=== PATIENT | female | born 1990 | race Caucasian/White ===

== ENCOUNTER 2025-01-17 14:54 | Inpatient (IN) | payer OTHER, SELFPAY ==
[2025-01-17] VITALS (41 sets, daily range): BP systolic 85–136; BP diastolic 41–84; PULSE 67–91; RESP 12–26; TEMP 36.5–36.8; O2SAT 79–100; BMI 36.4
--- NOTE | ~2025-01-17 | CT_ITS ---
CTA chest PE protocol Ordering provider: Kenneth Gómez MD History: 34 years Female with . Hx DVT, hypoxia 78% . Comparison: None. Technique: CT angiogram chest was performed following timed intravenous injection of contrast. Thin s lice axial images and reformatted coronal images were obtained. Three dimensional reformatted images of the chest were also obtained using a [employer] workstation. . Automated exposure control and iterati ve reconstruction technique were employed. The dose-length product was 405.33 mGy-cm. 100 mL Omnipaqu e 350 was given IV. Findings: PULMONARY ARTERIES: No pulmonary embolus. VISUALIZED THORACIC INLET: Normal. MEDIASTINUM: Aorta/coronary arteries: The thoracic aorta is normal. Heart/other: The heart is not enlarged. Lymph nodes: No mediastinal or hilar adenopathy. LUNGS: Consolidation seen in the lower lobes more on the left side suggestive of pneumonia. No pulmonary nod ules or masses. No effusions. No pneumothorax. VISUALIZED UPPER ABDOMEN: Contracted gallbladder. Otherwise, the visualized upper abdomen is normal. MUSCULOSKELETAL: Soft tissues: The superficial soft tissues are normal. Bones: Normal spine. IMPRESSION: 1. No pulmonary embolism. 2. Bilateral basal pneumonia. Reviewed, dictated and finalized at location A.
--- NOTE | ~2025-01-17 | XR_ITS ---
XR chest 1V portable Ordering provider: Kenneth Gómez MD History: 34 years Female with . hypoxia . Comparison: September 29, 2012 FINDINGS: MEDIASTINUM: The cardiac silhouette is slightly enlarged. Slightly congestive regis. LUNGS: No effusions or pneumothorax. Prominent markings in with interstitial thickening is seen bilat erally which may indicate pneumonitis versus pulmonary edema. OTHER: No free air under the phragm. Degenerative changes of the spine. IMPRESSION: Bilateral interstitial thickening suggestive of pneumonitis versus pulmonary edema. Clinical correlat ion and follow-up advised. Reviewed, dictated and finalized at location A. IMPRESSION: Bilateral interstitial thickening suggestive of pneumonitis versus pulmonary ed lin. Clinical correlation and follow-up advised.
--- NOTE | ~2025-01-17 | XR_ITS ---
XR chest 1V portable 01/22/2025 13:54 Indication: Respiratory failure Procedure: AP portable chest Comparison: Comparison to multiple prior studies sequentially, with oldest reviewed study dated 05/2012. Findings: Bibasilar infiltrates have improved since prior examination. No significant effusion or pne umothorax. No acute osseous abnormality. Impression: 1: Improved bandlike opacities of the lung bases which may represent atelectasis and/or pneumonia. Reviewed, dictated and finalized at location A. Impression: 1: Improved bandlike opacities of the lung bases which may represent atelectasi s and/or pneumonia.
--- NOTE | ~2025-01-17 | XR_ITS ---
Portable chest x-ray Comparison: 01/17/2025 Clinical History: Pneumonia Findings: There is patchy bibasilar airspace disease. No pleural effusions. Cardiomediastinal silho uette is stable. Bones and soft tissues are unremarkable. Impression: Patchy bibasilar airspace disease could reflect atelectasis/edema versus possibly pneumonia. Correlat e clinically. Reviewed, dictated and finalized at location . Impression: Patchy bibasilar airspace disease could reflect atelectasis/edema versus possib ly pneumonia. Correlate clinically.
--- OUTSIDE RECORDS SUMMARY | 2025-01-17 14:56 | XMS_ITS | Referral Summary ---
[facility] Address [address] [place] [address] Care Team Providers Care Dehorner Name Role Phone Mere Marcus MD Unavailable [phone] Moris Gipson DO Primary Care Provider + Encounters Date Type Department Care Team Description 12/30/[address] [facility] Obstetrical Gynecology [address] [place] [address] [address] [place] [address] Harriet Parker CNM 11/05/2024 Telephone [facility] Obstetrical Gynecology [address] [place] [address] [address] [place] [address] Tami Hood CNM from Last 3 Months Allergies No known active allergies Medications escitalopram (LEXAPRO) 20 mg tablet Take 1 tablet (20 mg total) by mouth daily 2 Active buprenorphine-nal oxone (SUBOXONE) 8-2 mg per film 2 Active diazePAM (VALIUM) 5 mg tablet 2 Active docusate sodium (COLACE) 100 mg capsule 2 Active naloxone (NARCAN) 4 mg/actuation spray,non-aerosol CALL 911. SPR CONTENTS OF ONE SPRAYER (0.1ML) INTO ONE NOSTRIL. REPEAT IN 2-3 MIN IF SYMPTOMS OF OPIOID EMERGENCY PERSIST, ALTERNATE NOSTRILS 2 Active QUEtiapine (SEROquel) 100 mg tablet Take 1 tablet (100 mg total) by mouth nightly at bedtime 2 Active albuterol HFA (PROVENTIL HFA,VENTOLIN HFA,PROAIR HFA) 90 mcg/actuation inhaler 4 Active Symbicort 80-4.5 mcg/actuation inhaler 4 Active tiZANidine (ZANAFLEX) 2 mg tablet 4 Active mirtazapine (REMERON) 45 mg tablet 4 Active prazosin (MINIPRESS) 2 mg capsule 4 Active QUEtiapine (SEROquel) 200 mg tablet 4 Active QUEtiapine (SEROquel) 25 mg tablet 4 Active QUEtiapine (SEROquel) 300 mg tablet 4 Active norethindrone (MICRONOR) 0.35 mg tabletIndications : Contraception Take 1 tablet (0.35 mg total) by mouth daily 84 tablet 3 4 06/26/20 25 Active metroNIDAZOLE (FLAGYL) 500 mg tablet Take 1 tablet (500 mg total) by mouth 2 (two) times a day for 7 days 14 tablet 5 01/07/20 25 Active Problems Problem Noted Date Diagnosed Date Benzodiazepine withdrawal with complication 02/20 Seizure 03/04/2022 Illicit drug use 03/04/2022 Transaminitis 03/04/2022 Hepatitis C test positive Immunizations Immunization Administration Dates Next Due HPV9 11/03/2022,06/16/2022 Social History Tobacco Use Types Packs/Day Years Used Date Smoking Tobacco: Every Day Cigarettes Smokeless Tobacco: Never Comments No Sex and Gender Information Value Date Recorded Sex Assigned at Not on file Legal Sex Female 9:13 PM [employer] Gender Identity Female 06/18/2022 11:28 AM CDT Sexual Orientation Straight 06/18/2022 11 :28 AM CDT Last Filed Vital Signs Vital Sign Reading Time Taken Comments Blood Pressure 118/80 11/03/2022 2:45 PM [employer] Pulse 97 03/11/2022 8:20 AM CDT Temperature 36.9 C (98.4 F) 03/11/2022 4:51 AM CDT Respiratory Rate 16 03/11/2022 4:51 AM CDT Oxygen Saturation 95% 03/11/2022 4:51 AM CDT Inhaled Oxygen Concentration - - Weight 89 kg (196 lb 3.2 oz) 02/12/2024 11:47 AM CDT Height 157.5 cm (5' 2 ) 02/12/2024 11:47 AM CDT Body Mass Index 35.89 02/12/2024 11:47 AM CDT Plan of Treatment Not on file Procedures Procedure Name Priority Date/Time Associated Diagnosis Comments HIGH RISK HPV DNA DETECTION WITH GENOTYPING Routine 02/12/2024 1:55 PM CDT Encounter for annual routine gynecological examination Abnormal menstrual periods Screen for STD (sexually transmitted disease) HEPATITIS C RNA, QUANTITATIVE, PCR Routine 03/08/2022 1:08 PM CDT from Last 3 Months or Most Recently Relevant to Health Maintenance Results * High Risk HPV DNA Detection with Genotyping (Molecular component) (02/12/2024 1:55 PM CDT) HPV HR 16 Not Detected Not Detected [facility] Comment:Testing performed by : [facility], [address] [place]., [address] HPV HR 18 Not Detected Not Detected [facility] Comment:Testing performed by : [facility], [address] [place]., [address] HPV HR Non 16/18 Not Detected Not Detected [facility] Comment: Interpretive Data Nucleic acid amplification for detection of high-risk Human Papilloma virus (HPV) is performed by the [employer] Tony 6800 HPV test. This assay specifically detects HPV-16 and HPV-18 genotypes. The following HPV genotypes are detected as high-risk HPV: HPV-31, 33, 35, ,39, 45, 51, 52, 56, 58, 59, 66, and 68. This assay has been approved by the [place] Food and Drug Administration for detection of HPV in cervical specimens collected by a physician using an endocervical brush/spatula or cervical broom and placed in the ThinPrep Pap Test PreservCyt collection containers. The performance characteristics of this test have been verified by the [facility] Molecular Infectious Disease laboratory. Correlate with separately reported cytology results, as applicable. Interpretive data last revised 23 Testing performed by: [facility], [address] [place]., [address] Endocervical 02/12/2024 1:55 PM CDT 02/13/2024 10:27 AM CDT Narrative [facility] - 02/14/2024 2:06 AM CDT Clinical history and diagnosis->06/16/22 wnl hpv-neg Number of vials->1 Testing type->Screening Last menstrual period (date if known)->amenorrhea Tami Hood CNM LAB BODY FLUIDS AND STOOLS ORDERABLES Final Result [facility] [id number] [facility] [place] [address] [facility] * (ABNORMAL) Hepatitis C (HCV) RNA PCR, quantitative (03/08/2022 1:08 PM CDT) [facility] HCV RNA result Detected( A) [facility] Comment: The quantifiable range of this assay is 15 IU/mL to 100,000,000 IU/mL (1.18 log IU/mL to 8.00 log IU/mL). Testing was performed by the TONY 6800 HCV Test ([employer] Testing performed at [facility] Current Interpretive Data was last revised on 2021 Testing performed by: [facility], [address] [place]., [address] HCV RNA IU/mL 113,000 IUnits/mL [facility] Comment:Testing performed by : [facility], [address] [place]., [address] HCV RNA log IU/mL 5.05 log IUnits/mL [facility] Comment:Testing performed by : [facility], [address] [place]., [address] Blood 03/08/2022 1:08 PM CDT 03/08/2022 4:53 PM CDT Kodi Morales MD LAB MICROBIOLOGY - GENERAL ORDERABLES Final Result [facility] [address] [facility] [place] [address] from Last 3 Months or Most Recently Relevant to Health Maintenance Insurance [facility] Advance Directives For more information, please contact: [phone] * Full Code (Latest Code Status on File) Date Activated Date Inactivated Comments 03/04/2022 5:12 PM 03/11/2022 3:10 PM Care Teams Dehorner Relationship Specialty Start Date End Date Moris Gipson DO [address] [place] [id number] PCP - General Family Medicine 02/24/23 Mere Marcus MD [address] [place] [address] Consulting Physician Gastroenterology 03/10/22
--- OUTSIDE RECORDS SUMMARY | 2025-01-17 14:56 | XMS_ITS | Clinical Summary ---
Author Organization [facility] Address [address] [place] [id number] Care Team Providers Care Field Worker Name Role Phone Unavailable Primary Care Provider Unavailabl e Social History Tobacco Use Types Packs/Day Years Used Date Smoking Tobacco: Never Assessed Comments Unknown Sex and Gender Information Value Date Recorded Sex Assigned at Not on file Legal Sex Female 8:04 PM CDT Gender Identity Not on file Sexual Orientation Not on file Plan of Treatment Health Maintenance Due Date Last Done Comments Cervical Cancer Screening Pa p Smear (Age 30 to 64) Every 3 Years 1990 Annual Physical 1993 DTaP, Tdap and Td Vaccines ( 1 - Tdap) 2009 Hepatitis B Vaccines (1 of 3 - 19+ 3-dose series) 2009 Cervical Cancer Screening Pa p with HPV Testing (Age 30 to 64) Every 5 Years 2020 Cervical Cancer Screening with HPV 2020 COVID-19 Vaccine (2023-2 5 season) 2024 Influenza Adult (#1) 2024 Hepatitis C Completed 03/08/2022 HPV Vaccines Aged Out No longer eligi ble based on patient's age to complete this topic Meningococcal B Vaccine Aged Out No l onger eligible based on patient's age to complete this topic Meningococcal Vaccine Aged Out No radha rona eligible based on patient's age to complete this topic Pneumococcal Vaccine: Pediat rics (0 to 5 Years) and At-Risk Patients (6 to 64 Years) Aged Out No longer eligi ble based on patient's age to complete this topic RSV Immunizations Under 20 Months Aged Out No longer eligible based on patient's age to complete this topic
--- OUTSIDE RECORDS SUMMARY | 2025-01-17 14:56 | XMS_ITS ---
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 things, such as reading the newspaper or watching television N ot at all M oving or speaking so slowly that other people could have noticed; or the opposite, being so fidgety or restless that you have been moving around a lot more than usual N ot at all T houghts that you would be better off or of hurting yourself in some way N ot at all T otal Score 7 I nterpretation M ild Depression Intervention D epression Screening Findings P ositive F ollow-Up for Depression N o Referral necessary, patient involved in behavioral health treatment . S creening: Franklin Suicide Severity Rating Scale (LF) D o you want to initiate with S creener form I nterpretation: L ow Risk 6 . Suicide Behavior Question: Have you ever done anything,started to do anything, or prepared to end your life? N o 2 . Suicidal Thoughts: Have you actually had any thoughts of killing yourself? N o 1 . Wish to be : Have you wished you were or wished you could go to sleep and not wake up? N o C SSRS Interpretation and Follow Up Plan: CSSRS Interpretation and Follow Up Plan C SSRS Screen documented using SF Y es R isk Disposition from SF L ow - No Follow Up Plan Required * ROS: P sych ROS: Constitutional A ll systems negative unless indicated otherwise.. P sych D enies AH/VH and delusions, Denies SI/HI. * PSYCH ROS2: mood swings D enies mood lability. I nattention D enies attention deficits. C ompulsive behavior D enies compusive/impulsive behaviors. D epression here and there . M gonzales E ndorses symptoms of tan,Admits irritability. A ppetite a t baseline, no acute changes - gastroparesis, managed by medical provider.?Concentration D enies concentration deficits. S ubstance use D enies - history of illicit substance use, see HPI - has been without illicit substances since approximately .?Panic attacks D enies. A nxiety/Worry E ndorses. I rritability E ndorses. S elf-Harm D enies. S leep S till having intermittent nightmares despite increase in prazosin, although endorses noticeable improvement in nightmares since starting therapy. D epression/Sadness here and there . Shakeel Nair [facility] for details. * Medical History: * Surgical History: r ight elbow-pins placed and removed * Hospitalization/Major Diagno stic Procedure: s eizures 02/2022 * Family History: F ather: , prostate cancer. M other: , healthy. 2 brother(s) - healthy. 2 son(s) , 1 daughter(s) - healthy. . Father-, prostate cancer Mother-Depression, Anxiety Brother-Depression, Anxiety Maternal Aunt-Bipolar Disorder, Anxiety, Depression. * Social History: P rimary Social History: L iving Arrangement L iving Arrangement: I ndependent Living I s this a supportive environment? Y es Alcohol Use A lcohol Use Frequency: N ever Illicit Substance Usage I llicit Substance Usage: Y es has been clean and on suboxone for 117 days reported 06/24/22 S ubstance Used: P rescription Drugs F requency prescription drugs are abused: p atient states her drug of choice was fentanyl and valium.Would take 4-5 caps of fentanyl every couple hours daily. I nterested in quitting: Y es Employment Status E mployment Status: O n Disability T obacco Use: T obacco Control (Standard) T obacco use: C urrent smoker * Medications: T akingAmitiza 24 MCG Capsule 1 capsule with food and water Orally Twice a day Budesonide-Formoterol Fumarate 80-4.5 MCG/ACT Aerosol 2 puffs Inhalation EVERY 12 HOURS Ventolin HFA 108 (90 Base) MCG/ACT Aerosol Solution 2 puffs as needed for shortness of breath Inhalation every 4 hrs Buprenorphine HCl-Naloxone HCl 8-2 MG Film 1 film under the tongue and allow to dissolve Sublingual three times a day Metoclopramide HCl 10 MG Tablet 1 tablet Orally three times a day As needed prior to mealsSenna 8.6 MG Tablet 2 tablets at bedtime as needed Orally Once a day diazePAM 5 MG Tablet 1 tablet as needed Orally three times a day Famotidine 40 MG Tablet 1 tablet Orally twice daily Colace 100 MG Capsule three at bedtime as needed for constipation Orally Once a day Escitalopram Oxalate 20 mg Tablet TAKE 1 TABLET BY MOUTH DAILY , Notes to Pharmacist: Pt would like meds mailed to her please.QUEtiapine Fumarate 300 MG Tablet 1.5 tablet at bedtime Orally Once a day , Notes to Pharmacist: Pt would like meds mailed to her please.Mirtazapine 45 MG Tablet TAKE 1 TABLET BY MOUTH AT BEDTIME , Notes to Pharmacist: Pt would like meds mailed to her please.Prazosin HCl 2 MG Capsule 1 capsule once daily in the morning Orally Prazosin HCl 5 MG Capsule 2 capsule at bedtime Orally Once a day DULoxetine HCl 40 MG Capsule Delayed Release Particles 1 capsule Orally Once a day , Notes to Pharmacist: Patient would like meds mailed to her.QUEtiapine Fumarate ER 50 MG Tablet Extended Release 24 Hour 2 tablets Orally once daily , Notes to Pharmacist: Patient would like meds mailed to her.tiZANidine HCl 2 MG Tablet 1 tablet as needed Orally FOUR times a day Taking Amitiza 24 MCG Capsule 1 capsule with food and water Orally Twice a day Taking Budesonide-Formoterol Fumarate 80-4.5 MCG/ACT Aerosol 2 puffs Inhalation EVERY 12 HOURS Taking Ventolin HFA 108 (90 Base) MCG/ACT Aerosol Solution 2 puffs as needed for shortness of breath Inhalation every 4 hrs Taking Buprenorphine HCl-Naloxone HCl 8-2 MG Film 1 film under the tongue and allow to dissolve Sublingual three times a day Taking Metoclopramide HCl 10 MG Tablet 1 tablet Orally three times a day As needed prior to mealsTaking Senna 8.6 MG Tablet 2 tablets at bedtime as needed Orally Once a day Taking diazePAM 5 MG Tablet 1 tablet as needed Orally three times a day Taking Famotidine 40 MG Tablet 1 tablet Orally twice daily Taking Colace 100 MG Capsule three at bedtime as needed for constipation Orally Once a day Taking Escitalopram Oxalate 20 mg Tablet TAKE 1 TABLET BY MOUTH DAILY , Notes to Pharmacist: Pt would like meds mailed to her please.Taking QUEtiapine Fumarate 300 MG Tablet 1.5 tablet at bedtime Orally Once a day , Notes to Pharmacist: Pt would like meds mailed to her please.Taking Mirtazapine 45 MG Tablet TAKE 1 TABLET BY MOUTH AT BEDTIME , Notes to Pharmacist: Pt would like meds mailed to her please.Taking Prazosin HCl 2 MG Capsule 1 capsule once daily in the morning Orally Taking Prazosin HCl 5 MG Capsule 2 capsule at bedtime Orally Once a day Taking DULoxetine HCl 40 MG Capsule Delayed Release Particles 1 capsule Orally Once a day , Notes to Pharmacist: Patient would like meds mailed to her.Taking QUEtiapine Fumarate ER 50 MG Tablet Extended Release 24 Hour 2 tablets Orally once daily , Notes to Pharmacist: Patient would like meds mailed to her.Taking tiZANidine HCl 2 MG Tablet 1 tablet as needed Orally FOUR times a day Not-TakingOmeprazole 40 MG Capsule Delayed Release 1 capsule 30 minutes before morning meal Orally once daily GoodSense Nicotine 4 MG Gum 1 piece chew for 30 minutes as needed for smoking cessation up to 16 pieces per day Mouth/Throat every hour Movantik 25 mg Tablet TAKE 1 TABLET BY MOUTH EVERY MORNING Bentyl 10 MG/ML Solution 1 mL Intramuscular Four times a day Medication List reviewed and reconciled with the patientNot-Taking Omeprazole 40 MG Capsule Delayed Release 1 capsule 30 minutes before morning meal Orally once daily Not-Taking GoodSense Nicotine 4 MG Gum 1 piece chew for 30 minutes as needed for smoking cessation up to 16 pieces per day Mouth/Throat every hour Not-Taking Movantik 25 mg Tablet TAKE 1 TABLET BY MOUTH EVERY MORNING Not-Taking Bentyl 10 MG/ML Solution 1 mL Intramuscular Four times a day Medication List reviewed and reconciled with the patient Objective: * Vitals: I nitials: CJP, Wt:200, Ht: 63, BMI:35.42, LMP: N/A, Pain scale:6. * Examination: G eneral Examination: GENERAL APPEARANCE: U nable to perform physical examination - patient verbalizes no concerns aside from chronic medical conditions d uring telephone communication. M ental Status Exam: SENSORIUM AND COGNITION A lert, Oriented to Person, Oriented to Place, Oriented to Time, Oriented to Situation. ATTENTION AND CONCENTRATION N o deficits. APPEARANCE U nable to assess due to telephone visit. ATTITUDE AND BEHAVIOR C ooperative. MEMORY G rossly intact. EYE CONTACT U nable to assess due to telephone visit. AFFECT U nable to assess due to telephone visit - inferred to be normal/full to mildly anxious/dysthymic based on conversation. MOOD i nferred to be normal/full to mildly anxious/dysthymic based on conversation. SPEECH QUANTITY A ppropriate. SPEECH QUALITY S pontaneous, Appropriate volume. THOUGHT PROCESS C oherent and goal directed. THOUGHT CONTENT A ppropriate - WNL. LANGUAGE A ppropriate- WNL. MOTOR ACTIVITY U nable to assess due to telephone visit - patient denies. SUICIDAL IDEATION D enies suicidal ideation. HOMICIDAL IDEATION D enies homicidal ideation. HALLUCINATIONS D enies hallucinations. INSIGHT F air. JUDGMENT G ood. Assessment: * Assessment: 1. M ood disorder - F39 (Primary) N otes :r/o bipolar 1, BPD 2 . P TSD (post-traumatic stress disorder) - F43.10 3 . N ightmares - F51.5 4 . O pioid use disorder - F11.99 5 . N icotine dependence, unspecified, uncomplicated - F17.200 6 . N utritional counseling - Z71.3 Plan: * Treatment: 2. P TSD (post-traumatic stress disorder) Increase Prazosin HCl Capsule, 2 MG, 1 capsule in the morning and 1 capsule in the evening/at bedtime WITH prazosin 10mg for TOTAL 12mg at bedtime, Orally, 30 days, 60, Refills 1; I ncrease Prazosin HCl Capsule, 5 MG, 2 capsule at bedtime - take with 2mg capsule for TOTAL 12mg at bedtime, Orally, Once a day, 30 days, 60 Capsule, Refills 1. Notes: See assessment and plan for mood disorder 3. N ightmares Notes: See assessment and plan for mood disorder/PTSD 4. O pioid use disorder Notes: Duration (acute/chronic), stability (controlled/uncontrolled): Previous problem, has been without illicit substances since about - follows up with MAT Current medications/efficacy: Yes Previous medication trials: Suboxone Current/previous therapies: Upcoming counseling with daughter. Also did intake a few weeks ago for therapy - hasn't called to schedule apppointment, planning to call later this week Examination as documented - see pertinent aspects of office visit documentation. Pertinent diagnostics: NOT DISCUSSED DUE TO TIME CONSTRAINTS - WILL DISCUSS AT FUTURE APPOINTMENT Differential diagnoses: RECOMMENDATIONS: Consider/Continue therapy. Continue substance cessation therapy as needed/prescribed by MAT Manage co-morbid conditions. Continue monitoring symptoms - report persistent or worsening/concerning symptoms to the office or go to the ER. For mental health CRISIS, please reach out to [phone] (National Suicide and Crisis Lifeline), 911, go to the emergency department, or contact the [facility] Crisis Unit/Team. Follow up as scheduled or sooner if necessary. Follow up with PCP and/or other specialists as advised. 5. N icotine dependence, unspecified, uncomplicated Notes: Duration (acute/chronic), stability (controlled/uncontrolled): Unknown duration or severity, not discussed today due to time constraints, will discuss at future visit Current medications/efficacy: N/A Previous medication trials: N/A RECOMMENDATIONS: Consider substance cessation therapy as needed - contact office if desiring medication assisted therapy. Manage co-morbid conditions. Continue monitoring symptoms - report persistent or worsening/concerning symptoms to the office or go to the ER. For mental health CRISIS, please reach out to 988 ([place] Suicide and Crisis Lifeline), 911, go to the emergency department, or contact the [facility] Crisis Unit/Team. Follow up as scheduled or sooner if necessary. Follow up with PCP and/or other specialists as advised. NEXT STEP: Consider MAT as needed. * Procedure Codes: 3 008F BODY MASS INDEX [id number] MEDICAL NUTRITION, INDIV, [id number] BEHAV CHNG SMOKING 3-10 MIN * Preventive Medicine: Counseling: C are goal follow-up plan: BMI management provided Y es Above Normal BMI Follow-up L ifestyle education regarding diet S MOKING: Patient counselled on the dangers of tobacco use and urged to quit. . * Follow Up: 4 Weeks OR SOONER IF NECESSARY - TELEPHONE (Reason: 4 week psych follow up/med refill) * * Sign off status: Completed true * Provider: Shakeel Cavanaugh APN Date: 0 01/01/2025 Generated for Elza everett/Martha/Alicia on: 0 01/17/2025 02:56 PM CDT History and Physical Notes * HPI (History of Present Illness) Category Sub-Category Detail Notes Category Not es Depression Screening PHQ-9 Little inte rest or pleasure in doing things: Several days Feeling down, depressed, or hopeless: Se veral days Trouble falling or staying asleep, or sl eeping too much: Not at all Feeling tired or having little energy: M ore than half the days Poor appetite or overeating: More than h detention the days Feeling bad about yourself o r that you are a failure, or have let yourself or your family down: Several days Trouble concentrating on thi ngs, such as reading the newspaper or watching television: Not at all Moving or speaking so slowly that other people could have noticed; or the opposite, being so fidgety or restless that you have been moving around a lot more than usual: Not at all Thoughts that you would be b ayush off or of hurting yourself in some way: Not at all Total Score: 7 Interpretation: Mild Depression Intervention Depression Screening Findings: P ositive Follow-Up for Depression: No Referral necessary, patient involved in behavioral health treatment . GERALDO-7 Screening 1. Feeling nervous, anxious, or on edg e , Several days-1 2. Not being able to stop or control wor rying , Several days-1 3. Worrying too much about different thi ngs , Several days-1 4. Trouble sleeping/relaxing , Not at al l-0 5. Being so restless that it is hard to sit still , Not at all-0 6. Becoming easily annoyed or irritable , Several days-1 7. Feeling afraid, as if something awful might happen , Several days-1 GERALDO-7 Score Total score: 5 : Screening [place] Suicide Sev erity Rating Scale (LF) Do you want to initiate with: Screener form Interpretation:: Low Risk 6. Suicide Behavior Question: Have you ever done anything,started to do anything, or prepared to end your life?: No 2. Suicidal Thoughts: Have you actually had any thoughts of killing yourself?: No 1. Wish to be : Have you wished you were or wished you could go to sleep and not wake up?: No CSSRS Interpretation and Follow Up Plan CSSRS Interpretation and Follow Up Plan CSSRS Screen documented using SF: Yes Risk Disposition from SF: Low - No Follo w Up Plan Required Examination Category Sub-Category Detail Notes Category Not es General Examination GENERAL APPEARANCE: Unable t o perform physical examination - patient verbalizes no concerns aside from chronic medical conditions during telephone communication Mental Status Exam SENSORIUM AND COGNITION Alert, Oriented to Person, Oriented to Place, Oriented to Time, Oriented to Situation ATTENTION AND CONCENTRATION No deficits APPEARANCE Unable to assess due to telephone visit ATTITUDE AND BEHAVIOR Cooperative MEMORY Grossly intact EYE CONTACT Unable to assess due to telephone visit AFFECT Unable to assess due to telephone visit - inferred to be normal/full to mildly anxious/dysthymic based on conversation MOOD inferred to be van l/full to mildly anxious/dysthymic based on conversation SPEECH QUANTITY Appropriate SPEECH QUALITY Spontaneous, Appropr iate volume THOUGHT PROCESS Coherent and goal di rected THOUGHT CONTENT Appropriate - WNL MOTOR ACTIVITY Unable to assess due to telephone visit - patient denies SUICIDAL IDEATION Denies suicidal idea tion HOMICIDAL IDEATION Denies homicidal marlo ation HALLUCINATIONS Denies hallucination s INSIGHT Fair JUDGMENT Good LANGUAGE Appropriate- WNL
--- OUTSIDE RECORDS SUMMARY | 2025-01-17 14:56 | XMS_ITS | Continuity of Care Document ---
Author Organization [facility] Address [address] [place] [address] [place] [address] Phone Care Team Providers Care Pass Worker Name Role Phone Sean Rivera MD Unavailable Unavailable Allergies, Adverse Reactions, Alerts Substance Reaction Status Criticality No Known Allergies Active No Inform ation Medications Medication Instructions Dosage Effective Dates (start - stop) Status Comments trazodone 50 mg tablet take 1 tablet by oral route every bedtime - Active Xanax 2 mg tablet take 1 tablet by oral route every day as needed 2 MG - Active PRN for anxiety, avoid driving or operate machines Neurontin 300 mg capsule take 1 capsule by oral route 3 times every day 300 MG - Active avoid driving or operate machines buspirone 7.5 mg tablet take 1 tablet by oral route 2 times every day 7.5 MG - Active avoid driving or operate machines Celexa 40 mg tablet take 1 tablet by oral route every day 40 MG - Active Procedures Procedure Date PREV VISIT, NEW, AGE 18-39 Advance Directives Directive Yes / No Effective Date File Name No Information Encounters Encounter Description Practice Location Reason(s) For Visit Diagnoses Date Provider Providers Copied on Encounter [facility], [address] [place], [id number], [place] tel:[phone] [facility] No Information Miguel Estrada. [address], [facility] [place], [id number], [place]. tel:[phone] Referring Provider: Sean Rivera, [address] [facility] [address], [place], [place], [id number]. tel:[phone] PREV VISIT, NEW, AGE 18-39 [facility], [address], [place], [place], [id number], tel:[phone] [facility] PHysical (chief complaint) Encntr for general adult medical exam w/o abnormal findings Miguel Estrada. [address], [place], [place], [id number], [place]. tel:[phone] Referring Provider: Sean Rivera, [address], [place], [place], [id number]. tel:[phone] Family History Family Member Type Diagnosis Age At Onset Brother Problem (finding) Depression Father Problem (finding) prostate [place] 55 Mother Problem (finding) Depression Payers Payer name Insurance type Covered alliance party ID Authoriza tion(s) No Information Social History Type Description Quantity Date Captured Comments Alcohol Use Details Unknown Caffeine Use Details Unknown Tobacco Use Status Smoking Status No Information Sex Female Chief Complaint And Reason For Visit No Information Plan Of Treatment Date Type Action Status No Information History Of Present Illness Encounter Date Complaint History Of Prese nt Illness PHysical Pt needs annual physical. Pt states that she has seizure since 5 years ago. Pt states that she has grand mal seizure. Last seizure was 2 years ago. Pt had MRi and brain and EEG in the past which were all negative per patient. Pt is on neurontin, xanax and celexa and buspar and trazodone for chronic anxiety and depression and insomnia and is currently working ok. Pt denies any suicidal or homicidal thought. Pt denies any cyirng spells. Pt states that trazodone sometimes gives her nightmares. Pt is seeing psychiatrist but she no longer wants to continue to see him. Pt states that her psychiatrist does not listen to her concerns and brushs off her issue all the time. Pt told her psychiatrist about trazodone causing nightmares but psychiatrist did not do anything for her. Pt denies any other complaints Instructions Date Instruction Additional Rebecca oakes Quit smoking. Related to Encnt r for general adult medical exam w/o abnormal findings Quit smoking. Related to Encnt r for general adult medical exam w/o abnormal findings Assessments Type Assessment Date No Information
--- OUTSIDE RECORDS SUMMARY | 2025-01-17 14:56 | XMS_ITS ---
Author Organization [facility] Address [address] [place] [address] Care Team Providers Care Script Artist Name Role Phone Cecil Gipson Primary Care Provider Serjio Cavanaugh Unavailable [phone] REASON FOR VISIT refills Medications Medication SIG (Take, Route, Frequency, Duration) Notes Start Date End Date Status diazePAM 5 MG 1 tablet as needed O rally three times a day for 7 days 01/10/2025 Active Social History Sex Assigned At : Social History Observation Description Sex Assigned At Female Encounters Encounter Location Date Provider Diagnosis [address] [address] 01/10/2025 Cecil Gipson Benzodiazepine dependence F13.20 Assessments Encounter Date Diagnosis (ICD Code) Assessment Notes Treatment Notes Treatment Clinical Notes Section Notes 01/10/2025 Benzodiazepine dependence (ICD-10 - F13.20) Plan Of Treatment Medication Medication Name Sig Start Date Stop Date Notes diazePAM 5 MG 1 tablet as needed O rally three times a day for 7 days 01/10/2025 Progress Notes * Annie HERNANDEZOB: 1 (34 yo F)Acc No.[id number]:01/10/2025 Patient: Birgit KERR :1990 A ge:34 Y S ex:Female Address:[address] [place] [address] [address] , [place], [address] * Refills Refill diazePAM Tablet, 5 MG, Orally, 21 Tablet, 1 tablet as needed, three times a day, 7 days, Refills=0 * true * Date: Generated for Elza everett/Martha/Alicia on: 0 01/17/2025 02:56 PM CDT
--- OUTSIDE RECORDS SUMMARY | 2025-01-17 14:56 | XMS_ITS | Clinical Summary ---
Author Organization [facility] Address [address] [place] [address] Care Team Providers Care Paleobotanist Name Role Phone Mere Marcus MD Unavailable [phone] Moris Gipson DO Primary Care Provider + Allergies No known active allergies Medications escitalopram [...] for 7 days 14 tablet 5 01/07/20 Active Problems Problem Noted Date Diagnosed Date Benzodiazepine withdrawal with complication 02/20 Seizure 03/04/2022 Illicit drug use 03/04/2022 Transaminitis 03/04/2022 Hepatitis C test positive Encounters Date Type Department Care Team Description 12/30/2024 Orders Only [facility] Medical [facility] Obstetrical Gynecology [address] [place] [address] [place] [phone] Harriet Parker CNM 11/05/2024 Telephone [facility] Obstetrical Gynecology [address] [place] [address] [place] [phone] Tami Hood CNM from Last 3 Months Immunizations Immunization Administration Dates Next Due HPV9 11/03/2022,06/16/2022 Medical History Medical History Date Comments Illicit drug use IV drug user Family History Medical History Relation Name Comments Breast cancer Neg Hx Social History Tobacco Use Types Packs/Day Years Used Date Smoking Tobacco: Every Day Cigarettes Smokeless Tobacco: Never Comments No Sex and Gender Information Value Date Recorded Sex Assigned at Not on file Legal Sex 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 ) Pulse 97 03/11/2022 8:20 AM CDT Temperature [...] 02/12/2024 11:47 AM CDT Plan of Treatment Health Maintenance Due Date Last Done Comments Depression Screening 1990 DTaP/Tdap/Td Vaccine (6 - Tdap) 2001 04/17/1996, 02/18/1992, 05/15/1991, Additional history exists Varicella Vaccines (1 of 2 - 13+ 2-dose series) 2003 Pneumococcal vaccine <65 (1 of 2 - PCV) 2009 HPV Vaccines (3 - 3-dose SCD M series) 01/26/2023 11/03/2022, 06/16/2022 Influenza Vaccine (#1) 2024 Cervical Cancer Screening 02/11/2025 02/12/2024, Regular Well Visit/Exam 18-64 02/11/2025 02/12/2024, 06/16/2022 Hepatitis B Screening Completed 11/27/2000, 000 Hepatitis C Screening Completed 03/08/2022 , 03/07/2022, 03/04/2022 Procedures Procedure Name Priority Date/Time Associated Diagnosis [...] HPV HR 16 Not Detected Not Detected [facility] Comment:Testing performed by : [facility], [address] [place]., [address] HPV HR 18 Not Detected Not Detected [facility] Comment:Testing performed by : [facility], [address] [place]., [address] HPV HR Non 16/18 Not Detected Not [...] this test have been verified by the [facility] Molecular Infectious Disease laboratory. Correlate with separately reported cytology results, as applicable. Interpretive data last revised 23 Testing performed by: [facility], [address] [place]., [address] Endocervical 02/12/2024 1:55 PM CDT 02/13/2024 10:27 AM CDT Narrative [facility] 02/14/2024 2:06 AM CDT Clinical history and diagnosis->06/16/22 wnl hpv-neg Number of vials->1 Testing type->Screening Last menstrual period (date if known)->amenorrhea Tami Hood CNM LAB BODY FLUIDS AND STOOLS ORDERABLES Final Result [facility] [address] [facility] [place] [address] [facility] * (ABNORMAL) Hepatitis C (HCV) RNA PCR, quantitative (03/08/2022 1:08 PM CDT) [facility] HCV RNA result Detected( A) [facility] Comment: The quantifiable range of this assay is 15 IU/mL to 100,000,000 IU/mL (1.18 log IU/mL to 8.00 log IU/mL). Testing was performed by the [employer]ONY 6800 HCV Test ([employer] Testing performed at [facility] Current Interpretive Data was last revised on 2021 Testing performed by: [facility], [address] [facility], [address] HCV RNA IU/mL 113,000 IUnits/mL [facility] Comment:Testing performed by : [facility], [address] [facility], [address] HCV RNA log IU/mL 5.05 log IUnits/mL [facility] Comment:Testing performed by : [facility], [address] [facility], [address] Blood 03/08/2022 1:08 PM CDT 03/08/2022 4:53 PM CDT Kodi Morales MD LAB MICROBIOLOGY - GENERAL ORDERABLES Final Result [facility] [id number] [facility] Department [place] [address] from Last 3 Months or Most Recently Relevant to Health Maintenance Insurance [facility] Advance Directives For more information, please contact: [phone] * Full Code (Latest Code Status on File) Date Activated Date Inactivated Comments 03/04/2022 5:12 PM 03/11/2022 3:10 PM Care Teams Paleobotanist Relationship Specialty Start Date End Date Moris Gipson DO [address] [facility] [address] [place] [address] PCP - General Family Medicine 02/24/23 Mere Marcus MD [address] [facility] [address] [place] [address] Consulting Physician Gastroenterology 03/10/22
--- OUTSIDE RECORDS SUMMARY | 2025-01-17 14:56 | XMS_ITS | Clinical Summary ---
Author Organization [facility] Address [address] [facility] [address] 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
--- OUTSIDE RECORDS SUMMARY | 2025-01-17 14:56 | XMS_ITS | Encounter Summary ---
Author Organization [facility] Address [address] [place] [address] Care Team Providers Care Desktop Support Consultant Name Role Phone Unavailable Primary Care Provider Roberto Carlos e Encounter Details Date Type Department Care Team (Late st Contact Info) Description 12/08/2008 Outpatient Historical [facility], Authorized P NO ADDRESS ON FILE Joel Morrow MD NO ADDRESS ON FILE Unspecified Asthma, with Exacerbation; Encounter for Long-Term (Current) Use of Other Medications; Encounter for Long-Term (Current) Use of Steroids Social History Tobacco Use Types Packs/Day Years Used Date Smoking Tobacco: Never Assessed Comments Unknown Sex and Gender Information Value Date Recorded Sex Assigned at Not on file 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 Gender Identity Not on file Sexual Orientation Not on file documented as of this encounter Plan of Treatment Not on file documented as of this encounter Procedures Procedure Name Priority Date/Time Associated Diagnosis Comments XR CHEST PA AND LATERAL 2 VW Routine 12/08/2008 10:21 AM AGRICULTURAL CHEMICALS INSPECTOR documented in this encounter Results * XR CHEST PA AND LATERAL (12/08/2008 10:21 AM AGRICULTURAL CHEMICALS INSPECTOR) Anatomical Region Laterality Modality Chest Other 12/08/2008 10:2 1 AM AGRICULTURAL CHEMICALS INSPECTOR Narrative 12/08/2008 10:41 AM AGRICULTURAL CHEMICALS INSPECTOR [facility] [address] [place], [place] [address] Admit Date: 12/08/2008 ELYSIA HERNANDEZ Sex: F Admit Prov: ER, AUTHORIZED P Date: 1990 Primary Care Prov: CMRN: [id number] Room: ER-A SSN: [id number] IMAGING SERVICES Ordering Prov: N/A Accession Number: [id number] Interpretation CHEST PA AND LATERAL, 12/08/2008 Clinical History: Asthma, shortness of breath. The heart, mediastinum and hilar shadows appear normal. Lungs are completely clear and well expanded. Pleural space is clear. Bony structures appear intact. Impression: Normal chest. . Dictated by: BRYON FINE 12/08/2008 10:29 Electronically signed by: BRYON FINE 12/08/2008 10:40 Transcribed: 12/08/2008 10:34 SMM Procedure Note Bryon Fine MD - 12/08/2008 [facility] [address] [place], [place] [address] Admit Date: 12/08/2008 KUN HERNANDEZEMILEE Pappas Sex: F Admit Prov: JENNA JAMES Date: 1990 Primary Care Prov: CMRN: [id number] [facility] [id number] IMAGING SERVICES Ordering Prov: N/A Interpretation CHEST PA AND LATERAL, 12/08/2008 Clinical History: Asthma, shortness of breath. The heart, mediastinum and hilar shadows appear normal. Lungs are completely clear and well expanded. Pleural space is clear. Bonystructures appear intact. Impression: Normal chest. . Dictated by: BRYON FINE 12/08/2008 10:29 Electronically signed by: BRYON FINE 12/08/2008 10:40 Transcribed: 12/08/2008 10:34 SMM Joel Morrow MD DIAGNOSTIC IMAGING OR DERABLES Final Result documented in this encounter Visit Diagnoses Diagnosis Unspecified asthma, with exacerbation Encounter for long-term (current) use of other medications Encounter for long-term (current) use of steroids documented in this encounter
--- OUTSIDE RECORDS SUMMARY | 2025-01-17 14:56 | XMS_ITS ---
Author Organization [facility] Address [address] [place] [address] Care Team Providers Care Straight Truck Driver Name Role Phone Cecil Gipson Primary Care Provider Serjio Cavanaugh Unavailable [phone] Allergies No Known Allergies REASON FOR VISIT f/u Medications Medication SIG (Take, Route, Frequency, Duration) Notes Start Date End Date Status Omeprazole 40 MG 1 capsule 30 minutes before morning meal Orally once daily Not-Taking GoodSense Nicotine 4 MG 1 piece chew for 30 minutes as needed for smoking cessation up to 16 pieces per day Mouth/Throat every hour 10/04/2024 Not-Taking Movantik 25 mg TAKE 1 TABLET BY MOUTH EVERY MORNING for 30 days Not-Taking Bentyl 10 MG/ML 1 mL Intramuscular Four times a day Not-Taking diazePAM 5 MG 1 tablet as needed Orally three times a day for 7 days 01/10/2025 Active Famotidine 40 MG 1 tablet Orally twice daily Active Colace 100 MG three at bedtime as needed for constipation Orally Once a day Active tiZANidine HCl 2 MG 1 tablet as needed Orally FOUR times a day for 30 days Active Metoclopramide HCl 10 MG 1 tablet Orally three times a day for 30 days As needed prior to meals Active Senna 8.6 MG 2 tablets at bedtime as needed Orally Once a day for 30 days 07/04/2024 Active QUEtiapine Fumarate ER 50 MG 2 tablets Orally once daily for 30 days Patient would like meds mailed to her. Active Amitiza 24 MCG 1 capsule with food and water Orally Twice a day Active Budesonide-Formoterol Fumarate 80-4.5 MCG/ACT 2 puffs Inhalation EVERY 12 HOURS Active Ventolin HFA 108 (90 Base) MCG/ACT 2 puffs as needed for shortness of breath Inhalation every 4 hrs 11/30/2023 Active Buprenorphine HCl-Naloxone HCl 8-2 MG 1 film under the tongue and allow to dissolve Sublingual three times a day for 14 days 12/17/2024 Active Mirtazapine 45 MG TAKE 1 TABLET BY MOUTH AT BEDTIME for 30 days Pt would like meds mailed to her please. Active Prazosin HCl 2 MG 1 capsule in the morning and 1 capsule in the evening/at bedtime WITH prazosin 10mg for TOTAL 12mg at bedtime Orally for 30 days Active Prazosin HCl 5 MG 2 capsule at bedtime - take with 2mg capsule for TOTAL 12mg at bedtime Orally Once a day for 30 days Active DULoxetine HCl 60 MG 1 capsule Orally Once a day for 30 days Patient would like meds mailed to her. Active QUEtiapine Fumarate 300 MG 1.5 tablet at bedtime Orally Once a day for 30 days Pt would like meds mailed to her please. Active Escitalopram Oxalate 20 mg TAKE 1 TABLET BY MOUTH DAILY for 30 days Pt would like meds mailed to her please. Active Social History Tobacco Use: Social History Observation Description Date Details (start date - stop date) Current Smoker NA - NA Sex Assigned At : Social History Observation Description Sex Assigned At Female Tobacco Control (Standard) Question Answer Notes Tobacco use: Current smoker Vital Signs Weight 204 lbs 01/17/2025 Height 63 in 01/17/2025 BMI 36.13 kg/m2 01/17/2025 Blood pressure systolic 120 mm Hg 01/18/20 25 Blood pressure diastolic 86 mm Hg 025 Heart Rate 102 /min 01/17/2025 Oximetry 81 % 01/17/2025 Respiratory Rate 16 /min 01/17/2025 Encounters Encounter Location Date Provider Diagnosis [facility] [place] [address] 01/17/2025 Cecil Gipson Acute respiratory failure with hypoxia J96.01 ; Opioid use disorder F11.99 ; Benzodiazepine dependence F13.20 and Asthma J45.909 Assessments Encounter Date Diagnosis (ICD Code) Assessment Notes Treatment Notes Treatment Clinical Notes Section Notes 01/17/2025 Acute respiratory failure with hypoxia (ICD-10 - J96.01) AGREES TO GO TO CENTRAL ED FOR URGENT EVALUATION AND TREATMENT. SHE UNDERSTANDS THAT SHE RISKS SUDDEN SHOULD SHE AGAIN CHOOSE TO [facility] EVALUATION. 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 F/u. * HPI: I nterim History: DID NOT GET EVALUATED AT [facility] SHE PROMISED TWO WEEKS AGO. DID GET HER REFILLS OF SUBOXONE AND VALIUM. FEELS TIRED AND DIZZY. VERNON WITH ADLS. LEGS SWOLLEN AND TIGHT. GAINED 4 POUNDS IN 2 WEEKS. HAS SHARP RIGHT UPPER CHEST PAIN WITH BREATHING. NO FEVER OR CHILLS. STILL SMOKING. DENIED RECREATIONAL DRUG USE. Emergency room visit N o. Was hospitalized N o. D epression Screening: PHQ-9 L ittle interest or pleasure in doing things?Several days F eeling down, depressed, or hopeless S everal days T rouble falling or staying asleep, or sleeping too much M ore than half the days F eeling tired or having little energy [...] N ot at all T otal Score 9 I nterpretation M ild Depression Intervention D epression Screening Findings P ositive F ollow-Up for Depression N o Referral necessary, patient involved in behavioral health treatment . C SSRS Interpretation and Follow Up Plan: CSSRS Interpretation and Follow Up Plan C SSRS Screen documented using SF Y es R isk Disposition from SF L ow - No Follow Up Plan Required F ollow Up Plan N o Follow Up Plan required at this time. T imeframe of Screening T jordana S creening: Friona Suicide Severity Rating Scale (LF) D o you want to initiate with S creener form 1 . Wish to be : Have you wished you were or wished you could go to sleep and not wake up? N o 2 . Suicidal Thoughts: Have you actually had any thoughts of killing yourself? N o 6 . Suicide Behavior Question: Have you ever done anything,started to do anything, or prepared to end your life? N o I nterpretation: L ow Risk * ROS: B asic ROS: Weight gain A dmits. A dmits S hortness of breath.?Admits C hest pain. A dmits F luid Accumulation in the legs. * Medical History: O UD, IBS-Constipation, Diverticulitis. * Surgical History: r ight elbow-pins placed and removed . * Hospitalization/Major Diagno stic Procedure: s [place] 02/2022. * Family History: F ather: , prostate [...] (Standard) T obacco use: C urrent smoker M iscellaneous: M ethod of learning P referred method of learning: R eading,Discussion,Demonstration,Hearing,Other * Medications: T aking Escitalopram Oxalate 20 mg Tablet TAKE 1 TABLET BY MOUTH DAILY , Notes to Pharmacist: Pt would like meds mailed to her please., Taking QUEtiapine Fumarate 300 MG Tablet 1.5 tablet at bedtime Orally Once a day , Notes to Pharmacist: Pt would like meds mailed to her please., Taking Mirtazapine 45 MG Tablet TAKE 1 TABLET BY MOUTH AT BEDTIME , Notes to Pharmacist: Pt would like meds mailed to her please., Taking Prazosin HCl 2 MG Capsule 1 capsule in the morning and 1 capsule in the evening/at bedtime WITH prazosin 10mg for TOTAL 12mg at bedtime Orally , Taking Prazosin HCl 5 MG Capsule 2 capsule at bedtime - take with 2mg capsule for TOTAL 12mg at bedtime Orally Once a day , Taking DULoxetine HCl 60 MG Capsule Delayed Release Particles 1 capsule Orally Once a day , Notes to Pharmacist: Patient would like meds mailed to her., Taking QUEtiapine Fumarate ER 50 MG Tablet Extended Release 24 Hour 2 tablets Orally once daily , Notes to Pharmacist: Patient would like meds mailed to her., Taking Amitiza 24 MCG Capsule 1 capsule with food and water Orally Twice a day , Taking Budesonide-Formoterol Fumarate 80-4.5 MCG/ACT Aerosol 2 puffs Inhalation EVERY 12 HOURS , Taking Ventolin HFA 108 (90 Base) MCG/ACT Aerosol Solution 2 puffs as needed for shortness of breath Inhalation every 4 hrs , Taking Buprenorphine HCl-Naloxone HCl 8-2 MG Film 1 film under the tongue and allow to dissolve Sublingual three times a day , Taking Metoclopramide HCl 10 MG Tablet 1 tablet Orally three times a day As needed prior to meals, Taking Senna 8.6 MG Tablet 2 tablets at bedtime as needed Orally Once a day , Taking Famotidine 40 MG Tablet 1 tablet Orally twice daily , Taking Colace 100 MG Capsule three at bedtime as needed for constipation Orally Once a day , Taking tiZANidine HCl 2 MG Tablet 1 tablet as needed Orally FOUR times a day , Taking diazePAM 5 MG Tablet 1 tablet as needed Orally three times a day , Not-Taking Omeprazole 40 MG Capsule Delayed Release 1 capsule 30 minutes before morning meal Orally once daily , Not-Taking GoodSense Nicotine 4 MG Gum 1 piece chew for 30 minutes as needed for smoking cessation up to 16 pieces per day Mouth/Throat every hour , Not-Taking Movantik 25 mg Tablet TAKE 1 TABLET BY MOUTH EVERY MORNING , Not-Taking Bentyl 10 MG/ML Solution 1 mL Intramuscular Four times a day * Allergies: N .K.D.A. Objective: * Vitals: I nitials: sw, Wt:204, Ht: 63, BMI:36.13, BP:120/86, HR:102, Oxygen sat %:81, RR:16, LMP: n/a, Pain scale:6. * Examination: G eneral Examination: GENERAL APPEARANCE: w ell developed, well nourished, in no acute distress. HEAD: n ormocephalic, atraumatic. EYES: P ERRLA, sclera and conjunctiva clear. EARS External ears intact. NOSE: n clara patent, no lesions, septum intact. ORAL CAVITY: m ucosa moist. THROAT: n o erythema, no exudate, pharynx normal. NECK/THYROID: n o JVD, no goiter. SKIN: w arm and dry, no rashes. HEART: r egular rate and rhythm, no murmurs. LUNGS: r espirations regular and easy, clear to auscultation bilaterally. ABDOMEN: b owel sounds present, soft, nontender, nondistended, no masses palpable, no organomegaly . MUSCULOSKELETAL: n o joint deformity, swelling, redness, or warmth , ELIZABET upper and lower extremities. EXTREMITIES: n o clubbing, cyanosis, or edema. NEUROLOGIC: c ranial nerves 2-12 grossly intact. Assessment: * Assessment: 1. A cute respiratory failure with hypoxia - J96.01 (Primary) 2 . O pioid use disorder - F11.99 3 . B enzodiazepine dependence - F13.20 4 .?Asthma - J45.909 Plan: * Treatment: 2. O pioid use disorder Clinical Notes: [place]UES * Follow Up: 1 Week (Reason: After evaluation and treatment at hospital) * * Electronic signature of Mikaela Gipson , [id number] on 01/17/2025 at 02:56 PM CDT Sign off status: Pending * Provider: Alexis Gipson Date: 0 01/17/2025 Generated for Elza everett/Martha/Alicia on: 0 01/17/2025 02:56 PM CDT History and Physical Notes * HPI (History of Present Illness) Category Sub-Category Detail Notes Category Not es Interim History Was hospitalized No Emergency room visit No Depression Screening PHQ-9 Little inte rest or pleasure in doing things: Several days Feeling down, depressed, or hopeless: Se veral days Trouble falling or staying a sleep, or sleeping too much: More than half the days Feeling tired or having little energy: M ore than half the days Poor appetite or overeating: More than h michi the days Feeling bad about yourself o [...] some way: Not at all Total Score: 9 Interpretation: Mild Depression Intervention Depression Screening Findings: P ositive Follow-Up for Depression: No Referral necessary, patient involved in behavioral health treatment . Screening Friona Suicide Sev erity Rating Scale (LF) Do you want to initiate with: Screener form 1. Wish to be : Have you wished you were or wished you could go to sleep and not wake up?: No 2. Suicidal Thoughts: Have you actually had any thoughts of killing yourself?: No 6. Suicide Behavior Question: Have you ever done anything,started to do anything, or prepared to end your life?: No Interpretation:: Low Risk CSSRS Interpretation and Follow Up Plan CSSRS Interpretation and Follow Up Plan CSSRS Screen documented using SF: Yes Risk Disposition from SF: Low - No Follo w Up Plan Required Follow Up Plan: No Follow Up Plan requir ed at this time. Timeframe of Screening: Today Examination Category Sub-Category Detail Notes Category Not es General Examination GENERAL APPEARANCE: well dev eloped, well nourished, in no acute distress HEAD: normocephalic, atrau matic EYES: PERRLA, sclera and c onjunctiva clear EARS External ears intact NOSE: nares patent, no les ions, septum intact THROAT: no erythema, no exud ate, pharynx normal NECK/THYROID: no JVD, no goiter HEART: regular rate and rhy thm, no murmurs LUNGS: respirations regular and easy, clear to auscultation bilaterally ABDOMEN: bowel sounds present , soft, nontender, nondistended, no masses palpable, no organomegaly NEUROLOGIC: cranial nerves 2-12 grossly intact SKIN: warm and dry, no brandi hes EXTREMITIES: no clubbing, cyanosi s, or edema MUSCULOSKELETAL: no joint deformity, swelling, redness, or warmth , ELIZABET upper and lower extremities ORAL CAVITY: mucosa moist
--- NOTE | 2025-01-17 15:06 | ECG_ITS ---
Test Date: 2025-01-17 15:14:07 Measurements Intervals [place] Rate: 84 P: 46 TX: 169 QRS: 15 QRSD: 81 T: 37 QT: 333 QTc: 396 Interpretive Statements SINUS RHYTHM NORMAL ECG No previous ECG available for comparison Electronically Signed On 01-18-2025 09:53:10 CDT by Raad Casey M.D.
--- OUTSIDE RECORDS SUMMARY | 2025-01-17 15:07 | XMS_ITS | Patient Health Record ---
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 F17.[address] [address] 05/29/2024 Cecil Gipson Opioid use disorder F11.99 ; Nightmares F51.5 ; Benzodiazepine dependence F13.20 and Contact with and (suspected) exposure to other communicable diseases Z20.[address] [address] 06/04/2024 Alysha Martin Opioid use disorder F11.99 ; Obesity (BMI 30-39.9) E66.9 ; Nicotine dependence, unspecified, uncomplicated F17.200 and Nutritional counseling Z71.[address] [address] 06/04/2024 Rubi Michaels [address] [address] 06/13/2024 Cecil Gipson Benzodiazepine dependence F13.20 ; Mood disorder F39 ; PTSD (post-traumatic stress disorder) F43.10 and Nicotine dependence, unspecified, uncomplicated F17.[address] [address] 07/04/2024 Cecil Gipson Opioid use disorder F11.99 ; Constipation K59.00 ; Benzodiazepine dependence F13.20 ; PTSD (post-traumatic stress disorder) F43.10 and Gastroparesis K31.[address] [address] 07/09/2024 Serjio Cavanaugh Mood disorder F39 ; PTSD (post-traumatic stress disorder) F43.10 ; Nightmares F51.5 ; Opioid use disorder F11.99 and Nicotine dependence, unspecified, uncomplicated F17.[address] [address] 08/05/2024 Cecil Gipson Nicotine dependence, unspecified, uncomplicated F17.200 and Opioid use disorder F11.[address] [address] 08/15/2024 Cecil Gipson Gastroparesis K31.84 ; Benzodiazepine dependence F13.20 ; Dysuria-frequency syndrome N34.3 and Nicotine dependence, unspecified, uncomplicated F17.[address] [address] 09/04/2024 Serjio Cavanaugh Mood disorder F39 ; PTSD (post-traumatic stress disorder) F43.10 ; Nightmares F51.5 ; Opioid use disorder F11.99 and Nicotine dependence, unspecified, uncomplicated F17.[address] [address] 09/18/2024 Serjio Cavanaugh Mood disorder F39 ; PTSD (post-traumatic stress disorder) F43.10 ; Nightmares F51.5 ; Opioid use disorder F11.99 and Nicotine dependence, unspecified, uncomplicated F17.[address] [address] 09/23/2024 Cecil Gipson Benzodiazepine dependence F13.20 ; Opioid use disorder F11.99 and Nicotine dependence, unspecified, uncomplicated F17.200 [address] [place] [address] [place] [address] 10/04/2024 Cecil Gipson Opioid use disorder F11.99 ; Gastroparesis K31.84 ; Asthma J45.909 ; Nicotine dependence, unspecified, uncomplicated F17.200 ; Exposure to potential infection Z20.9 ; Benzodiazepine dependence F13.20 ; Fatigue R53.83 ; Metabolic syndrome E88.810 and Constipation K59.00 Formerly [facility], [facility] [address] [place] [address] 10/25/2024 Cecil Gipson Opioid use disorder F11.99 ; Benzodiazepine dependence F13.20 ; Gastroparesis K31.84 and Constipation K59.[address] [address] 11/27/2024 Serjio Cavanaugh Mood disorder F39 ; PTSD (post-traumatic stress disorder) F43.10 ; Nightmares F51.5 ; Opioid use disorder F11.99 ; Nicotine dependence, unspecified, uncomplicated F17.200 and Nutritional counseling Z71.[address] [address] 12/17/2024 Cecil Gipson Asthma exacerbation J45.901 ; Acute respiratory failure with hypoxia J96.01 ; Opioid use disorder F11.99 ; Gastroparesis K31.84 ; Dorsalgia of lumbosacral region M54.50 ; Constipation K59.00 ; Benzodiazepine dependence F13.20 and Nicotine dependence, unspecified, uncomplicated F17.[address] [address] 01/01/2025 Serjio Cavanaugh Mood disorder F39 ; PTSD (post-traumatic stress disorder) F43.10 ; Nightmares F51.5 ; Opioid use disorder F11.99 ; Nicotine dependence, unspecified, uncomplicated F17.200 and Nutritional counseling Z71.[address] [address] 01/22/2024 Cecil Gipson [address] [address] 01/23/2024 Yina Meza [address] [address] 02/02/2024 Cecil Gipson Mood disorder F39 an d Opioid use disorder F11.[address] [address] 02/05/2024 Cecil Gipson [address] [address] 02/13/2024 Cecil Gipson Hepatitis C B19.[address] [place] [address] 02/29/2024 Cecil Gipson [address] [place] [address] 03/14/2024 Cecil Gipson [address] [place] [address] 03/15/2024 Cecil Gipson [facility] [address] [place] [address] 03/27/2024 Cecil Gipson [address] [place] [address] 05/10/2024 Cecil Gipson [address] [place] [address] 05/29/2024 Cecil Gipson [facility] [address] [address] 05/29/2024 Cecil Gipson Nightmares F51.5 and Benzodiazepine dependence F13.[address] [place] [address] 06/05/2024 Cecil Gipson Opioid use disorder F11.99 and Benzodiazepine dependence F13.[address] [place] [address] 07/01/2024 Cecil Gipson Dorsalgia of lumbosacral region M54.50 [facility] [address] [place] [address] 07/25/2024 Jamal Murphy Benzodiazepine dependence F13.20 [facility] [address] [address] 08/02/2024 Rubi Michaels [address] [place] [address] 08/09/2024 Cecil Gipson Abdominal pain R10.[address] [place] [address] 09/06/2024 Cecil Gipson Benzodiazepine dependence F13.[address] [address] 09/20/2024 Cecil Gipson Benzodiazepine dependence F13.[address] [address] 09/23/2024 Cecil Gipson Benzodiazepine dependence F13.20 and Opioid use disorder F11.[address] [address] 09/27/2024 Cecil Gipson [address] [address] 11/18/2024 Serjio Cavanaugh Mood disorder F39 [address] [address] 12/30/2024 Cecil Gipson Dorsalgia of lumbosacral region M54.[address] [address] 01/10/2025 Cecilleno Gipson Benzodiazepine dependence F13.[address] [address] 08/25/2024 Cecil Gipson Dorsalgia of lumbosacral region M54.50 Assessments Encounter Date Diagnosis (ICD Code) Assessment Notes Treatment Notes Treatment Clinical Notes Section Notes 04/15/2024 Opioid use disorder (ICD-10 - F11.99) 08/09/2024 Abdominal pain (ICD-10 - R10.9) 10/04/2024 Opioid use disorder (ICD-10 - F11.99) 01/17/2025 Acute respiratory failure with hypoxia (ICD-10 - J96.01) AGREES TO GO TO [facility] FOR URGENT EVALUATION AND TREATMENT. SHE UNDERSTANDS THAT SHE RISKS SUDDEN SHOULD SHE AGAIN CHOOSE TO [facility] EVALUATION. 01/17/2025 Opioid use disorder (ICD-10 - F11.99) [place]UES 12/17/2024 Acute respiratory failure with hypoxia (ICD-10 - J96.01) PER BIRGIT'S CHOICE, SHE WILL PROCEED TO [facility] SOON SHE LEAVES THE OFFICE. CONTACTED THE ED. SHE WISHES TO KETTLE [facility] ON HER WAY OUT. OXYGEN 2 L APPLIED. 12/17/2024 Asthma exacerbation (ICD-10 - J45.901) 01/01/2025 Mood disorder (ICD-10 - F39) r/o bipolar 1, BPD Duration (acute/chronic), stability (controlled/uncontro lled): Chronic, mildly uncontrolled Current medications/efficacy : Somewhat, room for improvement Previous medication trials: [...] INCREASE duloxetine as prescribed to assist with anxiety/depression/P TSD - educated patient/guardian on adverse effects, risks [...] techniques, such as guided imagery, journaling, aromatherapy, acupuncture/acupress ure, deep breathing, etc. Practice healthy sleep hygiene [...] HEALTH CRISIS, please reach out to 988 ([employer] Suicide and Crisis Lifeline), 911, go to the emergency department, or contact the [facility] Crisis Unit/Team [phone]. Other helpful numbers include: Youth Cares Line [phone], Warm Support Peer Line [phone], and [place] Admission Line [phone] Follow up as scheduled in 4 weeks or sooner if necessary. Follow up with PCP and/or other specialists as advised. NEXT STEP: Consider adjusting quetiapine further. Consider increasing duloxetine. Consider discussing tapering diazepam. Consider increasing mirtazapine to assist with mood/sleep. Consider further adjusting prazosin. Consider other medication adjustments/addition s as needed. 12/30/2024 Dorsalgia of lumbosacral region (ICD-10 - M54.50) 01/10/2025 Benzodiazepine dependence (ICD-10 - F13.20) 10/04/2024 Gastroparesis (ICD-10 - K31.84) 10/25/2024 Opioid use disorder (ICD-10 - F11.99) 11/18/2024 Mood disorder (ICD-10 - F39) 11/27/2024 Mood disorder (ICD-10 - F39) r/o bipolar 1, BPD Duration (acute/chronic), stability (controlled/uncontro lled): Chronic, mildly uncontrolled Current medications/efficacy : Somewhat, room for improvement Previous medication trials: [...] INCREASE duloxetine as prescribed to assist with anxiety/depression/P TSD - educated patient/guardian on adverse effects, risks [...] techniques, such as guided imagery, journaling, aromatherapy, acupuncture/acupress ure, deep breathing, etc. Practice healthy sleep hygiene [...] MENTAL HEALTH CRISIS, please reach out to 138 (National Suicide and Crisis Lifeline), 911, go to the emergency department, or contact the [facility] Crisis Unit/Team [phone]. Other helpful numbers include: Youth Cares Line [phone], [facility] Warm Support Peer Line [phone], and [place] [facility]mission Line [phone] Follow up as scheduled in 4 weeks or sooner if necessary. Follow up with PCP and/or other specialists as advised. NEXT STEP: Consider adjusting quetiapine further. Consider increasing duloxetine pending response/tolerabilit y. Consider discussing tapering diazepam. Consider increasing mirtazapine to assist with mood/sleep. Consider adding morning dose of prazosin as needed to assist with PTSD. Consider other medication adjustments/addition s as needed. 09/04/2024 Mood disorder (ICD-10 - F39) r/o bipolar 1, BPD Duration (acute/chronic), stability (controlled/uncontro lled): Chronic, mildly uncontrolled Current medications/efficacy : Somewhat, room for improvement Previous medication trials: [...] AT FUTURE APPOINTMENT Differential diagnoses: RECOMMENDATIONS: INCREASE quetiapine as discussed (50mg in the AM, 450mg in the PM at bedtime) - educated patient/guardian on adverse effects, risks [...] techniques, such as guided imagery, journaling, aromatherapy, acupuncture/acupress ure, deep breathing, etc. Practice healthy sleep hygiene [...] HEALTH CRISIS, please reach out to 988 ([employer] Suicide and Crisis Lifeline), 911, go to the emergency department, or contact the [facility] Crisis Unit/Team [phone]. Other helpful numbers include: Youth Cares Line [phone], Warm Support Peer Line [phone], and [place] [facility]mission Line [phone] Follow up as scheduled in 2 weeks or sooner if necessary. Follow up with PCP and/or other specialists as advised. NEXT STEP: Consider switching AM dose to ER formulation to assist with daytime mood/anxiety. Consider discussing tapering diazepam. Consider increasing mirtazapine to assist with mood/sleep. Consider adding morning dose of prazosin as needed to assist with PTSD. Consider other medication adjustments/addition s as needed. 09/18/2024 Mood disorder (ICD-10 - F39) r/o bipolar 1, BPD Duration (acute/chronic), stability (controlled/uncontro lled): Chronic, mildly uncontrolled Current medications/efficacy : Somewhat, room for improvement Previous medication trials: [...] DISCUSS AT FUTURE APPOINTMENT Differential diagnoses: RECOMMENDATIONS: CONTINUE quetiapine 450mg IR at bedtime as prescribed - educated patient/guardian on adverse effects, risks and benefits, as well as alternative treatments INCREASE morning quetiapine to 100mg ER once daily (can take in the evening if desired) - educated patient/guardian on adverse effects, risks and benefits, as well as alternative treatments INCREASE prazosin as prescribed to assist with PTSD/nightmares - educated patient/guardian on adverse effects, risks and benefits, as well as alternative treatments START duloxetine as prescribed to assist with anxiety/depression/P TSD - educated patient/guardian on adverse effects, risks [...] techniques, such as guided imagery, journaling, aromatherapy, acupuncture/acupress ure, deep breathing, etc. Practice healthy sleep hygiene [...] to the emergency department, or contact the [facility] Crisis Unit/Team [phone]. Other helpful numbers include: Youth Cares Line [phone], [facility] Warm Support Peer Line [phone], and [place] [facility]mission Line [phone] Follow up as scheduled in 4 weeks or sooner if necessary. Follow up with PCP and/or other specialists as advised. NEXT STEP: Consider adjusting quetiapine further. Consider increasing duloxetine pending response/tolerabilit y. Consider discussing tapering diazepam. Consider increasing mirtazapine to assist with mood/sleep. Consider adding morning dose of prazosin as needed to assist with PTSD. Consider other medication adjustments/addition s as needed. 09/06/2024 Benzodiazepine dependence (ICD-10 - F13.20) 09/20/2024 Benzodiazepine dependence (ICD-10 - F13.20) 09/23/2024 Benzodiazepine dependence (ICD-10 - F13.20) 09/23/2024 Opioid use disorder (ICD-10 - F11.99) 09/23/2024 Benzodiazepine dependence (ICD-10 - F13.20) 07/25/2024 Benzodiazepine dependence (ICD-10 - F13.20) 08/05/2024 Nicotine dependence, unspecified, uncomplicated (ICD-10 - F17.200) 08/15/2024 Gastroparesis (ICD-10 - K31.84) PERSISTENT ABD PAIN, BLOATING, INCONSISTENT BOWEL MOVEMENTS. WANTS TO SEE DR. ORTIZ IN [place]. 08/15/2024 Benzodiazepine dependence (ICD-10 - F13.20) 08/25/2024 Dorsalgia of lumbosacral region (ICD-10 - M54.50) 07/04/2024 Constipation (ICD-10 - K59.00) 07/04/2024 Opioid use disorder (ICD-10 - F11.99) 07/09/2024 Mood disorder (ICD-10 - F39) r/o bipolar 1, BPD Continue/modify medications as prescribed (Dr. Gipson prescribing diazepam) [...] techniques, such as guided imagery, journaling, aromatherapy, acupuncture/acupress ure, deep breathing, etc. Practice healthy sleep hygiene [...] to the emergency department, or contact the [facility] Crisis Unit/Team [phone]. Other helpful numbers include: Youth Cares Line [phone], Warm Support Peer Line [phone], and [place] [facility]mission Line [phone] Follow up as scheduled or sooner if necessary. Follow up with PCP and/or other specialists as advised. 05/29/2024 Nightmares (ICD-10 - F51.5) 05/29/2024 Nightmares (ICD-10 - F51.5) CancelRx Response got Denied on 2024-05-30 10:37:30 for 'Prazosin HCl 5 MG Capsule'Pharmacy Notes: Unable to Cancel Rx. Please contact Pharmacy 05/29/2024 Opioid use disorder (ICD-10 - F11.99) 06/04/2024 Obesity (BMI 30-39.9) (ICD-10 - E66.9) 06/04/2024 Opioid use disorder (ICD-10 - F11.99) 06/05/2024 Opioid use disorder (ICD-10 - F11.99) 06/13/2024 Mood disorder (ICD-10 - F39) 06/13/2024 Benzodiazepine dependence (ICD-10 - F13.20) 07/01/2024 Dorsalgia of lumbosacral region (ICD-10 - M54.50) 04/23/2024 Nicotine dependence, unspecified, uncomplicated (ICD-10 - F17.200) 04/26/2024 Nicotine dependence, unspecified, uncomplicated (ICD-10 - F17.200) 04/26/2024 Dorsalgia of lumbosacral region (ICD-10 - M54.50) OFF WORK 03/03-04/28/2024. RTW 04/29/2024 WITH RESTRICTIONS OUTLINED IN HX. 05/10/2024 Opioid use disorder (ICD-10 - F11.99) 05/21/2024 Benzodiazepine dependence (ICD-10 - F13.20) DISCUSSED AT LENGTH BENZODIAZEPINE TOLERANCE AND TREATMENT OF WITHDRAWAL VS UNDERLYING, BASELINE SYMPTOMS. DISCUSSED THAT CHRONIC BENZO USE CREATES MORE PROBLEMS THAN IT SOLVES. DISCUSSED NEED FOR SLOW BENZO TAPER AT NEXT VISIT IN TWO WEEKS. WILL DECREASE FROM 15 MG DAILY TO 12.5 TOTAL DAILY DOSE OF DIAZEPAM. 05/21/2024 Opioid use disorder (ICD-10 - F11.99) DOING WELL WITH SUBOXONE 02/13/2024 Hepatitis C (ICD-10 - B19.20) 02/22/2024 Opioid use disorder (ICD-10 - F11.99) 03/05/2024 Nicotine dependence, unspecified, uncomplicated (ICD-10 - F17.200) 03/28/2024 Benzodiazepine dependence (ICD-10 - F13.20) 03/28/2024 Opioid use disorder (ICD-10 - F11.99) 04/15/2024 Benzodiazepine dependence (ICD-10 - F13.20) REDUCEE DOSE OF DIAZEPAM BACK TO PREVIOUS 5 MG BID AND CONTINUE BENZO TAPER DISCUSSED AT PRIOR APPT. DISCUSS FURTHER AT IN PERSON VISIT NEXT MONTH. 01/23/2024 Nicotine dependence, unspecified, uncomplicated (ICD-10 - F17.200) 01/26/2024 Opioid use disorder (ICD-10 - F11.99) DUE FOR SUBOXONE REFILL IN ABOUT 10 DAYS. 01/26/2024 Dorsalgia of lumbosacral region (ICD-10 - M54.50) INCREASE TIZINIDINE 02/02/2024 Mood disorder (ICD-10 - F39) 02/02/2024 Opioid use disorder (ICD-10 - F11.99) 01/23/2024 Opioid use disorder (ICD-10 - F11.99) Continue MAT services Attend , encouraged counseling 03/05/2024 Opioid use disorder (ICD-10 - F11.99) 02/22/2024 Dorsalgia of lumbosacral region (ICD-10 - M54.50) 04/23/2024 Opioid use disorder (ICD-10 - F11.99) Continue MAT services Attend NA, encouraged counseling 05/29/2024 Benzodiazepine dependence (ICD-10 - F13.20) 05/21/2024 Abdominal pain (ICD-10 - R10.9) CHELI SIGNED FOR DR. MASON. TO COMPLETE EVAL AND EXTEND DISABILITY THROUGH 08/22/2024. 05/10/2024 Benzodiazepine dependence (ICD-10 - F13.20) 04/15/2024 Constipation due to pain medication (ICD-10 - K59.03) FAILED COLACE, SENNA, DULCOLAX, MIRALAX, LINZESS, MILK OF MAGNESIA. 05/29/2024 Benzodiazepine dependence (ICD-10 - F13.20) BEGIN SLOW BENZO TAPER MONTHLY WITH REFILL 06/04. DECREASE FROM 15 MG PER DAY TO 12.5 MG PER DAY. DISCUSSED WITH BIRGIT AND SHE AGREES TO PROCEED. DISCUSSED THAT SHE MAY NEED TO REMAIN ON A LOW DOSE AT DUE TO SEVERE NIGHT TERRORS. 06/13/2024 PTSD (post-traumatic stress disorder) (ICD-10 - F43.10) 06/05/2024 Benzodiazepine dependence (ICD-10 - F13.20) 06/04/2024 Nicotine dependence, unspecified, uncomplicated (ICD-10 - F17.200) 07/09/2024 PTSD (post-traumatic stress disorder) (ICD-10 - F43.10) See assessment and plan for mood disorder 07/04/2024 Benzodiazepine dependence (ICD-10 - F13.20) 08/15/2024 Dysuria-frequenc y syndrome (ICD-10 - N34.3) 08/05/2024 Opioid use disorder (ICD-10 - F11.99) 09/23/2024 Opioid use disorder (ICD-10 - F11.99) 09/23/2024 Nicotine dependence, unspecified, uncomplicated (ICD-10 - F17.200) 09/18/2024 PTSD (post-traumatic stress disorder) (ICD-10 - F43.10) See assessment and plan for mood disorder 09/04/2024 PTSD (post-traumatic stress disorder) (ICD-10 - F43.10) See assessment and plan for mood disorder 11/27/2024 PTSD (post-traumatic stress disorder) (ICD-10 - F43.10) See assessment and plan for mood disorder 10/25/2024 Benzodiazepine dependence (ICD-10 - F13.20) HAD DETAILED DISCUSSION RE: INAPPROPRIATENESS OF HALF-WAY BENZO USE. BENZO TOLERAANCE. BENZO WITHDRAWAL. NEED FOR TAPER. SHE IS AFRAID OF REDUCTION FROM 15 MG DAILY TO 14 MG DAILY. AGREES TO REMEMBER TO INITAITE COUNSELING AND TO PREPARE HERSELF MENTALLY FOR THAT MINIMAL REDUCTION IN DAILY BENZO DOSE. 10/04/2024 Asthma (ICD-10 - J45.909) 01/01/2025 PTSD (post-traumatic stress disorder) (ICD-10 - F43.10) See assessment and plan for mood disorder 12/17/2024 Opioid use disorder (ICD-10 - F11.99) 01/17/2025 Benzodiazepine dependence (ICD-10 - F13.20) 01/17/2025 Asthma (ICD-10 - J45.909) 12/17/2024 Gastroparesis (ICD-10 - K31.84) 01/01/2025 Nightmares (ICD-10 - F51.5) See assessment and plan for mood disorder/PTSD 10/25/2024 Gastroparesis (ICD-10 - K31.84) CONTINUES TO GAIN WEIGHT DESPITE THIS DIAGNOSIS. 11/27/2024 Nightmares (ICD-10 - F51.5) See assessment and plan for mood disorder/PTSD 09/04/2024 Nightmares (ICD-10 - F51.5) Duration (acute/chronic), stability (controlled/uncontro lled): Chronic, improved with current therapy Current medications/efficacy : Somewhat, room for improvement Previous medication trials: Prazosin Current/previous therapies: Upcoming counseling with daughter. Also did intake a few weeks ago for therapy - hasn't called to schedule apppointment, planning to call later this week Examination as documented - see pertinent aspects of office visit documentation. Pertinent diagnostics: NOT DISCUSSED DUE TO TIME CONSTRAINTS - WILL DISCUSS AT FUTURE APPOINTMENT Differential diagnoses: RECOMMENDATIONS: Continue/modify medications as prescribed - educated patient/guardian on adverse effects, risks [...] techniques, such as guided imagery, journaling, aromatherapy, acupuncture/acupress ure, deep breathing, etc. Practice healthy sleep hygiene - maintain regular routine, no caffeine after 1PM, no exercise 1-2 hours prior to bedtime, keep bedroom dark and cool, no TV or electronics while in bed. Consider melatonin as needed. Consider cognitive behavioral therapy for insomnia (CBT-I). Consider/Continue therapy. Consider/Continue substance cessation therapy as needed - contact office if desiring medication assisted therapy. Manage co-morbid conditions. Continue monitoring symptoms - report persistent or worsening/concerning symptoms to the office or go to the ER. For mental health CRISIS, please reach out to 988 (National Suicide and Crisis Lifeline), 911, go to the emergency department, or contact the [facility] Crisis Unit/Team. Follow up as scheduled in 2 weeks or sooner if necessary. Follow up with PCP and/or other specialists as advised. NEXT STEP: Consider increasing prazosin as needed. Consider increasing mirtazapine and/or quetiapine as needed to assist with mood/PTSD/sleep management. Increase prazosin to 6mg nightly at bedtime as prescribed - educated patient/guardian on adverse effects, risks and benefits, as well as alternative treatments Practice stress reduction techniques, such as guided imagery, journaling, aromatherapy, acupuncture/acupre ssure, deep breathing, etc. Practice healthy sleep hygiene - maintain regular routine, no caffeine after 1PM, no exercise 1-2 hours prior to bedtime, keep bedroom dark and cool, no TV or electronics while in bed. Consider melatonin as needed. Consider cognitive behavioral therapy for insomnia (CBT-I). Consider/Continue therapy. Manage co-morbid conditions as advised. Continue monitoring symptoms - report persistent or worsening/concerni ng symptoms to the office or go to the ER. For MENTAL HEALTH CRISIS, please reach out to [phone] ([employer] Suicide and Crisis Lifeline), 911, go to the emergency department, or contact the [facility] Crisis Unit/Team [phone]. Other helpful numbers include: Youth Cares Line [phone], [facility] Peer Line [phone], and [facility] Admission Line [phone] Follow up as scheduled or sooner if necessary. Follow up with PCP and/or other specialists as advised. 09/18/2024 Nightmares (ICD-10 - F51.5) See assessment and plan for mood disorder/PTSD 10/04/2024 Nicotine dependence, unspecified, uncomplicated (ICD-10 - F17.200) 08/15/2024 Nicotine dependence, unspecified, uncomplicated (ICD-10 - F17.200) 07/09/2024 Nightmares (ICD-10 - F51.5) Increase prazosin to 6mg nightly at bedtime as prescribed - educated patient/guardian on adverse effects, risks and benefits, as well as alternative treatments Practice stress reduction techniques, such as guided imagery, journaling, aromatherapy, acupuncture/acupress ure, deep breathing, etc. Practice healthy sleep hygiene - maintain regular routine, no caffeine after 1PM, no exercise 1-2 hours prior to bedtime, keep bedroom dark and cool, no TV or electronics while in bed. Consider melatonin as needed. Consider cognitive behavioral therapy for insomnia (CBT-I). Consider/Continue therapy. Manage co-morbid conditions as advised. Continue monitoring symptoms - report persistent or worsening/concerning symptoms to the office or go to the ER. For MENTAL HEALTH CRISIS, please reach out to [phone] ([facility] [facility]icide and Crisis Lifeline), 911, go to the emergency department, or contact the [facility] Crisis Unit/Team [phone]. Other helpful numbers include: Youth Cares Line [phone], [facility] Peer Line [phone], and [facility]mission Line [phone] Follow up as scheduled or sooner if necessary. Follow up with PCP and/or other specialists as advised. 05/29/2024 Contact with and (suspected) exposure to other communicable diseases (ICD-10 - Z20.89) 06/04/2024 Nutritional counseling (ICD-10 - Z71.3) 06/13/2024 Nicotine dependence, unspecified, uncomplicated (ICD-10 - F17.200) 07/04/2024 PTSD (post-traumatic stress disorder) (ICD-10 - F43.10) CONTINUE WITH PSYCH AND BH 04/23/2024 Nightmares (ICD-10 - F51.5) Continue Prazosin 4mg at HS Discussed sleep hygiene BP has been stable according to MAT visits 05/21/2024 Cannabis abuse (ICD-10 - F12.10) DISCUSSED POSSIBLE LINK TO N/V, GI ISSUES 05/10/2024 Dorsalgia of lumbosacral region (ICD-10 - M54.50) 02/22/2024 Mood disorder (ICD-10 - F39) 03/05/2024 Dorsalgia of lumbosacral region (ICD-10 - M54.50) 01/23/2024 Nightmares (ICD-10 - F51.5) Continue Prazosin 4mg at HS Discussed sleep hygiene BP has been stable according to MAT visits 01/23/2024 Mood disorder (ICD-10 - F39) r/o bipolar 1, BPD Continue Seroquel 25mg and continue Seroquel 300mg at HS. Encouraged therapy, pt has contact information Labs reordered because pt failed to complete. Reminded pt to complete her bloodwork. Follow up in 1 month or sooner if needed. Diazepam per Dr. Gipson Benzodiazepines are not recommended for long-term use due to potent and dangerous side effects that include increased drowsiness, memory impairment, increased irritability, mood changes, and worsening of PTSD symptoms. Benzodiazepines increase respiratory depression which can aggravate conditions such as sleep apnea and COPD leading to possible . They should also never be combined with alcohol, pain medications (especially opioids), or street drugs because this can lead to overdose and possible . If you are under the influence of benzodiazepines while operating a motor vehicle and are involved in a car accident you can be charged with driving while intoxicated. Benzodiazepine use increases unsteady gait thereby increasing the risk of falls, broken bones, and concussions. Benzodiazepine use is intended for short-term use, up to 3 weeks at most. Long-term use of benzos can lead to dependence, rebound anxiety/agitation, and withdrawal symptoms that include sleep disturbance, irritability, increased tension and anxiety, panic attacks, hand tremor, sweating, difficulty in concentration, dry retching, and nausea, some weight loss, palpitations, headache, muscular pain and stiffness, and a host of perceptual changes. 03/05/2024 Mood disorder (ICD-10 - F39) DUE TO MOTHER'S TERMINAL ILLNESS, PER PT REQUEST, ALLOWED DIAZEPAM 5 MG TID THIS MONTH. DISCUSSED NEED FOR BENZO TAPER TO RESUME AFTER HER MOTHER'S TIMES ON HOSPICE IS DONE. 05/21/2024 Dysuria-frequenc y syndrome (ICD-10 - N34.3) DISCUSSED OAB VS IC VS ANXIETY 04/23/2024 Mood disorder (ICD-10 - F39) r/o bipolar 1, BPD Continue Seroquel 25mg and continue Seroquel 300mg at HS. Encouraged therapy, pt has contact information Labs reordered because pt failed to complete. Reminded pt to complete her bloodwork. Follow up in 1 month or sooner if needed. Diazepam per Dr. Gipson Antipsychotics education - reviewed side effects which may include metabolic syndrome, movement disorders (EPS/extrapyramidal symptoms & TD/Tardive dyskinesia) - potentially permanent movement abnormalities, NMS/neuroleptic malignant syndrome (high fever, very rigid muscles, and rapid heartbeat - potentially fatal), sedation, and cardiac rhythm abnormalities. Benzodiazepines are not recommended for long-term use due to potent and dangerous side effects that include increased drowsiness, memory impairment, increased irritability, mood changes, and worsening of PTSD symptoms. Benzodiazepines increase respiratory depression which can aggravate conditions such as sleep apnea and COPD leading to possible . They should also never be combined with alcohol, pain medications (especially opioids), or street drugs because this can lead to overdose and possible . If you are under the influence of benzodiazepines while operating a motor vehicle and are involved in a car accident you can be charged with driving while intoxicated. Benzodiazepine use increases unsteady gait thereby increasing the risk of falls, broken bones, and concussions. Benzodiazepine use is intended for short-term use, up to 3 weeks at most. Long-term use of benzos can lead to dependence, rebound anxiety/agitation, and withdrawal symptoms that include sleep disturbance, irritability, increased tension and anxiety, panic attacks, hand tremor, sweating, difficulty in concentration, dry retching, and nausea, some weight loss, palpitations, headache, muscular pain and stiffness, and a host of perceptual changes. 07/04/2024 Gastroparesis (ICD-10 - K31.84) 07/09/2024 Opioid use disorder (ICD-10 - F11.99) Continue/modify medications as prescribed - educated patient/guardian on adverse effects, risks [...] techniques, such as guided imagery, journaling, aromatherapy, acupuncture/acupress ure, deep breathing, etc. Practice healthy sleep hygiene - maintain regular routine, no caffeine after 1PM, no exercise 1-2 hours prior to bedtime, keep bedroom dark and cool, no TV or electronics while in bed. Consider melatonin as needed. Consider cognitive behavioral therapy for insomnia (CBT-I). Continue MAT services - follow up with specialty provider as advised Consider/Continue therapy. Manage co-morbid conditions as advised. Continue monitoring symptoms - report persistent or worsening/concerning symptoms to the office or go to the ER. Follow up as scheduled or sooner if necessary. Follow up with PCP and/or other specialists as advised. 09/18/2024 Opioid use disorder (ICD-10 - F11.99) Duration (acute/chronic), stability (controlled/uncontro lled): Previous problem, has been without illicit substances since about - follows up with MAT Current medications/efficacy : Yes Previous medication trials: Suboxone Current/previous therapies: [...] health CRISIS, please reach out to [phone] ([facility] Suicide and Crisis Lifeline), 911, go to the emergency department, or contact the [facility] Crisis Unit/Team. Follow up as scheduled or sooner if necessary. Follow up with PCP and/or other specialists as advised. 09/04/2024 Opioid use disorder (ICD-10 - F11.99) Duration (acute/chronic), stability (controlled/uncontro lled): Previous problem, has been without illicit substances since about (a little over 2.5 years now) - follows up with MAT Current medications/efficacy : Yes Previous medication trials: Suboxone Current/previous therapies: [...] health CRISIS, please reach out to 988 ([facility] [facility]icide and Crisis Lifeline), 911, go to the emergency department, or contact the [facility] Crisis Unit/Team. Follow up as scheduled or sooner if necessary. Follow up with PCP and/or other specialists as advised. Continue/modify medications as prescribed - educated patient/guardian on adverse effects, risks and benefits, as well as alternative treatments Consume well balanced diet, preferably low in saturated fats (solid at room temperature, such as butter, margarine, Crisco, etc) and low in sodium (<2,000mg per day). Consume plenty of fruits/vegetables, healthy grains/whole grains, unsaturated/health y fats (liquid at room temperature, such as [...] techniques, such as guided imagery, journaling, aromatherapy, acupuncture/acupre ssure, deep breathing, etc. Practice healthy sleep hygiene - maintain regular routine, no caffeine after 1PM, no exercise 1-2 hours prior to bedtime, keep bedroom dark and cool, no TV or electronics while in bed. Consider melatonin as needed. Consider cognitive behavioral therapy for insomnia (CBT-I). Continue MAT services - follow up with specialty provider as advised Consider/Continue therapy. Manage co-morbid conditions as advised. Continue monitoring symptoms - report persistent or worsening/concerni ng symptoms to the office or go to the ER. Follow up as scheduled or sooner if necessary. Follow up with PCP and/or other specialists as advised. 10/25/2024 Constipation (ICD-10 - K59.00) 10/04/2024 Exposure to potential infection (ICD-10 - Z20.9) 01/01/2025 Opioid use disorder (ICD-10 - F11.99) Duration (acute/chronic), stability (controlled/uncontro lled): Previous problem, has been without illicit substances since about - follows up with MAT Current medications/efficacy : Yes Previous medication trials: Suboxone Current/previous therapies: [...] to the emergency department, or contact the [facility] Crisis Unit/Team. Follow up as scheduled or sooner if necessary. Follow up with PCP and/or other specialists as advised. 12/17/2024 Dorsalgia of lumbosacral region (ICD-10 - M54.50) 11/27/2024 Opioid use disorder (ICD-10 - F11.99) Duration (acute/chronic), stability (controlled/uncontro lled): Previous problem, has been without illicit substances since about - follows up with MAT Current medications/efficacy : Yes Previous medication trials: Suboxone Current/previous therapies: [...] health CRISIS, please reach out to 988 ([place] Suicide and Crisis Lifeline), 911, go to the emergency department, or contact the [facility] Crisis Unit/Team. Follow up as scheduled or sooner if necessary. Follow up with PCP and/or other specialists as advised. 12/17/2024 Constipation (ICD-10 - K59.00) 01/01/2025 Nicotine dependence, unspecified, uncomplicated (ICD-10 - F17.200) Duration (acute/chronic), stability (controlled/uncontro lled): Unknown duration or severity, not discussed today due to time constraints, will discuss at future visit Current medications/efficacy : N/A Previous medication trials: N/A RECOMMENDATIONS: Consider substance cessation therapy as needed - contact office if desiring medication assisted therapy. Manage co-morbid conditions. Continue monitoring symptoms - report persistent or worsening/concerning symptoms to the office or go to the ER. For mental health CRISIS, please reach out to 988 ([facility] Suicide and Crisis Lifeline), 911, go to the emergency department, or contact the [facility] Crisis Unit/Team. Follow up as scheduled or sooner if necessary. Follow up with PCP and/or other specialists as advised. NEXT STEP: Consider MAT as needed. 10/04/2024 Benzodiazepine dependence (ICD-10 - F13.20) 11/27/2024 Nicotine dependence, unspecified, uncomplicated (ICD-10 - F17.200) Duration (acute/chronic), stability (controlled/uncontro lled): Unknown duration or severity, not discussed today due to time constraints, will discuss at future visit Current medications/efficacy : N/A Previous medication trials: N/A RECOMMENDATIONS: Consider substance cessation therapy as needed - contact office if desiring medication assisted therapy. Manage co-morbid conditions. Continue monitoring symptoms - report persistent or worsening/concerning symptoms to the office or go to the ER. For mental health CRISIS, please reach out to 988 ([facility] Suicide and Crisis Lifeline), 911, go to the emergency department, or contact the [facility] Crisis Unit/Team. Follow up as scheduled or sooner if necessary. Follow up with PCP and/or other specialists as advised. NEXT STEP: Consider MAT as needed. 09/18/2024 Nicotine dependence, unspecified, uncomplicated (ICD-10 - F17.200) Duration (acute/chronic), stability (controlled/uncontro lled): Unknown duration or severity, not discussed today due to time constraints, will discuss at future visit Current medications/efficacy : N/A Previous medication trials: N/A RECOMMENDATIONS: Consider substance cessation therapy as needed - contact office if desiring medication assisted therapy. Manage co-morbid conditions. Continue monitoring symptoms - report persistent or worsening/concerning symptoms to the office or go to the ER. For mental health CRISIS, please reach out to 988 ([place] Suicide and Crisis Lifeline), 911, go to the emergency department, or contact the [facility] Crisis Unit/Team. Follow up as scheduled or sooner if necessary. Follow up with PCP and/or other specialists as advised. NEXT STEP: Consider MAT as needed. 07/09/2024 Nicotine dependence, unspecified, uncomplicated (ICD-10 - F17.200) 09/04/2024 Nicotine dependence, unspecified, uncomplicated (ICD-10 - F17.200) 04/23/2024 Encounter for medication monitoring (ICD-10 - Z51.81) 01/23/2024 Encounter for medication monitoring (ICD-10 - Z51.81) 05/21/2024 Nicotine dependence, unspecified, uncomplicated (ICD-10 - F17.200) 11/27/2024 Nutritional counseling (ICD-10 - Z71.3) 01/01/2025 Nutritional counseling (ICD-10 - Z71.3) 12/17/2024 Benzodiazepine dependence (ICD-10 - F13.20) 12/17/2024 Nicotine dependence, unspecified, uncomplicated (ICD-10 - F17.200) 10/04/2024 Fatigue (ICD-10 - R53.83) 10/04/2024 Metabolic syndrome (ICD-10 - E88.810) 10/04/2024 Constipation (ICD-10 - K59.00) 01/23/2024 Other Patient was edu cated on diagnosis and symptoms. Discussed the treatment plan, patient is agreeable and accepting of treatment plan. Patient denies further questions or concerns currently. Discussed sleep hygiene and caffeine intake. Encouraged to improve diet, get regular exercise, daily relaxation, and work on managing stress levels.Return to clinic 8 weeks.Labs reordered today. Encouraged counseling.Educated patient that if she is or planning to become , she is to let the provider know immediately.The Patient/Guardian is aware of the need to contact the office or return for an earlier appointment if any problems or concerns arise. May also contact the 24-hour crisis hotline ([facility]), refer to the closest emergency room or call 911 if new symptoms arise of existing symptoms worsen; the Patient/Guardian is aware that this would apply to symptoms such as: suicidal ideation, homicidal ideation, high risk behaviors, manic symptoms, psychotic symptoms, physical symptoms, or any other symptoms that may be dangerous to self or others.Greater than 50% of time spent on coordination and counseling where psychopharmacology as well as psychotherapeutic interventions were discussed along with review of treatments in the past.Patient/Zohra n was educated about treatments including benefits and risks, alternatives, potential medication side effects, black box warning, and risks of failure if not treated. The Patient/Guardian asked appropriate questions, appeared to understand the answers, and decided to accept the treatment and continue being followed.Discussed the importance of compliance with medications due to the risk of relapse of symptoms.Discussed the risks of taking psychotropic medication when combined with substance use/abuse and/or drinking alcohol. 04/23/2024 Other Patient was edu cated on diagnosis and symptoms. Discussed the treatment plan, patient is agreeable and accepting of treatment plan. Patient denies further questions or concerns currently. Discussed sleep hygiene and caffeine intake. Encouraged to improve diet, get regular exercise, daily relaxation, and work on managing stress levels.Return to clinic 8 weeks.Reminded pt to complete.Encouraged counseling.The Patient/Guardian is aware of the need to contact the office or return for an earlier appointment if any problems or concerns arise. May also contact the 24-hour crisis hotline ([facility]), refer to the closest emergency room or call 911 if new symptoms arise of existing symptoms worsen; the Patient/Guardian is aware that this would apply to symptoms such as: suicidal ideation, homicidal ideation, high risk behaviors, manic symptoms, psychotic symptoms, physical symptoms, or any other symptoms that may be dangerous to self or others.Greater than 50% of time spent on coordination and counseling where psychopharmacology as well as psychotherapeutic interventions were discussed along with review of treatments in the past.Patient/Zohra n was educated about treatments including benefits and risks, alternatives, potential medication side effects, black box warning, and risks of failure if not treated. The Patient/Guardian asked appropriate questions, appeared to understand the answers, and decided to accept the treatment and continue being followed.Discussed the importance of compliance with medications due to the risk of relapse of symptoms.Discussed the risks of taking psychotropic medication when combined with substance use/abuse and/or drinking alcohol. 06/04/2024 Other Client agrees to take medication as prescribed. Discussed medication side effects, adverse effects, risks, benefits, as well as interactions. Encouraged non-use of opioids and other illicit substances. Has naloxone. Understand that discontinuing buprenorphine increases the risk of overdose upon return to illicit opioid use. Know that that use of alcohol or benzodiazepines with buprenorphine increases the risk of overdose and . Education provided about safe storage of medications. Encourage participation in recovery groups/counseling services. Patient understands that all treating providers/physicians should be informed of buprenorphine use as part of a Medication Assisted Recovery program. Contact office with questions or concerns. 06/04/2024 Other Provided case management services to address social determinants of health needs and reduce barriers to health care services. Plan Of Treatment No Information Insurance Providers Payer Name Payer Address Payer Phone Subscriber Number Group Number Insured Name Patient Relationship to Insured Coverage Start Date Coverage End Date [facility] Claims Department [address] [place] [address] [id number] Birgit Hernandez Self - patient is the insured 2 4 [facility] Claims Department [address] [place] [address] [id number] Birgit Hernandez Self - patient is the insured 4 [facility] Claims Department [address] [place] [address] [id number] Birgit Hernandez Self - patient is the insured 3 4 Medical (General) History Medical History History ICD Code OUD IBS-Constipation Diverticulitis Surgical History Surgery Date(Month/Year) right elbow-pins placed and removed Hospitalization History Reason Date(Month/Year) seizures 02/2022
--- OUTSIDE RECORDS SUMMARY | 2025-01-17 15:07 | XMS_ITS | Continuity of Care Document ---
Author Organization [facility] Address [address] [place] [address] [place] [address] Phone Care Team Providers Care Office Technician Name Role Phone Sean Rivera MD Unavailable Unavailable Allergies, Adverse Reactions, Alerts Substance Reaction Status Criticality No Known Allergies Active No Inform ation Medications Medication Instructions Dosage Effective Dates (start - stop) Status Comments Celexa 40 mg tablet take 1 tablet by oral route every day 40 MG - Active buspirone 7.5 mg tablet take 1 tablet by oral route 2 times every day 7.5 MG - Active avoid driving or operate machines Neurontin 300 mg capsule take 1 capsule by oral route 3 times every day 300 MG - Active avoid driving or operate machines Xanax 2 mg tablet take 1 tablet by oral route every day as needed 2 MG - Active PRN for anxiety, avoid driving or operate machines trazodone 50 mg tablet take 1 tablet by oral route every bedtime - Active Procedures Procedure Date PREV VISIT, NEW, AGE 18-39 Advance Directives Directive Yes / No Effective Date File Name No Information Encounters Encounter Description Practice Location Reason(s) For Visit Diagnoses Date Provider Providers Copied on Encounter [facility], [address] [place], [id number], [place] tel:[phone] [facility] No Information Miguel Estrada. [address], [facility] [place], [id number], [place]. tel:[phone] Referring Provider: Sean Rivera, [address] [facility] [address], [place], [place], [id number]. tel:[phone] PREV VISIT, NEW, AGE 18-39 [facility], [address], [place], [place], [id number], tel:[phone] [facility] PHysical (chief complaint) Encntr for general adult medical exam w/o abnormal findings Miguel Estrada. [address], [place], [place], [id number], [place]. tel:[phone] Referring Provider: Sean Rivera, [address], [place], [place], [id number]. tel:[phone] Family History Family Member Type Diagnosis Age At Onset Brother Problem (finding) Depression Father Problem (finding) prostate [place] 55 Mother Problem (finding) Depression Payers Payer name Insurance type Covered constitution party ID Authoriza tion(s) No Information Social [...]
--- NOTE | 2025-01-17 15:08 | ED_ITS ---
HPI - Recheck/Abnormal Lab/Rx General Chief Complaint: Recheck/Abnormal Lab/Rx Stated Complaint: PE Time Seen by Provider: 01/17/25 14:55 History of Present Illness HPI narrative: 34-year-old female with a past medical history including gastroparesis, opiate abuse on Suboxone therapy, asthma, chronic hep C, IBS. Patient presents today after being referred from Cecil Boucher's office where he noted that patient was hypoxic to 81% on room air. Patient states she has been having low oxygen saturation readings at home for several weeks to months. Was told to the ER by another provider but she was scared so she did not. His a history of DVT in the past, not on any anticoagulation medications. She states that she also has a history of asthma and current smoking use but this does not feel like asthma. She is endorsing some chest discomfort and pleuritic chest pain. No history of pulmonary embolism to her knowledge. No trauma or injury. Denies any chance of . Related Data Home Medications ?Medication ?Instructions ?Recorded ?Confirmed ?Last Taken ?Type albuterol sulfate 90 mcg/actuation 1 puff inhalation Q4H PRN 11/14/24 12/26/24 Unknown History aerosol inhaler (Ventolin HFA) budesonide-formoterol HFA 80 2 puff inhalation Q12H 11/14/24 12/26/24 Unknown History mcg-4.5 mcg/actuation aerosol inhaler buprenorphine 8 mg-naloxone 2 mg 1 tablet sublingual TID 11/14/24 12/26/24 Unknown History sublingual tablet docusate sodium 100 mg capsule 100 mg PO DAILY 11/14/24 12/26/24 Unknown History (Colace) escitalopram oxalate 20 mg tablet 20 mg PO DAILY 11/14/24 12/26/24 Unknown History mirtazapine 45 mg tablet 45 mg PO DAILY 11/14/24 12/26/24 Unknown History prazosin 1 mg capsule 1 mg PO QHS 11/14/24 12/26/24 Unknown History prazosin 5 mg capsule 5 mg PO QHS 11/14/24 12/26/24 Unknown History quetiapine 25 mg tablet 25 mg PO QHS 11/14/24 12/26/24 Unknown History quetiapine 300 mg tablet 300 mg PO QHS 11/14/24 12/26/24 Unknown History tizanidine 2 mg tablet 2 mg PO TID PRN 11/14/24 12/26/24 Unknown History Allergies Allergy/AdvReac Type Severity Reaction Status Date / Time No Known Allergies Allergy Unknown Verified 01/17/25 15:54 Review of Systems 2 Review of Systems: As reviewed above in [facility] Past Medical History Medical History Nicotine dependence Cannabis dependence Depression with anxiety PTSD (post-traumatic stress disorder) Asthma Social History Social History Smoking status: Current every day smoker Exam 2 Narrative: GENERAL: [Well-appearing, well-nourished, and in no acute distress.] HEAD: [Normocephalic, atraumatic.] EYES: [PERRLA and EOMI.] ENT: Nares clear, no rhinorrhea or epistaxis. Mucous membranes moist. NECK: Supple. CHEST: End-expiratory wheezing appreciated in the bases, no prolonged expiratory phase, no tachypnea, no retractions. Hypoxic to 78% on room air HEART: [Regular rate and rhythm]. No murmur heard. [Normal peripheral pulses.] ABDOMEN: [Soft, nondistended], [nontender], [No rigidity or guarding] EXTREMITIES: Normal range of motion. Trace pedal edema bilaterally SKIN: Warm, dry, no rash. NEURO: [No focal deficits]. Alert and oriented [x3.] PSYCH: [Normal mood and affect.] Course Vital Signs Vital signs: Vital Signs Temperature 36.7 C 01/17/25 14:59 Pulse Rate 91 01/17/25 14:59 Respiratory Rate 20 01/17/25 14:59 Blood Pressure 113/77 01/17/25 14:59 Pulse Oximetry 89 L 01/17/25 14:59 Temperature 36.8 C 01/17/25 15:47 Pulse Rate 90 01/17/25 21:01 Respiratory Rate 18 01/17/25 21:01 Blood Pressure 104/72 01/17/25 21:24 Pulse Oximetry 97 01/17/25 21:01 Oxygen Delivery High Flow Therapy with Nasal Cannula 01/17/25 20:15 Oxygen Flow Rate 55 01/17/25 20:15 Fraction of Inspired Oxygen 77 01/17/25 20:15 MDM - Recheck/Abnormal Lab/Rx MDM Narrative Medical decision making narrative: 34-year-old female with history of gastroparesis, hep C, opiate dependence on Suboxone therapy, history of DVT, asthma with current smoking. She presents with hypoxia at 78% on room air. She went to Dr. Boucher's office today for refill of her Suboxone was referred to the emergency department as she was hypoxic and slightly tachycardic. I received report over the phone from Dr. Boucher and we went over the patient's clinical exam and assessment. Given her history of DVT and profound hypoxia concern presently is for pulmonary embolism versus aspiration from her gastroparesis versus pneumonia. Low suspicion asthma exacerbation or COPD but she does have active smoking and some trace wheezes on exam. No history of heart failure but some trace pedal edema is seen. She is hypoxic at 78% on room air requiring supplemental oxygen. She is improved to 91% on 4 L nasal cannula. Cardiac workup was ordered, CT angiography of the chest was ordered. test obtain, chest x-ray, EKG, troponin. BNP ordered. ABG obtained. Patient's ABG shows hypercapnia as well as hypoxia. Seems to be acute on chronic as she does have elevated pCO3 as well. Patient was started on high- flow nasal cannula for additional support and to assist with respirations. Workup shows no leukocytosis or anemia. Normal platelet count. Normal coagulation panel. CMP without any significant surgeons, chronically elevated CO2 likely from retention. Normal renal function, normal hepatic function. Negative lactic acid. Negative troponin negative test. Urinalysis shows dehydration but no signs of infection. CT angio shows no PE but bilateral basal pneumonia. She was started on community coverage including Rocephin and azithromycin. EKG shows sinus rhythm, no signs of heart strain, tachycardia. Patient was re-evaluated, doing well on high-flow nasal cannula and completed her albuterol nebulizer treatments. She received magnesium as well for wheezing. Fluid boluses provided. At this time she will be admitted to the hospital for continued evaluation and treatment. Awaiting discussion with the hospitalist. Repeat VBG obtained shows no significant interval delta. She is still breathing comfortably without any tachypnea, no tachycardia, hypoxia resolved with high-flow. Does not require noninvasive pressure ventilation at this time. Mentating appropriately. Hospitalist has evaluated the patient at bedside and agreeable to admission to the intermediate care unit. Patient has received fluid resuscitation and blood pressures have maintained with a map greater >65 with no significant interval change during her stay here with blood pressure in the 90s to 110 range consistently. Negative lactic acid. Patient is safe and stable for admission to the IMU at this time. Medical Records Attestation: I reviewed the patient's medical records. Lab Data Attestation: I reviewed the patient's lab results. 01/17/25 15:01/17/25 15: Labs: Lab Results 01/17/25 01/17/25 01/17/25 Range/Units 15: 15: 18:29 WBC 7.0 (4.5-10.0) K/mm3 RBC 5.88 H (4.2-5.4) M/mm3 Hgb 14.0 (12.0-15.0) g/dL Hct 47.5 H (37.0-47.0) % MCV 80.8 (80-100) fl MCH 23.8 L (26-34) pg MCHC 29.5 L (32-36) g/dl RDW 15.7 H (11.5-14.5) % Plt Count 313 (150-375) k/mm3 MPV 10.6 H (7.4-10.4) fl Immature Gran % (Auto) 0.3 (0-0.5) % Neut % (Auto) 65.2 (45.5-73.1) % Lymph % (Auto) 25.8 (18.3-44.2) % Price % (Auto) 6.2 (2.6-8.5) % Eos % (Auto) 1.9 (0-4.4) % Baso % (Auto) 0.6 (0.2-1.2) % Lymph # (Auto) 1.79 (0.9-3.2) K/mm3 Price # (Auto) 0.4 (0.1-0.6) K/mm3 Eos # (Auto) 0.1 (0-0.3) K/mm3 Baso # (Auto) 0.0 (0.0-0.1) K/mm3 Abs Immat Gran (auto) 0.02 (0.00-0.031) K/mm3 Absolute Neuts (auto) 4.5 (1.3-6.7) K/mm3 Absolute Nucleated RBC 0.000 (0.0-0.012) K/mm3 Band Neutrophils % Not Reportable Nucleated RBC % 0.0 (0.0-0.2) % Platelet Estimate Adequate (Adequate) Large Platelets Present Giant Platelets Present Hypochromasia 1+ Schistocytes None seen PT 13.9 (11.1-14.7) Seconds INR 1.0 APTT 26.7 (22.3-36.8) Seconds Sodium 141 (137-145) mmol/L Potassium 4.3 (3.4-5.0) mmol/L Chloride 105 (98-107) mmol/L Carbon Dioxide 32 H (22-30) mmol/L Anion Gap 4 (4-12) mmol/L BUN 8 (7-17) mg/dL Creatinine 0.86 (0.7-1.0) mg/dL Estim Creat Clear Calc Not Reportable Estimated GFR > 60 (59 - ) Glucose 71 (65-110) mg/dL Lactic Acid 0.9 (0.7-2.0) mmol/L Calcium 8.7 (8.4-10.2) mg/dL Magnesium 1.8 (1.6-2.3) mg/dL Total Bilirubin 0.3 (0.2-1.3) mg/dL AST 20 (14-36) U/L ALT 17 (6-35) U/L Alkaline Phosphatase 85 (38-126) U/L Troponin I < 0.012 (0.000-0.034) ng/mL NT-Pro-B Natriuret Pep 60 Cancelled (19.9-100) pg/mL Total Protein 7.0 (6.3-8.2) g/dL Albumin 3.7 (3.5-5.1) g/dL Serum HCG, Qual Negative Urine Color Dark yellow (Yellow) Urine Appearance Clear (Clear) Urine pH 6.5 (5.0-9.0) Ur Specific [place] > 1.045 H (1.001-1.035) Urine Protein Trace (Negative) mg/dL Urine Glucose (UA) Negative (Negative) mg/dL Urine Ketones Trace H (Negative) mg/dL Ur Blood (Man) Negative (Negative) Urine Nitrate Negative (Negative) Urine Bilirubin Negative (Negative) Urine Urobilinogen 1.0 (<2.0) mg/dL Leukocyte Esterase Rfl Negative (Negative) SANDER/UL Urine RBC 0-2 (0-2) /hpf Urine WBC 0-5 (0-3) /hpf Ur Squamous Epith Cells Occasional (Few) /hpf Urine Bacteria None seen /hpf Urine Casts 0-2 Influenza A (RT-PCR) (Negative) Influenza B (RT-PCR) (Negative) RSV (RT-PCR) (Negative) SARS-CoV-2 RNA (RT-PCR) (Negative) 01/17/25 Range/Units 20:09 WBC (4.5-10.0) K/mm3 RBC (4.2-5.4) M/mm3 Hgb (12.0-15.0) g/dL Hct (37.0-47.0) % MCV (80-100) fl MCH (26-34) pg MCHC (32-36) g/dl RDW (11.5-14.5) % Plt Count (150-375) k/mm3 MPV (7.4-10.4) fl Immature Gran % (Auto) (0-0.5) % Neut % (Auto) (45.5-73.1) % Lymph % (Auto) (18.3-44.2) % Price % (Auto) (2.6-8.5) % Eos % (Auto) (0-4.4) % Baso % (Auto) (0.2-1.2) % Lymph # (Auto) (0.9-3.2) K/mm3 Price # (Auto) (0.1-0.6) K/mm3 Eos # (Auto) (0-0.3) K/mm3 Baso # (Auto) (0.0-0.1) K/mm3 Abs Immat Gran (auto) (0.00-0.031) K/mm3 Absolute Neuts (auto) (1.3-6.7) K/mm3 Absolute Nucleated RBC (0.0-0.012) K/mm3 Band Neutrophils % Nucleated RBC % (0.0-0.2) % Platelet Estimate (Adequate) Large Platelets Giant Platelets Hypochromasia Schistocytes PT (11.1-14.7) Seconds INR APTT (22.3-36.8) Seconds Sodium (137-145) mmol/L Potassium (3.4-5.0) mmol/L Chloride (98-107) mmol/L Carbon Dioxide (22-30) mmol/L Anion Gap (4-12) mmol/L BUN (7-17) mg/dL Creatinine (0.7-1.0) mg/dL Estim Creat Clear Calc Estimated GFR (59 - ) Glucose (65-110) mg/dL Lactic Acid (0.7-2.0) mmol/L Calcium (8.4-10.2) mg/dL Magnesium (1.6-2.3) mg/dL Total Bilirubin (0.2-1.3) mg/dL AST (14-36) U/L ALT (6-35) U/L Alkaline Phosphatase (38-126) U/L Troponin I (0.000-0.034) ng/mL NT-Pro-B Natriuret Pep (19.9-100) pg/mL Total Protein (6.3-8.2) g/dL Albumin (3.5-5.1) g/dL Serum HCG, Qual Urine Color (Yellow) Urine Appearance (Clear) Urine pH (5.0-9.0) Ur Specific [place] (1.001-1.035) Urine Protein (Negative) mg/dL Urine Glucose (UA) (Negative) mg/dL Urine Ketones (Negative) mg/dL Ur Blood (Man) (Negative) Urine Nitrate (Negative) Urine Bilirubin (Negative) Urine Urobilinogen (<2.0) mg/dL Leukocyte Esterase Rfl (Negative) SANDER/UL Urine RBC (0-2) /hpf Urine WBC (0-3) /hpf Ur Squamous Epith Cells (Few) /hpf Urine Bacteria /hpf Urine Casts Influenza A (RT-PCR) Negative (Negative) Influenza B (RT-PCR) Negative (Negative) RSV (RT-PCR) Negative (Negative) SARS-CoV-2 RNA (RT-PCR) Negative (Negative) ABG Data ABG results: 01/17/25 01/17/25 15:57 20:09 Puncture Site Left radial ABG pH 7.337 L ABG pCO2 62.4 H* ABG pO2 55.2 L ABG PO2/FiO2 Ratio 1.53 ABG HCO3 32.7 H ABG O2 Saturation 86.0 L* ABG O2 Content 16.7 ABG Base Excess 4.8 VBG pH 7.329 VBG pCO2 62.9 H VBG pO2 51.0 H VBG HCO3 32.3 H A-a Gradient 129.1 Oxyhemoglobin 80.7 L* Total Hemoglobin 14.7 O2 Delivery Device Nasal cannula High flow nasal prosper O2 Liters/Min 4.0 55.0 FiO2 36 77 Attestation: I personally reviewed and interpreted this ABG as follows: Interpretation: Acute hypoxic and chronic hypercapnic respiratory failure PH normal, pCO2 62 with elevated bicarb of 32 Imaging Data Attestation: I personally reviewed and interpreted this imaging study as follows: My impression: Impressions Chest X-Ray 01/17/25 17:01 IMPRESSION: Bilateral interstitial thickening suggestive of pneumonitis versus pulmonary edema. Clinical correlation and follow-up advised. Chest CTA 01/17/25 18:59 IMPRESSION: 1. No pulmonary embolism. 2. Bilateral basal pneumonia. Critical Care Time Critical Care Time Critical Care Time: Yes Total Critical Care Time: 90 Discharge Plan Discharge Clinical Impression: Acute respiratory failure with hypoxia and hypercapnia, Gastroparesis, Opioid dependence, in remission, Bilateral pneumonia Patient Disposition: Still a Patient Condition: Stable Patient Language: Brazilian Prescriptions: No Action buprenorphine-naloxone 8-2 mg tablet, sublingual 1 tablet sublingual TID tizanidine 2 mg tablet 2 mg PO TID PRN prazosin 5 mg capsule 5 mg PO QHS docusate sodium [Colace] 100 mg capsule 100 mg PO DAILY albuterol sulfate [Ventolin HFA] 90 mcg/actuation HFA aerosol inhaler 1 puff inhalation Q4H PRN budesonide-formoterol 80-4.5 mcg/actuation HFA aerosol inhaler 2 puff inhalation Q12H quetiapine 25 mg tablet 25 mg PO QHS prazosin 1 mg capsule 1 mg PO QHS mirtazapine 45 mg tablet 45 mg PO DAILY quetiapine 300 mg tablet 300 mg PO QHS escitalopram oxalate 20 mg tablet 20 mg PO DAILY metoclopramide HCl [Reglan] 10 mg tablet 10 mg PO ACHS Qty: 120 3RF famotidine 40 mg tablet 40 mg PO BID Qty: 60 3RF esomeprazole magnesium [Nexium] 40 mg capsule,delayed release(DR/EC) 40 mg PO DAILY Qty: 60 3RF ondansetron 4 mg tablet,disintegrating 4 - 8 mg PO Q8H PRN (Reason: nausea and vomiting) 30 Days Qty: 90 0RF lactulose 10 gram/15 mL solution 20 g PO DAILY Qty: 3785 0RF lubiprostone [Amitiza] 24 mcg capsule 24 mcg PO BID Qty: 60 3RF Follow-up/Referrals: Cecil Gipson MD [Primary Care Provider] - Time of Disposition: 21:49
[2025-01-17 15:42] LABS: Basophils Percent Auto 0.6 % (0.2-1.2); Eosinophils Absolute Auto 0.1 K/mm3 (0-0.3); Eosinophils Percent Auto 1.9 % (0-4.4); Hematocrit 47.5 % (37.0-47.0); Immature Granulocyte Absolute 0.02 K/mm3 (0.00-0.031); Immature Granulocyte Percent A 0.3 % (0-0.5); Lymphocytes Absolute Auto 1.79 K/mm3 (0.9-3.2); Lymphocytes Percent Auto 25.8 % (18.3-44.2); Mean Corpuscular HGB Conc 29.5 g/dl (32-36); Mean Corpuscular Hemoglobin 23.8 pg (26-34); Mean Corpuscular Volume 80.8 fl (80-100); Mean Platelet Volume 10.6 fl (7.4-10.4); Monocytes Absolute Auto 0.4 K/mm3 (0.1-0.6); Monocytes Percent Auto 6.2 % (2.6-8.5); Neutrophils Absolute Auto 4.5 K/mm3 (1.3-6.7); Neutrophils Percent Auto 65.2 % (45.5-73.1); Platelet Count Result 313 k/mm3 (150-375); Red Blood Count 5.88 M/mm3 (4.2-5.4); Red Cell Distribution Width 15.7 % (11.5-14.5)
[2025-01-17 15:51] LABS: Alanine Aminotransferase 17 U/L (6-35); Albumin Level 3.7 g/dL (3.5-5.1); Alkaline Phosphatase 85 U/L (38-126); Anion Gap 4 mmol/L (4-12); Aspartate Amino Transferase 20 U/L (14-36); Bilirubin,Total 0.3 mg/dL (0.2-1.3); Blood Urea Nitrogen 8 mg/dL (7-17); Calcium 8.7 mg/dL (8.4-10.2); Carbon Dioxide 32 mmol/L (22-30); Chloride 105 mmol/L (98-107); Estimated Glomerular Filt Rate > 60; Glucose 71 mg/dL (65-110); Lactic Acid Reflex 0.9 mmol/L (0.7-2.0); Magnesium 1.8 mg/dL (1.6-2.3); Potassium 4.3 mmol/L (3.4-5.0); Sodium 141 mmol/L (137-145)
[2025-01-17] MEDS: IPRATROPIUM 0.5 MG/ALBUTEROL SULFATE 2.5 MG AMPUL.NEB 3 ML INHALATION ×3 (15:58→16:10)
[2025-01-17 15:59] LABS: Platelet Estimate Adequate (Adequate); Prothrombin Time 13.9 Seconds (11.1-14.7)
[2025-01-17 16:00] LABS: Giant Platelets Present; Large Platelets Present; Partial Thromboplastin Time 26.7 Seconds (22.3-36.8)
[2025-01-17 16:01] LABS: Alveolar/Arterial O2 Gradient 129.1 mmHg; Base Excess ABG 4.8 mEq/l (+/-2.0); Fractional Inspired Oxygen 36 %; HCO3 ABG 32.7 mEq/l (22.0-26.0); Oxygen Content ABG 16.7 %vol (16.0-22.0); PO2 ABG 55.2 mmHg (80.0-100.0); PO2 FiO2 Ratio Arterial Blood 1.53 %; Total Hemoglobin 14.7 g/dL (12.0-18.0); pH ABG 7.337 (7.350-7.450)
[2025-01-17 16:02] LABS: PCO2 ABG 62.4 mmHg (35.0-45.0)
[2025-01-17 16:02] LABS: Hypochromasia 1+; NT Pro B Type Natriuretic Pept 60 pg/mL (19.9-100); Schistocytes None Seen; Troponin I < 0.012 ng/mL (0.000-0.034)
[2025-01-17 16:03] LABS: Device NASAL CANNULA; Modified Allen's Test Pass; Oxyhemoglobin 80.7 % THb (90.0-100.0); Site Drawn LEFT RADIAL
--- NOTE | 2025-01-17 16:03 | PCRCNOTE ---
ABG not completed within 30 min window time due to patient being a hard stick. 2 RTs attempted to get ABG. ABG obtained @ 5817.
[2025-01-17 16:04] LABS: SPREG INTERNAL CONTROL Positive; Serum Qual hCG Negative
[2025-01-17] MEDS: MAGNESIUM SULF 2 GM/WATER 50ML 2 GM/50 ML BAG IVPB (16:25)
[2025-01-17] MEDS: ALBUTEROL SULFATE NEB 2.5 MG/3 ML INH 10 MG INHALATION (16:32)
[2025-01-17] MEDS: IPRATROPIUM BR 0.02% INH SOLN 0.5 MG/2.5 ML VIAL 1 MG INHALATION (16:32)
--- NOTE | 2025-01-17 18:03 | PC.NURSE ---
Pt to CT scan via stretcher, on tele monitor, pt on high flow humidified oxygen.
[2025-01-17 19:02] LABS: Add Urine Microscopic? YES; Appearance Urine Clear (Clear); Bacteria Urine None Seen /hpf; Bilirubin Urine Negative (Negative); Blood Urine Negative (Negative); Color Urine Dark Yellow (Yellow); Glucose Urine UA Negative (Negative); Ketones Urine Trace mg/dL (Negative); Leukocyte Esterase Ur Negative LEU/UL (Negative); Nitrate Urine Negative (Negative); Non Pathogenic Casts 0-2; Protein Urine Trace mg/dL (Negative); RBC Urine 0-2 /hpf (0-2); Specific Grav Ur > 1.045 (1.001-1.035); Squamous Epithelial Cell Urine Occasional /hpf (Few); WBC Urine 0-5 /hpf (0-3); pH Urine 6.5 (5.0-9.0)
[2025-01-17] MEDS: LACTATED RINGERS 1,000 ML 999 ML IV CONT ×2 (20:00→22:02)
[2025-01-17] MEDS: AZITHROMYCIN 500 MG/NS 250 ML 500 MG/250 ML BAG 250 MG IVPB (20:01)
[2025-01-17 20:12] LABS: Fractional Inspired Oxygen 77 %; HCO3 VBG 32.3 mEq/l (24.0-30.0); PCO2 VBG 62.9 mmHg (42.0-48.0); pH VBG 7.329 (7.300-7.400)
[2025-01-17 20:15] LABS: Device HIGH FLOW NASAL CANN
[2025-01-17 20:50] LABS: Influenza A QL RT-PCR Negative (Negative); Influenza B QL RT-PCR Negative (Negative); RSV RNA, RT-PCR Negative (Negative); SARS-CoV-2 RNA PCR Negative (Negative)
--- NOTE | 2025-01-17 22:39 | P.HP_ITS ---
H&P: HPI History of Present Illness Date/Time: 01/17/25 21:15 Chief Complaint: Low oxygen saturation Narrative: He 34-year-old female with a past medical history of gastroparesis, obesity pre diabetes asthma, heavy tobacco use, marijuana use and 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 The patient has had low oxygen saturations at home for the last several weeks to last couple of months. Is been associated with dyspnea on exertion. She had been reactive to go to the ER by another provider but she did not because she was scared. So when she followed up with Dr. Boucher as outpatient she was noted to have oxygen saturations of 81% on room air and was directed to come to the ER. She denied having any chest pain or palpitations but has been having some chest tightness. She denies any increased cough or congestion. She does have a history of asthma but reports this does not feel like her asthma exacerbations. She has noticed increased wheezing. Patient was placed on 10 L high-flow oxygen to maintain oxygen saturations of 92% in the ER. There was concern for possible pulmonary embolism the patient underwent CTA which was negative for PE but demonstrated bilateral pneumonia. She denied having any fevers or chills. She was afebrile in the ER. She denies any recent ill contacts. Her viral panel was negative for COVID flu RSV. Her white count was normal. Her ABG demonstrated respiratory acidosis with hypercapnia pCO2 of 62 be pH of 7.33 PO2 of 55. Her VBG several hours later demonstrated improvement in pH and stable pCO2 which was likely a slight improvement in the patient's prior given VBG specimen and relatively stable PO2. She does have chronic nausea and vomiting with recent diagnosis of gastroparesis in the last 6 months. Reason for gastroparesis is on certain. She also has IBS. Her significant other reports that she snores quite loudly and has gasping respirations with sleep. She reports daytime fatigue and persistent sleepiness despite adequate sleep. She reports that the spider increased shortness of breath at home she has only occasionally used her nebulizer treatments. Review of Systems 2 Review of Systems: 12 systems were reviewed with pertinent positives and negatives per HPI. Except as documented in the HPI, all other systems were reviewed and are negative. 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, 2022 Gastroparesis GERD (gastroesophageal reflux disease) History of hepatitis C Nicotine dependence Cannabis dependence Depression with anxiety PTSD (post-traumatic stress disorder) Asthma Surgical History Surgical History (Updated 01/17/25 @ 23:02 by Malena Saini DO) Status post open reduction with internal fixation of fracture Right elbow fracture as a child Family History Family History Father Malignant neoplasm of prostate at age 56 Mother Renal cancer at age 62 Grandparent Renal cancer maternal grandmother Social History Social History (Updated 01/17/25 @ 23:05 by Malena Saini DO) Social History: Patient lives with her significant other of 3. She has 3 children ages 812 and 14. She has smoked 1-2 packs of cigarettes per day since she was 19 years old. She smokes marijuana on a somewhat frequent basis. She has history of IV fentanyl dependence but is been in remission since February 26, 2022. She is currently unemployed but previously worked in the [employer]. Code status: Full code Surrogate decision maker: Valentin (significant other) Smoking packs per day: 1 Smoking cigarettes per day: 20.0 Years smoked: 15 Smoking pack-years: 15.00 Smoking status: Current every day smoker Alcohol intake: never Substance use type: former substance user, marijuana and opiates Other substance usage details: former fentanyl user Last use: 3 years Do You Feel Safe in your Home?: Yes Lack of Transportation: No Lack of Food: Never True Current Housing: I Have Housing Concerned About Future Housing: No Difficulty Paying Gas/Electric Bills: No Difficulty Paying for Meds: No Currently Unemployed: No Education: Decline to Answer Difficulty w/ Childcare or Family Care: No Spiritual care concerns: No Meds Home Medications and Allergies Home Medications ?Medication ?Instructions ?Recorded ?Confirmed ?Type albuterol sulfate 90 mcg/actuation 1 puff inhalation Q4H PRN 11/14/24 01/17/25 History aerosol inhaler (Ventolin HFA) shortness of breath or wheezing budesonide-formoterol HFA 80 2 puff inhalation Q12H 11/14/24 01/17/25 History mcg-4.5 mcg/actuation aerosol inhaler buprenorphine 8 mg-naloxone 2 mg 1 tablet sublingual TID 11/14/24 01/17/25 History sublingual tablet docusate sodium 100 mg capsule 100 mg PO DAILY 11/14/24 01/17/25 History (Colace) escitalopram oxalate 20 mg tablet 20 mg PO DAILY 11/14/24 01/17/25 History metoclopramide HCl 10 mg tablet 10 mg PO ACHS #120 tabs 11/14/24 01/17/25 Rx (Reglan) mirtazapine 45 mg tablet 45 mg PO HS 11/14/24 01/17/25 History prazosin 5 mg capsule 10 mg PO QHS 11/14/24 01/17/25 History quetiapine 300 mg tablet 450 mg PO QHS 11/14/24 01/17/25 History tizanidine 2 mg tablet 2 mg PO QID PRN muscle spasm 11/14/24 01/17/25 History esomeprazole magnesium 40 mg 40 mg PO DAILY #60 caps 12/26/24 01/17/25 Rx capsule,delayed release (Nexium) ondansetron 4 mg disintegrating 4 - 8 mg (1 - 2 x 4 mg) PO Q8H PRN 12/26/24 01/17/25 Rx tablet nausea and vomiting 30 days #90 tabs diazepam 5 mg tablet 5 mg PO Q8H 01/17/25 01/17/25 History duloxetine 60 mg capsule,delayed 60 mg PO DAILY 01/17/25 01/17/25 History release lactulose 10 gram/15 mL oral 20 g PO DAILY PRN constipation 01/17/25 01/17/25 History solution lubiprostone 24 mcg capsule 24 mcg PO Q12H 01/17/25 01/17/25 History (Amitiza) prazosin 2 mg capsule 2 mg PO Q12H 01/17/25 01/17/25 History quetiapine 50 mg tablet,extended 100 mg PO DAILY PRN 01/17/25 01/17/25 History release 24 hr appetite/gastroparesis sennosides 8.6 mg tablet (senna) 17.2 mg PO HS 01/17/25 01/17/25 History Allergies Allergy/AdvReac Type Severity Reaction Status Date / Time No Known Allergies Allergy Unknown Verified 01/17/25 22:20 Vital Signs Vital Signs - 24 hr 01/17/25 14:59 01/17/25 15:16 01/17/25 15:47 Temperature 98.1 F 98.2 F Pulse Rate 91 84 81 Respiratory Rate 20 14 16 Blood Pressure 113/77 111/72 136/84 Pulse Oximetry 89 L 92 79 L Oxygen Delivery Room Air Oxygen Flow Rate Fraction of Inspired Oxygen 01/17/25 15:49 01/17/25 15:49 01/17/25 15:49 Temperature Pulse Rate 88 87 Respiratory Rate 19 18 18 Blood Pressure 105/74 105/74 Pulse Oximetry 93 93 Oxygen Delivery Oxygen Flow Rate 4 Fraction of Inspired Oxygen 01/17/25 15:52 01/17/25 15:58 01/17/25 15:58 Temperature Pulse Rate 89 85 Respiratory Rate 20 22 H Blood Pressure 105/74 Pulse Oximetry 90 89 L Oxygen Delivery Nasal Cannula Nasal Cannula Oxygen Flow Rate 4 4 Fraction of Inspired Oxygen 36 01/17/25 16:16 01/17/25 16:24 01/17/25 16:24 Temperature Pulse Rate 85 89 Respiratory Rate 20 26 H Blood Pressure 94/53 L Pulse Oximetry 91 92 Oxygen Delivery Nasal Cannula Oxygen Flow Rate 4 Fraction of Inspired Oxygen 36 01/17/25 16:32 01/17/25 16:32 01/17/25 17:01 Temperature Pulse Rate 89 86 Respiratory Rate 20 19 Blood Pressure 105/60 Pulse Oximetry 93 92 Oxygen Delivery High Flow Therapy with Na Oxygen Flow Rate 45 Fraction of Inspired Oxygen 60 01/17/25 17:08 01/17/25 17:31 01/17/25 17:46 Temperature Pulse Rate 91 91 89 Respiratory Rate 19 21 H 14 Blood Pressure 105/60 110/60 105/63 Pulse Oximetry 92 94 93 Oxygen Delivery Oxygen Flow Rate Fraction of Inspired Oxygen 01/17/25 17:47 01/17/25 17:47 01/17/25 17:49 Temperature Pulse Rate 87 Respiratory Rate 20 Blood Pressure Pulse Oximetry 92 86 L Oxygen Delivery High Flow Therapy with Na High Flow Therapy with Na Oxygen Flow Rate 45 45 Fraction of Inspired Oxygen 60 60 01/17/25 17:50 01/17/25 17:54 01/17/25 17:56 Temperature Pulse Rate Respiratory Rate Blood Pressure Pulse Oximetry 85 L 92 95 Oxygen Delivery High Flow Therapy with Na High Flow Therapy with Na High Flow Therapy with Na Oxygen Flow Rate 50 55 55 Fraction of Inspired Oxygen 70 80 80 01/17/25 18:00 01/17/25 18:33 01/17/25 18:46 Temperature Pulse Rate 87 Respiratory Rate 19 Blood Pressure 101/58 L 102/65 92/57 L Pulse Oximetry 94 94 96 Oxygen Delivery Oxygen Flow Rate Fraction of Inspired Oxygen 01/17/25 19:30 01/17/25 19:39 01/17/25 19:39 Temperature Pulse Rate 67 73 Respiratory Rate 14 16 Blood Pressure 89/64 L Pulse Oximetry 96 95 Oxygen Delivery High Flow Nasal Cannula Oxygen Flow Rate 10 Fraction of Inspired Oxygen 01/17/25 19:47 01/17/25 19:57 01/17/25 20:00 Temperature Pulse Rate 73 72 Respiratory Rate 16 14 Blood Pressure 99/74 L Pulse Oximetry 98 97 Oxygen Delivery Oxygen Flow Rate Fraction of Inspired Oxygen 01/17/25 20:15 01/17/25 20:15 01/17/25 20:16 Temperature Pulse Rate 72 72 70 Respiratory Rate 16 16 12 Blood Pressure 89/54 L Pulse Oximetry 96 100 Oxygen Delivery High Flow Therapy with Na Oxygen Flow Rate 55 Fraction of Inspired Oxygen 77 01/17/25 20:30 01/17/25 20:31 01/17/25 20:45 Temperature Pulse Rate 79 79 82 Respiratory Rate 15 16 17 Blood Pressure 85/51 L Pulse Oximetry 98 98 97 Oxygen Delivery Oxygen Flow Rate Fraction of Inspired Oxygen 01/17/25 21:00 01/17/25 21:01 01/17/25 21:24 Temperature Pulse Rate 87 90 Respiratory Rate 17 18 Blood Pressure 87/41 L 104/72 Pulse Oximetry 97 97 Oxygen Delivery Oxygen Flow Rate Fraction of Inspired Oxygen 01/17/25 21:45 01/17/25 22:22 Temperature Pulse Rate 71 Respiratory Rate 17 Blood Pressure 92/57 L Pulse Oximetry 93 93 Oxygen Delivery High Flow Therapy with Na Oxygen Flow Rate 45 Fraction of Inspired Oxygen 60 Exam 2 Narrative: Weight 93.4 kg BMI 36.5 Const: Other: Obese, mildly ill-appearing, sitting upright in bed with vapotherm in place HENMT: Other: Crowded posterior oropharynx, mucous membranes are moist, no oral pharyngeal erythema Eyes: Other: Pupils are equal and reactive, no scleral icterus, no conjunctival pallor Neck: Other: Large neck circumference, no lymphadenopathy, no JVD Resp: Other: Diffuse wheezing throughout, conversational dyspnea and tachypnea Cardio: Other: Regular rate, regular rhythm, 2+ bilateral radial pedal pulses, no murmur GI: Other: Obese, soft, normoactive bowel sounds, nontender Skin: Other: Hot to touch, non jaundice, no pallor Neuro: Other: Alert oriented, speech is clear, no facial asymmetry, no localizing neurologic deficits noted during the course of conversation Extrem: Other: Patient had equal strength and was able to stand at bedside to use the bedside commode, no clubbing, cyanosis or edema Psych: Other: Appropriate mood and affect, pleasant and cooperative, judgment and insight fair H&P: Results Labs Labs: Laboratory Tests 01/17/25 15:29 01/17/25 15:29 01/17/25 01/17/25 01/17/25 15: 15: 15:57 WBC 7.0 RBC 5.88 H Hgb 14.0 Hct 47.5 H MCV 80.8 MCH 23.8 L MCHC 29.5 L RDW 15.7 H Plt Count 313 MPV 10.6 H Immature Gran % (Auto) 0.3 Neut % (Auto) 65.2 Lymph % (Auto) 25.8 [place] % (Auto) 6.2 Eos % (Auto) 1.9 Baso % (Auto) 0.6 Lymph # (Auto) 1.79 [place] # (Auto) 0.4 Eos # (Auto) 0.1 Baso # (Auto) 0.0 Abs Immat Gran (auto) 0.02 Absolute Neuts (auto) 4.5 Absolute Nucleated RBC 0.000 Band Neutrophils % Not Reportable Nucleated RBC % 0.0 Platelet Estimate Adequate Large Platelets Present Giant Platelets Present Hypochromasia 1+ Schistocytes None seen PT 13.9 INR 1.0 APTT 26.7 Puncture Site Left radial ABG pH 7.337 L ABG pCO2 62.4 H* ABG pO2 55.2 L ABG PO2/FiO2 Ratio 1.53 ABG HCO3 32.7 H ABG O2 Saturation 86.0 L* ABG O2 Content 16.7 ABG Base Excess 4.8 VBG pH VBG pCO2 VBG pO2 VBG HCO3 A-a Gradient 129.1 Oxyhemoglobin 80.7 L* Total Hemoglobin 14.7 O2 Delivery Device Nasal cannula O2 Liters/Min 4.0 FiO2 36 Sodium 141 Potassium 4.3 Chloride 105 Carbon Dioxide 32 H Anion Gap 4 BUN 8 Creatinine 0.86 Estim Creat Clear Calc Not Reportable Estimated GFR > 60 Glucose 71 Lactic Acid 0.9 Calcium 8.7 Magnesium 1.8 Total Bilirubin 0.3 AST 20 ALT 17 Alkaline Phosphatase 85 Troponin I < 0.012 NT-Pro-B Natriuret Pep 60 Cancelled Total Protein 7.0 Albumin 3.7 Serum HCG, Qual Negative Urine Color Urine Appearance Urine pH Ur Specific [place] Urine Protein Urine Glucose (UA) Urine Ketones Ur Blood (Man) Urine Nitrate Urine Bilirubin Urine Urobilinogen Leukocyte Esterase Rfl Urine RBC Urine WBC Ur Squamous Epith Cells Urine Bacteria Urine Casts Influenza A (RT-PCR) Influenza B (RT-PCR) RSV (RT-PCR) SARS-CoV-2 RNA (RT-PCR) 01/17/25 01/17/25 18:29 20:09 WBC RBC Hgb Hct MCV MCH MCHC RDW Plt Count MPV Immature Gran % (Auto) Neut % (Auto) Lymph % (Auto) [place] % (Auto) Eos % (Auto) Baso % (Auto) Lymph # (Auto) [place] # (Auto) Eos # (Auto) Baso # (Auto) Abs Immat Gran (auto) Absolute Neuts (auto) Absolute Nucleated RBC Band Neutrophils % Nucleated RBC % Platelet Estimate Large Platelets Giant Platelets Hypochromasia Schistocytes PT INR APTT Puncture Site ABG pH ABG pCO2 ABG pO2 ABG PO2/FiO2 Ratio ABG HCO3 ABG O2 Saturation ABG O2 Content ABG Base Excess VBG pH 7.329 VBG pCO2 62.9 H VBG pO2 51.0 H VBG HCO3 32.3 H A-a Gradient Oxyhemoglobin Total Hemoglobin O2 Delivery Device High flow nasal prosper O2 Liters/Min 55.0 FiO2 77 Sodium Potassium Chloride Carbon Dioxide Anion Gap BUN Creatinine Estim Creat Clear Calc Estimated GFR Glucose Lactic Acid Calcium Magnesium Total Bilirubin AST ALT Alkaline Phosphatase Troponin I NT-Pro-B Natriuret Pep Total Protein Albumin Serum HCG, Qual Urine Color Dark yellow Urine Appearance Clear Urine pH 6.5 Ur Specific [place] > 1.045 H Urine Protein Trace Urine Glucose (UA) Negative Urine Ketones Trace H Ur Blood (Man) Negative Urine Nitrate Negative Urine Bilirubin Negative Urine Urobilinogen 1.0 Leukocyte Esterase Rfl Negative Urine RBC 0-2 Urine WBC 0-5 Ur Squamous Epith Cells Occasional Urine Bacteria None seen Urine Casts 0-2 Influenza A (RT-PCR) Negative Influenza B (RT-PCR) Negative RSV (RT-PCR) Negative SARS-CoV-2 RNA (RT-PCR) Negative Impressions Chest X-Ray 01/17/25 17:01 IMPRESSION: Bilateral interstitial thickening suggestive of pneumonitis versus pulmonary edema. Clinical correlation and follow-up advised. Chest CTA 01/17/25 18:59 IMPRESSION: 1. No pulmonary embolism. 2. Bilateral basal pneumonia. EKG: Normal sinus rhythm rate 84 QTC 396 All imaging and EKGs personally reviewed and interpreted. And unless stated otherwise agree with radiologic and cardiology interpretation. Assessment and Plan Assessment and plan (1) Acute respiratory failure with hypoxia and hypercapnia: Code(s): J96.01 - Acute respiratory failure with hypoxia; J96.02 - Acute respiratory failure with hypercapnia Status: Acute (2) Bilateral pneumonia: Qualifiers: Pneumonia type: due to unspecified organism Lung location: lower lobe of lung Qualified Code(s): J18.9 - Pneumonia, unspecified organism Code(s): J18.9 - Pneumonia, unspecified organism Status: Acute (3) Asthma exacerbation: Qualifiers: Asthma severity: unspecified severity Asthma persistence: persistent Q ualified Code(s): J45.901 - Unspecified asthma with (acute) exacerbation Code(s): J45.901 - Unspecified asthma with (acute) exacerbation Status: Acute (4) Continuous tobacco abuse: Code(s): Z72.0 - Tobacco use Status: Acute (5) Transient hypotension: Code(s): I95.9 - Hypotension, unspecified Status: Acute (6) Obesity: Qualifiers: Obesity type: due to excess calories Obesity classification: adult class 2 (BMI 35 - 39.9) Serious obesity comorbidity presence: with serious comorbidity Body mass index: BMI 36.0-36.9 Qualified Code(s): E66.812 - Obesity, class 2; E66.01 - Morbid (severe) obesity due to excess calories; Z68.36 - Body mass index [BMI] 36.0-36.9, adult Code(s): E66.9 - Obesity, unspecified Status: Acute (7) Snoring: Code(s): R06.83 - Snoring Status: Acute (8) Opioid dependence, in remission: Code(s): F11.21 - Opioid dependence, in remission Status: Inactive (9) Gastroparesis: Code(s): K31.84 - Gastroparesis Status: Acute (10) GERD (gastroesophageal reflux disease): Qualifiers: Esophagitis presence: esophagitis presence not specified Qualified Code(s): K21.9 - Gastro-esophageal reflux disease without esophagitis Code(s): K21.9 - Gastro-esophageal reflux disease without esophagitis Status: Acute (11) Depression with anxiety: Code(s): F41.8 - Other specified anxiety disorders Status: Acute Plan The patient has acute hypoxic respiratory failure in the setting of acute on chronic hypercapnic respiratory failure. Underlying causes due to a combination of longstanding asthma, there may be some component of underlying COPD as well given the patient's chronic tobacco use and worsened in the setting of acute bilateral lower lobe pneumonia. The patient has severe hypoxia requiring large amounts of supplemental oxygen. The patient has been placed on vapotherm. Will place the patient on scheduled nebulizer treatments with albuterol and and Atrovent as well as p.r.n. treatments. Patient received high-dose Solu-Medrol in the ER. Will place patient on scheduled Solu-Medrol. Will continue home inhalers. Patient has been started empiric antibiotic therapy with Rocephin and azithromycin. Blood cultures have been obtained and are pending. Will send urine for Legionella and pneumococcal antigen. Given her history of gastroparesis and vomiting there could be some component of aspiration pneumonia. If symptoms not improving with current management consider addition of anaerobic coverage. Will wean oxygen therapy as tolerated to maintain oxygen saturations between 88 and 92%. The patient likely has chronic underlying hypercapnic respiratory failure due to a combination of asthma/chronic tobacco abuse with possible underlying COPD and likely some component of obstructive sleep apnea. She has never been tested for obstructive sleep apnea but does have daytime fatigue snoring and witnessed episodes of apnea per significant other at bedside. Patient would benefit from outpatient polysomnogram and PFTs when resolved acute illness. If patient is not improving with Vapotherm then will consider BiPAP as this would treat some underlying obstructive sleep apnea as well. Will obtain repeat CBC, electrolyte panel and ABG in a.m.. The patient does smoke tobacco heavily. 10 minutes was spent tobacco cessation Education including possible management options. Patient requested nicotine patch at this time. The patient did have transient hypotension in the ER part of this may have just simply been due to a large cuff size. However patient's blood pressures improved with 3 L isotonic fluid administration and smaller blood pressure cuff. Will monitor blood pressures closely. Patient is on multiple QT prolonging medications including her psychiatric medications, antibiotics and Reglan for her gastroparesis. Currently QTC is normal on EKG. Will continue to monitor on telemetry. Will resume patient's psychiatric medications as well as antiemetics as well as continuing antibiotics. The patient has history of opiate dependence and is currently in remission. Will continue home Suboxone. Will continue PPI therapy for both GERD and stress ulcer prophylaxis. Quality VTE Prophylaxis VTE prophylaxis: pharmacologic ordered (Lovenox 40 mg subQ daily.) Hospitalist [facility] Advance Care Plan I have confirmed that the patient's Advanced Care Plan is present, code status is documented, or surrogate decision maker is listed in patient medical record.: Yes Medication Reconciliation I have utilized all available resources to obtain, update and review the patients current medications (includes all prescriptions, OTC, herbals, cannabis, and nutritional supplements).: Yes
--- NOTE | 2025-01-17 23:21 | PC.NURSE ---
This patient, Birgit Hernandez, was admitted to IMU Room 212-01. Patient/family oriented to hospital policies and general routines including ID bracelet, bed and alarms, visiting hours, pain management, procedures, bathroom and other care routines, personal items, smoking policy, room service/diet, and visiting hours. Information on how to activate the Rapid Response Team has been discussed. Patient/Family are encouraged to report perceived risks to care and to ask questions if they do not understand what they are told or what they should do.
[2025-01-17] MEDS: LACTATED RINGERS 1,000 ML 125 ML IV CONT (23:26)
[2025-01-17] MEDS: BUPRENORPHINE/NALOXONE (*CRX) 4 MG/1 MG SL FILM 2 EACH SUBLINGUAL (23:30)
[2025-01-17] MEDS: NICOTINE (*PBKC) 21 MG PATCH 1 PATCH TRANSDERM (23:30)
[2025-01-17] MEDS: MIRTAZAPINE 15 MG TABLET 45 MG PO (23:31)
[2025-01-17] MEDS: SENNOSIDES 8.6 MG TABLET 17.2 MG PO (23:31)
[2025-01-17] MEDS: diazePAM (*CRX) 5 MG TABLET PO (23:31)
[2025-01-17] MEDS: methylPREDNISolone SOD SUCC 125 MG VIAL 60 MG IV PUSH (23:32)
[2025-01-17] MEDS: PRAZOSIN HCL 1 MG CAPSULE 2 MG PO (23:55)
[2025-01-17] MEDS: PRAZOSIN HCL 5 MG CAPSULE 10 MG PO (23:55)
[2025-01-17] MEDS: LUBIPROSTONE 24 MCG CAPSULE PO (23:55)
[2025-01-17] MEDS: QUEtiapine FUMARATE 100 MG TABLET 400 MG PO (23:56)
[2025-01-17] MEDS: QUEtiapine FUMARATE 25 MG TABLET 50 MG PO (23:56)
[2025-01-18] VITALS (27 sets, daily range): BP systolic 112–123; BP diastolic 63–79; PULSE 52–123; RESP 15–22; TEMP 36.6–36.9; O2SAT 90–96
[2025-01-18] MEDS: IPRATROPIUM BR 0.02% INH SOLN 0.5 MG/2.5 ML VIAL INHALATION ×4 (01:58→20:20)
[2025-01-18] MEDS: ALBUTEROL SULFATE NEB 2.5 MG/3 ML INH 5 MG INHALATION ×4 (01:58→20:20)
[2025-01-18] MEDS: diazePAM (*CRX) 5 MG TABLET PO ×3 (06:23→20:04)
[2025-01-18] MEDS: methylPREDNISolone SOD SUCC 125 MG VIAL 60 MG IV PUSH ×4 (06:23→23:37)
[2025-01-18] MEDS: METOCLOPRAMIDE HCL 10 MG TABLET PO ×4 (06:23→20:04)
[2025-01-18] MEDS: LACTATED RINGERS 1,000 ML 125 ML IV CONT (06:30)
[2025-01-18] MEDS: TIZANIDINE HCL 2 MG TABLET PO ×3 (06:30→20:18)
[2025-01-18] MEDS: DULoxetine HCL 60 MG CAPSULE.DR PO (08:32)
[2025-01-18] MEDS: PRAZOSIN HCL 1 MG CAPSULE 2 MG PO ×2 (08:32→20:05)
[2025-01-18] MEDS: PANTOPRAZOLE 40 MG TABLET PO (08:32)
[2025-01-18] MEDS: LUBIPROSTONE 24 MCG CAPSULE PO ×2 (08:32→20:04)
[2025-01-18] MEDS: ESCITALOPRAM OXALATE 10 MG TABLET 20 MG PO (08:32)
[2025-01-18] MEDS: DOCUSATE SODIUM 100 MG CAPSULE PO (08:32)
[2025-01-18] MEDS: NICOTINE (*PBKC) 21 MG PATCH 1 PATCH TRANSDERM (08:32)
[2025-01-18] MEDS: BUPRENORPHINE/NALOXONE (*CRX) 4 MG/1 MG SL FILM 2 EACH SUBLINGUAL ×2 (08:35→12:59)
[2025-01-18] MEDS: FLUTICASONE/SALMETEROL 45-21 MCG INHALER 1 PUFF 2 PUFF INHALATION ×2 (09:14→20:35)
--- NOTE | 2025-01-18 10:20 | P.PNIM_ITS ---
Progress Note: A&P Assessment and Plan (1) Acute respiratory failure with hypoxia and hypercapnia: Code(s): J96.01 - Acute respiratory failure with hypoxia; J96.02 - Acute respiratory failure with hypercapnia Status: Acute Assessment and Plan: Underlying asthma Chronic smoker Possible exacerbation of COPD Currently on high-flow nasal cannula 60 L and 40% On Solu-Medrol Started on Rocephin and azithromycin Pending blood culture Will be evaluated for GABRIEL No improvement on HFNC consider BiPAP (2) Bilateral pneumonia: Qualifiers: Lung location: lower lobe of lung Pneumonia type: due to unspecified organism Qualified Code(s): J18.9 - Pneumonia, unspecified organism Code(s): J18.9 - Pneumonia, unspecified organism Status: Acute Assessment and Plan: See above (3) Asthma exacerbation: Qualifiers: Asthma severity: unspecified severity Asthma persistence: persistent Qualified Code(s): J45.901 - Unspecified asthma with (acute) exacerbation Code(s): J45.901 - Unspecified asthma with (acute) exacerbation Status: Acute Assessment and Plan: See above (4) Continuous tobacco abuse: Code(s): Z72.0 - Tobacco use Status: Acute Assessment and Plan: Counseled on smoking cessation (5) Transient hypotension: Code(s): I95.9 - Hypotension, unspecified Status: Acute Assessment and Plan: Received 3 L in ED Transient hypotension Resolved (6) Obesity: Qualifiers: Obesity type: due to excess calories Obesity classification: adult class 2 (BMI 35 - 39.9) Serious obesity comorbidity presence: with serious comorbidity Body mass index: BMI 36.0-36.9 Qualified Code(s): E66.812 - Obesity, class 2; E66.01 - Morbid (severe) obesity due to excess calories; Z68.36 - Body mass index [BMI] 36.0-36.9, adult Code(s): E66.9 - Obesity, unspecified Status: Acute Assessment and Plan: Encouraged diet and exercise (7) Snoring: Code(s): R06.83 - Snoring Status: Acute Assessment and Plan: Will evaluate for GABRIEL (8) Opioid dependence, in remission: Code(s): F11.21 - Opioid dependence, in remission Status: Inactive Assessment and Plan: History of fentanyl abuse (9) Gastroparesis: Code(s): K31.84 - Gastroparesis Status: Acute Assessment and Plan: Continue reglan (10) GERD (gastroesophageal reflux disease): Qualifiers: Esophagitis presence: esophagitis presence not specified Qualified Code(s): K21.9 - Gastro-esophageal reflux disease without esophagitis Code(s): K21.9 - Gastro-esophageal reflux disease without esophagitis Status: Acute Assessment and Plan: Continue Protonix (11) Depression with anxiety: Code(s): F41.8 - Other specified anxiety disorders Status: Acute Assessment and Plan: Continue home meds Subjective Date/time seen: 01/18/25 10:20 Interval history: 34-year-old female with a past medical history of gastroparesis, obesity pre diabetes asthma, heavy tobacco use, marijuana use and 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 Patient reports that she is smokes at least 20 cigarettes in a day. Patient reports lately she has dyspnea. Patient follows up with Dr. Gipson who is the PCP who referred the patient to and is in ED due to low oxygen saturation. Patient also reports she has a chronic gastroparesis . Review of Systems Review of Systems: 12 systems were reviewed with pertinent positives and negatives per HPI. Except as documented in the HPI, all other systems were reviewed and are negative. Exam Narrative: Weight 93.4 kg BMI 36.5 Const: Other: Obese, mildly ill-appearing, sitting upright in bed with vapotherm in place HENMT: Other: Crowded posterior oropharynx, mucous membranes are moist, no oral pharyngeal erythema Eyes: Other: Pupils are equal and reactive, no scleral icterus, no conjunctival pallor Neck: Other: Large neck circumference, no lymphadenopathy, no JVD Resp: Other: Diffuse wheezing throughout, conversational dyspnea and tachypnea Cardio: Other: Regular rate, regular rhythm, 2+ bilateral radial pedal pulses, no murmur GI: Other: Obese, soft, normoactive bowel sounds, nontender Skin: Other: Hot to touch, non jaundice, no pallor Neuro: Other: Alert oriented, speech is clear, no facial asymmetry, no localizing neurologic deficits noted during the course of conversation Extrem: Other: Patient had equal strength and was able to stand at bedside to use the bedside commode, no clubbing, cyanosis or edema Psych: Other: Appropriate mood and affect, pleasant and cooperative, judgment and insight fair Objective Data Vital Signs Vital Signs: Vital Signs - 24 hr 01/17/25 14:59 01/17/25 15:16 01/17/25 15:47 Temperature 98.1 F 98.2 F Pulse Rate 91 84 81 Respiratory Rate 20 14 16 Blood Pressure 113/77 111/72 136/84 Pulse Oximetry 89 L 92 79 L Oxygen Delivery Room Air Oxygen Flow Rate Fraction of Inspired Oxygen 01/17/25 15:49 01/17/25 15:49 01/17/25 15:49 Temperature Pulse Rate 88 87 Respiratory Rate 19 18 18 Blood Pressure 105/74 105/74 Pulse Oximetry 93 93 Oxygen Delivery Oxygen Flow Rate 4 Fraction of Inspired Oxygen 01/17/25 15:52 01/17/25 15:58 01/17/25 15:58 Temperature Pulse Rate 89 85 Respiratory Rate 20 22 H Blood Pressure 105/74 Pulse Oximetry 90 89 L Oxygen Delivery Nasal Cannula Nasal Cannula Oxygen Flow Rate 4 4 Fraction of Inspired Oxygen 36 01/17/25 16:16 01/17/25 16:24 01/17/25 16:24 Temperature Pulse Rate 85 89 Respiratory Rate 20 26 H Blood Pressure 94/53 L Pulse Oximetry 91 92 Oxygen Delivery Nasal Cannula Oxygen Flow Rate 4 Fraction of Inspired Oxygen 36 01/17/25 16:32 01/17/25 16:32 01/17/25 17:01 Temperature Pulse Rate 89 86 Respiratory Rate 20 19 Blood Pressure 105/60 Pulse Oximetry 93 92 Oxygen Delivery High Flow Therapy with Na Oxygen Flow Rate 45 Fraction of Inspired Oxygen 60 01/17/25 17:08 01/17/25 17:31 01/17/25 17:46 Temperature Pulse Rate 91 91 89 Respiratory Rate 19 21 H 14 Blood Pressure 105/60 110/60 105/63 Pulse Oximetry 92 94 93 Oxygen Delivery Oxygen Flow Rate Fraction of Inspired Oxygen 01/17/25 17:47 01/17/25 17:47 01/17/25 17:49 Temperature Pulse Rate 87 Respiratory Rate 20 Blood Pressure Pulse Oximetry 92 86 L Oxygen Delivery High Flow Therapy with Na High Flow Therapy with Na Oxygen Flow Rate 45 45 Fraction of Inspired Oxygen 60 60 01/17/25 17:50 01/17/25 17:54 01/17/25 17:56 Temperature Pulse Rate Respiratory Rate Blood Pressure Pulse Oximetry 85 L 92 95 Oxygen Delivery High Flow Therapy with Na High Flow Therapy with Na High Flow Therapy with Na Oxygen Flow Rate 50 55 55 Fraction of Inspired Oxygen 70 80 80 01/17/25 18:00 01/17/25 18:33 01/17/25 18:46 Temperature Pulse Rate 87 Respiratory Rate 19 Blood Pressure 101/58 L 102/65 92/57 L Pulse Oximetry 94 94 96 Oxygen Delivery Oxygen Flow Rate Fraction of Inspired Oxygen 01/17/25 19:30 01/17/25 19:39 01/17/25 19:39 Temperature Pulse Rate 67 73 Respiratory Rate 14 16 Blood Pressure 89/64 L Pulse Oximetry 96 95 Oxygen Delivery High Flow Nasal Cannula Oxygen Flow Rate 10 Fraction of Inspired Oxygen 01/17/25 19:47 01/17/25 19:57 01/17/25 20:00 Temperature Pulse Rate 73 72 Respiratory Rate 16 14 Blood Pressure 99/74 L Pulse Oximetry 98 97 Oxygen Delivery Oxygen Flow Rate Fraction of Inspired Oxygen 01/17/25 20:15 01/17/25 20:15 01/17/25 20:16 Temperature Pulse Rate 72 72 70 Respiratory Rate 16 16 12 Blood Pressure 89/54 L Pulse Oximetry 96 100 Oxygen Delivery High Flow Therapy with Na Oxygen Flow Rate 55 Fraction of Inspired Oxygen 77 01/17/25 20:30 01/17/25 20:31 01/17/25 20:45 Temperature Pulse Rate 79 79 82 Respiratory Rate 15 16 17 Blood Pressure 85/51 L Pulse Oximetry 98 98 97 Oxygen Delivery Oxygen Flow Rate Fraction of Inspired Oxygen 01/17/25 21:00 01/17/25 21:01 01/17/25 21:17 Temperature Pulse Rate 87 90 Respiratory Rate 17 18 Blood Pressure 87/41 L Pulse Oximetry 97 97 94 Oxygen Delivery High Flow Therapy with Na Oxygen Flow Rate 45 Fraction of Inspired Oxygen 70 01/17/25 21:24 01/17/25 21:45 01/17/25 22:11 Temperature 97.8 F Pulse Rate 71 67 Respiratory Rate 17 22 H Blood Pressure 104/72 92/57 L 107/73 Pulse Oximetry 93 98 Oxygen Delivery Oxygen Flow Rate Fraction of Inspired Oxygen 01/17/25 22:15 01/17/25 22:19 01/17/25 22:22 Temperature Pulse Rate 82 Respiratory Rate Blood Pressure Pulse Oximetry 93 93 Oxygen Delivery High Flow Therapy with Na High Flow Therapy with Na Oxygen Flow Rate 45 45 Fraction of Inspired Oxygen 60 60 01/17/25 23:51 01/18/25 00:00 01/18/25 00:00 Temperature 97.7 F Pulse Rate 71 63 Respiratory Rate 20 Blood Pressure 112/75 Pulse Oximetry 97 92 Oxygen Delivery High Flow Therapy with Na Oxygen Flow Rate 45 Fraction of Inspired Oxygen 60 01/18/25 01:58 01/18/25 02:00 01/18/25 02:16 Temperature Pulse Rate 77 76 79 Respiratory Rate 16 16 Blood Pressure Pulse Oximetry Oxygen Delivery Oxygen Flow Rate Fraction of Inspired Oxygen 01/18/25 03:29 01/18/25 04:00 01/18/25 04:00 Temperature 98.5 F Pulse Rate 82 91 Respiratory Rate 20 Blood Pressure 112/68 Pulse Oximetry 95 93 Oxygen Delivery High Flow Therapy with Na Oxygen Flow Rate 45 Fraction of Inspired Oxygen 60 01/18/25 05:43 01/18/25 08:00 01/18/25 08:00 Temperature 98.0 F Pulse Rate 66 66 65 Respiratory Rate 20 16 Blood Pressure 121/77 Pulse Oximetry 93 94 Oxygen Delivery High Flow Therapy with Na Oxygen Flow Rate 45 Fraction of Inspired Oxygen 60 01/18/25 08:45 01/18/25 09:15 01/18/25 09:16 Temperature Pulse Rate 63 70 Respiratory Rate 16 16 Blood Pressure Pulse Oximetry 96 94 Oxygen Delivery High Flow Therapy with Na High Flow Therapy with Na Oxygen Flow Rate 35 35 Fraction of Inspired Oxygen 60 60 01/18/25 09:39 Temperature Pulse Rate 65 Respiratory Rate 16 Blood Pressure Pulse Oximetry Oxygen Delivery Oxygen Flow Rate Fraction of Inspired Oxygen Intake/Output Intake/Output: Intake & Output 01/15/25 01/16/25 01/17/25 01/18/25 23:59 23:59 23:59 23:59 Intake Total 2350 1223.3 Output Total 2100 Balance 2350 -876.7 Meds/Results Medications: Active Medications Generic Name Dose Route Start Last Admin Trade Name Freq PRN Reason Stop Dose Admin Acetaminophen 650 mg 01/17/25 19:57 Acetaminophen 325 Mg Tablet PO Q4H PRN Mild Pain (1-3) or Fever Albuterol 5 mg 01/17/25 22:40 Albuterol Sulfate Neb 2.5 Mg/3 Ml Inh INHALATION Q6HRT PRN Shortness Of Breath Albuterol 5 mg 01/18/25 02:00 01/18/25 09:14 Albuterol Sulfate Neb 2.5 Mg/3 Ml Inh INHALATION 5 mg Q6HRT NAMRATA Administration Buprenorphine/Naloxone 2 each 01/17/25 23:15 01/18/25 08:35 Buprenorphine/Naloxone (*Crx) 4 Mg/1 Mg Sl Film SUBLINGUAL 2 each TID NAMRATA Administration Diazepam 5 mg 01/17/25 23:05 01/18/25 06:23 Diazepam (*Crx) 5 Mg Tablet PO 5 mg Q8HR NAMRATA Administration Docusate Sodium 100 mg 01/18/25 09:00 01/18/25 08:32 Docusate Sodium 100 Mg Capsule PO 100 mg DAILY NAMRATA Administration Duloxetine HCl 60 mg 01/18/25 09:00 01/18/25 08:32 Duloxetine Hcl 60 Mg Capsule.Dr PO 60 mg DAILY NAMRATA Administration Escitalopram Oxalate 20 mg 01/18/25 09:00 01/18/25 08:32 Escitalopram Oxalate 10 Mg Tablet PO 20 mg DAILY NAMRATA Administration Lactated Ringer's 1,000 mls @ 125 mls/hr 01/17/25 20:00 01/18/25 06:30 Lr - Lactated Ringers Iv IV CONT 125 mls/hr .Q8H NAMRATA Administration Ceftriaxone Sodium 1 gm in 50 mls @ 100 mls/hr 01/18/25 20:00 Rocephin 1 Gm/Ns 50 Ml IVPB Q24H NAMRATA Azithromycin 500 mg in 250 mls @ 250 mls/hr 01/18/25 21:00 Zithromax IVPB Q24H NAMRATA Ipratropium [place] 0.5 mg 01/18/25 02:00 01/18/25 09:14 Ipratropium Br 0.02% Inh Soln 0.5 Mg/2.5 Ml Vial INHALATION 0.5 mg Q6HRT NAMRATA Administration Ipratropium [place] 0.5 mg 01/17/25 22:40 Ipratropium Br 0.02% Inh Soln 0.5 Mg/2.5 Ml Vial INHALATION Q6HRT PRN Shortness Of Breath Lactulose 20 gm 01/17/25 22:43 Lactulose 20 Gm/30 Ml Udc PO DAILY PRN constipation Lubiprostone 24 mcg 01/17/25 23:05 01/18/25 08:32 Lubiprostone 24 Mcg Capsule PO 24 mcg Q12HR NAMRATA Administration Methylprednisolone Sodium Succinate 60 mg 01/18/25 00:00 01/18/25 06:23 Methylprednisolone Sod Succ 125 Mg Vial IV PUSH 60 mg Q6HR NAMRATA Administration Metoclopramide HCl 5 mg 01/17/25 19:58 Metoclopramide Hcl Inj 10 Mg/2 Ml Vial IV PUSH Q8H PRN Nausea And Vomiting Metoclopramide HCl 10 mg 01/18/25 06:30 01/18/25 06:23 Metoclopramide Hcl 10 Mg Tablet PO 10 mg ACHS NAMRATA Administration Mirtazapine 45 mg 01/17/25 22:55 01/17/25 23:31 Mirtazapine 15 Mg Tablet PO 45 mg HS NAMRATA Administration Nicotine 1 patch 01/17/25 23:15 01/18/25 08:32 Nicotine (*Chelsy) 21 Mg Patch TRANSDERM 1 patch QAM NAMRATA Administration Pantoprazole Sodium 40 mg 01/18/25 09:00 01/18/25 08:32 Pantoprazole 40 Mg Tablet PO 40 mg Q12HR NAMRATA Administration Prazosin HCl 10 mg 01/17/25 23:00 01/17/25 23:55 Prazosin Hcl 5 Mg Capsule PO 10 mg QHS NAMRATA Administration Prazosin HCl 2 mg 01/17/25 23:00 01/18/25 08:32 Prazosin Hcl 1 Mg Capsule PO 2 mg Q12HR NAMRATA Administration Quetiapine Fumarate 100 mg 01/17/25 22:43 Quetiapine Fumarate Xr 50 Mg Tab.Er.24h PO DAILY PRN appetite/gastroparesis Quetiapine Fumarate 50 mg 01/17/25 23:50 01/17/25 23:56 Quetiapine Fumarate 25 Mg Tablet PO 50 mg QHS NAMRATA Administration Quetiapine Fumarate 400 mg 01/17/25 23:50 01/17/25 23:56 Quetiapine Fumarate 100 Mg Tablet PO 400 mg QHS NAMRATA Administration Fluticasone/Salmeterol 2 puff 01/18/25 08:00 01/18/25 09:14 Fluticasone/Salmeterol 45-21 Mcg Inhaler 1 Puff INHALATION 2 puff Q12HRT NAMRATA Administration Senna 17.2 mg 01/17/25 23:00 01/17/25 23:31 Sennosides 8.6 Mg Tablet PO 17.2 mg HS NAMRATA Administration Tizanidine HCl 2 mg 01/17/25 22:43 01/18/25 06:30 Tizanidine Hcl 2 Mg Tablet PO 2 mg QID PRN Administration muscle spasm Radiology Results: ITS Impressions Chest X-Ray 01/17/25 17:01 IMPRESSION: Bilateral interstitial thickening suggestive of pneumonitis versus pulmonary edema. Clinical correlation and follow-up advised. Chest CTA 01/17/25 18:59 IMPRESSION: 1. No pulmonary embolism. 2. Bilateral basal pneumonia. Labs Labs: Laboratory Results - last 24 hr 01/17/25 01/17/25 01/17/25 15:29 15:29 15:57 WBC 7.0 RBC 5.88 H Hgb 14.0 Hct 47.5 H MCV 80.8 MCH 23.8 L MCHC 29.5 L RDW 15.7 H Plt Count 313 MPV 10.6 H Immature Gran % (Auto) 0.3 Neut % (Auto) 65.2 Lymph % (Auto) 25.8 Lamb % (Auto) 6.2 Eos % (Auto) 1.9 Baso % (Auto) 0.6 Lymph # (Auto) 1.79 Lamb # (Auto) 0.4 Eos # (Auto) 0.1 Baso # (Auto) 0.0 Abs Immat Gran (auto) 0.02 Absolute Neuts (auto) 4.5 Absolute Nucleated RBC 0.000 Band Neutrophils % Not Reportable Nucleated RBC % 0.0 Platelet Estimate Adequate Large Platelets Present Giant Platelets Present Hypochromasia 1+ Schistocytes None seen PT 13.9 INR 1.0 APTT 26.7 Puncture Site Left radial ABG pH 7.337 L ABG pCO2 62.4 H* ABG pO2 55.2 L ABG PO2/FiO2 Ratio 1.53 ABG HCO3 32.7 H ABG O2 Saturation 86.0 L* ABG O2 Content 16.7 ABG Base Excess 4.8 VBG pH VBG pCO2 VBG pO2 VBG HCO3 A-a Gradient 129.1 Oxyhemoglobin 80.7 L* Total Hemoglobin 14.7 O2 Delivery Device Nasal cannula O2 Liters/Min 4.0 FiO2 36 Sodium 141 Potassium 4.3 Chloride 105 Carbon Dioxide 32 H Anion Gap 4 BUN 8 Creatinine 0.86 Estim Creat Clear Calc Not Reportable Estimated GFR > 60 Glucose 71 Lactic Acid 0.9 Calcium 8.7 Magnesium 1.8 Total Bilirubin 0.3 AST 20 ALT 17 Alkaline Phosphatase 85 Troponin I < 0.012 NT-Pro-B Natriuret Pep 60 Cancelled Total Protein 7.0 Albumin 3.7 Serum HCG, Qual Negative Urine Color Urine Appearance Urine pH Ur Specific [place] Urine Protein Urine Glucose (UA) Urine Ketones Ur Blood (Man) Urine Nitrate Urine Bilirubin Urine Urobilinogen Leukocyte Esterase Rfl Urine RBC Urine WBC Ur Squamous Epith Cells Urine Bacteria Urine Casts Influenza A (RT-PCR) Influenza B (RT-PCR) RSV (RT-PCR) SARS-CoV-2 RNA (RT-PCR) 01/17/25 01/17/25 18:29 20:09 WBC RBC Hgb Hct MCV MCH MCHC RDW Plt Count MPV Immature Gran % (Auto) Neut % (Auto) Lymph % (Auto) Lamb % (Auto) Eos % (Auto) Baso % (Auto) Lymph # (Auto) Lamb # (Auto) Eos # (Auto) Baso # (Auto) Abs Immat Gran (auto) Absolute Neuts (auto) Absolute Nucleated RBC Band Neutrophils % Nucleated RBC % Platelet Estimate Large Platelets Giant Platelets Hypochromasia Schistocytes PT INR APTT Puncture Site ABG pH ABG pCO2 ABG pO2 ABG PO2/FiO2 Ratio ABG HCO3 ABG O2 Saturation ABG O2 Content ABG Base Excess VBG pH 7.329 VBG pCO2 62.9 H VBG pO2 51.0 H VBG HCO3 32.3 H A-a Gradient Oxyhemoglobin Total Hemoglobin O2 Delivery Device High flow nasal prosper O2 Liters/Min 55.0 FiO2 77 Sodium Potassium Chloride Carbon Dioxide Anion Gap BUN Creatinine Estim Creat Clear Calc Estimated GFR Glucose Lactic Acid Calcium Magnesium Total Bilirubin AST ALT Alkaline Phosphatase Troponin I NT-Pro-B Natriuret Pep Total Protein Albumin Serum HCG, Qual Urine Color Dark yellow Urine Appearance Clear Urine pH 6.5 Ur Specific [place] > 1.045 H Urine Protein Trace Urine Glucose (UA) Negative Urine Ketones Trace H Ur Blood (Man) Negative Urine Nitrate Negative Urine Bilirubin Negative Urine Urobilinogen 1.0 Leukocyte Esterase Rfl Negative Urine RBC 0-2 Urine WBC 0-5 Ur Squamous Epith Cells Occasional Urine Bacteria None seen Urine Casts 0-2 Influenza A (RT-PCR) Negative Influenza B (RT-PCR) Negative RSV (RT-PCR) Negative SARS-CoV-2 RNA (RT-PCR) Negative Hospitalist MIPS Advance Care Plan I have confirmed that the patient's Advanced Care Plan is present, code status is documented, or surrogate decision maker is listed in patient medical record.: Yes Medication Reconciliation I have utilized all available resources to obtain, update and review the patients current medications (includes all prescriptions, OTC, herbals, cannabis, and nutritional supplements).: Yes
[2025-01-18 12:05] LABS: Hematocrit 46.5 % (37.0-47.0); Hemoglobin 13.8 g/dL (12.0-15.0); Mean Corpuscular HGB Conc 29.7 g/dl (32-36); Mean Corpuscular Hemoglobin 23.8 pg (26-34); Mean Corpuscular Volume 80.3 fl (80-100); Mean Platelet Volume 10.9 fl (7.4-10.4); Platelet Count Result 302 k/mm3 (150-375); Red Blood Count 5.79 M/mm3 (4.2-5.4); Red Cell Distribution Width 16.2 % (11.5-14.5); White Blood Count 6.5 K/mm3 (4.5-10.0)
[2025-01-18 12:19] LABS: Alanine Aminotransferase 21 U/L (6-35); Albumin Level 3.9 g/dL (3.5-5.1); Alkaline Phosphatase 82 U/L (38-126); Anion Gap 6 mmol/L (4-12); Aspartate Amino Transferase 21 U/L (14-36); Bilirubin,Total 0.7 mg/dL (0.2-1.3); Blood Urea Nitrogen 7 mg/dL (7-17); Calcium 9.1 mg/dL (8.4-10.2); Carbon Dioxide 33 mmol/L (22-30); Chloride 103 mmol/L (98-107); Estimated CRCL calculation 99 ml/min; Estimated Glomerular Filt Rate > 60; Glucose 156 mg/dL (65-110); Potassium 4.3 mmol/L (3.4-5.0); Sodium 142 mmol/L (137-145)
--- NOTE | 2025-01-18 12:34 | PM.CNPUL ---
Assessment and Plan Assessment and plan (1) Acute respiratory failure with hypoxia and hypercapnia: Code(s): J96.01 - Acute respiratory failure with hypoxia; J96.02 - Acute respiratory failure with hypercapnia Status: Acute (2) Continuous tobacco abuse: Code(s): Z72.0 - Tobacco use Status: Acute (3) Asthma exacerbation: Qualifiers: Asthma persistence: persistent Asthma severity: unspecified severity Qualified Code(s): J45.901 - Unspecified asthma with (acute) exacerbation Code(s): J45.901 - Unspecified asthma with (acute) exacerbation Status: Acute Assessment and Plan: This 34-year-old obese female, with a history of asthma, has been on chronic maintenance bronchodilators since the age of 18. She presented with wheezing, shortness of breath, and hypoxemia. Chest CT revealed basal infiltrates, most likely atelectasis, although pneumonia remains a consideration. The patient has no symptoms suggestive of a lower respiratory tract infection, and her white blood cell count was normal on admission. Her respiratory status has improved with the current regimen, although she continues to exhibit wheezing on physical examination. Her hypercapnic respiratory acidosis does not appear to be related to an acute asthma exacerbation and is most likely due to sleep-disordered breathing, possible obesity hypoventilation, and previous use of opiates. Plan: I agree with the current regimen of IV steroids, nebulized short-acting bronchodilators, and antibiotics for a possible lower respiratory tract infection. The patient should be started on DVT prophylaxis. I will continue to follow the patient along with you. (4) Depression with anxiety: Code(s): F41.8 - Other specified anxiety disorders Status: Acute (5) Obesity: Qualifiers: Body mass index: BMI 36.0-36.9 Obesity classification: adult class 2 (BMI 35 - 39.9) Obesity type: due to excess calories Serious obesity comorbidity presence: with serious comorbidity Qualified Code(s): E66.812 - Obesity, class 2; E66.01 - Morbid (severe) obesity due to excess calories; Z68.36 - Body mass index [BMI] 36.0-36.9, adult Code(s): E66.9 - Obesity, unspecified Status: Acute (6) Gastroparesis: Code(s): K31.84 - Gastroparesis Status: Acute (7) GERD (gastroesophageal reflux disease): Qualifiers: Esophagitis presence: esophagitis presence not specified Qualified Code(s): K21.9 - Gastro-esophageal reflux disease without esophagitis Code(s): K21.9 - Gastro-esophageal reflux disease without esophagitis Status: Acute (8) Irritable bowel syndrome with constipation: Code(s): K58.1 - Irritable bowel syndrome with constipation Status: Acute History of Present Illness History of Present Illness Consult date: 01/18/25 Chief complaint: Bilateral pneumonia, hypoxic and hypercapnic Narrative: This 34-year-old female with a history of asthma, chronically on maintenance bronchodilators, presented with shortness of breath and hypoxemia. She has had asthma since childhood, with transient improvement as she grew up. Since the age of 18, she has been on various maintenance bronchodilators, most recently Symbicort, and uses a rescue albuterol inhaler as needed. The patient has had no previous hospitalizations for asthma flare-ups. She was evaluated by her primary care provider for low oxygen levels and shortness of breath. Reportedly, she had experienced low oxygen levels for quite some time but no significant shortness of breath. Her recorded oxygen saturation was 81% on room air at her doctor's office, and she was then sent to the emergency room. CT evaluation showed no evidence of pulmonary embolism but did reveal some lower lobe infiltrates, possibly pneumonia or atelectasis. The patient denied having fever, chills, hemoptysis, chest pain, or palpitations. She tested negative for common viruses. Arterial blood gases showed acute on chronic hypercapnic respiratory failure with a pH of 7.33 and a pCO2 of 62 mmHg. The patient is currently on IV steroids, short-acting bronchodilators, and antibiotics for a possible lower respiratory tract infection. Over the last 12 hours, her respiratory status has improved, and she remains on a high-flow nasal cannula. Her past medical history is also significant for obesity, prediabetes, gastro paresis, heavy tobacco use, marijuana use, and previous use of IV fentanyl for approximately 5 years until February of 2022. She has never had a history of sleep-disordered breathing. She uses marijuana almost on a daily basis. She has a history of anxiety and depression and has been on medications for these conditions. Review of Systems Review of Systems: Patient reports no significant weight changes. She has no history of nasal allergies. She has history of acid reflux disease. She has history of mild constipation. She has history of frequent urinary tract infections. Also history of a mild lower extremity edema. The remainder of the 12 point system review is negative. 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, 2022 Gastroparesis GERD (gastroesophageal reflux disease) History of hepatitis C Nicotine dependence Cannabis dependence Depression with anxiety PTSD (post-traumatic stress disorder) Asthma Surgical History Surgical History (Updated 01/17/25 @ 23:02 by Malena Saini DO) Status post open reduction with internal fixation of fracture Right elbow fracture as a child Family History Family History Father Malignant neoplasm of prostate at age 56 Mother Renal cancer at age 62 Grandparent Renal cancer maternal grandmother Social History Social History (Updated 01/17/25 @ 23:05 by Malena Saini DO) Social History: Patient lives with her significant other of 3. She has 3 children ages 812 and 14. She has smoked 1-2 packs of cigarettes per day since she was 19 years old. She smokes marijuana on a somewhat frequent basis. She has history of IV fentanyl dependence but is been in remission since February 26, 2022. She is currently unemployed but previously worked in the [employer]. Code status: Full code Surrogate decision maker: Valentin (significant other) Smoking packs per day: 1 Smoking cigarettes per day: 20.0 Years smoked: 15 Smoking pack-years: 15.00 Smoking status: Current every day smoker Alcohol intake: never Substance use type: former substance user, marijuana and opiates Other substance usage details: former fentanyl user Last use: 3 years Do You Feel Safe in your Home?: Yes Lack of Transportation: No Lack of Food: Never True Current Housing: I Have Housing Concerned About Future Housing: No Difficulty Paying Gas/Electric Bills: No Difficulty Paying for Meds: No Currently Unemployed: No Education: Decline to Answer Difficulty w/ Childcare or Family Care: No Spiritual care concerns: No Meds Home Medications and Allergies Home Medications ?Medication ?Instructions ?Recorded ?Confirmed ?Type albuterol sulfate 90 mcg/actuation 1 puff inhalation Q4H PRN 11/14/24 01/17/25 History aerosol inhaler (Ventolin HFA) shortness of breath or wheezing budesonide-formoterol HFA 80 2 puff inhalation Q12H 11/14/24 01/17/25 History mcg-4.5 mcg/actuation aerosol inhaler buprenorphine 8 mg-naloxone 2 mg 1 tablet sublingual TID 11/14/24 01/17/25 History sublingual tablet docusate sodium 100 mg capsule 100 mg PO DAILY 11/14/24 01/17/25 History (Colace) escitalopram oxalate 20 mg tablet 20 mg PO DAILY 11/14/24 01/17/25 History metoclopramide HCl 10 mg tablet 10 mg PO ACHS #120 tabs 11/14/24 01/17/25 Rx (Reglan) mirtazapine 45 mg tablet 45 mg PO HS 11/14/24 01/17/25 History prazosin 5 mg capsule 10 mg PO QHS 11/14/24 01/17/25 History quetiapine 300 mg tablet 450 mg PO QHS 11/14/24 01/17/25 History tizanidine 2 mg tablet 2 mg PO QID PRN muscle spasm 11/14/24 01/17/25 History esomeprazole magnesium 40 mg 40 mg PO DAILY #60 caps 12/26/24 01/17/25 Rx capsule,delayed release (Nexium) ondansetron 4 mg disintegrating 4 - 8 mg (1 - 2 x 4 mg) PO Q8H PRN 12/26/24 01/17/25 Rx tablet nausea and vomiting 30 days #90 tabs diazepam 5 mg tablet 5 mg PO Q8H 01/17/25 01/17/25 History duloxetine 60 mg capsule,delayed 60 mg PO DAILY 01/17/25 01/17/25 History release lactulose 10 gram/15 mL oral 20 g PO DAILY PRN constipation 01/17/25 01/17/25 History solution lubiprostone 24 mcg capsule 24 mcg PO Q12H 01/17/25 01/17/25 History (Amitiza) prazosin 2 mg capsule 2 mg PO Q12H 01/17/25 01/17/25 History quetiapine 50 mg tablet,extended 100 mg PO DAILY PRN 01/17/25 01/17/25 History release 24 hr appetite/gastroparesis sennosides 8.6 mg tablet (senna) 17.2 mg PO HS 01/17/25 01/17/25 History Allergies Allergy/AdvReac Type Severity Reaction Status Date / Time No Known Allergies Allergy Unknown Verified 01/17/25 22:20 Vital Signs Vital Signs - 24 hr 01/17/25 14:59 01/17/25 15:16 01/17/25 15:47 Temperature 36.7 C 36.8 C Pulse Rate 91 84 81 Respiratory Rate 20 14 16 Blood Pressure 113/77 111/72 136/84 Pulse Oximetry 89 L 92 79 L Oxygen Delivery Room Air Oxygen Flow Rate Fraction of Inspired Oxygen 01/17/25 15:49 01/17/25 15:49 01/17/25 15:49 Temperature Pulse Rate 88 87 Respiratory Rate 19 18 18 Blood Pressure 105/74 105/74 Pulse Oximetry 93 93 Oxygen Delivery Oxygen Flow Rate 4 Fraction of Inspired Oxygen 01/17/25 15:52 01/17/25 15:58 01/17/25 15:58 Temperature Pulse Rate 89 85 Respiratory Rate 20 22 H Blood Pressure 105/74 Pulse Oximetry 90 89 L Oxygen Delivery Nasal Cannula Nasal Cannula Oxygen Flow Rate 4 4 Fraction of Inspired Oxygen 36 01/17/25 16:16 01/17/25 16:24 01/17/25 16:24 Temperature Pulse Rate 85 89 Respiratory Rate 20 26 H Blood Pressure 94/53 L Pulse Oximetry 91 92 Oxygen Delivery Nasal Cannula Oxygen Flow Rate 4 Fraction of Inspired Oxygen 36 01/17/25 16:32 01/17/25 16:32 01/17/25 17:01 Temperature Pulse Rate 89 86 Respiratory Rate 20 19 Blood Pressure 105/60 Pulse Oximetry 93 92 Oxygen Delivery High Flow Therapy with Na Oxygen Flow Rate 45 Fraction of Inspired Oxygen 60 01/17/25 17:08 01/17/25 17:31 01/17/25 17:46 Temperature Pulse Rate 91 91 89 Respiratory Rate 19 21 H 14 Blood Pressure 105/60 110/60 105/63 Pulse Oximetry 92 94 93 Oxygen Delivery Oxygen Flow Rate Fraction of Inspired Oxygen 01/17/25 17:47 01/17/25 17:47 01/17/25 17:49 Temperature Pulse Rate 87 Respiratory Rate 20 Blood Pressure Pulse Oximetry 92 86 L Oxygen Delivery High Flow Therapy with Na High Flow Therapy with Na Oxygen Flow Rate 45 45 Fraction of Inspired Oxygen 60 60 01/17/25 17:50 01/17/25 17:54 01/17/25 17:56 Temperature Pulse Rate Respiratory Rate Blood Pressure Pulse Oximetry 85 L 92 95 Oxygen Delivery High Flow Therapy with Na High Flow Therapy with Na High Flow Therapy with Na Oxygen Flow Rate 50 55 55 Fraction of Inspired Oxygen 70 80 80 01/17/25 18:00 01/17/25 18:33 01/17/25 18:46 Temperature Pulse Rate 87 Respiratory Rate 19 Blood Pressure 101/58 L 102/65 92/57 L Pulse Oximetry 94 94 96 Oxygen Delivery Oxygen Flow Rate Fraction of Inspired Oxygen 01/17/25 19:30 01/17/25 19:39 01/17/25 19:39 Temperature Pulse Rate 67 73 Respiratory Rate 14 16 Blood Pressure 89/64 L Pulse Oximetry 96 95 Oxygen Delivery High Flow Nasal Cannula Oxygen Flow Rate 10 Fraction of Inspired Oxygen 01/17/25 19:47 01/17/25 19:57 01/17/25 20:00 Temperature Pulse Rate 73 72 Respiratory Rate 16 14 Blood Pressure 99/74 L Pulse Oximetry 98 97 Oxygen Delivery Oxygen Flow Rate Fraction of Inspired Oxygen 01/17/25 20:15 01/17/25 20:15 01/17/25 20:16 Temperature Pulse Rate 72 72 70 Respiratory Rate 16 16 12 Blood Pressure 89/54 L Pulse Oximetry 96 100 Oxygen Delivery High Flow Therapy with Na Oxygen Flow Rate 55 Fraction of Inspired Oxygen 77 01/17/25 20:30 01/17/25 20:31 01/17/25 20:45 Temperature Pulse Rate 79 79 82 Respiratory Rate 15 16 17 Blood Pressure 85/51 L Pulse Oximetry 98 98 97 Oxygen Delivery Oxygen Flow Rate Fraction of Inspired Oxygen 01/17/25 21:00 01/17/25 21:01 01/17/25 21:17 Temperature Pulse Rate 87 90 Respiratory Rate 17 18 Blood Pressure 87/41 L Pulse Oximetry 97 97 94 Oxygen Delivery High Flow Therapy with Na Oxygen Flow Rate 45 Fraction of Inspired Oxygen 70 01/17/25 21:24 01/17/25 21:45 01/17/25 22:11 Temperature 36.6 C Pulse Rate 71 67 Respiratory Rate 17 22 H Blood Pressure 104/72 92/57 L 107/73 Pulse Oximetry 93 98 Oxygen Delivery Oxygen Flow Rate Fraction of Inspired Oxygen 01/17/25 22:15 01/17/25 22:19 01/17/25 22:22 Temperature Pulse Rate 82 Respiratory Rate Blood Pressure Pulse Oximetry 93 93 Oxygen Delivery High Flow Therapy with Na High Flow Therapy with Na Oxygen Flow Rate 45 45 Fraction of Inspired Oxygen 60 60 01/17/25 23:51 01/18/25 00:00 01/18/25 00:00 Temperature 36.5 C Pulse Rate 71 63 Respiratory Rate 20 Blood Pressure 112/75 Pulse Oximetry 97 92 Oxygen Delivery High Flow Therapy with Na Oxygen Flow Rate 45 Fraction of Inspired Oxygen 60 01/18/25 01:58 01/18/25 02:00 01/18/25 02:16 Temperature Pulse Rate 77 76 79 Respiratory Rate 16 16 Blood Pressure Pulse Oximetry Oxygen Delivery Oxygen Flow Rate Fraction of Inspired Oxygen 01/18/25 03:29 01/18/25 04:00 01/18/25 04:00 Temperature 36.9 C Pulse Rate 82 91 Respiratory Rate 20 Blood Pressure 112/68 Pulse Oximetry 95 93 Oxygen Delivery High Flow Therapy with Na Oxygen Flow Rate 45 Fraction of Inspired Oxygen 60 01/18/25 05:43 01/18/25 08:00 01/18/25 08:00 Temperature 36.7 C Pulse Rate 66 66 65 Respiratory Rate 20 16 Blood Pressure 121/77 Pulse Oximetry 93 94 Oxygen Delivery High Flow Therapy with Na Oxygen Flow Rate 45 Fraction of Inspired Oxygen 60 01/18/25 08:00 01/18/25 08:45 01/18/25 09:15 Temperature Pulse Rate 58 L 63 Respiratory Rate 16 Blood Pressure Pulse Oximetry 96 94 Oxygen Delivery High Flow Therapy with Na High Flow Therapy with Na Oxygen Flow Rate 35 35 Fraction of Inspired Oxygen 60 60 01/18/25 09:16 01/18/25 09:39 01/18/25 10:00 Temperature Pulse Rate 70 65 58 L Respiratory Rate 16 16 Blood Pressure Pulse Oximetry Oxygen Delivery Oxygen Flow Rate Fraction of Inspired Oxygen 01/18/25 11:49 Temperature 36.6 C Pulse Rate 72 Respiratory Rate 20 Blood Pressure 115/63 Pulse Oximetry 91 Oxygen Delivery Oxygen Flow Rate Fraction of Inspired Oxygen Exam Narrative: GENERAL APPEARANCE: Well developed, well nourished, alert and cooperative, and appears to be in no acute distress while on supplemental oxygen via high-flow nasal cannula SKIN: Inspection of the skin reveals no rashes, ulcerations or petechiae. HEENT: Sclerae anicteric and conjunctivae pink and moist. Extraocular movements were intact and pupils were equal, round, and reactive to light. The oral mucosa, hard and soft palate, tongue and posterior pharynx were normal. NECK: Supple. There was no thyroid enlargement, and no tenderness, or masses were felt. CHEST: Normal AP diameter and normal contour without any kyphoscoliosis. LUNGS: Bilateral wheezing both expiratory and expiratory CARDIAC: There was a regular rate and rhythm without any murmurs, gallops, rubs. ABDOMEN: Soft and nontender with normal bowel sounds. There was no organomegaly. LYMPH NODES: No lymphadenopathy was appreciated in the neck. EXTREMITIES: No cyanosis, clubbing or edema. NEUROLOGIC: Alert and oriented x 3. Normal affect. Results Laboratory Findings 01/18/25 11:27 01/18/25 11:27 ABG, PT/INR, D-dimer: ABG ABG pH 7.337 (7.350-7.450) L 01/17/25 15:57 ABG pCO2 62.4 mmHg (35.0-45.0) H* 01/17/25 15:57 ABG pO2 55.2 mmHg (80.0-100.0) L 01/17/25 15:57 ABG O2 Saturation 86.0 % (95.0-100.0) L* 01/17/25 15:57 PT/INR, D-dimer PT 13.9 Seconds (11.1-14.7) 01/17/25 15:29 INR 1.0 01/17/25 15:29 Abnormal lab findings: Abnormal Labs 01/17/25 01/17/25 01/17/25 15:29 15:57 18:29 RBC 5.88 H Hct 47.5 H MCH 23.8 L MCHC 29.5 L RDW 15.7 H MPV 10.6 H ABG pH 7.337 L ABG pCO2 62.4 H* ABG pO2 55.2 L ABG HCO3 32.7 H ABG O2 Saturation 86.0 L* VBG pCO2 VBG pO2 VBG HCO3 Oxyhemoglobin 80.7 L* Carbon Dioxide 32 H Glucose Ur Specific [place] > 1.045 H Urine Ketones Trace H 01/17/25 01/18/25 20:09 11:27 RBC 5.79 H Hct MCH 23.8 L MCHC 29.7 L RDW 16.2 H MPV 10.9 H ABG pH ABG pCO2 ABG pO2 ABG HCO3 ABG O2 Saturation VBG pCO2 62.9 H VBG pO2 51.0 H VBG HCO3 32.3 H Oxyhemoglobin Carbon Dioxide 33 H Glucose 156 H Ur Specific [place] Urine Ketones
[2025-01-18 13:19] LABS: Alveolar/Arterial O2 Gradient 305.7 mmHg; Base Excess ABG 4.5 mEq/l (+/-2.0); Fractional Inspired Oxygen 60 %; HCO3 ABG 31.1 mEq/l (22.0-26.0); Oxygen Content ABG 17.9 %vol (16.0-22.0); Oxygen Saturation ABG 90.9 % (95.0-100.0); Oxyhemoglobin 90.9 % THb (90.0-100.0); PCO2 ABG 54.5 mmHg (35.0-45.0); PO2 ABG 62.2 mmHg (80.0-100.0); PO2 FiO2 Ratio Arterial Blood 1.04 %; pH ABG 7.374 (7.350-7.450)
[2025-01-18 13:23] LABS: Device HIGH FLOW THERAPY; Site Drawn LEFT BRACHIAL
[2025-01-18] MEDS: LANSOPRAZOLE ODT 30 MG TAB.RAP.DR PO (17:10)
[2025-01-18] MEDS: MIRTAZAPINE 15 MG TABLET 45 MG PO (20:04)
[2025-01-18] MEDS: SENNOSIDES 8.6 MG TABLET 17.2 MG PO (20:04)
[2025-01-18] MEDS: AZITHROMYCIN 500 MG/NS 250 ML 500 MG/250 ML BAG 250 MG IVPB (20:04)
[2025-01-18] MEDS: PRAZOSIN HCL 5 MG CAPSULE 10 MG PO (20:04)
[2025-01-18] MEDS: QUEtiapine FUMARATE 100 MG TABLET 400 MG PO (20:05)
[2025-01-18] MEDS: QUEtiapine FUMARATE 25 MG TABLET 50 MG PO (20:05)
[2025-01-18] MEDS: BUPRENORPHINE/NALOXONE (*CRX) 4 MG/1 MG SL FILM 2 EACH XX (20:06)
[2025-01-18] MEDS: MAG HYDROX/AL HYDROX/SIMETH 30 ML UDC PO (21:24)
[2025-01-18] MEDS: PROMETHAZINE HCL 25 MG/ML AMPUL IM (21:41)
[2025-01-18] MEDS: BISACODYL 10 MG SUPPOSITORY RECTAL (21:54)
[2025-01-19] VITALS (23 sets, daily range): BP systolic 100–122; BP diastolic 60–86; PULSE 56–109; RESP 16–20; TEMP 36.7–37.1; O2SAT 90–97
[2025-01-19] MEDS: IPRATROPIUM BR 0.02% INH SOLN 0.5 MG/2.5 ML VIAL INHALATION ×3 (01:47→13:21)
[2025-01-19] MEDS: ALBUTEROL SULFATE NEB 2.5 MG/3 ML INH 5 MG INHALATION ×3 (01:47→13:21)
[2025-01-19 04:42] LABS: Hematocrit 45.5 % (37.0-47.0); Hemoglobin 13.5 g/dL (12.0-15.0); Mean Corpuscular HGB Conc 29.7 g/dl (32-36); Mean Corpuscular Hemoglobin 23.6 pg (26-34); Mean Corpuscular Volume 79.7 fl (80-100); Mean Platelet Volume 10.7 fl (7.4-10.4); Platelet Count Result 297 k/mm3 (150-375); Red Blood Count 5.71 M/mm3 (4.2-5.4); Red Cell Distribution Width 15.9 % (11.5-14.5); White Blood Count 11.2 K/mm3 (4.5-10.0)
[2025-01-19 04:55] LABS: Alanine Aminotransferase 21 U/L (6-35); Alkaline Phosphatase 82 U/L (38-126); Anion Gap 7 mmol/L (4-12); Aspartate Amino Transferase 19 U/L (14-36); Bilirubin,Total 0.5 mg/dL (0.2-1.3); Blood Urea Nitrogen 13 mg/dL (7-17); Calcium 9.1 mg/dL (8.4-10.2); Carbon Dioxide 28 mmol/L (22-30); Chloride 106 mmol/L (98-107); Estimated CRCL calculation 109 ml/min; Estimated Glomerular Filt Rate > 60; Glucose 148 mg/dL (65-110); Potassium 4.3 mmol/L (3.4-5.0); Sodium 141 mmol/L (137-145)
[2025-01-19] MEDS: methylPREDNISolone SOD SUCC 125 MG VIAL 60 MG IV PUSH (06:33)
[2025-01-19] MEDS: diazePAM (*CRX) 5 MG TABLET PO ×3 (06:34→21:15)
[2025-01-19] MEDS: METOCLOPRAMIDE HCL 10 MG TABLET PO ×4 (06:34→21:15)
[2025-01-19] MEDS: ENOXAPARIN 40 MG/0.4 ML SYRINGE SUB-Q (08:50)
[2025-01-19] MEDS: BUPRENORPHINE/NALOXONE (*CRX) 4 MG/1 MG SL FILM 2 EACH XX ×3 (08:51→21:21)
[2025-01-19] MEDS: LUBIPROSTONE 24 MCG CAPSULE PO ×2 (08:51→21:15)
[2025-01-19] MEDS: DOCUSATE SODIUM 100 MG CAPSULE PO (08:51)
[2025-01-19] MEDS: PRAZOSIN HCL 1 MG CAPSULE 2 MG PO ×2 (08:51→21:10)
[2025-01-19] MEDS: DULoxetine HCL 60 MG CAPSULE.DR PO (08:52)
[2025-01-19] MEDS: NICOTINE (*PBKC) 21 MG PATCH 1 PATCH TRANSDERM (08:52)
[2025-01-19] MEDS: ESCITALOPRAM OXALATE 10 MG TABLET 20 MG PO (08:52)
[2025-01-19] MEDS: TIZANIDINE HCL 2 MG TABLET PO ×2 (08:56→15:46)
--- NOTE | 2025-01-19 10:10 | P.PNPL_ITS ---
Progress Note: A&P Assessment and Plan (1) Acute respiratory failure with hypoxia and hypercapnia: Code(s): J96.01 - Acute respiratory failure with hypoxia; J96.02 - Acute respiratory failure with hypercapnia Status: Acute (2) Asthma exacerbation: Qualifiers: Asthma severity: unspecified severity Asthma persistence: persistent Qualified Code(s): J45.901 - Unspecified asthma with (acute) exacerbation Code(s): J45.901 - Unspecified asthma with (acute) exacerbation Status: Acute Assessment and Plan: This 34-year-old obese female, with a history of asthma, has been on chronic maintenance bronchodilators since the age of 18. She presented with wheezing, shortness of breath, and hypoxemia. Chest CT revealed basal infiltrates, most likely atelectasis, although pneumonia remains a consideration. The patient has no symptoms suggestive of a lower respiratory tract infection, and her white blood cell count was normal on admission. Her respiratory status has improved with the current regimen, although she continued to exhibit wheezing when 1st evaluated by Pulmonary Services. On today's exam she has no wheezing and her lungs are clear. She remains on high-flow oxygen Plan: Have switch patient to oral steroids. Continue with nebulized short- acting bronchodilators and antibiotics for now. Switch patient to low-flow nasal cannula if tolerated. Add incentive spirometry. Repeat chest x-ray in a.m. anticipate discharge home within the next 48 hours. (3) Continuous tobacco abuse: Code(s): Z72.0 - Tobacco use Status: Acute (4) Depression with anxiety: Code(s): F41.8 - Other specified anxiety disorders Status: Acute (5) Obesity: Qualifiers: Obesity type: due to excess calories Obesity classification: adult class 2 (BMI 35 - 39.9) Serious obesity comorbidity presence: with serious comorbidity Body mass index: BMI 36.0-36.9 Qualified Code(s): E66.812 - Obesity, class 2; E66.01 - Morbid (severe) obesity due to excess calories; Z68.36 - Body mass index [BMI] 36.0-36.9, adult Code(s): E66.9 - Obesity, unspecified Status: Acute (6) Gastroparesis: Code(s): K31.84 - Gastroparesis Status: Acute (7) Irritable bowel syndrome with constipation: Code(s): K58.1 - Irritable bowel syndrome with constipation Status: Acute Subjective Date/time seen: 01/19/25 10:10 Interval history: Patient stated she is doing better. Less wheezing and less shortness of breath. She remains on high-flow nasal cannula. No other respiratory symptoms. Review of Systems Review of Systems: All systems reviewed & are unremarkable except as noted in HPI and below (HPI and below) Exam Narrative: GENERAL APPEARANCE: Well developed, well nourished, alert and cooperative, and appears to be in no acute distress while on supplemental oxygen via high-flow nasal cannula SKIN: Inspection of the skin reveals no rashes, ulcerations or petechiae. HEENT: Sclerae anicteric and conjunctivae pink and moist. Extraocular movements were intact and pupils were equal, round, and reactive to light. The oral mucosa, hard and soft palate, tongue and posterior pharynx were normal. NECK: Supple. There was no thyroid enlargement, and no tenderness, or masses were felt. CHEST: Normal AP diameter and normal contour without any kyphoscoliosis. LUNGS: Clear breath sounds bilaterally no wheezing CARDIAC: There was a regular rate and rhythm without any murmurs, gallops, rubs. ABDOMEN: Soft and nontender with normal bowel sounds. There was no organomegaly. LYMPH NODES: No lymphadenopathy was appreciated in the neck. EXTREMITIES: No cyanosis, clubbing or edema. NEUROLOGIC: Alert and oriented x 3. Normal affect. Objective Data Vital Signs Vital Signs: Vital Signs - 24 hr 01/18/25 11:49 01/18/25 12:00 01/18/25 12:00 Temperature 36.6 C Pulse Rate 72 72 59 L Respiratory Rate 20 20 Blood Pressure 115/63 Pulse Oximetry 91 91 Oxygen Delivery High Flow Therapy with Na Oxygen Flow Rate 35 Fraction of Inspired Oxygen 60 01/18/25 14:00 01/18/25 14:16 01/18/25 14:27 Temperature Pulse Rate 57 L 65 Respiratory Rate 16 Blood Pressure Pulse Oximetry 92 Oxygen Delivery High Flow Therapy with Na Oxygen Flow Rate 35 Fraction of Inspired Oxygen 60 01/18/25 14:42 01/18/25 16:00 01/18/25 16:00 Temperature 36.6 C Pulse Rate 68 60 60 Respiratory Rate 16 20 20 Blood Pressure 123/79 Pulse Oximetry 94 94 Oxygen Delivery High Flow Therapy with Na Oxygen Flow Rate 35 Fraction of Inspired Oxygen 60 01/18/25 16:00 01/18/25 18:49 01/18/25 20:00 Temperature 36.6 C Pulse Rate 52 L 60 70 Respiratory Rate 15 Blood Pressure 120/78 Pulse Oximetry 94 Oxygen Delivery Oxygen Flow Rate Fraction of Inspired Oxygen 01/18/25 20:00 01/18/25 20:00 01/18/25 20:24 Temperature Pulse Rate 63 62 Respiratory Rate 20 Blood Pressure Pulse Oximetry 94 Oxygen Delivery High Flow Therapy with Na Oxygen Flow Rate 35 Fraction of Inspired Oxygen 60 01/18/25 20:24 01/18/25 20:38 01/18/25 21:27 Temperature Pulse Rate 62 79 Respiratory Rate 22 H 18 Blood Pressure Pulse Oximetry 94 94 Oxygen Delivery High Flow Therapy with Na High Flow Therapy with Na Oxygen Flow Rate 35 35 Fraction of Inspired Oxygen 60 50 01/18/25 22:00 01/18/25 23:42 01/19/25 00:00 Temperature 36.9 C Pulse Rate 123 H 77 Respiratory Rate 18 Blood Pressure 111/64 Pulse Oximetry 90 91 Oxygen Delivery High Flow Therapy with Na Oxygen Flow Rate 35 Fraction of Inspired Oxygen 50 01/19/25 00:00 01/19/25 01:48 01/19/25 01:51 Temperature Pulse Rate 76 81 82 Respiratory Rate 16 Blood Pressure Pulse Oximetry Oxygen Delivery Oxygen Flow Rate Fraction of Inspired Oxygen 01/19/25 02:03 01/19/25 03:23 01/19/25 04:00 Temperature 36.9 C Pulse Rate 81 79 Respiratory Rate 16 18 Blood Pressure 100/60 Pulse Oximetry 91 91 92 Oxygen Delivery High Flow Therapy with Na High Flow Therapy with Na Oxygen Flow Rate 35 35 Fraction of Inspired Oxygen 50 50 01/19/25 04:00 01/19/25 06:00 01/19/25 07:38 Temperature Pulse Rate 67 67 Respiratory Rate Blood Pressure Pulse Oximetry 92 Oxygen Delivery High Flow Therapy with Na Oxygen Flow Rate 35 Fraction of Inspired Oxygen 50 01/19/25 07:38 01/19/25 07:54 01/19/25 08:00 Temperature 37.1 C Pulse Rate 76 72 76 Respiratory Rate 16 16 16 Blood Pressure 114/62 Pulse Oximetry 92 Oxygen Delivery Oxygen Flow Rate Fraction of Inspired Oxygen Intake/Output Intake/Output: Intake & Output 01/16/25 01/17/25 01/18/25 01/19/25 23:59 23:59 23:59 23:59 Intake Total 2350 2173.3 790 Output Total 3650 800 Balance 7870 -1966.7 -10 Meds/Results Medications: Active Medications Generic Name Dose Route Start Last Admin Trade Name Freq PRN Reason Stop Dose Admin Acetaminophen 650 mg 01/17/25 19:57 Acetaminophen 325 Mg Tablet PO Q4H PRN Mild Pain (1-3) or Fever Al Hydrox/Mg Hydrox/Simethicone 30 ml 01/18/25 21:19 01/18/25 21:24 Mag Hydrox/Al Hydrox/Simeth 30 Ml Udc PO 30 ml Q6H PRN Administration Indigestion Albuterol 5 mg 01/17/25 22:40 Albuterol Sulfate Neb 2.5 Mg/3 Ml Inh INHALATION Q6HRT PRN Shortness Of Breath Albuterol 5 mg 01/18/25 02:00 01/19/25 07:38 Albuterol Sulfate Neb 2.5 Mg/3 Ml Inh INHALATION 5 mg Q6HRT NAMRATA Administration Buprenorphine/Naloxone 2 each 01/18/25 21:00 01/19/25 08:51 Buprenorphine/Naloxone (*Crx) 4 Mg/1 Mg Sl Film XX 2 each 0800,1200,2100 NAMRATA Administration Calcium Carbonate 200 mg 01/18/25 14:17 Calcium Carbonate (Tums) 500 Mg (200 Mg Elemental) PO Q6H PRN Indigestion Diazepam 5 mg 01/17/25 23:05 01/19/25 06:34 Diazepam (*Crx) 5 Mg Tablet PO 5 mg Q8HR NAMRATA Administration Docusate Sodium 100 mg 01/18/25 09:00 01/19/25 08:51 Docusate Sodium 100 Mg Capsule PO 100 mg DAILY NAMRATA Administration Duloxetine HCl 60 mg 01/18/25 09:00 01/19/25 08:52 Duloxetine Hcl 60 Mg Capsule.Dr PO 60 mg DAILY NAMRATA Administration Enoxaparin Sodium 40 mg 01/19/25 09:00 01/19/25 08:50 Enoxaparin 40 Mg/0.4 Ml Syringe SUB-Q 40 mg DAILY NAMRATA Administration Escitalopram Oxalate 20 mg 01/18/25 09:00 01/19/25 08:52 Escitalopram Oxalate 10 Mg Tablet PO 20 mg DAILY NAMRATA Administration Ceftriaxone Sodium 1 gm in 50 mls @ 100 mls/hr 01/18/25 20:00 01/18/25 20:04 Rocephin 1 Gm/Ns 50 Ml IVPB 100 mls/hr Q24H NAMRATA Administration Azithromycin 500 mg in 250 mls @ 250 mls/hr 01/18/25 21:00 01/18/25 20:04 Zithromax IVPB 250 mls/hr Q24H NAMRATA Administration Ipratropium [place] 0.5 mg 01/18/25 02:00 01/19/25 07:38 Ipratropium Br 0.02% Inh Soln 0.5 Mg/2.5 Ml Vial INHALATION 0.5 mg Q6HRT NAMRATA Administration Ipratropium [place] 0.5 mg 01/17/25 22:40 Ipratropium Br 0.02% Inh Soln 0.5 Mg/2.5 Ml Vial INHALATION Q6HRT PRN Shortness Of Breath Lactulose 20 gm 01/17/25 22:43 Lactulose 20 Gm/30 Ml Udc PO DAILY PRN constipation Lansoprazole 30 mg 01/18/25 17:00 01/18/25 17:10 Lansoprazole Odt 30 Mg Tab.Rap.Dr PO 30 mg BIDWM NAMRATA Administration Lubiprostone 24 mcg 01/17/25 23:05 01/19/25 08:51 Lubiprostone 24 Mcg Capsule PO 24 mcg Q12HR NAMRATA Administration Metoclopramide HCl 5 mg 01/17/25 19:58 Metoclopramide Hcl Inj 10 Mg/2 Ml Vial IV PUSH Q8H PRN Nausea And Vomiting Metoclopramide HCl 10 mg 01/18/25 06:30 01/19/25 06:34 Metoclopramide Hcl 10 Mg Tablet PO 10 mg ACHS NAMRATA Administration Mirtazapine 45 mg 01/17/25 22:55 01/18/25 20:04 Mirtazapine 15 Mg Tablet PO 45 mg HS NAMRATA Administration Nicotine 1 patch 01/17/25 23:15 01/19/25 08:52 Nicotine (*Pbkc) 21 Mg Patch TRANSDERM 1 patch QAM NAMRATA Administration Prazosin HCl 10 mg 01/17/25 23:00 01/18/25 20:04 Prazosin Hcl 5 Mg Capsule PO 10 mg QHS NAMRATA Administration Prazosin HCl 2 mg 01/17/25 23:00 01/19/25 08:51 Prazosin Hcl 1 Mg Capsule PO 2 mg Q12HR NAMRATA Administration Prednisone 40 mg 01/20/25 08:00 Prednisone 20 Mg Tablet PO DAILY@0800 [facility] Quetiapine Fumarate 100 mg 01/17/25 22:43 Quetiapine Fumarate Xr 50 Mg Tab.Er.24h PO DAILY PRN appetite/gastroparesis Quetiapine Fumarate 50 mg 01/17/25 23:50 01/18/25 20:05 Quetiapine Fumarate 25 Mg Tablet PO 50 mg QHS NAMRATA Administration Quetiapine Fumarate 400 mg 01/17/25 23:50 01/18/25 20:05 Quetiapine Fumarate 100 Mg Tablet PO 400 mg QHS [facility] Administration Fluticasone/Salmeterol 2 puff 01/18/25 08:00 01/18/25 20:35 Fluticasone/Salmeterol 45-21 Mcg Inhaler 1 Puff INHALATION 2 puff Q12HRT [facility] Administration Senna 17.2 mg 01/17/25 23:00 01/18/25 20:04 Sennosides 8.6 Mg Tablet PO 17.2 mg HS [facility] Administration Tizanidine HCl 2 mg 01/17/25 22:43 01/19/25 08:56 Tizanidine Hcl 2 Mg Tablet PO 2 mg QID PRN Administration muscle spasm Radiology Results: ITS Impressions Chest X-Ray 01/17/25 17:01 IMPRESSION: Bilateral interstitial thickening suggestive of pneumonitis versus pulmonary edema. Clinical correlation and follow-up advised. Chest CTA 01/17/25 18:59 IMPRESSION: 1. No pulmonary embolism. 2. Bilateral basal pneumonia. Labs Labs: Laboratory Results - last 24 hr 01/18/25 01/18/25 01/19/25 11:27 13:09 04:09 WBC 6.5 11.2 H RBC 5.79 H 5.71 H Hgb 13.8 13.5 Hct 46.5 45.5 MCV 80.3 79.7 L MCH 23.8 L 23.6 L MCHC 29.7 L 29.7 L RDW 16.2 H 15.9 H Plt Count 302 297 MPV 10.9 H 10.7 H Puncture Site Left brachial ABG pH 7.374 ABG pCO2 54.5 H ABG pO2 62.2 L ABG PO2/FiO2 Ratio 1.04 ABG HCO3 31.1 H ABG O2 Saturation 90.9 L ABG O2 Content 17.9 ABG Base Excess 4.5 A-a Gradient 305.7 Oxyhemoglobin 90.9 Total Hemoglobin 14.0 O2 Delivery Device High flow therapy O2 Liters/Min 35.0 FiO2 60 Sodium 142 141 Potassium 4.3 4.3 Chloride 103 106 Carbon Dioxide 33 H 28 Anion Gap 6 7 BUN 7 13 D Creatinine 0.75 0.68 L Estim Creat Clear Calc 99 109 Estimated GFR > 60 > 60 Glucose 156 H 148 H Calcium 9.1 9.1 Total Bilirubin 0.7 0.5 AST 21 19 ALT 21 21 Alkaline Phosphatase 82 82 Total Protein 7.0 7.0 Albumin 3.9 4.0
[2025-01-19] MEDS: LANSOPRAZOLE ODT 30 MG TAB.RAP.DR PO ×2 (10:46→15:47)
[2025-01-19] MEDS: FLUTICASONE/SALMETEROL 45-21 MCG INHALER 1 PUFF 2 PUFF INHALATION ×2 (13:37→19:29)
--- NOTE | 2025-01-19 15:13 | P.PNIM_ITS ---
Progress Note: A&P Assessment and Plan (1) Acute respiratory failure with hypoxia and hypercapnia: Code(s): J96.01 - Acute respiratory failure with hypoxia; J96.02 - Acute respiratory failure with hypercapnia Status: Acute Assessment and Plan: Underlying asthma Chronic smoker Possible exacerbation of COPD Currently on high-flow nasal cannula 60 L and 40% On Solu-Medrol Started on Rocephin and azithromycin Pending blood culture Will be evaluated for GABRIEL No improvement on HFNC consider BiPAP (2) Bilateral pneumonia: Qualifiers: Lung location: lower lobe of lung Pneumonia type: due to unspecified organism Qualified Code(s): J18.9 - Pneumonia, unspecified organism Code(s): J18.9 - Pneumonia, unspecified organism Status: Acute Assessment and Plan: See above (3) Asthma exacerbation: Qualifiers: Asthma severity: unspecified severity Asthma persistence: persistent Qualified Code(s): J45.901 - Unspecified asthma with (acute) exacerbation Code(s): J45.901 - Unspecified asthma with (acute) exacerbation Status: Acute Assessment and Plan: See above (4) Continuous tobacco abuse: Code(s): Z72.0 - Tobacco use Status: Acute Assessment and Plan: Counseled on smoking cessation (5) Transient hypotension: Code(s): I95.9 - Hypotension, unspecified Status: Acute Assessment and Plan: Received 3 L in ED Transient hypotension Resolved (6) Obesity: Qualifiers: Obesity type: due to excess calories Obesity classification: adult class 2 (BMI 35 - 39.9) Serious obesity comorbidity presence: with serious comorbidity Body mass index: BMI 36.0-36.9 Qualified Code(s): E66.812 - Obesity, class 2; E66.01 - Morbid (severe) obesity due to excess calories; Z68.36 - Body mass index [BMI] 36.0-36.9, adult Code(s): E66.9 - Obesity, unspecified Status: Acute Assessment and Plan: Encouraged diet and exercise (7) Snoring: Code(s): R06.83 - Snoring Status: Acute Assessment and Plan: Will evaluate for GABRIEL (8) Opioid dependence, in remission: Code(s): F11.21 - Opioid dependence, in remission Status: Inactive Assessment and Plan: History of fentanyl abuse (9) Gastroparesis: Code(s): K31.84 - Gastroparesis Status: Acute Assessment and Plan: Continue reglan (10) GERD (gastroesophageal reflux disease): Qualifiers: Esophagitis presence: esophagitis presence not specified Qualified Code(s): K21.9 - Gastro-esophageal reflux disease without esophagitis Code(s): K21.9 - Gastro-esophageal reflux disease without esophagitis Status: Acute Assessment and Plan: Continue Protonix (11) Depression with anxiety: Code(s): F41.8 - Other specified anxiety disorders Status: Acute Assessment and Plan: Continue home meds Subjective Date/time seen: 01/19/25 15:13 Interval history: Patient is currently doing well. Continue weaning oxygen requirement. Advised on smoking cessation. Currently on HFNC with 35 liters/minute Review of Systems Review of Systems: 12 systems were reviewed with pertinent positives and negatives per HPI. Except as documented in the HPI, all other systems were reviewed and are negative. Exam Narrative: Weight 93.4 kg BMI 36.5 Const: Other: Obese, mildly ill-appearing, sitting upright in bed with vapotherm in place HENMT: Other: Crowded posterior oropharynx, mucous membranes are moist, no oral pharyngeal erythema Eyes: Other: Pupils are equal and reactive, no scleral icterus, no conjunctival pallor Neck: Other: Large neck circumference, no lymphadenopathy, no JVD Resp: Other: Diffuse wheezing throughout, conversational dyspnea and tachypnea Cardio: Other: Regular rate, regular rhythm, 2+ bilateral radial pedal pulses, no murmur GI: Other: Obese, soft, normoactive bowel sounds, nontender Skin: Other: Hot to touch, non jaundice, no pallor Neuro: Other: Alert oriented, speech is clear, no facial asymmetry, no localizing neurologic deficits noted during the course of conversation Extrem: Other: Patient had equal strength and was able to stand at bedside to use the bedside commode, no clubbing, cyanosis or edema Psych: Other: Appropriate mood and affect, pleasant and cooperative, judgment and insight fair Objective Data Vital Signs Vital Signs: Vital Signs - 24 hr 01/18/25 16:00 01/18/25 16:00 01/18/25 16:00 Temperature 98 F Pulse Rate 60 60 52 L Respiratory Rate 20 20 Blood Pressure 123/79 Pulse Oximetry 94 94 Oxygen Delivery High Flow Therapy with Na Oxygen Flow Rate 35 Fraction of Inspired Oxygen 60 01/18/25 18:49 01/18/25 20:00 01/18/25 20:00 Temperature 98 F Pulse Rate 60 70 Respiratory Rate 15 Blood Pressure 120/78 Pulse Oximetry 94 94 Oxygen Delivery High Flow Therapy with Na Oxygen Flow Rate 35 Fraction of Inspired Oxygen 60 01/18/25 20:00 01/18/25 20:24 01/18/25 20:24 Temperature Pulse Rate 63 62 62 Respiratory Rate 20 22 H Blood Pressure Pulse Oximetry 94 Oxygen Delivery High Flow Therapy with Na Oxygen Flow Rate 35 Fraction of Inspired Oxygen 60 01/18/25 20:38 01/18/25 21:27 01/18/25 22:00 Temperature Pulse Rate 79 123 H Respiratory Rate 18 Blood Pressure Pulse Oximetry 94 Oxygen Delivery High Flow Therapy with Na Oxygen Flow Rate 35 Fraction of Inspired Oxygen 50 01/18/25 23:42 01/19/25 00:00 01/19/25 00:00 Temperature 98.5 F Pulse Rate 77 76 Respiratory Rate 18 Blood Pressure 111/64 Pulse Oximetry 90 91 Oxygen Delivery High Flow Therapy with Na Oxygen Flow Rate 35 Fraction of Inspired Oxygen 50 01/19/25 01:48 01/19/25 01:51 01/19/25 02:03 Temperature Pulse Rate 81 82 81 Respiratory Rate 16 16 Blood Pressure Pulse Oximetry 91 Oxygen Delivery High Flow Therapy with Na Oxygen Flow Rate 35 Fraction of Inspired Oxygen 50 01/19/25 03:23 01/19/25 04:00 01/19/25 04:00 Temperature 98.5 F Pulse Rate 79 67 Respiratory Rate 18 Blood Pressure 100/60 Pulse Oximetry 91 92 Oxygen Delivery High Flow Therapy with Na Oxygen Flow Rate 35 Fraction of Inspired Oxygen 50 01/19/25 06:00 01/19/25 07:38 01/19/25 07:38 Temperature Pulse Rate 67 76 Respiratory Rate 16 Blood Pressure Pulse Oximetry 92 Oxygen Delivery High Flow Therapy with Na Oxygen Flow Rate 35 Fraction of Inspired Oxygen 50 01/19/25 07:54 01/19/25 08:00 01/19/25 08:00 Temperature 98.7 F Pulse Rate 72 76 78 Respiratory Rate 16 16 Blood Pressure 114/62 Pulse Oximetry 92 Oxygen Delivery Oxygen Flow Rate Fraction of Inspired Oxygen 01/19/25 08:00 01/19/25 10:00 01/19/25 12:00 Temperature 98.0 F Pulse Rate 72 78 Respiratory Rate 20 Blood Pressure 118/86 Pulse Oximetry 92 90 Oxygen Delivery High Flow Therapy with Na Oxygen Flow Rate 35 Fraction of Inspired Oxygen 50 01/19/25 12:00 01/19/25 12:00 01/19/25 13:21 Temperature Pulse Rate 68 Respiratory Rate Blood Pressure Pulse Oximetry 92 92 Oxygen Delivery High Flow Therapy with Na High Flow Therapy with Na Oxygen Flow Rate 35 35 Fraction of Inspired Oxygen 50 50 01/19/25 13:21 01/19/25 13:37 Temperature Pulse Rate 63 80 Respiratory Rate 16 18 Blood Pressure Pulse Oximetry Oxygen Delivery Oxygen Flow Rate Fraction of Inspired Oxygen Intake/Output Intake/Output: Intake & Output 01/16/25 01/17/25 01/18/25 01/19/25 23:59 23:59 23:59 23:59 Intake Total 2350 2173.3 790 Output Total 3650 800 Balance 2350 -1476.7 -10 Meds/Results Medications: Active Medications Generic Name Dose Route Start Last Admin Trade Name Freq PRN Reason Stop Dose Admin Acetaminophen 650 mg 01/17/25 19:57 Acetaminophen 325 Mg Tablet PO Q4H PRN Mild Pain (1-3) or Fever Al Hydrox/Mg Hydrox/Simethicone 30 ml 01/18/25 21:19 01/18/25 21:24 Mag Hydrox/Al Hydrox/Simeth 30 Ml Udc PO 30 ml Q6H PRN Administration Indigestion Albuterol 5 mg 01/17/25 22:40 Albuterol Sulfate Neb 2.5 Mg/3 Ml Inh INHALATION Q6HRT PRN Shortness Of Breath Albuterol 5 mg 01/18/25 02:00 01/19/25 13:21 Albuterol Sulfate Neb 2.5 Mg/3 Ml Inh INHALATION 5 mg Q6HRT NAMRATA Administration Buprenorphine/Naloxone 2 each 01/18/25 21:00 01/19/25 11:23 Buprenorphine/Naloxone (*Crx) 4 Mg/1 Mg Sl Film XX 2 each 0800,1200,2100 NAMRATA Administration Calcium Carbonate 200 mg 01/18/25 14:17 Calcium Carbonate (Tums) 500 Mg (200 Mg Elemental) PO Q6H PRN Indigestion Diazepam 5 mg 01/17/25 23:05 01/19/25 13:53 Diazepam (*Crx) 5 Mg Tablet PO 5 mg Q8HR NAMRATA Administration Docusate Sodium 100 mg 01/18/25 09:00 01/19/25 08:51 Docusate Sodium 100 Mg Capsule PO 100 mg DAILY NAMRATA Administration Duloxetine HCl 60 mg 01/18/25 09:00 01/19/25 08:52 Duloxetine Hcl 60 Mg Capsule. PO 60 mg DAILY NAMRATA Administration Enoxaparin Sodium 40 mg 01/19/25 09:00 01/19/25 08:50 Enoxaparin 40 Mg/0.4 Ml Syringe SUB-Q 40 mg DAILY NAMRATA Administration Escitalopram Oxalate 20 mg 01/18/25 09:00 01/19/25 08:52 Escitalopram Oxalate 10 Mg Tablet PO 20 mg DAILY NAMRATA Administration Ceftriaxone Sodium 1 gm in 50 mls @ 100 mls/hr 01/18/25 20:00 01/18/25 20:04 Rocephin 1 Gm/Ns 50 Ml IVPB 100 mls/hr Q24H NAMRATA Administration Azithromycin 500 mg in 250 mls @ 250 mls/hr 01/18/25 21:00 01/18/25 20:04 Zithromax IVPB 250 mls/hr Q24H NAMRATA Administration Ipratropium [place] 0.5 mg 01/18/25 02:00 01/19/25 13:21 Ipratropium Br 0.02% Inh Soln 0.5 Mg/2.5 Ml Vial INHALATION 0.5 mg Q6HRT NAMRATA Administration Ipratropium [place] 0.5 mg 01/17/25 22:40 Ipratropium Br 0.02% Inh Soln 0.5 Mg/2.5 Ml Vial INHALATION Q6HRT PRN Shortness Of Breath Lactulose 20 gm 01/17/25 22:43 Lactulose 20 Gm/30 Ml Udc PO DAILY PRN constipation Lansoprazole 30 mg 01/18/25 17:00 01/19/25 10:46 Lansoprazole Odt 30 Mg Tab.Rap.Dr PO 30 mg BIDWM NAMRATA Administration Lubiprostone 24 mcg 01/17/25 23:05 01/19/25 08:51 Lubiprostone 24 Mcg Capsule PO 24 mcg Q12HR NAMRATA Administration Metoclopramide HCl 5 mg 01/17/25 19:58 Metoclopramide Hcl Inj 10 Mg/2 Ml Vial IV PUSH Q8H PRN Nausea And Vomiting Metoclopramide HCl 10 mg 01/18/25 06:30 01/19/25 11:23 Metoclopramide Hcl 10 Mg Tablet PO 10 mg ACHS NAMRATA Administration Mirtazapine 45 mg 01/17/25 22:55 01/18/25 20:04 Mirtazapine 15 Mg Tablet PO 45 mg HS [facility] Administration Nicotine 1 patch 01/17/25 23:15 01/19/25 08:52 Nicotine (*Pbkc) 21 Mg Patch TRANSDERM 1 patch QAM NAMRATA Administration Prazosin HCl 10 mg 01/17/25 23:00 01/18/25 20:04 Prazosin Hcl 5 Mg Capsule PO 10 mg QHS NAMRATA Administration Prazosin HCl 2 mg 01/17/25 23:00 01/19/25 08:51 Prazosin Hcl 1 Mg Capsule PO 2 mg Q12HR NAMRATA Administration Prednisone 40 mg 01/20/25 08:00 Prednisone 20 Mg Tablet PO DAILY@0800 [facility] Quetiapine Fumarate 100 mg 01/17/25 22:43 Quetiapine Fumarate Xr 50 Mg Tab.Er.24h PO DAILY PRN appetite/gastroparesis Quetiapine Fumarate 50 mg 01/17/25 23:50 01/18/25 20:05 Quetiapine Fumarate 25 Mg Tablet PO 50 mg QHS NAMRATA Administration Quetiapine Fumarate 400 mg 01/17/25 23:50 01/18/25 20:05 Quetiapine Fumarate 100 Mg Tablet PO 400 mg QHS [facility] Administration Fluticasone/Salmeterol 2 puff 01/18/25 08:00 01/19/25 13:37 Fluticasone/Salmeterol 45-21 Mcg Inhaler 1 Puff INHALATION 2 puff Q12HRT [facility] Administration Senna 17.2 mg 01/17/25 23:00 01/18/25 20:04 Sennosides 8.6 Mg Tablet PO 17.2 mg HS [facility] Administration Tizanidine HCl 2 mg 01/17/25 22:43 01/19/25 08:56 Tizanidine Hcl 2 Mg Tablet PO 2 mg QID PRN Administration muscle spasm Radiology Results: ITS Impressions Chest X-Ray 01/17/25 17:01 IMPRESSION: Bilateral interstitial thickening suggestive of pneumonitis versus pulmonary edema. Clinical correlation and follow-up advised. Chest CTA 01/17/25 18:59 IMPRESSION: 1. No pulmonary embolism. 2. Bilateral basal pneumonia. Labs Labs: Laboratory Results - last 24 hr 01/19/25 04:09 WBC 11.2 H RBC 5.71 H Hgb 13.5 Hct 45.5 MCV 79.7 L MCH 23.6 L MCHC 29.7 L RDW 15.9 H Plt Count 297 MPV 10.7 H Sodium 141 Potassium 4.3 Chloride 106 Carbon Dioxide 28 Anion Gap 7 BUN 13 D Creatinine 0.68 L Estim Creat Clear Calc 109 Estimated GFR > 60 Glucose 148 H Calcium 9.1 Total Bilirubin 0.5 AST 19 ALT 21 Alkaline Phosphatase 82 Total Protein 7.0 Albumin 4.0 Quality VTE Prophylaxis VTE prophylaxis: pharmacologic ordered (Lovenox 40 mg subQ daily.) Hospitalist MIPS Advance Care Plan I have confirmed that the patient's Advanced Care Plan is present, code status is documented, or surrogate decision maker is listed in patient medical record.: Yes Medication Reconciliation I have utilized all available resources to obtain, update and review the patients current medications (includes all prescriptions, OTC, herbals, cannabis, and nutritional supplements).: Yes
[2025-01-19] MEDS: IPRATROPIUM 0.5 MG/ALBUTEROL SULFATE 2.5 MG AMPUL.NEB 3 ML INHALATION (19:29)
[2025-01-19] MEDS: PRAZOSIN HCL 5 MG CAPSULE 10 MG PO (21:11)
[2025-01-19] MEDS: QUEtiapine FUMARATE 100 MG TABLET 400 MG PO (21:12)
[2025-01-19] MEDS: QUEtiapine FUMARATE 25 MG TABLET 50 MG PO (21:13)
[2025-01-19] MEDS: MIRTAZAPINE 15 MG TABLET 45 MG PO (21:14)
[2025-01-19] MEDS: SENNOSIDES 8.6 MG TABLET 17.2 MG PO (21:15)
[2025-01-19] MEDS: AZITHROMYCIN 500 MG/NS 250 ML 500 MG/250 ML BAG 250 MG IVPB (21:16)
[2025-01-20] VITALS (20 sets, daily range): BP systolic 103–121; BP diastolic 60–80; PULSE 52–109; RESP 12–20; TEMP 36.4–37.1; O2SAT 90–96
[2025-01-20] MEDS: IPRATROPIUM 0.5 MG/ALBUTEROL SULFATE 2.5 MG AMPUL.NEB 3 ML INHALATION (02:10)
[2025-01-20 04:49] LABS: Hematocrit 44.9 % (37.0-47.0); Hemoglobin 13.1 g/dL (12.0-15.0); Mean Corpuscular HGB Conc 29.2 g/dl (32-36); Mean Corpuscular Hemoglobin 23.1 pg (26-34); Mean Corpuscular Volume 79.2 fl (80-100); Mean Platelet Volume 10.7 fl (7.4-10.4); Platelet Count Result 305 k/mm3 (150-375); Red Blood Count 5.67 M/mm3 (4.2-5.4); Red Cell Distribution Width 15.8 % (11.5-14.5); White Blood Count 10.3 K/mm3 (4.5-10.0)
[2025-01-20 05:10] LABS: Alanine Aminotransferase 18 U/L (6-35); Albumin Level 3.6 g/dL (3.5-5.1); Alkaline Phosphatase 71 U/L (38-126); Anion Gap 7 mmol/L (4-12); Aspartate Amino Transferase 18 U/L (14-36); Bilirubin,Total 0.4 mg/dL (0.2-1.3); Blood Urea Nitrogen 17 mg/dL (7-17); Calcium 8.9 mg/dL (8.4-10.2); Carbon Dioxide 31 mmol/L (22-30); Chloride 103 mmol/L (98-107); Estimated CRCL calculation 109 ml/min; Estimated Glomerular Filt Rate > 60; Glucose 95 mg/dL (65-110); Potassium 4.4 mmol/L (3.4-5.0); Sodium 141 mmol/L (137-145)
[2025-01-20] MEDS: METOCLOPRAMIDE HCL 10 MG TABLET PO ×4 (05:52→21:02)
[2025-01-20] MEDS: diazePAM (*CRX) 5 MG TABLET PO ×3 (05:52→21:02)
[2025-01-20] MEDS: FLUTICASONE/SALMETEROL 45-21 MCG INHALER 1 PUFF 2 PUFF INHALATION ×2 (07:39→21:50)
[2025-01-20] MEDS: BUPRENORPHINE/NALOXONE (*CRX) 4 MG/1 MG SL FILM 2 EACH XX ×3 (08:15→20:59)
[2025-01-20] MEDS: LANSOPRAZOLE ODT 30 MG TAB.RAP.DR PO ×2 (08:15→16:23)
[2025-01-20] MEDS: predniSONE 20 MG TABLET 40 MG PO (08:15)
[2025-01-20] MEDS: ESCITALOPRAM OXALATE 10 MG TABLET 20 MG PO (08:16)
[2025-01-20] MEDS: DOCUSATE SODIUM 100 MG CAPSULE PO (08:16)
[2025-01-20] MEDS: DULoxetine HCL 60 MG CAPSULE.DR PO (08:16)
[2025-01-20] MEDS: ENOXAPARIN 40 MG/0.4 ML SYRINGE SUB-Q (08:21)
[2025-01-20] MEDS: TIZANIDINE HCL 2 MG TABLET PO ×4 (08:24→21:08)
[2025-01-20] MEDS: PRAZOSIN HCL 1 MG CAPSULE 2 MG PO ×2 (08:24→21:00)
[2025-01-20] MEDS: LUBIPROSTONE 24 MCG CAPSULE PO ×2 (08:45→21:02)
[2025-01-20] MEDS: NICOTINE (*PBKC) 21 MG PATCH 1 PATCH TRANSDERM (08:45)
--- NOTE | 2025-01-20 11:02 | P.PNIM_ITS ---
Progress Note: A&P Assessment and Plan (1) Acute respiratory failure with hypoxia and hypercapnia: Code(s): J96.01 - Acute respiratory failure with hypoxia; J96.02 - Acute respiratory failure with hypercapnia Status: Acute Assessment and Plan: Underlying asthma Chronic smoker Possible exacerbation of COPD Currently on high-flow nasal cannula 60 L and 40% On Solu-Medrol Started on Rocephin and azithromycin Pending blood culture Will be evaluated for GABRIEL No improvement on HFNC consider BiPAP (2) Bilateral pneumonia: Qualifiers: Lung location: lower lobe of lung Pneumonia type: due to unspecified organism Qualified Code(s): J18.9 - Pneumonia, unspecified organism Code(s): J18.9 - Pneumonia, unspecified organism Status: Acute Assessment and Plan: See above (3) Asthma exacerbation: Qualifiers: Asthma persistence: persistent Asthma severity: unspecified severity Qualified Code(s): J45.901 - Unspecified asthma with (acute) exacerbation Code(s): J45.901 - Unspecified asthma with (acute) exacerbation Status: Acute Assessment and Plan: See above (4) Continuous tobacco abuse: Code(s): Z72.0 - Tobacco use Status: Acute Assessment and Plan: Counseled on smoking cessation (5) Transient hypotension: Code(s): I95.9 - Hypotension, unspecified Status: Acute Assessment and Plan: Received 3 L in ED Transient hypotension Resolved (6) Obesity: Qualifiers: Body mass index: BMI 36.0-36.9 Obesity classification: adult class 2 (BMI 35 - 39.9) Obesity type: due to excess calories Serious obesity comorbidity presence: with serious comorbidity Qualified Code(s): E66.812 - Obesity, class 2; E66.01 - Morbid (severe) obesity due to excess calories; Z68.36 - Body mass index [BMI] 36.0-36.9, adult Code(s): E66.9 - Obesity, unspecified Status: Acute Assessment and Plan: Encouraged diet and exercise (7) Snoring: Code(s): R06.83 - Snoring Status: Acute Assessment and Plan: Will evaluate for GABRIEL (8) Opioid dependence, in remission: Code(s): F11.21 - Opioid dependence, in remission Status: Inactive Assessment and Plan: History of fentanyl abuse (9) Gastroparesis: Code(s): K31.84 - Gastroparesis Status: Acute Assessment and Plan: Continue reglan (10) GERD (gastroesophageal reflux disease): Qualifiers: Esophagitis presence: esophagitis presence not specified Qualified Code(s): K21.9 - Gastro-esophageal reflux disease without esophagitis Code(s): K21.9 - Gastro-esophageal reflux disease without esophagitis Status: Acute Assessment and Plan: Continue Protonix (11) Depression with anxiety: Code(s): F41.8 - Other specified anxiety disorders Status: Acute Assessment and Plan: Continue home meds Subjective Date/time seen: 01/20/25 11:02 Interval history: Continues to feel better. Discontinue Solu-Medrol. Started on prednisone 40 mg p.o. q.d. for 3 days. Patient still in HFNC at 30L/Min Review of Systems Review of Systems: 12 systems were reviewed with pertinent positives and negatives per HPI. Except as documented in the HPI, all other systems were reviewed and are negative. Exam Narrative: Weight 93.4 kg BMI 36.5 Const: Other: Obese, mildly ill-appearing, sitting upright in bed with vapotherm in place HENMT: Other: Crowded posterior oropharynx, mucous membranes are moist, no oral pharyngeal erythema Eyes: Other: Pupils are equal and reactive, no scleral icterus, no conjunctival pallor Neck: Other: Large neck circumference, no lymphadenopathy, no JVD Resp: Other: Diffuse wheezing throughout, conversational dyspnea and tachypnea Cardio: Other: Regular rate, regular rhythm, 2+ bilateral radial pedal pulses, no murmur GI: Other: Obese, soft, normoactive bowel sounds, nontender Skin: Other: Hot to touch, non jaundice, no pallor Neuro: Other: Alert oriented, speech is clear, no facial asymmetry, no localizing neurologic deficits noted during the course of conversation Extrem: Other: Patient had equal strength and was able to stand at bedside to use the bedside commode, no clubbing, cyanosis or edema Psych: Other: Appropriate mood and affect, pleasant and cooperative, judgment and insight fair Objective Data Vital Signs Vital Signs: Vital Signs - 24 hr 01/19/25 12:00 01/19/25 12:00 01/19/25 12:00 Temperature 98.0 F Pulse Rate 78 68 Respiratory Rate 20 Blood Pressure 118/86 Pulse Oximetry 90 92 Oxygen Delivery High Flow Therapy with Na Oxygen Flow Rate 35 Fraction of Inspired Oxygen 50 01/19/25 13:21 01/19/25 13:21 01/19/25 13:37 Temperature Pulse Rate 63 80 Respiratory Rate 16 18 Blood Pressure Pulse Oximetry 92 Oxygen Delivery High Flow Therapy with Na Oxygen Flow Rate 35 Fraction of Inspired Oxygen 50 01/19/25 14:00 01/19/25 16:00 01/19/25 16:00 Temperature 98.1 F Pulse Rate 69 76 69 Respiratory Rate 16 Blood Pressure 119/81 Pulse Oximetry 94 Oxygen Delivery Oxygen Flow Rate Fraction of Inspired Oxygen 01/19/25 16:00 01/19/25 18:00 01/19/25 19:29 Temperature Pulse Rate 56 L 85 Respiratory Rate 16 Blood Pressure Pulse Oximetry 92 Oxygen Delivery High Flow Therapy with Na Oxygen Flow Rate 35 Fraction of Inspired Oxygen 50 01/19/25 19:40 01/19/25 20:00 01/19/25 20:00 Temperature 98.5 F Pulse Rate 85 64 64 Respiratory Rate 16 16 16 Blood Pressure 121/79 Pulse Oximetry 93 97 Oxygen Delivery High Flow Therapy with Na Oxygen Flow Rate 35 Fraction of Inspired Oxygen 50 01/19/25 20:00 01/19/25 21:41 01/19/25 22:00 Temperature Pulse Rate 72 85 Respiratory Rate Blood Pressure Pulse Oximetry 93 Oxygen Delivery High Flow Therapy with Na Oxygen Flow Rate 35 Fraction of Inspired Oxygen 50 01/19/25 23:55 01/20/25 00:00 01/20/25 00:00 Temperature 98.2 F Pulse Rate 109 H 109 H 75 Respiratory Rate 18 18 Blood Pressure 122/78 Pulse Oximetry 92 94 Oxygen Delivery High Flow Therapy with Na Oxygen Flow Rate 35 Fraction of Inspired Oxygen 50 01/20/25 02:00 01/20/25 02:09 01/20/25 02:20 Temperature Pulse Rate 84 85 85 Respiratory Rate 16 16 Blood Pressure Pulse Oximetry Oxygen Delivery Oxygen Flow Rate Fraction of Inspired Oxygen 01/20/25 02:24 01/20/25 04:00 01/20/25 04:00 Temperature 98.3 F Pulse Rate 70 90 Respiratory Rate 18 18 Blood Pressure 114/80 Pulse Oximetry 95 96 96 Oxygen Delivery High Flow Therapy with Na High Flow Therapy with Na Oxygen Flow Rate 35 35 Fraction of Inspired Oxygen 45 45 01/20/25 04:00 01/20/25 06:00 01/20/25 07:42 Temperature Pulse Rate 90 75 79 Respiratory Rate 20 Blood Pressure Pulse Oximetry 95 Oxygen Delivery High Flow Therapy with Na Oxygen Flow Rate 35 Fraction of Inspired Oxygen 45 01/20/25 07:42 01/20/25 07:54 01/20/25 08:00 Temperature 97.9 F Pulse Rate 79 76 Respiratory Rate 20 20 Blood Pressure 120/75 Pulse Oximetry 93 90 Oxygen Delivery High Flow Therapy with Na Oxygen Flow Rate 30 Fraction of Inspired Oxygen 40 01/20/25 08:00 Temperature Pulse Rate 75 Respiratory Rate Blood Pressure Pulse Oximetry Oxygen Delivery Oxygen Flow Rate Fraction of Inspired Oxygen Intake/Output Intake/Output: Intake & Output 01/17/25 01/18/25 01/19/25 01/20/25 23:59 23:59 23:59 23:59 Intake Total 2350 2473.3 2290 1127 Output Total 3650 1800 1800 Balance 2350 -1176.7 490 -273 Meds/Results Medications: Active Medications Generic Name Dose Route Start Last Admin Trade Name Freq PRN Reason Stop Dose Admin Acetaminophen 650 mg 01/17/25 19:57 Acetaminophen 325 Mg Tablet PO Q4H PRN Mild Pain (1-3) or Fever Al Hydrox/Mg Hydrox/Simethicone 30 ml 01/18/25 21:19 01/18/25 21:24 Mag Hydrox/Al Hydrox/Simeth 30 Ml Udc PO 30 ml Q6H PRN Administration Indigestion Albuterol/Ipratropium 3 ml 01/19/25 17:13 01/20/25 02:10 Ipratropium 0.5 Mg/Albuterol Sulfate 2.5 Mg Ampul.Neb 3 Ml INHALATION 3 ml Q6HRT PRN Administration Wheezing Buprenorphine/Naloxone 2 each 01/18/25 21:00 01/20/25 08:15 Buprenorphine/Naloxone (*Crx) 4 Mg/1 Mg Sl Film XX 2 each 0800,1200,2100 NAMRATA Administration Calcium Carbonate 200 mg 01/18/25 14:17 Calcium Carbonate (Tums) 500 Mg (200 Mg Elemental) PO Q6H PRN Indigestion Diazepam 5 mg 01/17/25 23:05 01/20/25 05:52 Diazepam (*Crx) 5 Mg Tablet PO 5 mg Q8HR NAMRATA Administration Docusate Sodium 100 mg 01/18/25 09:00 01/20/25 08:16 Docusate Sodium 100 Mg Capsule PO 100 mg DAILY NAMRATA Administration Duloxetine HCl 60 mg 01/18/25 09:00 01/20/25 08:16 Duloxetine Hcl 60 Mg Capsule. PO 60 mg DAILY NAMRATA Administration Enoxaparin Sodium 40 mg 01/19/25 09:00 01/20/25 08:21 Enoxaparin 40 Mg/0.4 Ml Syringe SUB-Q 40 mg DAILY NAMRATA Administration Escitalopram Oxalate 20 mg 01/18/25 09:00 01/20/25 08:16 Escitalopram Oxalate 10 Mg Tablet PO 20 mg DAILY NAMRATA Administration Ceftriaxone Sodium 1 gm in 50 mls @ 100 mls/hr 01/18/25 20:00 01/19/25 21:45 Rocephin 1 Gm/Ns 50 Ml IVPB Infused Q24H NAMRATA Infusion Azithromycin 500 mg in 250 mls @ 250 mls/hr 01/18/25 21:00 01/19/25 21:16 Zithromax IVPB 250 mls/hr Q24H NAMRATA Administration Lactulose 20 gm 01/17/25 22:43 Lactulose 20 Gm/30 Ml Udc PO DAILY PRN constipation Lansoprazole 30 mg 01/18/25 17:00 01/20/25 08:15 Lansoprazole Odt 30 Mg Tab.Rap. PO 30 mg BIDWM NAMRATA Administration Lubiprostone 24 mcg 01/17/25 23:05 01/19/25 21:15 Lubiprostone 24 Mcg Capsule PO 24 mcg Q12HR NAMRATA Administration Metoclopramide HCl 5 mg 01/17/25 19:58 Metoclopramide Hcl Inj 10 Mg/2 Ml Vial IV PUSH Q8H PRN Nausea And Vomiting Metoclopramide HCl 10 mg 01/18/25 06:30 01/20/25 05:52 Metoclopramide Hcl 10 Mg Tablet PO 10 mg ACHS NAMRATA Administration Mirtazapine 45 mg 01/17/25 22:55 01/19/25 21:14 Mirtazapine 15 Mg Tablet PO 45 mg HS NAMRATA Administration Nicotine 1 patch 01/17/25 23:15 01/19/25 08:52 Nicotine (*Pbkc) 21 Mg Patch TRANSDERM 1 patch QAM NAMRATA Administration Prazosin HCl 10 mg 01/17/25 23:00 01/19/25 21:11 Prazosin Hcl 5 Mg Capsule PO 10 mg QHS NAMRATA Administration Prazosin HCl 2 mg 01/17/25 23:00 01/20/25 08:24 Prazosin Hcl 1 Mg Capsule PO 2 mg Q12HR NAMRATA Administration Prednisone 40 mg 01/20/25 08:00 01/20/25 08:15 Prednisone 20 Mg Tablet PO 40 mg DAILY@0800 [facility] Administration Quetiapine Fumarate 100 mg 01/17/25 22:43 Quetiapine Fumarate Xr 50 Mg Tab.Er.24h PO DAILY PRN appetite/gastroparesis Quetiapine Fumarate 50 mg 01/17/25 23:50 01/19/25 21:13 Quetiapine Fumarate 25 Mg Tablet PO 50 mg QHS NAMRATA Administration Quetiapine Fumarate 400 mg 01/17/25 23:50 01/19/25 21:12 Quetiapine Fumarate 100 Mg Tablet PO 400 mg QHS [facility] Administration Fluticasone/Salmeterol 2 puff 01/18/25 08:00 01/20/25 07:39 Fluticasone/Salmeterol 45-21 Mcg Inhaler 1 Puff INHALATION 2 puff Q12HRT [facility] Administration Senna 17.2 mg 01/17/25 23:00 01/19/25 21:15 Sennosides 8.6 Mg Tablet PO 17.2 mg HS [facility] Administration Tizanidine HCl 2 mg 01/17/25 22:43 01/20/25 08:24 Tizanidine Hcl 2 Mg Tablet PO 2 mg QID PRN Administration muscle spasm Radiology Results: ITS Impressions Chest CTA 01/17/25 18:59 IMPRESSION: 1. No pulmonary embolism. 2. Bilateral basal pneumonia. Chest X-Ray 01/20/25 06:00 Impression: Patchy bibasilar airspace disease could reflect atelectasis/edema versus possibly pneumonia. Correlate clinically. Labs Labs: Laboratory Results - last 24 hr 01/20/25 04:21 WBC 10.3 H RBC 5.67 H Hgb 13.1 Hct 44.9 MCV 79.2 L MCH 23.1 L MCHC 29.2 L RDW 15.8 H Plt Count 305 MPV 10.7 H Sodium 141 Potassium 4.4 Chloride 103 Carbon Dioxide 31 H Anion Gap 7 BUN 17 Creatinine 0.68 L Estim Creat Clear Calc 109 Estimated GFR > 60 Glucose 95 Calcium 8.9 Total Bilirubin 0.4 AST 18 ALT 18 Alkaline Phosphatase 71 Total Protein 7.0 Albumin 3.6 Quality VTE Prophylaxis VTE prophylaxis: pharmacologic ordered (Lovenox 40 mg subQ daily.) Hospitalist MIPS Advance Care Plan I have confirmed that the patient's Advanced Care Plan is present, code status is documented, or surrogate decision maker is listed in patient medical record.: Yes Medication Reconciliation I have utilized all available resources to obtain, update and review the patients current medications (includes all prescriptions, OTC, herbals, cannabis, and nutritional supplements).: Yes
[2025-01-20] MEDS: AZITHROMYCIN 500 MG/NS 250 ML 500 MG/250 ML BAG 250 MG IVPB (20:58)
[2025-01-20] MEDS: PRAZOSIN HCL 5 MG CAPSULE 10 MG PO (20:59)
[2025-01-20] MEDS: QUEtiapine FUMARATE 100 MG TABLET 400 MG PO (20:59)
[2025-01-20] MEDS: SENNOSIDES 8.6 MG TABLET 17.2 MG PO (21:01)
[2025-01-20] MEDS: QUEtiapine FUMARATE 25 MG TABLET 50 MG PO (21:01)
[2025-01-20] MEDS: MIRTAZAPINE 15 MG TABLET 45 MG PO (21:02)
[2025-01-21] VITALS (12 sets, daily range): BP systolic 115–129; BP diastolic 74–86; PULSE 51–82; RESP 16–20; TEMP 36.3–36.9; O2SAT 92–94
[2025-01-21] MEDS: diazePAM (*CRX) 5 MG TABLET PO ×3 (05:59→21:25)
[2025-01-21] MEDS: METOCLOPRAMIDE HCL 10 MG TABLET PO ×4 (05:59→20:44)
[2025-01-21] MEDS: DULoxetine HCL 60 MG CAPSULE.DR PO (08:32)
[2025-01-21] MEDS: ESCITALOPRAM OXALATE 10 MG TABLET 20 MG PO (08:32)
[2025-01-21] MEDS: predniSONE 20 MG TABLET 40 MG PO (08:33)
[2025-01-21] MEDS: PRAZOSIN HCL 1 MG CAPSULE 2 MG PO ×2 (08:33→20:44)
[2025-01-21] MEDS: DOCUSATE SODIUM 100 MG CAPSULE PO (08:34)
[2025-01-21] MEDS: LANSOPRAZOLE ODT 30 MG TAB.RAP.DR PO ×2 (08:34→17:59)
[2025-01-21] MEDS: BUPRENORPHINE/NALOXONE (*CRX) 4 MG/1 MG SL FILM 2 EACH XX ×3 (08:39→20:46)
[2025-01-21] MEDS: TIZANIDINE HCL 2 MG TABLET PO ×4 (08:39→21:31)
[2025-01-21] MEDS: FLUTICASONE/SALMETEROL 45-21 MCG INHALER 1 PUFF 2 PUFF INHALATION ×2 (09:25→21:27)
[2025-01-21] MEDS: ENOXAPARIN 40 MG/0.4 ML SYRINGE SUB-Q (10:17)
[2025-01-21] MEDS: NICOTINE (*PBKC) 21 MG PATCH 1 PATCH TRANSDERM (10:18)
[2025-01-21] MEDS: LUBIPROSTONE 24 MCG CAPSULE PO ×2 (10:18→20:44)
[2025-01-21] MEDS: BISACODYL 10 MG SUPPOSITORY RECTAL (11:12)
--- NOTE | 2025-01-21 14:42 | PC.NURSE ---
Pt transferred to 324 via wheelchair wearing 2L of oxygen. Report given to BJ Perkins.
--- NOTE | 2025-01-21 16:34 | P.PNIM_ITS ---
Progress Note: A&P Assessment and Plan (1) Acute respiratory failure with hypoxia and hypercapnia: Code(s): J96.01 - Acute respiratory failure with hypoxia; J96.02 - Acute respiratory failure with hypercapnia Status: Acute Assessment and Plan: Underlying asthma Chronic smoker Possible exacerbation of ASthma s/p high-flow nasal cannula 60 L and 40% Now on 4 liters [place] oxygen on Rocephin and azithromycin, PO prednisone Pending blood culture Will be evaluated for GABRIEL Pulmonology eval noted (2) Bilateral pneumonia: Qualifiers: Lung location: lower lobe of lung Pneumonia type: due to unspecified organism Qualified Code(s): J18.9 - Pneumonia, unspecified organism Code(s): J18.9 - Pneumonia, unspecified organism Status: Acute Assessment and Plan: See above (3) Asthma exacerbation: Qualifiers: Asthma severity: unspecified severity Asthma persistence: persistent Qualified Code(s): J45.901 - Unspecified asthma with (acute) exacerbation Code(s): J45.901 - Unspecified asthma with (acute) exacerbation Status: Acute Assessment and Plan: See above (4) Continuous tobacco abuse: Code(s): Z72.0 - Tobacco use Status: Acute Assessment and Plan: Counseled on smoking cessation (5) Transient hypotension: Code(s): I95.9 - Hypotension, unspecified Status: Acute Assessment and Plan: Received 3 L in ED Transient hypotension Resolved (6) Obesity: Qualifiers: Obesity type: due to excess calories Obesity classification: adult class 2 (BMI 35 - 39.9) Serious obesity comorbidity presence: with serious comorbidity Body mass index: BMI 36.0-36.9 Qualified Code(s): E66.812 - Obesity, class 2; E66.01 - Morbid (severe) obesity due to excess calories; Z68.36 - Body mass index [BMI] 36.0-36.9, adult Code(s): E66.9 - Obesity, unspecified Status: Acute Assessment and Plan: Encouraged diet and exercise (7) Snoring: Code(s): R06.83 - Snoring Status: Acute Assessment and Plan: Will evaluate for GABRIEL (8) Opioid dependence, in remission: Code(s): F11.21 - Opioid dependence, in remission Status: Inactive Assessment and Plan: History of fentanyl abuse (9) Gastroparesis: Code(s): K31.84 - Gastroparesis Status: Acute Assessment and Plan: Continue reglan (10) GERD (gastroesophageal reflux disease): Qualifiers: Esophagitis presence: esophagitis presence not specified Qualified Code(s): K21.9 - Gastro-esophageal reflux disease without esophagitis Code(s): K21.9 - Gastro-esophageal reflux disease without esophagitis Status: Acute Assessment and Plan: Continue Protonix (11) Depression with anxiety: Code(s): F41.8 - Other specified anxiety disorders Status: Acute Assessment and Plan: Continue home meds Plan Asthma Patient noted she uses PRN albuterol at home DVT prophylaxis Sq Lovenox Subjective Date/time seen: 01/21/25 16:34 Interval history: Comfortable at bedside, s/p HFNC now on 4 liters by [place] Review of Systems Review of Systems: 12 systems were reviewed with pertinent positives and negatives per HPI. Except as documented in the HPI, all other systems were reviewed and are negative. Exam Narrative: Weight 93.4 kg BMI 36.5 Const: Other: Obese, mildly ill-appearing, sitting upright in bed with vapotherm in place HENMT: Other: Crowded posterior oropharynx, mucous membranes are moist, no oral pharyngeal erythema Eyes: Other: Pupils are equal and reactive, no scleral icterus, no conjunctival pallor Neck: Other: Large neck circumference, no lymphadenopathy, no JVD Resp: Other: Diffuse wheezing throughout, conversational dyspnea and tachypnea Cardio: Other: Regular rate, regular rhythm, 2+ bilateral radial pedal pulses, no murmur GI: Other: Obese, soft, normoactive bowel sounds, nontender Skin: Other: Hot to touch, non jaundice, no pallor Neuro: Other: Alert oriented, speech is clear, no facial asymmetry, no localizing neurologic deficits noted during the course of conversation Extrem: Other: Patient had equal strength and was able to stand at bedside to use the bedside commode, no clubbing, cyanosis or edema Psych: Other: Appropriate mood and affect, pleasant and cooperative, judgment and insight fair Objective Data Vital Signs Vital Signs: Vital Signs - 24 hr 01/20/25 18:00 01/20/25 20:00 01/20/25 20:00 Temperature 98.3 F Pulse Rate 82 60 52 L Respiratory Rate 16 16 Blood Pressure 121/78 Pulse Oximetry 95 95 Oxygen Delivery High Flow Therapy with Na Oxygen Flow Rate 30 Fraction of Inspired Oxygen 40 01/20/25 20:00 01/20/25 21:43 01/20/25 21:52 Temperature Pulse Rate 52 L 82 Respiratory Rate Blood Pressure Pulse Oximetry 95 Oxygen Delivery High Flow Therapy with Na Oxygen Flow Rate 35 Fraction of Inspired Oxygen 40 01/20/25 23:32 01/20/25 23:32 01/20/25 23:56 Temperature 97.5 F L Pulse Rate 72 72 75 Respiratory Rate 16 16 Blood Pressure 103/60 Pulse Oximetry 92 95 Oxygen Delivery High Flow Therapy with Na Oxygen Flow Rate 30 Fraction of Inspired Oxygen 40 01/21/25 02:00 01/21/25 04:00 01/21/25 04:00 Temperature 98.5 F Pulse Rate 68 74 62 Respiratory Rate 16 16 Blood Pressure 127/86 Pulse Oximetry 94 94 Oxygen Delivery High Flow Therapy with Na Oxygen Flow Rate 30 Fraction of Inspired Oxygen 40 01/21/25 04:00 01/21/25 06:00 01/21/25 08:00 Temperature 98.4 F Pulse Rate 62 68 68 Respiratory Rate 20 Blood Pressure 123/75 Pulse Oximetry 93 Oxygen Delivery Oxygen Flow Rate Fraction of Inspired Oxygen 01/21/25 08:00 01/21/25 08:00 01/21/25 09:26 Temperature Pulse Rate 60 82 Respiratory Rate 20 20 Blood Pressure Pulse Oximetry 93 94 Oxygen Delivery Nasal Cannula Nasal Cannula Oxygen Flow Rate 4 4 Fraction of Inspired Oxygen 01/21/25 09:26 01/21/25 10:00 01/21/25 12:00 Temperature Pulse Rate 82 65 65 Respiratory Rate 20 Blood Pressure Pulse Oximetry Oxygen Delivery Oxygen Flow Rate Fraction of Inspired Oxygen 01/21/25 12:16 Temperature 98.2 F Pulse Rate 71 Respiratory Rate 16 Blood Pressure 115/74 Pulse Oximetry 92 Oxygen Delivery Oxygen Flow Rate Fraction of Inspired Oxygen Intake/Output Intake/Output: Intake & Output 01/18/25 01/19/25 01/20/25 01/21/25 23:59 23:59 23:59 23:59 Intake Total 2473.3 2540 1895 843 Output Total 3650 1800 3100 1800 Balance -1176.7 740 -8762 -957 Meds/Results Medications: Active Medications Generic Name Dose Route Start Last Admin Trade Name Freq PRN Reason Stop Dose Admin Acetaminophen 650 mg 01/17/25 19:57 Acetaminophen 325 Mg Tablet PO Q4H PRN Mild Pain (1-3) or Fever Al Hydrox/Mg Hydrox/Simethicone 30 ml 01/18/25 21:19 01/18/25 21:24 Mag Hydrox/Al Hydrox/Simeth 30 Ml Udc PO 30 ml Q6H PRN Administration Indigestion Albuterol/Ipratropium 3 ml 01/19/25 17:13 01/20/25 02:10 Ipratropium 0.5 Mg/Albuterol Sulfate 2.5 Mg Ampul.Neb 3 Ml INHALATION 3 ml Q6HRT PRN Administration Wheezing Buprenorphine/Naloxone 2 each 01/18/25 21:00 01/21/25 13:48 Buprenorphine/Naloxone (*Crx) 4 Mg/1 Mg Sl Film XX 2 each 0800,1200,2100 NAMRATA Administration Calcium Carbonate 200 mg 01/18/25 14:17 Calcium Carbonate (Tums) 500 Mg (200 Mg Elemental) PO Q6H PRN Indigestion Diazepam 5 mg 01/17/25 23:05 01/21/25 13:47 Diazepam (*Crx) 5 Mg Tablet PO 5 mg Q8HR NAMRATA Administration Docusate Sodium 100 mg 01/18/25 09:00 01/21/25 08:34 Docusate Sodium 100 Mg Capsule PO 100 mg DAILY NAMRATA Administration Duloxetine HCl 60 mg 01/18/25 09:00 01/21/25 08:32 Duloxetine Hcl 60 Mg Capsule.Dr PO 60 mg DAILY NAMRATA Administration Enoxaparin Sodium 40 mg 01/19/25 09:00 01/21/25 10:17 Enoxaparin 40 Mg/0.4 Ml Syringe SUB-Q 40 mg DAILY NAMRATA Administration Escitalopram Oxalate 20 mg 01/18/25 09:00 01/21/25 08:32 Escitalopram Oxalate 10 Mg Tablet PO 20 mg DAILY NAMRATA Administration Ceftriaxone Sodium 1 gm in 50 mls @ 100 mls/hr 01/18/25 20:00 01/20/25 21:30 Rocephin 1 Gm/Ns 50 Ml IVPB 01/23/25 20:29 Infused Q24H NAMRATA Infusion Azithromycin 500 mg in 250 mls @ 250 mls/hr 01/18/25 21:00 01/20/25 22:00 Zithromax IVPB 01/21/25 21:59 Infused Q24H NAMRATA Infusion Lactulose 20 gm 01/17/25 22:43 Lactulose 20 Gm/30 Ml Udc PO DAILY PRN constipation Lansoprazole 30 mg 01/18/25 17:00 01/21/25 08:34 Lansoprazole Odt 30 Mg Tab.Rap.Dr PO 30 mg BIDWM NAMRATA Administration Lubiprostone 24 mcg 01/17/25 23:05 01/21/25 10:18 Lubiprostone 24 Mcg Capsule PO 24 mcg Q12HR NAMRATA Administration Metoclopramide HCl 5 mg 01/17/25 19:58 Metoclopramide Hcl Inj 10 Mg/2 Ml Vial IV PUSH Q8H PRN Nausea And Vomiting Metoclopramide HCl 10 mg 01/18/25 06:30 01/21/25 11:12 Metoclopramide Hcl 10 Mg Tablet PO 10 mg ACHS NAMRATA Administration Mirtazapine 45 mg 01/17/25 22:55 01/20/25 21:02 Mirtazapine 15 Mg Tablet PO 45 mg HS NAMRATA Administration Nicotine 1 patch 01/17/25 23:15 01/21/25 10:18 Nicotine (*Pbkc) 21 Mg Patch TRANSDERM 1 patch QAM NAMRATA Administration Prazosin HCl 10 mg 01/17/25 23:00 01/20/25 20:59 Prazosin Hcl 5 Mg Capsule PO 10 mg QHS NAMRATA Administration Prazosin HCl 2 mg 01/17/25 23:00 01/21/25 08:33 Prazosin Hcl 1 Mg Capsule PO 2 mg Q12HR NAMRATA Administration Prednisone 30 mg 01/22/25 08:00 Prednisone 10 Mg Tablet PO 01/22/25 12:00 DAILY@0800 [facility] Quetiapine Fumarate 100 mg 01/17/25 22:43 Quetiapine Fumarate Xr 50 Mg Tab.Er.24h PO DAILY PRN appetite/gastroparesis Quetiapine Fumarate 50 mg 01/17/25 23:50 01/20/25 21:01 Quetiapine Fumarate 25 Mg Tablet PO 50 mg QHS NAMRATA Administration Quetiapine Fumarate 400 mg 01/17/25 23:50 01/20/25 20:59 Quetiapine Fumarate 100 Mg Tablet PO 400 mg QHS NAMRATA Administration Fluticasone/Salmeterol 2 puff 01/18/25 08:00 01/21/25 09:25 Fluticasone/Salmeterol 45-21 Mcg Inhaler 1 Puff INHALATION 2 puff Q12HRT NAMRATA Administration Senna 17.2 mg 01/17/25 23:00 01/20/25 21:01 Sennosides 8.6 Mg Tablet PO 17.2 mg HS NAMRATA Administration Tizanidine HCl 2 mg 01/17/25 22:43 01/21/25 13:48 Tizanidine Hcl 2 Mg Tablet PO 2 mg QID PRN Administration muscle spasm Radiology Results: ITS Impressions Chest CTA 01/17/25 18:59 IMPRESSION: 1. No pulmonary embolism. 2. Bilateral basal pneumonia. Chest X-Ray 01/20/25 06:00 Impression: Patchy bibasilar airspace disease could reflect atelectasis/edema versus possibly pneumonia. Correlate clinically. Quality VTE Prophylaxis VTE prophylaxis: pharmacologic ordered (Lovenox 40 mg subQ daily.)
[2025-01-21] MEDS: SENNOSIDES 8.6 MG TABLET 17.2 MG PO (20:43)
[2025-01-21] MEDS: PRAZOSIN HCL 5 MG CAPSULE 10 MG PO (20:44)
[2025-01-21] MEDS: MIRTAZAPINE 15 MG TABLET 45 MG PO (20:44)
[2025-01-21] MEDS: QUEtiapine FUMARATE 25 MG TABLET 50 MG PO (20:45)
[2025-01-21] MEDS: QUEtiapine FUMARATE 100 MG TABLET 400 MG PO (20:45)
[2025-01-21] MEDS: AZITHROMYCIN 500 MG/NS 250 ML 500 MG/250 ML BAG 250 MG IVPB (21:26)
[2025-01-21 23:58] LABS: Legionella pneumophila Ag Ur NOT DETECTED
[2025-01-22] VITALS (17 sets, daily range): BP systolic 106–120; BP diastolic 67–76; PULSE 64–109; RESP 12–18; TEMP 36.1–37.2; O2SAT 85–94
[2025-01-22] MEDS: TIZANIDINE HCL 2 MG TABLET PO ×3 (06:06→21:06)
[2025-01-22] MEDS: diazePAM (*CRX) 5 MG TABLET PO ×3 (06:06→20:55)
[2025-01-22] MEDS: METOCLOPRAMIDE HCL 10 MG TABLET PO ×4 (06:06→20:54)
[2025-01-22 06:58] LABS: Basophils Percent Auto 0.3 % (0.2-1.2); Eosinophils Absolute Auto 0.1 K/mm3 (0-0.3); Eosinophils Percent Auto 0.8 % (0-4.4); Hematocrit 47.9 % (37.0-47.0); Hemoglobin 14.3 g/dL (12.0-15.0); Immature Granulocyte Absolute 0.01 K/mm3 (0.00-0.031); Immature Granulocyte Percent A 0.1 % (0-0.5); Lymphocytes Absolute Auto 2.59 K/mm3 (0.9-3.2); Lymphocytes Percent Auto 34.3 % (18.3-44.2); Mean Corpuscular HGB Conc 29.9 g/dl (32-36); Mean Corpuscular Hemoglobin 23.2 pg (26-34); Mean Corpuscular Volume 77.6 fl (80-100); Mean Platelet Volume 10.7 fl (7.4-10.4); Monocytes Absolute Auto 0.6 K/mm3 (0.1-0.6); Monocytes Percent Auto 8.1 % (2.6-8.5); Neutrophils Absolute Auto 4.3 K/mm3 (1.3-6.7); Neutrophils Percent Auto 56.4 % (45.5-73.1); Platelet Count Result 296 k/mm3 (150-375); Red Blood Count 6.17 M/mm3 (4.2-5.4); Red Cell Distribution Width 15.9 % (11.5-14.5); White Blood Count 7.6 K/mm3 (4.5-10.0)
[2025-01-22 07:09] LABS: Alanine Aminotransferase 16 U/L (6-35); Albumin Level 3.7 g/dL (3.5-5.1); Alkaline Phosphatase 70 U/L (38-126); Anion Gap 8 mmol/L (4-12); Aspartate Amino Transferase 18 U/L (14-36); Bilirubin,Total 0.6 mg/dL (0.2-1.3); Blood Urea Nitrogen 14 mg/dL (7-17); Calcium 8.7 mg/dL (8.4-10.2); Carbon Dioxide 31 mmol/L (22-30); Chloride 101 mmol/L (98-107); Estimated CRCL calculation 97 ml/min; Estimated Glomerular Filt Rate > 60; Glucose 85 mg/dL (65-110); Magnesium 2.1 mg/dL (1.6-2.3); Potassium 3.5 mmol/L (3.4-5.0); Sodium 140 mmol/L (137-145)
[2025-01-22 08:11] LABS: Anisocytosis 1+; Band Neutrophils Percent 0 % (0-6); Hypochromasia 1+; Platelet Estimate Adequate (Adequate); Schistocytes None Seen
[2025-01-22] MEDS: FLUTICASONE/SALMETEROL 45-21 MCG INHALER 1 PUFF 2 PUFF INHALATION ×2 (08:29→20:23)
[2025-01-22] MEDS: ENOXAPARIN 40 MG/0.4 ML SYRINGE SUB-Q (08:46)
[2025-01-22] MEDS: DULoxetine HCL 60 MG CAPSULE.DR PO (08:46)
[2025-01-22] MEDS: predniSONE 10 MG TABLET 30 MG PO (08:46)
[2025-01-22] MEDS: BUPRENORPHINE/NALOXONE (*CRX) 4 MG/1 MG SL FILM 2 EACH XX ×3 (08:46→21:06)
[2025-01-22] MEDS: LUBIPROSTONE 24 MCG CAPSULE PO ×2 (08:46→20:54)
[2025-01-22] MEDS: ESCITALOPRAM OXALATE 10 MG TABLET 20 MG PO (08:46)
[2025-01-22] MEDS: PRAZOSIN HCL 1 MG CAPSULE 2 MG PO ×2 (08:46→20:54)
[2025-01-22] MEDS: DOCUSATE SODIUM 100 MG CAPSULE PO (08:46)
[2025-01-22] MEDS: LANSOPRAZOLE ODT 30 MG TAB.RAP.DR PO ×2 (08:46→17:18)
[2025-01-22] MEDS: NICOTINE (*PBKC) 21 MG PATCH 1 PATCH TRANSDERM (08:47)
--- NOTE | 2025-01-22 10:48 | HOMEO2EVAL ---
Evaluation was performed at [facility] Home Oxygen Evaluation RC: Home Oxygen (O2) Evaluation Start: 01/22/25 09:51 Freq: ONCE Status: Active Protocol: RPE Activity Type Activity Date Activity User E-sign Co-sign Detail Recorded Client Recorded Date Recorded By Document 01/22/25 09:55 [email or web address] [email or web address] 01/22/25 10:48 DJO Document 01/22/25 10:00 [email or web address] [email or web address] 01/22/25 10:48 DJO Document 01/22/25 10:05 [email or web address] [email or web address] 01/22/25 10:48 DJO Document 01/22/25 10:10 DJO [email or web address] 01/22/25 10:48 DJO Document 01/22/25 10:15 DJO [email or web address] 01/22/25 10:48 DJO Document 01/22/25 10:20 [email or web address] [email or web address] 01/22/25 10:48 DJO Document 01/22/25 10:25 [email or web address] [email or web address] 01/22/25 10:48 DJO Document 01/22/25 10:40 [email or web address] [email or web address] 01/22/25 10:48 DJO 01/22/25 01/22/25 01/22/25 09:55 10:00 10:05 Home O2 Evaluation [Oxygen] -Test Phase Resting Resting Resting -Oxygen Delivery Room Air Nasal Cannula Nasal Cannula -Oxygen Flow Rate (L/min) 1 2 [Pulse Oximetry] -Pulse Oximetry (90-100 %) 85 L 86 L 88 L [Pulse Rate] -Pulse Rate (60-100 beats/min) 76 74 71 [Evaluation] -Activity Tolerance [Exercise] -Ambulation Distance (feet) -Ambulation Distance (meters) [Charges] -Evaluation Charges O2 Evaluation by Pulmonary 01/22/25 01/22/25 01/22/25 10:10 10:15 10:20 Home O2 Evaluation [Oxygen] -Test Phase Resting Exercise Exercise -Oxygen Delivery Nasal Cannula Nasal Cannula Nasal Cannula -Oxygen Flow Rate (L/min) 3 3 4 [Pulse Oximetry] -Pulse Oximetry (90-100 %) 91 86 L 88 L [Pulse Rate] -Pulse Rate (60-100 beats/min) 72 92 102 H [Evaluation] -Activity Tolerance [Exercise] -Ambulation Distance (feet) -Ambulation Distance (meters) [Charges] -Evaluation Charges 01/22/25 01/22/25 10:25 10:40 Home O2 Evaluation [Oxygen] -Test Phase Exercise Resting -Oxygen Delivery Nasal Cannula Nasal Cannula -Oxygen Flow Rate (L/min) 5 3 [Pulse Oximetry] -Pulse Oximetry (90-100 %) 90 91 [Pulse Rate] -Pulse Rate (60-100 beats/min) 109 H 76 [Evaluation] -Activity Tolerance Good [Exercise] -Ambulation Distance (feet) 500 -Ambulation Distance (meters) 152.39 [Charges] -Evaluation Charges
--- NOTE | 2025-01-22 12:53 | P.PNIM_ITS ---
Progress Note: A&P Assessment and Plan (1) Acute respiratory failure with hypoxia and hypercapnia: Code(s): J96.01 - Acute respiratory failure with hypoxia; J96.02 - Acute respiratory failure with hypercapnia Status: Acute Assessment and Plan: Underlying asthma Chronic smoker Possible exacerbation of ASthma s/p high-flow nasal cannula 60 L and 40% Now on 4 liters NC oxygen on Rocephin and azithromycin, PO prednisone Pending blood culture monitor one more day (2) Bilateral pneumonia: Qualifiers: Lung location: lower lobe of lung Pneumonia type: due to unspecified organism Qualified Code(s): J18.9 - Pneumonia, unspecified organism Code(s): J18.9 - Pneumonia, unspecified organism Status: Acute Assessment and Plan: See above (3) Asthma exacerbation: Qualifiers: Asthma severity: unspecified severity Asthma persistence: persistent Qualified Code(s): J45.901 - Unspecified asthma with (acute) exacerbation Code(s): J45.901 - Unspecified asthma with (acute) exacerbation Status: Acute Assessment and Plan: See above (4) Continuous tobacco abuse: Code(s): Z72.0 - Tobacco use Status: Acute Assessment and Plan: Counseled on smoking cessation (5) Transient hypotension: Code(s): I95.9 - Hypotension, unspecified Status: Acute Assessment and Plan: Received 3 L in ED Transient hypotension Resolved (6) Obesity: Qualifiers: Obesity type: due to excess calories Obesity classification: adult c lass 2 (BMI 35 - 39.9) Serious obesity comorbidity presence: with serious comorbidity Body mass index: BMI 36.0-36.9 Qualified Code(s): E66.812 - Obesity, class 2; E66.01 - Morbid (severe) obesity due to excess calories; Z68.36 - Body mass index [BMI] 36.0-36.9, adult Code(s): E66.9 - Obesity, unspecified Status: Acute Assessment and Plan: Encouraged diet and exercise (7) Snoring: Code(s): R06.83 - Snoring Status: Acute Assessment and Plan: Will evaluate for GABRIEL (8) Opioid dependence, in remission: Code(s): F11.21 - Opioid dependence, in remission Status: Inactive Assessment and Plan: History of fentanyl abuse (9) Gastroparesis: Code(s): K31.84 - Gastroparesis Status: Acute Assessment and Plan: Continue reglan (10) GERD (gastroesophageal reflux disease): Qualifiers: Esophagitis presence: esophagitis presence not specified Qualified Code(s): K21.9 - Gastro-esophageal reflux disease without esophagitis Code(s): K21.9 - Gastro-esophageal reflux disease without esophagitis Status: Acute Assessment and Plan: Continue Protonix (11) Depression with anxiety: Code(s): F41.8 - Other specified anxiety disorders Status: Acute Assessment and Plan: Continue home meds Plan Asthma Patient noted she uses PRN albuterol at home DVT prophylaxis Sq Lovenox Subjective Date/time seen: 01/22/25 12:53 Interval history: Comfortable at bedside, s/p HFNC patient oxygen requirement went up to 3 liters monitor one more day Review of Systems Review of Systems: 12 systems were reviewed with pertinent positives and negatives per HPI. Except as documented in the HPI, all other systems were reviewed and are negative. Exam Narrative: Weight 93.4 kg BMI 36.5 Const: Other: Obese, mildly ill-appearing, sitting upright in bed with vapotherm in place HENMT: Other: Crowded posterior oropharynx, mucous membranes are moist, no oral pharyngeal erythema Eyes: Other: Pupils are equal and reactive, no scleral icterus, no conjunctival pallor Neck: Other: Large neck circumference, no lymphadenopathy, no JVD Resp: Other: Diffuse wheezing throughout, conversational dyspnea and tachypnea Cardio: Other: Regular rate, regular rhythm, 2+ bilateral radial pedal pulses, no murmur GI: Other: Obese, soft, normoactive bowel sounds, nontender Skin: Other: Hot to touch, non jaundice, no pallor Neuro: Other: Alert oriented, speech is clear, no facial asymmetry, no localizing neurologic deficits noted during the course of conversation Extrem: Other: Patient had equal strength and was able to stand at bedside to use the bedside commode, no clubbing, cyanosis or edema Psych: Other: Appropriate mood and affect, pleasant and cooperative, judgment and insight fair Objective Data Vital Signs Vital Signs: Vital Signs - 24 hr 01/21/25 16:00 01/21/25 21:08 01/21/25 21:15 Temperature 97.4 F L 97.6 F Pulse Rate 60 51 L Respiratory Rate 20 18 Blood Pressure 125/82 129/82 Pulse Oximetry 94 92 92 Oxygen Delivery Nasal Cannula Oxygen Flow Rate 2 01/21/25 21:27 01/21/25 21:27 01/22/25 05:08 Temperature 98.9 F Pulse Rate 68 68 71 Respiratory Rate 18 18 18 Blood Pressure 106/67 Pulse Oximetry 94 92 Oxygen Delivery Nasal Cannula Oxygen Flow Rate 2 01/22/25 08:35 01/22/25 08:36 01/22/25 08:39 Temperature Pulse Rate 78 78 Respiratory Rate 12 Blood Pressure Pulse Oximetry 89 L 91 Oxygen Delivery Nasal Cannula Oxygen Flow Rate 2 3 01/22/25 08:45 01/22/25 09:55 01/22/25 10:00 Temperature Pulse Rate 76 74 Respiratory Rate Blood Pressure Pulse Oximetry 94 85 L 86 L Oxygen Delivery Nasal Cannula Room Air Nasal Cannula Oxygen Flow Rate 2 1 01/22/25 10:05 01/22/25 10:10 01/22/25 10:15 Temperature Pulse Rate 71 72 92 Respiratory Rate Blood Pressure Pulse Oximetry 88 L 91 86 L Oxygen Delivery Nasal Cannula Nasal Cannula Nasal Cannula Oxygen Flow Rate 2 3 3 01/22/25 10:20 01/22/25 10:25 01/22/25 10:40 Temperature Pulse Rate 102 H 109 H 76 Respiratory Rate Blood Pressure Pulse Oximetry 88 L 90 91 Oxygen Delivery Nasal Cannula Nasal Cannula Nasal Cannula Oxygen Flow Rate 4 5 3 Intake/Output Intake/Output: Intake & Output 01/19/25 01/20/25 01/21/25 01/22/25 23:59 23:59 23:59 23:59 Intake Total 2540 1895 1383 610 Output Total 1800 3100 1800 Balance 333 -[phone] -[phone] Meds/Results Medications: Active Medications Generic Name Dose Route Start Last Admin Trade Name Freq PRN Reason Stop Dose Admin Acetaminophen 650 mg 01/17/25 19:57 Acetaminophen 325 Mg Tablet PO Q4H PRN Mild Pain (1-3) or Fever Al Hydrox/Mg Hydrox/Simethicone 30 ml 01/18/25 21:19 01/18/25 21:24 Mag Hydrox/Al Hydrox/Simeth 30 Ml Udc PO 30 ml Q6H PRN Administration Indigestion Albuterol/Ipratropium 3 ml 01/19/25 17:13 01/20/25 02:10 Ipratropium 0.5 Mg/Albuterol Sulfate 2.5 Mg Ampul.Neb 3 Ml INHALATION 3 ml Q6HRT PRN Administration Wheezing Buprenorphine/Naloxone 2 each 01/18/25 21:00 01/22/25 11:42 Buprenorphine/Naloxone (*Crx) 4 Mg/1 Mg Sl Film XX 2 each 0800,1200,2100 NAMRATA Administration Calcium Carbonate 200 mg 01/18/25 14:17 Calcium Carbonate (Tums) 500 Mg (200 Mg Elemental) PO Q6H PRN Indigestion Diazepam 5 mg 01/17/25 23:05 01/22/25 06:06 Diazepam (*Crx) 5 Mg Tablet PO 5 mg Q8HR NAMRATA Administration Docusate Sodium 100 mg 01/18/25 09:00 01/22/25 08:46 Docusate Sodium 100 Mg Capsule PO 100 mg DAILY NAMRATA Administration Duloxetine HCl 60 mg 01/18/25 09:00 01/22/25 08:46 Duloxetine Hcl 60 Mg Capsule. PO 60 mg DAILY NAMRATA Administration Enoxaparin Sodium 40 mg 01/19/25 09:00 01/22/25 08:46 Enoxaparin 40 Mg/0.4 Ml Syringe SUB-Q 40 mg DAILY NAMRATA Administration Escitalopram Oxalate 20 mg 01/18/25 09:00 01/22/25 08:46 Escitalopram Oxalate 10 Mg Tablet PO 20 mg DAILY NAMRATA Administration Ceftriaxone Sodium 1 gm in 50 mls @ 100 mls/hr 01/18/25 20:00 01/21/25 21:13 Rocephin 1 Gm/Ns 50 Ml IVPB 01/23/25 20:29 Infused Q24H NAMRATA Infusion Lactulose 20 gm 01/17/25 22:43 Lactulose 20 Gm/30 Ml Udc PO DAILY PRN constipation Lansoprazole 30 mg 01/18/25 17:00 01/22/25 08:46 Lansoprazole Odt 30 Mg Tab.Rap. PO 30 mg BIDWM NAMRATA Administration Lubiprostone 24 mcg 01/17/25 23:05 01/22/25 08:46 Lubiprostone 24 Mcg Capsule PO 24 mcg Q12HR NAMRATA Administration Metoclopramide HCl 5 mg 01/17/25 19:58 Metoclopramide Hcl Inj 10 Mg/2 Ml Vial IV PUSH Q8H PRN Nausea And Vomiting Metoclopramide HCl 10 mg 01/18/25 06:30 01/22/25 11:42 Metoclopramide Hcl 10 Mg Tablet PO 10 mg ACHS NAMRATA Administration Mirtazapine 45 mg 01/17/25 22:55 01/21/25 20:44 Mirtazapine 15 Mg Tablet PO 45 mg HS [facility] Administration Nicotine 1 patch 01/17/25 23:15 01/22/25 08:47 Nicotine (*Pbkc) 21 Mg Patch TRANSDERM 1 patch QAM NAMRATA Administration Prazosin HCl 10 mg 01/17/25 23:00 01/21/25 20:44 Prazosin Hcl 5 Mg Capsule PO 10 mg QHS NAMRATA Administration Prazosin HCl 2 mg 01/17/25 23:00 01/22/25 08:46 Prazosin Hcl 1 Mg Capsule PO 2 mg Q12HR NAMRATA Administration Quetiapine Fumarate 100 mg 01/17/25 22:43 Quetiapine Fumarate Xr 50 Mg Tab.Er.24h PO DAILY PRN appetite/gastroparesis Quetiapine Fumarate 50 mg 01/17/25 23:50 01/21/25 20:45 Quetiapine Fumarate 25 Mg Tablet PO 50 mg QHS [facility] Administration Quetiapine Fumarate 400 mg 01/17/25 23:50 01/21/25 20:45 Quetiapine Fumarate 100 Mg Tablet PO 400 mg QHS [facility] Administration Fluticasone/Salmeterol 2 puff 01/18/25 08:00 01/22/25 08:29 Fluticasone/Salmeterol 45-21 Mcg Inhaler 1 Puff INHALATION 2 puff Q12HRT [facility] Administration Senna 17.2 mg 01/17/25 23:00 01/21/25 20:43 Sennosides 8.6 Mg Tablet PO 17.2 mg HS [facility] Administration Tizanidine HCl 2 mg 01/17/25 22:43 01/22/25 11:42 Tizanidine Hcl 2 Mg Tablet PO 2 mg QID PRN Administration muscle spasm Radiology Results: ITS Impressions Chest CTA 01/17/25 18:59 IMPRESSION: 1. No pulmonary embolism. 2. Bilateral basal pneumonia. Chest X-Ray 01/20/25 06:00 Impression: Patchy bibasilar airspace disease could reflect atelectasis/edema versus possibly pneumonia. Correlate clinically. Labs Labs: Laboratory Results - last 24 hr 01/18/25 01/22/25 00:14 05:58 WBC 7.6 RBC 6.17 H Hgb 14.3 Hct 47.9 H MCV 77.6 L MCH 23.2 L MCHC 29.9 L RDW 15.9 H Plt Count 296 MPV 10.7 H Immature Gran % (Auto) 0.1 Neut % (Auto) 56.4 Lymph % (Auto) 34.3 [place] % (Auto) 8.1 Eos % (Auto) 0.8 Baso % (Auto) 0.3 Lymph # (Auto) 2.59 [place] # (Auto) 0.6 Eos # (Auto) 0.1 Baso # (Auto) 0.0 Abs Immat Gran (auto) 0.01 Absolute Neuts (auto) 4.3 Absolute Nucleated RBC 0.000 Band Neutrophils % 0 Nucleated RBC % 0.0 Platelet Estimate Adequate Hypochromasia 1+ Anisocytosis 1+ Schistocytes None seen Sodium 140 Potassium 3.5 Chloride 101 Carbon Dioxide 31 H Anion Gap 8 BUN 14 Creatinine 0.75 Estim Creat Clear Calc 97 Estimated GFR > 60 Glucose 85 Calcium 8.7 Magnesium 2.1 Total Bilirubin 0.6 AST 18 ALT 16 Alkaline Phosphatase 70 Total Protein 7.0 Albumin 3.7 Ur L.pneumophila Ag Not detected Quality VTE Prophylaxis VTE prophylaxis: pharmacologic ordered (Lovenox 40 mg subQ daily.)
[2025-01-22 18:54] LABS: Pneumococcal Antigen Urine NOT DETECTED
[2025-01-22] MEDS: QUEtiapine FUMARATE 100 MG TABLET 400 MG PO (20:53)
[2025-01-22] MEDS: MIRTAZAPINE 15 MG TABLET 45 MG PO (20:53)
[2025-01-22] MEDS: QUEtiapine FUMARATE 25 MG TABLET 50 MG PO (20:54)
[2025-01-22] MEDS: PRAZOSIN HCL 5 MG CAPSULE 10 MG PO (20:54)
[2025-01-22] MEDS: SENNOSIDES 8.6 MG TABLET 17.2 MG PO (20:56)
[2025-01-23 05:15] VITALS: BP 117/80; PULSE 84; RESP 18; TEMP 36.5; O2SAT 93
[2025-01-23] MEDS: diazePAM (*CRX) 5 MG TABLET PO (05:59)
[2025-01-23] MEDS: METOCLOPRAMIDE HCL 10 MG TABLET PO ×2 (05:59→11:32)
[2025-01-23 06:19] LABS: Basophils Percent Auto 0.3 % (0.2-1.2); Eosinophils Absolute Auto 0.1 K/mm3 (0-0.3); Eosinophils Percent Auto 1.1 % (0-4.4); Hematocrit 48.7 % (37.0-47.0); Hemoglobin 14.5 g/dL (12.0-15.0); Immature Granulocyte Absolute 0.02 K/mm3 (0.00-0.031); Immature Granulocyte Percent A 0.3 % (0-0.5); Lymphocytes Absolute Auto 2.53 K/mm3 (0.9-3.2); Lymphocytes Percent Auto 31.9 % (18.3-44.2); Mean Corpuscular HGB Conc 29.8 g/dl (32-36); Mean Corpuscular Hemoglobin 23.2 pg (26-34); Mean Corpuscular Volume 77.8 fl (80-100); Mean Platelet Volume 10.5 fl (7.4-10.4); Monocytes Absolute Auto 0.5 K/mm3 (0.1-0.6); Monocytes Percent Auto 6.6 % (2.6-8.5); Neutrophils Absolute Auto 4.8 K/mm3 (1.3-6.7); Neutrophils Percent Auto 59.8 % (45.5-73.1); Platelet Count Result 291 k/mm3 (150-375); Red Blood Count 6.26 M/mm3 (4.2-5.4); Red Cell Distribution Width 15.7 % (11.5-14.5); White Blood Count 7.9 K/mm3 (4.5-10.0)
[2025-01-23 06:33] LABS: Alanine Aminotransferase 16 U/L (6-35); Albumin Level 3.8 g/dL (3.5-5.1); Alkaline Phosphatase 78 U/L (38-126); Anion Gap 5 mmol/L (4-12); Aspartate Amino Transferase 16 U/L (14-36); Bilirubin,Total 0.8 mg/dL (0.2-1.3); Blood Urea Nitrogen 13 mg/dL (7-17); Carbon Dioxide 34 mmol/L (22-30); Chloride 100 mmol/L (98-107); Estimated CRCL calculation 95 ml/min; Estimated Glomerular Filt Rate > 60; Glucose 97 mg/dL (65-110); Potassium 3.4 mmol/L (3.4-5.0); Sodium 139 mmol/L (137-145)
[2025-01-23 07:18] LABS: Anisocytosis 1+; Hypochromasia 1+; Platelet Estimate Adequate (Adequate)
[2025-01-23 07:19] LABS: Schistocytes None Seen
[2025-01-23] MEDS: BUPRENORPHINE/NALOXONE (*CRX) 4 MG/1 MG SL FILM 2 EACH XX ×2 (08:32→11:33)
[2025-01-23] MEDS: TIZANIDINE HCL 2 MG TABLET PO (08:33)
[2025-01-23] MEDS: ENOXAPARIN 40 MG/0.4 ML SYRINGE SUB-Q (08:33)
[2025-01-23] MEDS: ESCITALOPRAM OXALATE 10 MG TABLET 20 MG PO (08:34)
[2025-01-23] MEDS: DOCUSATE SODIUM 100 MG CAPSULE PO (08:34)
[2025-01-23] MEDS: PRAZOSIN HCL 1 MG CAPSULE 2 MG PO (08:34)
[2025-01-23] MEDS: DULoxetine HCL 60 MG CAPSULE.DR PO (08:34)
[2025-01-23] MEDS: LUBIPROSTONE 24 MCG CAPSULE PO (08:34)
[2025-01-23] MEDS: LANSOPRAZOLE ODT 30 MG TAB.RAP.DR PO (08:34)
[2025-01-23] MEDS: NICOTINE (*PBKC) 21 MG PATCH 1 PATCH TRANSDERM (08:35)
--- NOTE | 2025-01-23 09:06 | PCNWS ---
Weekly nutritional screen. Patient is tolerating current diet, 90-100% with adequate intake. No weight loss reported. No nutritional needs at this time.
[2025-01-23] MEDS: FLUTICASONE/SALMETEROL 45-21 MCG INHALER 1 PUFF 2 PUFF INHALATION (09:20)
[2025-01-23 09:21] VITALS: PULSE 90; RESP 20; O2SAT 93
--- NOTE | 2025-01-23 12:23 | PM.DS ---
DS: Admitting Diagnosis Discharge Date 01/23/25 Admitting Diagnosis Low oxygen saturation DS: Discharge Diagnosis Discharge Diagnosis (1) Bilateral pneumonia: Qualifiers: Lung location: lower lobe of lung Pneumonia type: due to unspecified organism Qualified Code(s): J18.9 - Pneumonia, unspecified organism Code(s): J18.9 - Pneumonia, unspecified organism Status: Acute (2) Acute respiratory failure with hypoxia and hypercapnia: Code(s): J96.01 - Acute respiratory failure with hypoxia; J96.02 - Acute respiratory failure with hypercapnia Status: Acute DS: Summary Hospital Course Hospital Course: He 34-year-old female with a past medical history of gastroparesis, obesity pre diabetes asthma, heavy tobacco use, marijuana use and 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 The patient has had low oxygen saturations at home for the last several weeks to last couple of months. Is been associated with dyspnea on exertion. She had been reactive to go to the ER by another provider but she did not because she was scared. So when she followed up with Dr. Boucher as outpatient she was noted to have oxygen saturations of 81% on room air and was directed to come to the ER. She denied having any chest pain or palpitations but has been having some chest tightness. She denies any increased cough or congestion. She does have a history of asthma but reports this does not feel like her asthma exacerbations. She has noticed increased wheezing. Patient was placed on 10 L high-flow oxygen to maintain oxygen saturations of 92% in the ER. There was concern for possible pulmonary embolism the patient underwent CTA which was negative for PE but demonstrated bilateral pneumonia. She denied having any fevers or chills. She was afebrile in the ER. She denies any recent ill contacts. Her viral panel was negative for COVID flu RSV. Her white count was normal. Her ABG demonstrated respiratory acidosis with hypercapnia pCO2 of 62 be pH of 7.33 PO2 of 55. Her VBG several hours later demonstrated improvement in pH and stable pCO2 which was likely a slight improvement in the patient's prior given VBG specimen and relatively stable PO2. She does have chronic nausea and vomiting with recent diagnosis of gastroparesis in the last 6 months. Reason for gastroparesis is on certain. She also has IBS. Her significant other reports that she snores quite loudly and has gasping respirations with sleep. She reports daytime fatigue and persistent sleepiness despite adequate sleep. She reports that the spider increased shortness of breath at home she has only occasionally used her nebulizer treatments. Patient was managed for Pneumonia with acute repsiratory failure. COmpleted 6 day of Antibiotics and was discharged on 4 more days of Augmentin and Doxycycline to complete a total of 10 days. Successfully weaned to 3 liters at rest with 5 on activity. She also has Symbicort and rescue albuterol for her asthma. Pulmonology was consulted and was part of her care. She will continue follow up with PCP in 3 - 5 days, continue follow up with Pulm as instructed Time Spent with Patient Time attestation: Total time spent providing and/or coordinating discharge services: DS: Data Data Completed and Pending Labs on day of discharge: Labs from last 24 hours 01/23/25 01/18/25 05:41 00:14 WBC 7.9 RBC 6.26 H Hgb 14.5 Hct 48.7 H MCV 77.8 L MCH 23.2 L MCHC 29.8 L RDW 15.7 H Plt Count 291 MPV 10.5 H Immature Gran % (Auto) 0.3 Neut % (Auto) 59.8 Lymph % (Auto) 31.9 [place] % (Auto) 6.6 Eos % (Auto) 1.1 Baso % (Auto) 0.3 Lymph # (Auto) 2.53 [place] # (Auto) 0.5 Eos # (Auto) 0.1 Baso # (Auto) 0.0 Abs Immat Gran (auto) 0.02 Absolute Neuts (auto) 4.8 Absolute Nucleated RBC 0.000 Band Neutrophils % Not Reportable Nucleated RBC % 0.0 Platelet Estimate Adequate Hypochromasia 1+ Anisocytosis 1+ Schistocytes None seen Sodium 139 Potassium 3.4 Chloride 100 Carbon Dioxide 34 H Anion Gap 5 BUN 13 Creatinine 0.78 Estim Creat Clear Calc 95 Estimated GFR > 60 Glucose 97 Calcium 9.0 Magnesium 2.0 Total Bilirubin 0.8 AST 16 ALT 16 Alkaline Phosphatase 78 Total Protein 7.0 Albumin 3.8 Urine Pneumococcal Ag Not detected Discharge Plan Discharge Attending physician on discharge: Marilyn Christianson Consulting providers: Zana,Tj Vazquez Discharging Clinician: Marilyn Christianson Anticipated Discharge Date/Time: 01/23/25 12:05 Patient Disposition: Home, Self-Care Activity: as tolerated Diet: regular Patient Instructions: Antibiotic Form, Asthma (DC), How to Stop Smoking (DC), Pneumonia (GEN), EVALI (E-cigarette or Vaping-Associated Lung Injury) (DC) Patient Language: [place] Stand Alone Forms: General Discharge Information Follow-up/Referrals: Cecil Gipson MD [Primary Care Provider] - (F/u with PCP in 3-5 days ) Zana,Tj Vazquez MD [Non-Staff] - (F/u with Pulm as instructed ) Discharge Medications: New amoxicillin-pot clavulanate 875-125 mg tablet 1 tablet PO Q12H 5 Days Qty: 10 0RF doxycycline hyclate 100 mg tablet 100 mg PO BID 5 Days Qty: 10 0RF Continued tizanidine 2 mg tablet 2 mg PO QID PRN (Reason: muscle spasm) prazosin 5 mg capsule 10 mg PO QHS docusate sodium [Colace] 100 mg capsule 100 mg PO DAILY albuterol sulfate [Ventolin HFA] 90 mcg/actuation HFA aerosol inhaler 1 puff inhalation Q4H PRN (Reason: shortness of breath or wheezing) budesonide-formoterol 80-4.5 mcg/actuation HFA aerosol inhaler 2 puff inhalation Q12H mirtazapine 45 mg tablet 45 mg PO HS quetiapine 300 mg tablet 450 mg PO QHS escitalopram oxalate 20 mg tablet 20 mg PO DAILY metoclopramide HCl [Reglan] 10 mg tablet 10 mg PO ACHS Qty: 120 3RF esomeprazole magnesium [Nexium] 40 mg capsule,delayed release(DR/EC) 40 mg PO DAILY Qty: 60 3RF ondansetron 4 mg tablet,disintegrating 4 - 8 mg PO Q8H PRN (Reason: nausea and vomiting) 30 Days Qty: 90 0RF quetiapine 50 mg tablet extended release 24 hr 100 mg PO DAILY PRN (Reason: appetite/gastroparesis) diazepam 5 mg tablet 5 mg PO Q8H duloxetine 60 mg capsule,delayed release(DR/EC) 60 mg PO DAILY sennosides [senna] 8.6 mg tablet 17.2 mg PO HS prazosin 2 mg capsule 2 mg PO Q12H Patient Comments: morning and hs with 10mg(for total 12mg hs) lactulose 10 gram/15 mL solution 20 g PO DAILY PRN (Reason: constipation) lubiprostone [Amitiza] 24 mcg capsule 24 mcg PO Q12H buprenorphine-naloxone 8-2 mg film 2 film buccal .COMPLEX Rx Instructions: 2 film buccally; Pt takes at 0800, 1200, & 2100 Date of admission: 01/17/25 19:57 Primary Care Provider: Cecil Gipson Admitting Provider: Malena Saini Attending physician on admission: Marilyn Christianson Condition: Stable
== END 2025-01-23 12:55 | disposition home or self-care (01) | DRG 139 ==
LOC: ANHED 21:50 → ANHIMU 21:53 → ANH3MEDSUR 01-21 14:59
PROVIDERS: General Practice; Admitting Provider Internal Medicine; Emergency Provider Student in an Organized Health Care Education/Training Program; PCP Internal Medicine; Visit Provider Internal Medicine
DX: J18.9 Pneumonia, unspecified organism (principal); J96.01 Acute respiratory failure with hypoxia; J96.02 Acute respiratory failure with hypercapnia; J45.901 Unspecified asthma with (acute) exacerbation; E66.01 Morbid (severe) obesity due to excess calories; F17.210 Nicotine dependence, cigarettes, uncomplicated; K31.84 Gastroparesis; R73.03 Prediabetes; K58.1 Irritable bowel syndrome with constipation; I95.9 Hypotension, unspecified; F41.8 Other specified anxiety disorders; K21.9 Gastro-esophageal reflux disease without esophagitis; F11.21 Opioid dependence, in remission; Z68.35 Body mass index [BMI] 35.0-35.9, adult; Z86.718 Personal history of other venous thrombosis and embolism; Z86.19 Personal history of other infectious and parasitic diseases
CPT/HCPCS: 36415; 36600; 71045; 71275; 80053; 81001; 82803; 82805; 83605; 83735; 83880; 84484; 84703; 85018; 85025; 85027; 85610; 85730; 87040; 87449; 87637; 87899; 93005; 94618; 94640; 96365; 96366; 96367; 99291; A9270; J0456; J0696; J1650; J2550; J2919; J3475; J7120; J7512; Q9967

== ENCOUNTER 2025-04-11 13:36 | Outpatient (CLI) | payer OTHER, SELFPAY ==
[2025-04-11 13:45] VITALS: PULSE 87; O2SAT 94
[2025-04-11 13:50] VITALS: PULSE 122; O2SAT 86
[2025-04-11 13:55] VITALS: PULSE 123; O2SAT 88
[2025-04-11 14:05] VITALS: PULSE 123; O2SAT 92
[2025-04-11 14:15] VITALS: PULSE 90; O2SAT 94
--- NOTE | 2025-04-11 14:27 | HOMEO2EVAL ---
Evaluation was performed at [facility] Home Oxygen Evaluation RC: Home Oxygen (O2) Evaluation Start: 04/11/25 14:14 Freq: Status: Active Protocol: RPE Activity Type Activity Date Activity User E-sign Co-sign Detail Recorded Client Recorded Date Recorded By Document 04/11/25 13:45 PKH [email or web address] 04/11/25 14:27 PKH Document 04/11/25 13:50 [email or web address] [email or web address] 04/11/25 14:27 PKH Document 04/11/25 13:55 PKH [email or web address] 04/11/25 14:27 PKH Document 04/11/25 14:05 [email or web address] [email or web address] 04/11/25 14:27 PKH Document 04/11/25 14:15 PKH [email or web address] 04/11/25 14:27 PKH 04/11/25 04/11/25 04/11/25 13:45 13:50 13:55 Home O2 Evaluation [Oxygen] -Test Phase Resting Exercise Exercise -Oxygen Delivery Room Air Room Air Nasal Cannula -Oxygen Flow Rate (L/min) 1 [Pulse Oximetry] -Pulse Oximetry (90-100 %) 94 86 L 88 L [Pulse Rate] -Pulse Rate (60-100 beats/min) 87 122 H 123 H [Evaluation] -Activity Tolerance Good [Exercise] -Ambulation Distance (feet) -Ambulation Distance (meters) [Comments] -Home Oxygen Evaluation Comments [Charges] -Evaluation Charges O2 Evaluation by 04/11/25 04/11/25 14:05 14:15 Home O2 Evaluation [Oxygen] -Test Phase Exercise Resting -Oxygen Delivery Nasal Cannula Room Air -Oxygen Flow Rate (L/min) 2 [Pulse Oximetry] -Pulse Oximetry (90-100 %) 92 94 [Pulse Rate] -Pulse Rate (60-100 beats/min) 123 H 90 [Evaluation] -Activity Tolerance [Exercise] -Ambulation Distance (feet) 300 -Ambulation Distance (meters) 91.43 [Comments] -Home Oxygen Evaluation Comments Patient requires 2 liters per minute with activity. [Charges] -Evaluation Charges
--- NOTE | 2025-04-11 16:14 | WPDPFTINT ---
PFT Procedure Performed PFT Procedure Performed Spirometry with Pre/Post Bronchodilator Plethysmography (Lung Vol) Diffusing Cap (DLCO) Flow Vol Loop PFT Interpretation This is a pulmonary function test with pre and post-bronchodilator spirometry, plethysmography and diffusing capacity. The test was performed and results interpreted in accordance with the 2019 and 2005 ATS/ERS Task Force guidelines respectively using the Global Lung Function Initiative-2012 reference equations. Patient demonstrated good effort and cooperation. Reproducibility criteria were met. The quality of the pre bronchodilator spirometry maneuver was Grade A and post bronchodilator spirometry maneuver was Grade A. Findings: Spirometry: The contour the inspiratory and expiratory flow tracing are normal. The pre bronchodilator FVC is 3.32 L, 95% predicted. The pre bronchodilator FEV1 is 2.55 L, 87% predicted. The pre bronchodilator FEV1: FVC ratio 77%. The post bronchodilator FVC is 3.44 L, representing a 4% increase. The post bronchodilator FEV1 is 2.74 L, representing a 7% increase. The post bronchodilator FEV1: FVC ratio is 80%. Plethysmography: Total lung capacity 4.60 L, 97% predicted. Functional residual capacity 1.78 L, 69% predicted. Residual volume 1.20 L, 88% predicted. Diffusing capacity: The diffusing capacity unadjusted for hemoglobin and carboxyhemoglobin is 22.5, 95% predicted. The diffusing capacity adjusted for alveolar volume is 5.03, 102% predicted. Impression: The spirometry is normal without evidence of an obstructive abnormality. There is no significant improvement after inhaling a single dose of albuterol. The lung volumes are normal. The diffusing capacity is normal. There are no prior studies for comparison
== END 2025-04-11 13:37 | disposition home or self-care (01) ==
LOC: ANHPFT 13:37
PROVIDERS: PCP Internal Medicine; Visit Provider Nurse Practitioner Family
DX: J45.909 Unspecified asthma, uncomplicated (principal)
CPT/HCPCS: 94060; 94618; 94726; 94729

== ENCOUNTER 2025-05-13 08:24 | Outpatient (CLI) | payer OTHER, SELFPAY ==
--- OUTSIDE RECORDS SUMMARY | 2025-05-13 08:32 | XMS_ITS | Clinical Summary ---
Author Organization [facility] Address [address] [place] [id number] Care Team Providers Care Tool Marker Name Role Phone Unavailable Primary Care Provider [...] of 3 - 19+ 3-dose series) 2009 HPV Vaccines (1 - 3-dose SCD M series) 2017 Cervical Cancer Screening Pa p with HPV Testing (Age 30 to 64) Every 5 Years 2020 Cervical Cancer Screening with HPV 2020 COVID-19 Vaccine (2023-2 5 season) 2024 Hepatitis C Completed 03/08/2022 Meningococcal B Vaccine Aged Out No l onger eligible based on patient's age to complete this topic Meningococcal Vaccine Aged Out No radha rona eligible based on patient's age to complete this topic Pneumococcal Vaccine: Pediat rics (0 to 5 Years) and At-Risk Patients (6 to 49 Years) Aged Out No longer eligi ble based on patient's age to complete this topic RSV Immunizations Under 20 Months Aged Out No longer eligible based on patient's age to complete this topic
--- OUTSIDE RECORDS SUMMARY | 2025-05-13 08:32 | XMS_ITS | Patient Health Record ---
Author Organization [facility] Address [address] [place] [address] Care Team Providers Care Physical Instructor Name Role Phone Cecil Gipson Primary Care Provider Serjio Cavanaugh Unavailable [phone] Jamal Murphy Unavailable [phone] Rubi Michaels Unavailable [phone] Yina Meza Unavailable [phone] Alysha Martin Unavailable [phone] Camille Peterson Unavailable [phone] Allergies No Known Allergies Results Component Value [...] Lab:[facility] [place], [address], [place], Phone - [phone], Director - PhDAbudu Notes/Report: Clinical Information:[id number] LM RESULT Positive NALOXONE 1657 TESTING FOR NALOXONE IS PERFORMED BY CHROMATOGRAPHY WITH MASS SPECTROMETRY. REPORTING LIMIT IS 25 NG/ML. Buprenorphine and Metabolite (Urine test) Reviewed date:11/19/2024 04:35:02 PM Interpretation: Performing Lab:[facility], [address], [place], Phone - [phone], [facility] Notes/Report: Clinical Information:[id number] LM Buprenorphine Comment: Confirmation p erformed by Mass Spectrometry Buprenorphine Positive Buprenorphine Conf, MS, UR 415 Cutoff=10 ng/m L Norbuprenorphine Comment: Invalid Res ult: LC/MS/MS Interference Buprenorphine and Metabolite (Urine test) Reviewed date:10/17/2024 10:02:18 AM Interpretation: Performing Lab:[facility] [place], [address] [facility], Phone - [phone], Director - [facility] Notes/Report: Clinical Information:[id number] Buprenorphine Comment: Confirmation p erformed by Mass Spectrometry Buprenorphine Positive Buprenorphine Conf, MS, UR 500 Cutoff=10 ng/m L Norbuprenorphine Comment: Invalid Res ult: LC/MS/MS Interference HIV Screen *HIV 1, 2 Ab, p24 Ag ([id number]) Reviewed date:10/17/2024 10:02:18 AM Interpretation: Performing Lab:[facility] [place], [address] [facility], Phone - [phone], Director - [facility] Notes/Report: Clinical Information:[id number] HIV Ab/p24 Ag Screen Non Reactive Non Reactive HIV-1/HIV-2 antibodies and HIV-1 p24 antigen were NOT detected. There is no laboratory evidence of HIV infection. HIV Negative Rapid Plasma Reagin (RPR) Te st With Reflex to Quantitative RPR and Confirmatory Treponema pallidum Antibodies Reviewed date:10/17/2024 10:02:18 AM Interpretation: Performing Lab:[facility] [place], [address] [facility]3], Phone - [phone], Director - [facility] Notes/Report: Clinical Information:[id number] RPR Non Reactive Non Reactive Hepatitis C Virus Antibody w /Rflx to Quantitative Real-time PCR ([id number]) Reviewed date:10/17/2024 10:02:17 AM Interpretation: Performing Lab:[facility] [address], Phone - [phone], Director - [facility] Notes/Report: Clinical Information:[id number] Clinical Information:[id number] HCV Ab Reactive Non Reactive Hepatitis C [...] Screen) Reviewed date:10/17/2024 10:02:17 AM Interpretation: Performing Lab:[facility] [address], Phone - [phone], Director - [facility] Notes/Report: Clinical Information:[id number] HBsAg Screen Negative Negative Hemoglobin A1c* Reviewed date:10/17/2024 10:02:17 AM Interpretation: Performing Lab:[facility] [address], Phone - [phone], Director - [facility] Notes/Report: Clinical Information:[id number] Hemoglobin A1c 5.9 4.8-5.6 % . Prediabetes: 5.7 - 6.4 Diabetes: >6.4 Glycemic control for adults with diabetes: <7.0 Lipid Panel* Reviewed date:10/17/2024 10:02:17 AM Interpretation: Performing Lab:[facility] [address], Phone - [phone], Director - [facility] Notes/Report: Clinical Information:[id number] LM Cholesterol, Total 168 100-199 mg/dL Triglycerides 178 0-149 mg/dL HDL Cholesterol 37 >39 mg/dL VLDL Cholesterol Luis 31 5-40 mg/dL LDL Chol Calc ([facility]) 100 0-99 mg/dL TSH Rfx on Abnormal to Free T4 Reviewed date:10/17/2024 10:02:17 AM Interpretation: Performing Lab:[facility] [address], Phone - [phone], [facility] Notes/Report: Clinical Information:[id number] LM TSH 0.495 0.450-4.500 uIU/mL CBC With Differential/Platel et* Reviewed date:10/17/2024 10:02:17 AM Interpretation: Performing [facility], [address] [facility], Phone - [phone], [facility] Notes/Report: Clinical Information:[id number] LM WBC 6.9 3.4-10.8 x10E3/uL RBC 5.88 [...] Panel* Reviewed date:10/17/2024 10:02:17 AM Interpretation: Performing Lab:[facility], [address] [place] [address], Phone - [phone], [facility] Notes/Report: Clinical Information:[id number] LM Glucose 85 70-99 mg/dL BUN 10 [...] IU/L 12 Panel Urine Drug Screen Reviewed date:07/04/2024 01:56:55 PM Interpretation: Performing Lab: Notes/Report: THC pos TEMO neg MOP (OPI) neg AMP neg MET neg BAR neg BZO pos MDMA neg MTD neg OXY neg PCP neg BUP pos 12 Panel Urine Drug Screen Reviewed date:03/31/2025 02:43:25 PM Interpretation: Performing Lab: Notes/Report: THC POS TEMO neg MOP (OPI) neg AMP neg MET neg BAR neg BZO Pos MDMA neg MTD neg OXY neg PCP neg BUP POS 12 Panel Urine Drug Screen Reviewed date:12/17/2024 02:27:58 PM Interpretation: Performing Lab: Notes/Report: THC POS TEMO neg MOP (OPI) neg AMP neg MET neg BAR neg BZO POS MDMA neg MTD neg OXY POS PCP neg BUP POS 12 Panel Urine Drug Screen Reviewed date:06/04/2024 03:22:12 PM Interpretation: Performing Lab: Notes/Report: THC POS TEMO neg MOP (OPI) neg AMP neg MET neg BAR neg BZO POS MDMA neg MTD neg OXY neg PCP neg BUP POS Medication Assisted Treatmen t (MAT) Buprenorphine, Norbuprenorphine, and Naloxone MS Confirmation, Urine Reviewed date:06/10/2024 11:57:01 AM Interpretation: Performing Lab:[facility], [address] [place] [address], Phone - [phone], Director - Ella Notes/Report: Creatinine 197 Testing Threshold: buprenorphine, 1.0 ng/mL norbuprenorphine, 5.0 ng/mL naloxone, 10 ng/mL This test was developed and its performance characteristics determined by [facility]. It has not been cleared or approved by the Food and Drug Administration. REFERENCE RANGE: Ref Range>=20 BUPRENORPHINE ++POSITIVE++ Buprenorphine 294 Norbuprenorphine 416 N/B Ratio 1.41 >=0.3 OPIATE ANTAGONIST ++POSITIVE++ Naloxone 214 12 Panel Urine Drug Screen Reviewed date:02/14/2025 03:50:11 PM Interpretation: Performing Lab: Notes/Report: THC Pos TEMO neg MOP (OPI) neg AMP neg MET neg BAR neg BZO Pos MDMA neg MTD neg OXY neg PCP neg BUP POS Reason For Referral Reason FREQUENT URINATION W ITH DYSURIA, OAB VS PSYCH Diagnosis 1 Dysuria-frequency sy ndrome (N34.3) Referral Organization [facility]ly [facility], [facility] Referring Provider First Name Cecil Referring Provider Last Name Leonela Referring Provider Speciality Internal M edicine Referred Provider Specialty Urology General Notes BJ Delong, Hilaria Guerrero 05/24/2024 10:33:52 AM >Referral to Jovan Sandhu MD Letter to pt., Sherrill Xiong 04/08/2025 10:40:36 AM >Closing Duplicate referral as new referral was placed 07/2024. Clinical Notes Jovan Sandhu MD, [address] [place] [phone], , Referral Priority Routine Reason anxiety, depression, ptsd, mother 2 months ago, custody ramírez with daughter, financial issues, DEJUAN, needs stress management, Diagnosis 1 Mood disorder (F39) Referral Organization [facility], [facility] Referring Provider First Name Rubi Referring Provider Last Name Brando Referring Provider Speciality Behavioral Health Referred Provider Specialty Behavioral [facility] Clinical Notes , [facility] 06/13/2024 03:00:24 PM >HN contacted the client [...] Priority Routine Reason Prefers Dr. Ortiz in [place] Diagnosis 1 Abdominal pain (R10. 9) Referral Organization [facility], [facility] Referring Provider First Name Cecil Referring Provider Last Name Leonela Referring Provider Speciality Internal edicine Referred Provider Specialty Gastroentero logy General Notes BJ Delong, Hilaria Guerrero 08/16/2024 09:59:45 AM >Referral to [facility] Ortiz. Letter to pt., Gudelia Lowery RN 04/03/2025 02:37:02 PM > Client called obtained voice mail Message left to return call to [facility] regarding referral, Gudelia Lowery RN 04/04/2025 10:46:56 AM > Dr Ortiz's office called and they report client was seen on 11/16/24 and again on 01/14/25 Requested records be faxed, Sherrill Xiong 04/14/2025 10:00:36 AM >GI records in [facility]w & reviewed by MD Gipson. Closing referral order. Clinical Notes [facility] [place], Dr. Ortiz, [address], [address], [facility] [address], , Referral Priority Routine Reason NOT ACCEPTED BY [facility] SO NEEDS ALTERNATE Diagnosis 1 Dysuria-frequency sy ndrome (N34.3) Referral Organization [facility], [facility] Referring Provider First Name Cecil Referring Provider Last Name Leonela Referring Provider Speciality Internal edicine Referred Provider Specialty Urology General Notes Referral sent to [facility]. Letter sent to patient. Clinical Notes [facility], [address], [place] [address], ph: [phone], fax: [phone] Referral Priority Routine Reason Dr. Tj Camargo at [facility] Diagnosis 1 Respiratory failure, unspecified, unspecified whether with hypoxia or hypercapnia (J96.90) Referral Organization [facility], [facility] Referring Provider First Name Cecil Referring Provider Last Name Leonela Referring Provider Speciality Internal edicine Referred Provider Specialty Pulmonary Di seases General Notes Sherrill Xiong 08:46:52 AM >Referral faxed., Sherrill Xiong 02/17/2025 08:49:47 AM >Referral letter & message sent to client., Sherrill Xiong 02/17/2025 09:10:51 AM >Client aware & waiting on a call back from [facility]. Client will call Nurse back with date/time of appointment after it has been made., Sherrill Xiong 04/01/2025 04:16:31 PM >Talked with client who reported seeing [facility]UST[facility]S APPRAISER Sai at [facility] last week. Did not see notes under pt docs in the referral section & unable to locate consult notes in other areas of clients chart. Attempted to call [facility] but unable to leave a message as they closed at 4 PM., Sherrill Xiong 04/09/2025 02:36:20 PM >Left a message with [facility] to fax over consult notes to [facility] at [phone]., Sherrill Xiong 04/14/2025 10:05:05 AM >Left 2nd message for [facility] to fax referral consult notes to [facility] at [phone] & to call back with any issues., Sherrill Xiong 05/01/2025 10:36:47 AM >Referral notes in chart & reviewed by MD Gipson. Closing referral. Clinical Notes [facility], [address], [place] [id number], , Referral Priority Routine Medications Medication SIG (Take, Route, Frequency, Duration) Notes Start Date End Date Status diazePAM 2 MG 2 tablets Orally DIRECTED; Duration: 30 days 1 TAB TWICE DAILY AND TWO TABS EVERY AFTERNOON PLEASE MAIL TODAY 05/01/2025 Active Metoclopramide HCl 10 MG 1 tablet Orally three times a day; Duration: 30 days Active Prazosin HCl 2 MG 1 capsule in the morning and 1 capsule in the evening/at bedtime WITH prazosin 5mg for TOTAL 7mg at bedtime Orally; Duration: 30 days Not-Taking Doxazosin Mesylate 2 MG 1 tablet in the am Orally Once a day; Duration: 30 days 04/30/2025 Active DULoxetine HCl 30 MG 1 capsule Orally Once a day; Duration: 30 day(s) 04/30/2025 Active Colace 100 MG three at bedtime as needed for constipation Orally Once a day PLEASE MAIL TODAY Active tiZANidine HCl 2 MG 1 tablet as needed Orally FOUR times a day; Duration: 30 days PLEASE MAIL TODAY Active diazePAM 5 MG 0.5 tablet Orally twice a day; Duration: 30 days PLEASE MAIL TODAY 05/01/2025 Active Prazosin HCl 5 MG 1 capsule at bedtime - take with prazosin 2mg for TOTAL 7mg at bedtime - Orally Once a day; Duration: 30 days May switch to doxazosin pending response to decreased prazosin and addition of low dose doxazosin. Thanks! Active Ventolin HFA 108 (90 Base) MCG/ACT 2 puffs as needed for shortness of breath Inhalation every 4 hrs 11/30/2023 Active Mirtazapine 45 MG TAKE 1 TABLET BY MOUTH AT BEDTIME; Duration: 30 days Pt would like meds mailed to her please. Active Budesonide-Formoterol Fumarate 80-4.5 MCG/ACT 2 puffs Inhalation EVERY 12 HOURS Active QUEtiapine Fumarate 300 MG 1.5 tablet at bedtime Orally Once a day; Duration: 30 days Pt would like meds mailed to her please. Active Senna 8.6 MG 2 tablets at bedtime as needed Orally Once a day; Duration: 30 days PLEASE MAIL TODAY 07/04/2024 Active Trulance 3 MG 1 tablet Orally Once a day Active Escitalopram Oxalate 20 mg Take 1.5 tablets (30mg) once daily orally; Duration: 30 days Pt would like meds mailed to her please. Active Buprenorphine HCl-Naloxone HCl 8-2 MG 1 film under the tongue and allow to dissolve Sublingual three times a day; Duration: 28 days PLEASE MAIL TODAY 05/01/2025 Active Doxazosin Mesylate 4 MG 1 tablet Orally once daily at bedtime - take with prazosin 7mg to assist with PTSD/nightmares; Duration: 30 days Active QUEtiapine Fumarate ER 50 MG 2 tablets Orally once daily; Duration: 30 days Patient would like meds mailed to her. Active Famotidine 40 MG 1 tablet Orally twice daily Active DULoxetine HCl 60 MG 1 capsule Orally Once a day; Duration: 30 days Patient would like meds mailed to her. Active Social History Tobacco Use: Social History Observation Description Date Details (start date - stop date) Current Smoker NA - NA Sex Assigned At : Social History Observation Description Sex Assigned At Female Tobacco Control (Standard) Question Answer Notes Additional Findings: Tobacco user e-cigarette Tobacco use: Current smoker Section Notes: PRESCRIPTION # FILLED WRITTEN DRUG LABEL QTY DAYS STRENGTH MME [facility] REFILL NO. REFILLS STATE 04/15/2024 04/15/2024 diazePAM 60.0 30 5 MG NA Cecil Gipson Md [id number] [place] 1 [id number] 04/01/2024 03/28/2024 Buprenorphine-naloxone 90.0 30 8 MG / 2 MG NA Cecil Gipson [id number] [place] NA [place] 1 [id number] 03/28/2024 03/28/2024 diazePAM 90.0 30 5 MG NA Cecil Gipson Md [id number] [facility] [place], [place] NA 0 [place] 1 [id number] 03/06/2024 03/05/2024 diazePAM 90.0 30 5 MG NA Cecil Gipson Md [id number] [place] 1 [id number] 03/04/2024 02/22/2024 Buprenorphine-naloxone 90.0 30 8 MG / 2 MG NA Cecil Gipson Md [id number] PRESCRIPTION # FILLED WRITTE N DRUG LABEL QTY DAYS STRENGTH MME [facility] REFILL NO. REFILLS STATE PATIENT [id number] 11/24/2023 11/09/2023 diazePAM 10.0 10 5 MG NA Cecil Gipson Md [id number] [place] NA 2 [place] [id number] 11/15/2023 11/09/2023 diazePAM 10.0 10 5 MG NA Cecil Gipson Md [id number] [place] NA [place] [id number] 2023 11/09/2023 Buprenorphine-naloxone 90.0 30 8 MG / 2 MG NA Cecil Gipson Md [id number] [place] 0 [place] [id number] 11/09/2023 11/09/2023 diazePAM 10.0 10 5 MG NA Cecil Gipson Md - [id number] PRESCRIPTION # FILLED WRITTEN DRUG LABEL QTY DAYS STRENGTH MME [facility] REFILL NO. REFILLS STATE 07/26/2023 07/26/2023 diazePAM 30.0 30 5 MG NA Cecil Gipson Md [id number] [place], [place] 1 [id number] 07/24/2023 07/24/2023 Buprenorphine And Naloxone 90.0 30 8 MG-2 MG NA Keri Kimmie - [id number] [place], [place] 1 [id number] 06/13/2023 06/13/2023 diazePAM 30.0 30 5 MG NA Jeffrey Joyner - [id number] [facility] [place], [place] NA 0 [place] 1 [id number] 06/13/2023 06/13/2023 Buprenorphine And Naloxone 90.0 30 8 MG-2 MG NA Jeffrey Keenan [id number] [place] 1 [id number] 05/11/2023 05/11/2023 diazePAM 30.0 30 5 MG NA Jeffrey Keenan [id number] SOCIAL HISTORY- Smoking history--- Smokes tobacco 1/2 ppd Drug/alcohol use Substance Alcohol Denies use Marijuana Smokes marijuana daily cocaine Denies use (tried it years ago 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 Heroin [phone] Fentanyl 2017-02/27/2022 (that was her last use) Meth Addicted for 8 months in 2018 LSD/PCP Denies use IV drugs [phone] OTC/Rx drugs Denies location- Born in [place] Current home location- Currently lives in [place], [place] Who lives at home? Currently lives [...] 10th grade Occupation/Job history- Currently employed at [employer], she is working fulltime day shift Hobbies/Interests- [...] 30 5 MG NA Cecil Gipson Md [id number] [place] 1 [id number] 04/01/2024 03/28/2024 Buprenorphine-naloxone 90.0 30 8 MG / 2 MG Cecil Pepper Md [id number] [place], [place] 0 [place] 1 [id number] 03/28/2024 03/28/2024 diazePAM 90.0 30 5 MG NA Cecil Gipson Md [id number] [facility] [place], [place] NA 0 [place] 1 [id number] 03/06/2024 03/05/2024 diazePAM 90.0 30 5 MG NA Cecil Gipson Md [id number] [place], [place] 1 [id number] 03/04/2024 02/22/2024 Buprenorphine-naloxone 90.0 30 8 MG / 2 MG NA Cecil Gipson Md [id number] PRESCRIPTION # FILLED WRITTE N DRUG LABEL QTY DAYS STRENGTH MME [facility] REFILL NO. REFILLS STATE PATIENT [id number] 11/24/2023 11/09/2023 diazePAM 10.0 10 5 MG NA Cecil Gipson Md [id number] [facility] [place], [place] NA 2 [place] [id number] 11/15/2023 11/09/2023 diazePAM 10.0 10 5 MG NA Cecil Gipson Md [id number] [facility] [place], [place] NA 2 [place] [id number] 2023 11/09/2023 Buprenorphine-naloxone 90.0 30 8 MG / 2 MG NA Cecil Gipson Md [id number] [place] 0 [place] [id number] 11/09/2023 11/09/2023 diazePAM 10.0 10 5 MG NA Cecil Gipson Md [id number] PRESCRIPTION # FILLED WRITTE N DRUG LABEL QTY DAYS STRENGTH MME [facility] REFILL NO. REFILLS STATE PATIENT [id number] 11/24/2023 11/09/2023 diazePAM 10.0 10 5 MG NA Cecil Gipson Md [id number] [facility] [place], [place] NA 2 [place] [id number] 11/15/2023 11/09/2023 diazePAM 10.0 10 5 MG NA Cecil Gipson Md [id number] [facility] [place], [place] NA 2 [place] [id number] 2023 11/09/2023 Buprenorphine-naloxone 90.0 30 8 MG / 2 MG NA Cecil Gipson Md [id number] [facility] [place], [place] 0 [place] [id number] 11/09/2023 11/09/2023 diazePAM 10.0 10 5 MG Cecil Pepper Md [id number] PRESCRIPTION # FILLED WRITTE N DRUG LABEL QTY DAYS STRENGTH MME [facility] REFILL NO. REFILLS STATE PATIENT [id number] 01/10/2024 01/10/2024 diazePAM 60.0 30 5 MG NA Cecil Gipson Md [id number] [place], [place] NA 0 [place] [id number] 01/08/2024 12/25/2023 Buprenorphine-naloxone 90.0 30 8 MG / 2 MG Cecil Pepper Md [id number] [facility], [place], [place] NA 0 [place] [id number] 12/26/2023 12/25/2023 diazePAM 30.0 30 5 MG NA Cecil Gipson Md [id number] [facility] [place], [place] NA 0 [place] [id number] 12/11/2023 11/30/2023 Buprenorphine-naloxone 90.0 30 8 MG / 2 MG NA Cecil Gipson Md [id number] [facility] [place], [place] NA 0 [place] [id number] 11/30/2023 11/30/2023 diazePAM 30.0 30 5 MG NA Cecil Gipson Md [id number] PRESCRIPTION # FILLED WRITTE N DRUG LABEL QTY DAYS STRENGTH MME [facility] REFILL NO. REFILLS STATE PATIENT [id number] 01/10/2024 01/10/2024 diazePAM 60.0 30 5 MG NA Cecil Gipson Md [id number] [facility] [place], [place] NA 0 [place] [id number] 01/08/2024 12/25/2023 Buprenorphine-naloxone 90.0 30 8 MG / 2 MG NA Cecil Gipson Md [id number] [place] NA 0 [place] [id number] 12/26/2023 12/25/2023 diazePAM 30.0 30 5 MG NA Cecil Gipson Md [id number] [place], [place] NA 0 [place] [id number] 12/11/2023 11/30/2023 Buprenorphine-naloxone 90.0 30 8 MG / 2 MG Cecil Pepper Md [id number] [facility] [place], [place] 0 [place] [id number] 11/30/2023 11/30/2023 diazePAM 30.0 30 5 MG NA Cecil Gipson Md [id number] PRESCRIPTION # FILLED WRITTE N DRUG LABEL QTY DAYS STRENGTH MME [facility] REFILL NO. REFILLS STATE PATIENT [id number] 01/10/2024 01/10/2024 diazePAM 60.0 30 5 MG NA Cecil Gipson Md [id number] [place], [place] 0 [place] [id number] 01/08/2024 12/25/2023 Buprenorphine-naloxone 90.0 30 8 MG / 2 MG NA Cecil Gipson Md [id number] [place], [place] 0 [place] [id number] 12/26/2023 12/25/2023 diazePAM 30.0 30 5 MG NA Cecil Gipson Md [id number] [facility] [place], [place] 0 [place] [id number] 12/11/2023 11/30/2023 Buprenorphine-naloxone 90.0 30 8 MG / 2 MG NA Cecil Gipson Md [id number] [place] 0 [place] [id number] 11/30/2023 11/30/2023 diazePAM 30.0 30 5 MG NA Cecil Gipson Md [id number] PRESCRIPTION # FILLED WRITTE N DRUG LABEL QTY DAYS STRENGTH MME [facility] REFILL NO. REFILLS STATE PATIENT [id number] 01/10/2024 01/10/2024 diazePAM 60.0 30 5 MG NA Cecil Gipson Md [id number] [place], [place] 0 [place] [id number] 01/08/2024 12/25/2023 Buprenorphine-naloxone 90.0 30 8 MG / 2 MG NA Cecil Gipson Md [id number] [place], [place] 0 [place] [id number] 12/26/2023 12/25/2023 diazePAM 30.0 30 5 MG NA Cecil Gipson Md [id number] [facility] [place], [place] 0 [place] [id number] 12/11/2023 11/30/2023 Buprenorphine-naloxone 90.0 30 8 MG / 2 MG NA Cecil Gipson Md [id number] [place], [place] 0 [place] [id number] 11/30/2023 11/30/2023 diazePAM 30.0 30 5 MG NA Cecil Gipson Md [id number] PRESCRIPTION # FILLED WRITTE N DRUG LABEL QTY DAYS STRENGTH MME [facility] REFILL NO. REFILLS STATE PATIENT [id number] 01/10/2024 01/10/2024 diazePAM 60.0 30 5 MG NA Cecil Gipson Md [id number] [facility] [place], [place] NA 0 [place] [id number] 01/08/2024 12/25/2023 Buprenorphine-naloxone 90.0 30 8 MG / 2 MG NA Cecil Gipson Md [id number] [facility] [place], [place] 0 [place] [id number] 12/26/2023 12/25/2023 diazePAM 30.0 30 5 MG NA Cecil Gipson Md [id number] [facility] [place], [place] 0 [place] [id number] 12/11/2023 11/30/2023 Buprenorphine-naloxone 90.0 30 8 MG / 2 MG NA Cecil Gipson Md [id number] [facility] [place], [place] 0 [place] [id number] 11/30/2023 11/30/2023 diazePAM 30.0 30 5 MG NA Cecil Gipson Md [id number] PRESCRIPTION # FILLED WRITTEN DRUG LABEL QTY DAYS STRENGTH MME [facility] REFILL NO. REFILLS STATE 06/13/2023 06/13/2023 diazePAM 30.0 30 5 MG NA Jeffrey Joyner - [id number] [place], [place] NA 0 [place] 1 [id number] 06/13/2023 06/13/2023 Buprenorphine And Naloxone 90.0 30 8 MG-2 MG NA Jeffrey Joyner - [id number] [place], [place] 0 [place] 1 [id number] 05/11/2023 05/11/2023 diazePAM 30.0 30 5 MG NA Jeffrey Keenan [id number] [place], [place] NA 0 [place] 1 [id number] 05/11/2023 05/11/2023 Buprenorphine And Naloxone 90.0 30 8 MG-2 MG NA Jeffrey Joyner - [id number] SOCIAL HISTORY- Smoking history--- Smokes tobacco 1/2 ppd Drug/alcohol use Substance Alcohol Denies use Marijuana Smokes marijuana daily cocaine Denies use (tried it years ago 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 Heroin 7157-7356 Fentanyl 2018-02/27/2022 (that was her last use) Meth Addicted for 8 months in 2018 LSD/PCP Denies use IV drugs [phone] OTC/Rx drugs Denies location- [place] Current [place] location- Currently lives in [place], [place] Who lives at home? Currently lives [...] 10th grade Occupation/Job history- Currently employed at [employer], she is working fulltime day shift Hobbies/Interests- Shopping, [employer], watching crime videos, smoking weed, spending time [...] 30 5 MG NA Cecil Gipson Md [id number] [place], [place] NA 0 [place] 1 [id number] 04/01/2024 03/28/2024 Buprenorphine-naloxone 90.0 30 8 MG / 2 MG NA Cecil Gipson Md [id number] [place], [place] NA 0 [place] 1 [id number] 03/28/2024 03/28/2024 diazePAM 90.0 30 5 MG NA Cecil Gipson Md [id number] [facility], [place], [place] NA 0 [place] 1 [id number] 03/06/2024 03/05/2024 diazePAM 90.0 30 5 MG NA Cecil Gipson Md [id number] [place], [place] 0 [place] 1 [id number] 03/04/2024 02/22/2024 Buprenorphine-naloxone 90.0 30 8 MG / 2 MG NA Cecil Gipson Md [id number] PRESCRIPTION # FILLED WRITTEN DRUG LABEL QTY DAYS STRENGTH MME [facility] REFILL NO. REFILLS STATE 04/15/2024 04/15/2024 diazePAM 60.0 30 5 MG NA Cecil Gipson Md [id number] [place], [place] 1 [id number] 04/01/2024 03/28/2024 Buprenorphine-naloxone 90.0 30 8 MG / 2 MG NA Cecil Gipson Md [id number] [facility] [place], [place] 1 [id number] 03/28/2024 03/28/2024 diazePAM 90.0 30 5 MG NA Cecil Gipson Md [id number] [facility] [place], [place] 1 [id number] 03/06/2024 03/05/2024 diazePAM 90.0 30 5 MG NA Cecil Gipson Md [id number] [facility] [place] 1 [id number] 03/04/2024 02/22/2024 Buprenorphine-naloxone 90.0 30 8 MG / 2 MG NA Cecil Gipson Md [id number] PRESCRIPTION # FILLED WRITTEN DRUG LABEL QTY DAYS STRENGTH MME [facility] REFILL NO. REFILLS STATE 04/15/2024 04/15/2024 diazePAM 60.0 30 5 MG NA Cecil Gipson Md [id number] [facility] 1 [id number] 04/01/2024 03/28/2024 Buprenorphine-naloxone 90.0 30 8 MG / 2 MG NA Cecil Gipson Md [id number] [facility], [place] 1 [id number] 03/28/2024 03/28/2024 diazePAM 90.0 30 5 MG NA Cecil Gipson Md [id number] [employer], [place], [place] NA [place] 1 [id number] 03/06/2024 03/05/2024 diazePAM 90.0 30 5 MG NA Cecil Gipson Md [id number] [facility], [place] 1 [id number] 03/04/2024 02/22/2024 Buprenorphine-naloxone 90.0 30 8 MG / 2 MG NA Cecil Gipson Md [id number] PRESCRIPTION # FILLED WRITTEN DRUG LABEL QTY DAYS STRENGTH MME [facility] REFILL NO. REFILLS STATE 06/13/2023 06/13/2023 diazePAM 30.0 30 5 MG NA Jeffrey Keenan [id number] [facility], [place] 1 [id number] 06/13/2023 06/13/2023 Buprenorphine And Naloxone 90.0 30 8 MG-2 MG NA Jeffrey Keenan [id number] [facility] [place], [place] 1 [id number] 05/11/2023 05/11/2023 diazePAM 30.0 30 5 MG NA Murphy Jamal J - [id number] [facility], [place] 1 [id number] 05/11/2023 05/11/2023 Buprenorphine And Naloxone 90.0 30 8 MG-2 MG NA Murphy Jamal J - [id number] SOCIAL HISTORY- Smoking history--- Smokes tobacco 1/2 ppd Drug/alcohol use Substance Alcohol Denies use Marijuana Smokes marijuana daily cocaine Denies use (tried it years ago 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 Heroin 1238-2885 Fentanyl 2017-02/27/2022 (that was her last use) Meth Addicted for 8 months in 2018 LSD/PCP Denies use IV drugs [phone] OTC/Rx drugs Denies location- Born in [place] Current home location- Currently lives in [place], [place] Who lives at home? Currently lives [...] 10th grade Occupation/Job history- Currently employed at [employer], she is working fulltime day shift Hobbies/Interests- [...] 30 5 MG NA Cecil Gipson Md [id number] [employer] [place], [place] 0 [place] 1 [id number] 09/19/2023 09/11/2023 Buprenorphine-naloxone 90.0 30 8 MG / 2 MG NA Cecil Gipson Md [id number] [employer] [facility] [place], [place] 0 [place] 1 [id number] 08/23/2023 08/23/2023 diazePAM 30.0 30 5 MG NA Cecil Gipson Md [id number] [facility] [place], [place] 1 [id number] 08/23/2023 08/23/2023 Buprenorphine-naloxone 90.0 30 8 MG / 2 MG Cecil Pepper Md [id number] SOCIAL HISTORY- Smoking history--- Smokes tobacco 1/2 ppd Drug/alcohol use Substance Alcohol Denies use Marijuana Smokes marijuana daily cocaine Denies use (tried it years ago 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 Heroin 6087-5630 Fentanyl 2017-02/27/2022 (that was her last use) Meth Addicted for 8 months in 2018 LSD/PCP Denies use IV drugs [phone] OTC/Rx drugs Denies location- [place] in [place] Current home location- Currently lives in [place], [place] Who lives at home? Currently lives [...] 10th grade Occupation/Job history- Currently employed at [employer], she is working fulltime day shift Hobbies/Interests- Shopping, social [employer], watching crime videos, smoking weed, spending time [...] 5 MG NA Cecil Gipson Md - [id number] [facility], [place] 1 [id number] 07/24/2023 07/24/2023 Buprenorphine And Naloxone 90.0 30 8 MG-2 MG NA Keri Burks - [id number] [facility], [place] 1 [id number] 06/13/2023 06/13/2023 diazePAM 30.0 30 5 MG NA Jeffrey Joyner - [id number] [facility], [place] 1 [id number] 06/13/2023 06/13/2023 Buprenorphine And Naloxone 90.0 30 8 MG-2 MG NA Jeffrey Berry J - [id number] [employer], [facility], [place], [place] NA 0 [place] 1 [id number] 05/11/2023 05/11/2023 diazePAM 30.0 30 5 MG NA Jeffrey Berry J - [id number] SOCIAL HISTORY- Smoking history--- Smokes tobacco 1/2 ppd Drug/alcohol use Substance Alcohol Denies use Marijuana Smokes marijuana daily cocaine Denies use (tried it years ago 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 Heroin 9679-8843 Fentanyl 2018-02/27/2022 (that was her last use) Meth Addicted for 8 months in 2018 LSD/PCP Denies use IV drugs 7017-3189 OTC/Rx drugs Denies location- [place] in [place] Current [place] location- Currently lives in [place], [place] Who lives at home? Currently lives [...] 10th grade Occupation/Job history- Currently employed at [employer], she is working fulltime day shift [...] 5 MG NA Cecil Gipson Md - [id number] [employer] [place], [place] 0 [place] 1 [id number] 09/19/2023 09/11/2023 Buprenorphine-naloxone 90.0 30 8 MG / 2 MG NA Cecil Gipson Md [id number] [employer] [facility] [place], [place] 0 [place] 1 [id number] 08/23/2023 08/23/2023 diazePAM 30.0 30 5 MG NA Cecil Gipson Md [id number] [employer] [facility] [place], [place] 0 [place] 1 [id number] 08/23/2023 08/23/2023 Buprenorphine-naloxone 90.0 30 8 MG / 2 MG NA Cecil Gipson Md [id number] SOCIAL HISTORY- Smoking history--- Smokes tobacco 1/2 ppd Drug/alcohol use Substance Alcohol Denies use Marijuana Smokes marijuana daily cocaine Denies use (tried it years ago 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 Heroin 3035-0139 Fentanyl 2017-02/27/2022 (that was her last use) Meth Addicted for 8 months in 2018 LSD/PCP Denies use IV drugs 4172-1841 OTC/Rx drugs Denies location- [place] location- Currently lives in [place], [place] Who lives at home? Currently lives [...] 10th grade Occupation/Job history- Currently employed at [employer], she is working fulltime day shift Hobbies/Interests- [...] 5 MG NA Cecil Gipson Md - [id number] [facility], [place] 1 [id number] 07/24/2023 07/24/2023 Buprenorphine And Naloxone 90.0 30 8 MG-2 MG NA [place] Kimmie - [id number] [employer] [place], [place] NA 0 [place] 1 [id number] 06/13/2023 06/13/2023 diazePAM 30.0 30 5 MG NA Jeffrey Joyner - [id number] [employer] [facility] [place], [place] 0 [place] 1 [id number] 06/13/2023 06/13/2023 Buprenorphine And Naloxone 90.0 30 8 MG-2 MG NA Jeffrey Keenan [id number] [employer] [place], [place] 0 [place] 1 [id number] 05/11/2023 05/11/2023 diazePAM 30.0 30 5 MG NA Jeffrey Keenan [id number] SOCIAL HISTORY- Smoking history--- Smokes tobacco 1/2 ppd Drug/alcohol use Substance Alcohol Denies use Marijuana Smokes marijuana daily cocaine Denies use (tried it years ago 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 Heroin 9388-3557 Fentanyl 2017-02/27/2022 (that was her last use) Meth Addicted for 8 months in 2018 LSD/PCP Denies use IV drugs [phone] OTC/Rx drugs [place]ies location- [place] location- Currently lives in [place], [place] Who lives at home? Currently lives [...] 10th grade Occupation/Job history- Currently employed at [employer], she is working fulltime day shift Hobbies/Interests- [...] 30 5 MG NA Cecil Gipson Md [id number] [employer] [place], [place] NA 0 [place] 1 [id number] 09/19/2023 09/11/2023 Buprenorphine-naloxone 90.0 30 8 MG / 2 MG NA Cecil Gipson Md [id number] [employer] [place], [place] 0 [place] 1 [id number] 08/23/2023 08/23/2023 diazePAM 30.0 30 5 MG NA Cecil Gipson Md [id number] [employer] [place], [place] 0 [place] 1 [id number] 08/23/2023 08/23/2023 Buprenorphine-naloxone 90.0 30 8 MG / 2 MG NA Cecil Gipson Md [id number] SOCIAL HISTORY- Smoking history--- Smokes tobacco 1/2 ppd Drug/alcohol use Substance Alcohol Denies use Marijuana Smokes marijuana daily cocaine Denies use (tried it years ago 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 Heroin 8450-6987 Fentanyl 2018-02/27/2022 (that was her last use) Meth Addicted for 8 months in 2018 LSD/PCP Denies use IV drugs 4273-6500 OTC/Rx drugs Denies location- [place] location- Currently lives in [place], [place] Who lives at home? Currently lives [...] 10th grade Occupation/Job history- Currently employed at [employer], she is working fulltime day shift Hobbies/Interests- Shopping, social [employer], watching crime videos, smoking weed, spending time [...] 06/13/2023 diazePAM 30.0 30 5 MG NA Murphy Jamal J - [id number] [facility], [place] 1 [id number] 06/13/2023 06/13/2023 Buprenorphine And Naloxone 90.0 30 8 MG-2 MG NA Murphy Jamal J - [id number] [facility], [place] 0 [place] 1 [id number] 05/11/2023 05/11/2023 diazePAM 30.0 30 5 MG NA Murphy Jamal J - [id number] [facility], [place] 0 [place] 1 [id number] 05/11/2023 05/11/2023 Buprenorphine And Naloxone 90.0 30 8 MG-2 MG NA Murphy Jamal J - [id number] SOCIAL HISTORY- Smoking history--- Smokes tobacco 1/2 ppd Drug/alcohol use Substance Alcohol Denies use Marijuana Smokes marijuana daily cocaine Denies use (tried it years ago 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 Heroin 8072-9822 Fentanyl 2017-02/27/2022 (that was her last use) Meth Addicted for 8 months in 2018 LSD/PCP Denies use IV drugs 5622-2906 OTC/Rx drugs [place]ies location- [place] location- Currently lives in [place], [place] Who lives at home? Currently lives [...] 10th grade Occupation/Job history- Currently employed at [employer], she is working fulltime day shift Hobbies/Interests- [...] 06/13/2023 diazePAM 30.0 30 5 MG NA MurphyFiftyThreelulu Joyner - [id number] [facility], [place] 1 [id number] 06/13/2023 06/13/2023 Buprenorphine And Naloxone 90.0 30 8 MG-2 MG NA Murphy Jamal J - [id number] [facility], [place], [place] NA 0 [place] 1 [id number] 05/11/2023 05/11/2023 diazePAM 30.0 30 5 MG NA Murphy Jamal J - [id number] [facility], [place], [place] NA 0 [place] 1 [id number] 05/11/2023 05/11/2023 Buprenorphine And Naloxone 90.0 30 8 MG-2 MG NA Jeffrey Berry J - [id number] SOCIAL HISTORY- Smoking history--- Smokes tobacco 1/2 ppd Drug/alcohol use Substance Alcohol Denies use Marijuana Smokes marijuana daily cocaine Denies use (tried it years ago 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 Heroin 7844-0721 Fentanyl 2017-02/27/2022 (that was her last use) Meth Addicted for 8 months in 2018 LSD/PCP Denies use IV drugs 7587-0640 OTC/Rx drugs Denies location- [place] location- Currently lives in [place], [place] Who lives at home? Currently lives [...] 10th grade Occupation/Job history- Currently employed at [employer], she is working fulltime day shift Hobbies/Interests- [...] [facility] REFILL NO. REFILLS STATE PATIENT [id number] 11/24/2023 11/09/2023 diazePAM 10.0 10 5 MG NA Cecil Gipson Md - [id number] [facility], [place] NA 2 [place] [id number] 11/15/2023 11/09/2023 diazePAM 10.0 10 5 MG NA Cecil Gipson Md [id number] [facility], [place] NA 2 [place] [id number] 2023 11/09/2023 Buprenorphine-naloxone 90.0 30 8 MG / 2 MG NA Cecil Gipson Md [id number] [facility], [place] 0 [place] [id number] 11/09/2023 11/09/2023 diazePAM 10.0 10 5 MG NA Cecil Gipson Md [id number] PRESCRIPTION # FILLED WRITTEN DRUG LABEL QTY DAYS STRENGTH MME [facility] REFILL NO. REFILLS STATE 04/15/2024 04/15/2024 diazePAM 60.0 30 5 MG NA Cecil Gipson Md [id number] [facility], [place] 0 [place] 1 [id number] 04/01/2024 03/28/2024 Buprenorphine-naloxone 90.0 30 8 MG / 2 MG NA Cecil Gipson Md [id number] [facility], [place] NA 0 [place] 1 [id number] 03/28/2024 03/28/2024 diazePAM 90.0 30 5 MG NA Cecil Gipson Md [id number] [employer] [place], [place] NA 0 [place] 1 [id number] 03/06/2024 03/05/2024 diazePAM 90.0 30 5 MG Cecil Pepper Md [id number] [employer] [facility] [place], [place] 0 [place] 1 [id number] 03/04/2024 02/22/2024 Buprenorphine-naloxone 90.0 30 8 MG / 2 MG NA Cecil Gipson Md [id number] PRESCRIPTION # FILLED WRITTE N DRUG LABEL QTY DAYS STRENGTH MME [facility] REFILL NO. REFILLS STATE PATIENT [id number] 01/10/2024 01/10/2024 diazePAM 60.0 30 5 MG NA Cecil Gipson Md [id number] [facility], [place] NA 0 [place] [id number] 01/08/2024 12/25/2023 Buprenorphine-naloxone 90.0 30 8 MG / 2 MG NA Cecil Gipson Md [id number] [employer] [facility] [place], [place] NA 0 [place] [id number] 12/26/2023 12/25/2023 diazePAM 30.0 30 5 MG NA Cecil Gipson Md [id number] [employer] [place], [place] NA 0 [place] [id number] 12/11/2023 11/30/2023 Buprenorphine-naloxone 90.0 30 8 MG / 2 MG NA Cecil Gipson Md [id number] [employer] [place], [place] NA 0 [place] [id number] 11/30/2023 11/30/2023 diazePAM 30.0 30 5 MG NA Cecil Gipson Md [id number] Problems Problem Type SNOMED Code ICD Code Onset Dates Problem Status W/U Status Risk Notes Problem Tobacco user (562922114) Nicotine dependence, unspecified, uncomplicated (F17.200) Active confirmed Problem Gastroparesis (663414141) Gastroparesis (K31.84) Active confirmed Problem Gastroesophageal reflux disease (304733114) GERD (gastroesophagea l reflux disease) (K21.9) Active confirmed Problem Mood disorder (61244898) Mood disorder (F39) Active confirmed r/o bipolar 1, BPD Problem Posttraumatic stress disorder (91355840) PTSD (post-traumatic stress disorder) (F43.10) 013 Active confirmed Problem Asthma (219062597) Asthma (J45.909) Active conf irmed Problem Psychoactive substance dependence (2736729) Chemical dependency (F19.20) Active confirmed Problem Cannabis abuse (58062845) Cannabis abuse (F12.10) Active confirmed Problem Constipation (69680577) Constipation (K59.00) Active confirmed Problem Overweight (042069154) Over weight (E66.3) Active confirmed Problem Benzodiazepine dependence (640717573) Benzodiazepine dependence (F13.20) Active confirmed Problem Nightmares (350784093) Nightmares (F51.5) Active confirmed Problem Obesity (533674138) Obesity (BMI 30-39.9) (E66.9) Active confirmed Problem Exacerbation of asthma (831572177) Asthma exacerbation (J45.901) Active confirmed Problem Chronic hepatitis C (404292513) Chronic hepatitis C without hepatic coma (B18.2) 023 Active confirmed Problem Obesity (107708044) Obesity, unspecified classification, unspecified obesity type, unspecified whether serious comorbidity present (E66.9) Active confirmed Problem Opioid use disorder (7352393405) Opioid use disorder (F11.99) Active confirmed Problem Dysuria-frequency syndrome (3080482) Dysuria-frequenc y syndrome (N34.3) Active confirmed Problem Lumbosacral nerve root pain (finding) (131153649) Dorsalgia of lumbosacral region (M54.50) Active confirmed Problem Metabolic syndrome (751984765) Metabolic syndrome (E88.810) Active confirmed Vital Signs Heart Rate 112 /min 03/31/2025 Temperature 98.3 degrees Fahrenheit 03/31/2025 Respiratory Rate 16 /min 03/31/2025 Blood pressure diastolic 76 mm Hg 03/31/2025 Oximetry 96 % 03/31/2025 Height 63 in 04/30/2025 Blood pressure systolic 130 mm Hg 03/31/2025 Weight 212 lbs 04/30/2025 BMI 37.55 kg/m2 04/30/2025 Encounters Encounter Location Date Provider Diagnosis [address] [address] 05/21/2024 Cecil Gipson Opioid use disorder F11.99 ; Benzodiazepine dependence F13.20 ; Abdominal pain R10.9 ; Cannabis abuse F12.10 ; Dysuria-frequency syndrome N34.3 and Nicotine dependence, unspecified, uncomplicated F17.[address] [address] 05/29/2024 Cecil Gipson Opioid use disorder F11.99 ; Nightmares F51.5 ; Benzodiazepine dependence F13.20 and Contact with and (suspected) exposure to other communicable diseases Z20.[address] [address] 06/04/2024 Alysha Martin Opioid use disorder F11.99 ; Obesity (BMI 30-39.9) E66.9 ; Nicotine dependence, unspecified, uncomplicated F17.200 and Nutritional counseling Z71.[address] [address] 06/04/2024 Rubi Michaels [address] [address] 06/13/2024 Cecil Gipson Benzodiazepine dependence F13.20 ; Mood disorder F39 ; PTSD (post-traumatic stress disorder) F43.10 and Nicotine dependence, unspecified, uncomplicated F17.[address] [address] 07/04/2024 Cecil Gipson Opioid use disorder F11.99 ; Constipation K59.00 ; Benzodiazepine dependence F13.20 ; PTSD (post-traumatic stress disorder) F43.10 and Gastroparesis K31.[address] [address] 07/09/2024 Serjio Cavanaugh Mood disorder F39 ; PTSD (post-traumatic stress disorder) F43.10 ; Nightmares F51.5 ; Opioid use disorder F11.99 and Nicotine dependence, unspecified, uncomplicated F17.[address] [address] 08/05/2024 Cecil Gipson Nicotine dependence, unspecified, uncomplicated F17.200 and Opioid use disorder F11.[address] [address] 08/15/2024 Cecil Gipson Gastroparesis K31.84 ; Benzodiazepine dependence F13.20 ; Dysuria-frequency syndrome N34.3 and Nicotine dependence, unspecified, uncomplicated F17.[address] [address] 09/04/2024 Serjio Cavanaugh Mood disorder F39 ; PTSD (post-traumatic stress disorder) F43.10 ; Nightmares F51.5 ; Opioid use disorder F11.99 and Nicotine dependence, unspecified, uncomplicated F17.[address] [address] 09/18/2024 Serjio Cavanaugh Mood disorder F39 ; PTSD (post-traumatic stress disorder) F43.10 ; Nightmares F51.5 ; Opioid use disorder F11.99 and Nicotine dependence, unspecified, uncomplicated F17.[address] [place] [address] 09/23/2024 Cecil Gipson Benzodiazepine dependence F13.20 ; Opioid use disorder F11.99 and Nicotine dependence, unspecified, uncomplicated F17.200 [facility] [address] [place] [address] 10/04/2024 Cecil Gipson Opioid use disorder F11.99 ; Gastroparesis K31.84 ; Asthma J45.909 ; Nicotine dependence, unspecified, uncomplicated F17.200 ; Exposure to potential infection Z20.9 ; Benzodiazepine dependence F13.20 ; Fatigue R53.83 ; Metabolic syndrome E88.810 and Constipation K59.00 [facility] [address] [place] [address] 10/25/2024 Cecil Gipson Opioid use disorder F11.99 ; Benzodiazepine dependence F13.20 ; Gastroparesis K31.84 and Constipation K59.[address] [address] 11/27/2024 Serjio Cavanaugh Mood disorder F39 ; PTSD (post-traumatic stress disorder) F43.10 ; Nightmares F51.5 ; Opioid use disorder F11.99 ; Nicotine dependence, unspecified, uncomplicated F17.200 and Nutritional counseling Z71.[address] [address] 12/17/2024 Cecil Gipson Asthma exacerbation J45.901 ; Acute respiratory failure with hypoxia J96.01 ; Opioid use disorder F11.99 ; Gastroparesis K31.84 ; Dorsalgia of lumbosacral region M54.50 ; Constipation K59.00 ; Benzodiazepine dependence F13.20 and Nicotine dependence, unspecified, uncomplicated F17.[address] [address] 01/01/2025 Serjio Cavanaugh Mood disorder F39 ; PTSD (post-traumatic stress disorder) F43.10 ; Nightmares F51.5 ; Opioid use disorder F11.99 ; Nicotine dependence, unspecified, uncomplicated F17.200 and Nutritional counseling Z71.3 [facility] [address] [place] [address] 01/17/2025 Cecil Gipson Acute respiratory failure with hypoxia J96.01 ; Opioid use disorder F11.99 ; Benzodiazepine dependence F13.20 and Asthma J45.[address] [place] [address] 01/29/2025 Serjio Cavanaugh Mood disorder F39 ; PTSD (post-traumatic stress disorder) F43.10 ; Nightmares F51.5 ; Opioid use disorder F11.99 ; Nicotine dependence, unspecified, uncomplicated F17.200 and Nutritional counseling Z71.[address] [place] [address] 02/03/2025 Cecil Gipson Respiratory failure, unspecified, unspecified whether with hypoxia or hypercapnia J96.90 ; Benzodiazepine dependence F13.20 ; Opioid use disorder F11.99 ; GERD (gastroesophageal reflux disease) K21.9 ; Gastroparesis K31.84 and Vapes nicotine containing substance Z72.0 [facility] [place] [address] 02/14/2025 Cecil Gipson Opioid use disorder F11.99 ; Benzodiazepine dependence F13.20 ; Respiratory failure, unspecified, unspecified whether with hypoxia or hypercapnia J96.90 ; Dorsalgia of lumbosacral region M54.50 and Over weight E66.3 [facility] [address] [place] [address] 03/31/2025 Cecil Gipson Benzodiazepine dependence F13.20 ; Respiratory failure, unspecified, unspecified whether with hypoxia or hypercapnia J96.90 ; Over weight E66.3 and Opioid use disorder F11.[address] [place] [address] 04/02/2025 Serjio Cavanaugh Mood disorder F39 ; PTSD (post-traumatic stress disorder) F43.10 ; Nightmares F51.5 ; Opioid use disorder F11.99 and Nicotine dependence, unspecified, uncomplicated F17.[address] [address] 04/30/2025 Camille Peterson Mood disorder F39 ; PTSD (post-traumatic stress disorder) F43.10 ; Nightmares F51.5 ; Opioid use disorder F11.99 and Nicotine dependence, unspecified, uncomplicated F17.[address] [address] 05/01/2025 Cecilleno Gipson Opioid use disorder F11.99 ; Benzodiazepine dependence F13.20 ; Dorsalgia of lumbosacral region M54.50 and Constipation K59.[address] [address] 05/29/2024 Cecil Gipson [facility] [address] [address] 05/29/2024 Cecil Gipson Nightmares F51.5 and Benzodiazepine dependence F13.[address] [address] 06/05/2024 Cecil Gipson Opioid use disorder F11.99 and Benzodiazepine dependence F13.[address] [address] 07/01/2024 Cecil Gipson Dorsalgia of lumbosacral region M54.50 [facility] [address] [place] [address] 07/25/2024 Jamal Murphy Benzodiazepine dependence F13.20 [facility] [address] [address] 08/02/2024 Rubi Michaels [address] [address] 08/09/2024 Cecil Gipson Abdominal pain R10.[address] [address] 09/06/2024 Cecil Gipson Benzodiazepine dependence F13.[address] [address] 09/20/2024 Cecilleno Gipson Benzodiazepine dependence F13.[address] [address] 09/23/2024 Cecilleno Gipson Benzodiazepine dependence F13.20 and Opioid use disorder F11.[address] [address] 09/27/2024 Cecil Gipson [address] [address] 11/18/2024 Serjio Cavanaugh Mood disorder F39 [address] [address] 12/30/2024 Cecil Gipson Dorsalgia of lumbosacral region M54.[address] [address] 01/10/2025 Cecilleno Gipson Benzodiazepine dependence F13.[address] [address] 01/20/2025 Cecil Gipson [address] [address] 01/23/2025 Cecilleno Gipson Opioid use disorder F11.99 and Benzodiazepine dependence F13.[address] [address] 01/29/2025 Serjio Cavanaugh [address] [address] 01/30/2025 Cecilleno Gipson Opioid use disorder F11.99 and Benzodiazepine dependence F13.[address] [address] 02/13/2025 Cecil Gipson [address] [address] 03/12/2025 Cecil Gipson Benzodiazepine dependence F13.20 [facility] [address] [place] [address] 03/26/2025 Serjio Cavanaugh PTSD (post-traumatic stress disorder) F43.10 and Mood disorder F39 [address] [place] [address] 04/24/2025 Cecil Mcraener [address] [place] [address] 08/25/2024 Cecil Gipson Dorsalgia of lumbosacral region M54.50 Assessments Encounter Date Diagnosis (ICD Code) Assessment Notes Treatment Notes Treatment Clinical Notes Section Notes 10/04/2024 Opioid use disorder (ICD-10 - F11.99) 01/17/2025 Acute respiratory failure with hypoxia (ICD-10 - J96.01) AGREES TO GO TO [facility] FOR URGENT EVALUATION AND TREATMENT. SHE UNDERSTANDS THAT SHE RISKS SUDDEN SHOULD SHE AGAIN CHOOSE TO [facility]. 08/09/2024 Abdominal pain (ICD-10 - R10.9) 08/05/2024 Nicotine dependence, unspecified, uncomplicated (ICD-10 - F17.200) 07/25/2024 Benzodiazepine dependence (ICD-10 - F13.20) 09/06/2024 Benzodiazepine dependence (ICD-10 - F13.20) 08/25/2024 Dorsalgia of lumbosacral region (ICD-10 - M54.50) 09/18/2024 Mood disorder (ICD-10 - F39) r/o bipolar 1, BPD Duration (acute/chronic), stability (controlled/uncon trolled): Chronic, mildly uncontrolled Current medications/effic acy: Somewhat, room for improvement Previous medication trials: Trazodone, a big round purple pill, Celexa, Depakote, Keppra Current/previous therapies: Upcoming counseling [...] START duloxetine as prescribed to assist with anxiety/depressio n/PTSD - educated patient/guardian on adverse effects, risks [...] sodium (<2,000mg per day). Consume plenty of fruits/vegetables , healthy grains/whole grains, unsaturated/healt hy fats (liquid at room temperature, such as [...] techniques, such as guided imagery, journaling, aromatherapy, acupuncture/acupr essure, deep breathing, etc. Practice healthy sleep hygiene [...] Continue monitoring symptoms - report persistent or worsening/concern ing symptoms to the office or go to the ER. For MENTAL HEALTH CRISIS, please reach out to [phone] (National Suicide and Crisis Lifeline), 911, go to the emergency department, or contact the [facility] Crisis Unit/Team [phone]. Other helpful numbers include: [facility] Cares Line [phone], [facility] Peer Line [phone], and [facility] Line [phone] Follow up as scheduled in 4 weeks or sooner if necessary. Follow up with PCP and/or other specialists as advised. NEXT STEP: Consider adjusting quetiapine further. Consider increasing duloxetine pending response/tolerabi lity. Consider discussing tapering diazepam. Consider increasing mirtazapine to assist with mood/sleep. Consider adding morning dose of prazosin as needed to assist with PTSD. Consider other medication adjustments/addit ions as needed. 09/04/2024 Mood disorder (ICD-10 - F39) r/o bipolar 1, BPD Duration (acute/chronic), stability (controlled/uncon trolled): Chronic, mildly uncontrolled Current medications/effic acy: Somewhat, room for improvement Previous medication trials: Trazodone, a big round purple pill, Celexa, Depakote, Keppra Current/previous therapies: Upcoming counseling [...] sodium (<2,000mg per day). Consume plenty of fruits/vegetables , healthy grains/whole grains, unsaturated/healt hy fats (liquid at room temperature, such as [...] techniques, such as guided imagery, journaling, aromatherapy, acupuncture/acupr essure, deep breathing, etc. Practice healthy sleep hygiene [...] Continue monitoring symptoms - report persistent or worsening/concern ing symptoms to the office or go to the ER. For MENTAL HEALTH CRISIS, please reach out to 704 ([employer] Suicide and Crisis Lifeline), 911, go to the emergency department, or contact the [facility] Crisis Unit/Team [phone]. Other helpful numbers include: [facility] [facility] [phone], [facility] Peer Line [phone], and [facility] [phone] Follow up as scheduled in 2 weeks or sooner if necessary. Follow up with PCP and/or other specialists as advised. NEXT STEP: Consider switching AM dose to ER formulation to assist with daytime mood/anxiety. Consider discussing tapering diazepam. Consider increasing mirtazapine to assist with mood/sleep. Consider adding morning dose of prazosin as needed to assist with PTSD. Consider other medication adjustments/addit ions as needed. 06/13/2024 Mood disorder (ICD-10 - F39) 06/13/2024 Benzodiazepine dependence (ICD-10 - F13.20) 06/05/2024 Opioid use disorder (ICD-10 - F11.99) 06/04/2024 Obesity (BMI 30-39.9) (ICD-10 - E66.9) 06/04/2024 Opioid use disorder (ICD-10 - F11.99) 05/29/2024 Nightmares (ICD-10 - F51.5) CancelRx Response got Denied on 2024-05-30 10:37:30 for 'Prazosin HCl 5 MG Capsule'Pharmacy Notes: Unable to Cancel Rx. Please contact Pharmacy 05/29/2024 Opioid use disorder (ICD-10 - F11.99) 05/29/2024 Nightmares (ICD-10 - F51.5) 03/26/2025 PTSD (post-traumatic stress disorder) (ICD-10 - F43.10) 03/31/2025 Benzodiazepine dependence (ICD-10 - F13.20) 04/02/2025 Mood disorder (ICD-10 - F39) r/o bipolar 1, BPD Duration (acute/chronic), stability (controlled/uncon trolled): Chronic, mildly uncontrolled, subjectively worse due to situational stressors, see HPI Current medications/effic acy: Somewhat, room for improvement Previous medication trials: Trazodone, a big round purple pill, Celexa, Depakote, Keppra Current/previous therapies: Counseling with daughter. Also did intake a few weeks ago for therapy - previously planned to call and schedule follow up with therapy, unable to assess due to time constraints, will discuss further at future visit Examination as documented - see pertinent aspects of office visit documentation. Pertinent diagnostics: NOT DISCUSSED DUE TO TIME CONSTRAINTS - WILL DISCUSS AT FUTURE APPOINTMENT Differential diagnoses: RECOMMENDATIONS: INCREASE escitalopram as prescribed to assist with anxiety/depressio n - educated patient/guardian on adverse effects, risks and benefits, as well as alternative treatments DECREASE evening prazosin as discussed and ADD low dose doxazosin as prescribed to assist with PTSD/nightmares, will consider transitioning to doxazosin pending response - educated patient/guardian on adverse effects, risks and benefits, as well as alternative treatments Continue other medications as prescribed (Dr. Gipson prescribing diazepam) - educated patient/guardian on adverse effects, risks and benefits, as well as alternative treatments Consume well balanced diet, preferably low in saturated fats (solid at room temperature, such as butter, margarine, Crisco, etc) and low in sodium (<2,000mg per day). Consume plenty of fruits/vegetables , healthy grains/whole grains, unsaturated/healt hy fats (liquid at room temperature, such as [...] techniques, such as guided imagery, journaling, aromatherapy, acupuncture/acupr essure, deep breathing, etc. Practice healthy sleep hygiene [...] Continue monitoring symptoms - report persistent or worsening/concern ing symptoms to the office or go to the ER. For MENTAL HEALTH CRISIS, please reach out to [phone] ([employer] Suicide and Crisis Lifeline), 911, go to the emergency department, or contact the [facility] Crisis Unit/Team [phone]. Other helpful numbers include: [facility] [place] [facility] [phone], [facility] Peer Line [phone], and [facility] [phone] Follow up as scheduled in 4 weeks or sooner if necessary. Follow up with PCP and/or other specialists as advised. NEXT STEP: Consider adjusting quetiapine further. Consider increasing duloxetine. Consider discussing tapering diazepam. Consider increasing mirtazapine to assist with mood/sleep. Consider further adjusting prazosin. Consider other medication adjustments/addit ions as needed. 01/01/2025 Mood disorder (ICD-10 - F39) r/o bipolar 1, BPD Duration (acute/chronic), stability (controlled/uncon trolled): Chronic, mildly uncontrolled Current medications/effic acy: Somewhat, room for improvement Previous medication trials: Trazodone, a big round purple pill, Celexa, Depakote, Keppra Current/previous therapies: Upcoming counseling [...] INCREASE duloxetine as prescribed to assist with anxiety/depressio n/PTSD - educated patient/guardian on adverse effects, risks [...] sodium (<2,000mg per day). Consume plenty of fruits/vegetables , healthy grains/whole grains, unsaturated/healt hy fats (liquid at room temperature, such as [...] techniques, such as guided imagery, journaling, aromatherapy, acupuncture/acupr essure, deep breathing, etc. Practice healthy sleep hygiene [...] Continue monitoring symptoms - report persistent or worsening/concern ing symptoms to the office or go to the ER. For MENTAL HEALTH CRISIS, please reach out to [phone] (National Suicide and Crisis Lifeline), 911, go to the emergency department, or contact the [facility] Crisis Unit/Team [phone]. Other helpful numbers include: [facility] Line [phone], [facility] Peer Line [phone], and [facility] [phone] Follow up as scheduled in 4 weeks or sooner if necessary. Follow up with PCP and/or other specialists as advised. NEXT STEP: Consider adjusting quetiapine further. Consider increasing duloxetine. Consider discussing tapering diazepam. Consider increasing mirtazapine to assist with mood/sleep. Consider further adjusting prazosin. Consider other medication adjustments/addit ions as needed. 12/30/2024 Dorsalgia of lumbosacral region (ICD-10 - M54.50) 12/17/2024 Acute respiratory failure with hypoxia (ICD-10 - J96.01) PER BIRGIT'S CHOICE, SHE WILL PROCEED TO [facility] SOON SHE LEAVES THE OFFICE. CONTACTED THE ED. SHE WISHES TO COMPLIANCE PROGRAM MANAGER MEDS ON HER WAY OUT. OXYGEN 2 L APPLIED. 12/17/2024 Asthma exacerbation (ICD-10 - J45.901) 11/27/2024 Mood disorder (ICD-10 - F39) r/o bipolar 1, BPD Duration (acute/chronic), stability (controlled/uncon trolled): Chronic, mildly uncontrolled Current medications/effic acy: Somewhat, room for improvement Previous medication trials: Trazodone, a big round purple pill, Celexa, Depakote, Keppra Current/previous therapies: Upcoming counseling [...] INCREASE duloxetine as prescribed to assist with anxiety/depressio n/PTSD - educated patient/guardian on adverse effects, risks and benefits, as well as alternative treatments Continue/modify other medications as prescribed (Dr. Giposn prescribing diazepam) - educated patient/guardian on adverse effects, risks and benefits, as well as alternative treatments Consume well balanced diet, preferably low in saturated fats (solid at room temperature, such as butter, margarine, Crisco, etc) and low in sodium (<2,000mg per day). Consume plenty of fruits/vegetables , healthy grains/whole grains, unsaturated/healt hy fats (liquid at room temperature, such as [...] techniques, such as guided imagery, journaling, aromatherapy, acupuncture/acupr essure, deep breathing, etc. Practice healthy sleep hygiene [...] Continue monitoring symptoms - report persistent or worsening/concern ing symptoms to the office or go to the ER. For MENTAL HEALTH CRISIS, please reach out to 988 (National Suicide and Crisis Lifeline), 911, go to the emergency department, or contact the [facility] Crisis Unit/Team [phone]. Other helpful numbers include: [facility]ares Line [phone], [facility] Peer Line [phone], and [facility] [phone] Follow up as scheduled in 4 weeks or sooner if necessary. Follow up with PCP and/or other specialists as advised. NEXT STEP: Consider adjusting quetiapine further. Consider increasing duloxetine pending response/tolerabi lity. Consider discussing tapering diazepam. Consider increasing mirtazapine to assist with mood/sleep. Consider adding morning dose of prazosin as needed to assist with PTSD. Consider other medication adjustments/addit ions as needed. 11/18/2024 Mood disorder (ICD-10 - F39) 09/23/2024 Benzodiazepine dependence (ICD-10 - F13.20) 09/23/2024 Opioid use disorder (ICD-10 - F11.99) 10/25/2024 Opioid use disorder (ICD-10 - F11.99) 01/10/2025 Benzodiazepine dependence (ICD-10 - F13.20) 10/04/2024 Gastroparesis (ICD-10 - K31.84) 08/15/2024 Gastroparesis (ICD-10 - K31.84) PERSISTENT ABD PAIN, BLOATING, INCONSISTENT BOWEL MOVEMENTS. WANTS TO SEE DR. ORTIZ [place]. 08/15/2024 Benzodiazepine dependence (ICD-10 - F13.20) 01/17/2025 Opioid use disorder (ICD-10 - F11.99) [place] PD[place] W/O ISSUES 01/29/2025 Mood disorder (ICD-10 - F39) r/o bipolar 1, BPD Duration (acute/chronic), stability (controlled/uncon trolled): Chronic, mildly uncontrolled, slightly improved with recent medication adjustments, see HPI Current medications/effic acy: Somewhat, room for improvement Previous medication trials: Trazodone, a big round purple pill, Celexa, Depakote, Keppra Current/previous therapies: Counseling with daughter. Also did intake a few weeks ago for therapy - previously planned to call and schedule follow up with therapy, unable to assess due to time constraints, will discuss further at future visit Examination as documented - see pertinent aspects of office visit documentation. Pertinent diagnostics: NOT DISCUSSED DUE TO TIME CONSTRAINTS - WILL DISCUSS AT FUTURE APPOINTMENT Differential diagnoses: RECOMMENDATIONS: Continue medications as prescribed (Dr. Gipson prescribing diazepam) - educated patient/guardian on adverse effects, risks and benefits, as well as alternative treatments Consume well balanced diet, preferably low in saturated fats (solid at room temperature, such as butter, margarine, Crisco, etc) and low in sodium (<2,000mg per day). Consume plenty of fruits/vegetables , healthy grains/whole grains, unsaturated/healt hy fats (liquid at room temperature, such as [...] techniques, such as guided imagery, journaling, aromatherapy, acupuncture/acupr essure, deep breathing, etc. Practice healthy sleep hygiene [...] Continue monitoring symptoms - report persistent or worsening/concern ing symptoms to the office or go to the ER. For MENTAL HEALTH CRISIS, please reach out to 988 ([employer] Suicide and Crisis Lifeline), 911, go to the emergency department, or contact the [facility] Crisis Unit/Team [phone]. Other helpful numbers include: [facility] Cares Line [phone], [facility] Support Peer Line [phone], and [facility] [phone] Follow up as scheduled in 4 weeks or sooner if necessary. Follow up with PCP and/or other specialists as advised. NEXT STEP: Consider adjusting quetiapine further. Consider increasing duloxetine. Consider discussing tapering diazepam. Consider increasing mirtazapine to assist with mood/sleep. Consider further adjusting prazosin. Consider other medication adjustments/addit ions as needed. 01/23/2025 Opioid use disorder (ICD-10 - F11.99) 02/14/2025 Benzodiazepine dependence (ICD-10 - F13.20) 02/14/2025 Opioid use disorder (ICD-10 - F11.99) 03/12/2025 Benzodiazepine dependence (ICD-10 - F13.20) 07/01/2024 Dorsalgia [...] sodium (<2,000mg per day). Consume plenty of fruits/vegetables , healthy grains/whole grains, unsaturated/healt hy fats (liquid at room temperature, such as [...] techniques, such as guided imagery, journaling, aromatherapy, acupuncture/acupr essure, deep breathing, etc. Practice healthy sleep hygiene [...] Continue monitoring symptoms - report persistent or worsening/concern ing symptoms to the office or go to the ER. For MENTAL HEALTH CRISIS, please reach out to 988 (National Suicide and Crisis Lifeline), 911, go to the emergency department, or contact the [facility] Crisis Unit/Team [phone]. Other helpful numbers include: [facility] Line [phone], [facility] Peer Line [phone], and [facility] [phone] Follow up as scheduled or sooner if necessary. Follow up with PCP and/or other specialists as advised. 09/20/2024 Benzodiazepine dependence (ICD-10 - F13.20) 09/23/2024 Benzodiazepine dependence (ICD-10 - F13.20) 05/21/2024 Benzodiazepine dependence (ICD-10 - F13.20) DISCUSSED [...] (ICD-10 - F11.99) DOING WELL WITH SUBOXONE 05/01/2025 Benzodiazepine dependence (ICD-10 - F13.20) WILL CONTINUE DIAZEPAM 13 MG PER DAY BUT CHANGE DOSING TO PREPARE TO TAPER NEXT MONTH. SHE AGREES. 05/01/2025 Opioid use disorder (ICD-10 - F11.99) 04/30/2025 Mood disorder (ICD-10 - F39) r/o bipolar 1, BPD Duration (acute/chronic), stability (controlled/uncon trolled): Chronic, mildly uncontrolled, subjectively worse due to situational stressors, see HPI Current medications/effic acy: Somewhat, room for improvement Previous medication trials: Trazodone, a big round purple pill, Celexa, Depakote, Keppra Current/previous therapies: Counseling with daughter. Also did intake a few weeks ago for therapy - previously planned to call and schedule follow up with therapy, unable to assess due to time constraints, will discuss further at future visit Examination as documented - see pertinent aspects of office visit documentation. Pertinent diagnostics: NOT DISCUSSED DUE TO TIME CONSTRAINTS - WILL DISCUSS AT FUTURE APPOINTMENT Differential diagnoses: RECOMMENDATIONS: INCREASE escitalopram as prescribed to assist with anxiety/depressio n - educated patient/guardian on adverse effects, risks and benefits, as well as alternative treatments DECREASE evening prazosin as discussed and ADD low dose doxazosin as prescribed to assist with PTSD/nightmares, will consider transitioning to doxazosin pending response - educated patient/guardian on adverse effects, risks and benefits, as well as alternative treatments Continue other medications as prescribed (Dr. Gipson prescribing diazepam) - educated patient/guardian on adverse effects, risks and benefits, as well as alternative treatments Consume well balanced diet, preferably low in saturated fats (solid at room temperature, such as butter, margarine, Crisco, etc) and low in sodium (<2,000mg per day). Consume plenty of fruits/vegetables , healthy grains/whole grains, unsaturated/healt hy fats (liquid at room temperature, such as [...] techniques, such as guided imagery, journaling, aromatherapy, acupuncture/acupr essure, deep breathing, etc. Practice healthy sleep hygiene [...] Continue monitoring symptoms - report persistent or worsening/concern ing symptoms to the office or go to the ER. For MENTAL HEALTH CRISIS, please reach out to [phone] ([employer] Suicide and Crisis Lifeline), 911, go to the emergency department, or contact the [facility] Crisis Unit/Team [phone]. Other helpful numbers include: [facility] [place] [facility] [phone], [facility] Peer Line [phone], and [facility] [phone] Follow up as scheduled in 4 weeks or sooner if necessary. Follow up with PCP and/or other specialists as advised. NEXT STEP: Consider adjusting quetiapine further. Consider increasing duloxetine. Consider discussing tapering diazepam. Consider increasing mirtazapine to assist with mood/sleep. Consider further adjusting prazosin. Consider other medication adjustments/addit ions as needed. 02/03/2025 Respiratory failure, unspecified, unspecified whether with hypoxia or hypercapnia (ICD-10 - J96.90) Discussed importance of benzo taper in light of her respiratory failure 02/03/2025 Benzodiazepine dependence (ICD-10 - F13.20) 01/30/2025 Opioid use disorder (ICD-10 - F11.99) 01/30/2025 Benzodiazepine dependence (ICD-10 - F13.20) 02/03/2025 Opioid use disorder (ICD-10 - F11.99) 04/30/2025 PTSD (post-traumatic stress disorder) (ICD-10 - F43.10) See assessment and plan for mood disorder 05/01/2025 Dorsalgia of lumbosacral region (ICD-10 - M54.50) 05/29/2024 Benzodiazepine dependence (ICD-10 - F13.20) BEGIN SLOW BENZO TAPER MONTHLY WITH REFILL 06/04. DECREASE FROM 15 MG PER DAY TO 12.5 MG PER DAY. DISCUSSED WITH BIRGIT AND SHE AGREES TO PROCEED. DISCUSSED THAT SHE MAY NEED TO REMAIN ON A LOW DOSE AT HS DUE TO SEVERE NIGHT TERRORS. 09/23/2024 Opioid use disorder (ICD-10 - F11.99) 07/09/2024 PTSD (post-traumatic stress disorder) (ICD-10 - F43.10) See assessment and plan for mood disorder 07/04/2024 Benzodiazepine dependence (ICD-10 - F13.20) 03/26/2025 Mood disorder (ICD-10 - F39) 02/14/2025 Respiratory failure, unspecified, unspecified whether with hypoxia or hypercapnia (ICD-10 - J96.90) 01/29/2025 PTSD (post-traumatic stress disorder) (ICD-10 - F43.10) See assessment and plan for mood disorder 01/23/2025 Benzodiazepine dependence (ICD-10 - F13.20) 10/25/2024 Benzodiazepine dependence (ICD-10 - F13.20) HAD DETAILED DISCUSSION RE: INAPPROPRIATENESS OF APPLIANCE REPAIRER BENZO USE. BENZO TOLERAANCE. BENZO WITHDRAWAL. NEED FOR TAPER. SHE IS AFRAID OF REDUCTION FROM 15 MG DAILY TO 14 MG DAILY. AGREES TO REMEMBER TO INITAITE COUNSELING AND TO PREPARE HERSELF MENTALLY FOR THAT MINIMAL REDUCTION IN DAILY BENZO DOSE. 01/17/2025 Benzodiazepine dependence (ICD-10 - F13.20) 08/15/2024 Dysuria-frequenc y syndrome (ICD-10 - N34.3) 10/04/2024 Asthma (ICD-10 - J45.909) 09/23/2024 Nicotine dependence, unspecified, uncomplicated (ICD-10 - F17.200) 11/27/2024 PTSD (post-traumatic stress disorder) (ICD-10 - F43.10) See assessment and plan for mood disorder 12/17/2024 Opioid use disorder (ICD-10 - F11.99) 01/01/2025 PTSD (post-traumatic stress disorder) (ICD-10 - F43.10) See assessment and plan for mood disorder 04/02/2025 PTSD (post-traumatic stress disorder) (ICD-10 - F43.10) See assessment and plan for mood disorder 03/31/2025 Respiratory failure, unspecified, unspecified whether with hypoxia or hypercapnia (ICD-10 - J96.90) CONTINUE F/U WITH PULMONOLOGY. HAS SLEEP STUDY UPCOMING. CONTINUE OXYGEN AT 4 LPM BY OK 05/21/2024 Abdominal pain (ICD-10 - R10.9) CHELI SIGNED FOR DR. MASON. TO COMPLETE EVAL AND EXTEND DISABILITY THROUGH 08/22/2024. 05/29/2024 Benzodiazepine dependence (ICD-10 - F13.20) 06/04/2024 Nicotine dependence, unspecified, uncomplicated (ICD-10 - F17.200) 06/05/2024 Benzodiazepine dependence (ICD-10 - F13.20) 06/13/2024 PTSD (post-traumatic stress disorder) (ICD-10 - F43.10) 09/04/2024 PTSD (post-traumatic stress disorder) (ICD-10 - F43.10) See assessment and plan for mood disorder 09/18/2024 PTSD (post-traumatic stress disorder) (ICD-10 - F43.10) See assessment and plan for mood disorder 08/05/2024 Opioid use disorder (ICD-10 - F11.99) 06/13/2024 Nicotine dependence, unspecified, uncomplicated (ICD-10 - F17.200) 09/18/2024 Nightmares (ICD-10 - F51.5) See assessment and plan for mood disorder/PTSD 09/04/2024 Nightmares (ICD-10 - F51.5) Duration (acute/chronic), stability (controlled/uncon trolled): Chronic, improved with current therapy Current medications/effic acy: Somewhat, room for improvement Previous medication trials: [...] sodium (<2,000mg per day). Consume plenty of fruits/vegetables , healthy grains/whole grains, unsaturated/healt hy fats (liquid at room temperature, such as [...] techniques, such as guided imagery, journaling, aromatherapy, acupuncture/acupr essure, deep breathing, etc. Practice healthy sleep hygiene [...] Continue monitoring symptoms - report persistent or worsening/concern ing symptoms to the office or go to the ER. For mental health CRISIS, please reach out to [phone] (National Suicide and Crisis Lifeline), 911, go to the emergency department, or contact the [facility] Crisis Unit/Team. Follow up as scheduled in [...] techniques, such as guided imagery, journaling, aromatherapy, acupuncture/acupres sure, deep breathing, etc. Practice healthy sleep hygiene - maintain regular routine, no caffeine after 1PM, no exercise 1-2 hours prior to bedtime, keep bedroom dark and cool, no TV or electronics while in bed. Consider melatonin as needed. Consider cognitive behavioral therapy for insomnia (CBT-I). Consider/Continue therapy. Manage co-morbid conditions as advised. Continue monitoring symptoms - report persistent or worsening/concernin g symptoms to the office or go to the ER. For MENTAL HEALTH CRISIS, please reach out to 988 (National Suicide and Crisis Lifeline), 911, go to the emergency department, or contact the [facility] Crisis Unit/Team [phone]. Other helpful numbers include: [facility] Line [phone], [facility] Peer Line [phone], and [facility] [phone] Follow up as scheduled or sooner if necessary. Follow up with PCP and/or other specialists as advised. 06/04/2024 Nutritional counseling (ICD-10 - Z71.3) 05/29/2024 Contact with and (suspected) exposure to other communicable diseases (ICD-10 - Z20.89) 05/21/2024 Cannabis abuse (ICD-10 - F12.10) DISCUSSED POSSIBLE LINK TO N/V, GI ISSUES 03/31/2025 Over weight (ICD-10 - E66.3) 03/31/2025 Opioid use disorder (ICD-10 - F11.99) 04/02/2025 Nightmares (ICD-10 - F51.5) See assessment and plan for mood disorder/PTSD 01/01/2025 Nightmares (ICD-10 - F51.5) See assessment and plan for mood disorder/PTSD 12/17/2024 Gastroparesis (ICD-10 - K31.84) 11/27/2024 Nightmares (ICD-10 - F51.5) See assessment and plan for mood disorder/PTSD 08/15/2024 Nicotine dependence, unspecified, uncomplicated (ICD-10 - F17.200) 01/17/2025 Asthma (ICD-10 - J45.909) 10/25/2024 Gastroparesis (ICD-10 - K31.84) CONTINUES TO GAIN WEIGHT DESPITE THIS DIAGNOSIS. 01/29/2025 Nightmares (ICD-10 - F51.5) See assessment and plan for mood disorder/PTSD 02/14/2025 Dorsalgia of lumbosacral region (ICD-10 - M54.50) 07/04/2024 PTSD (post-traumatic stress disorder) (ICD-10 - F43.10) CONTINUE WITH PSYCH AND BH 07/09/2024 Nightmares (ICD-10 - F51.5) Increase prazosin to 6mg nightly at bedtime as prescribed - educated patient/guardian on adverse effects, risks and benefits, as well as alternative treatments Practice stress reduction techniques, such as guided imagery, journaling, aromatherapy, acupuncture/acupr essure, deep breathing, etc. Practice healthy sleep hygiene - maintain regular routine, no caffeine after 1PM, no exercise 1-2 hours prior to bedtime, keep bedroom dark and cool, no TV or electronics while in bed. Consider melatonin as needed. Consider cognitive behavioral therapy for insomnia (CBT-I). Consider/Continue therapy. Manage co-morbid conditions as advised. Continue monitoring symptoms - report persistent or worsening/concern ing symptoms to the office or go to the ER. For MENTAL HEALTH CRISIS, please reach out to [phone] ([facility]), 911, go to the emergency department, or contact the [facility] Crisis Unit/Team [phone]. Other helpful numbers include: Youth Cares Line [phone], [facility] Line [phone], and [facility] Admission Line [phone] Follow up as scheduled or sooner if necessary. Follow up with PCP and/or other specialists as advised. 10/04/2024 Nicotine dependence, unspecified, uncomplicated (ICD-10 - F17.200) 05/01/2025 Constipation (ICD-10 - K59.00) 04/30/2025 Nightmares (ICD-10 - F51.5) See assessment and plan for mood disorder/PTSD 02/03/2025 GERD (gastroesophagea l reflux disease) (ICD-10 - K21.9) 02/03/2025 Gastroparesis (ICD-10 - K31.84) 04/30/2025 Opioid use disorder (ICD-10 - F11.99) Duration (acute/chronic), stability (controlled/uncon trolled): Previous problem, has been without illicit substances since about - follows up with MAT Current medications/effic acy: Yes Previous medication trials: Suboxone Current/previous therapies: Counseling with daughter. Also did intake a few weeks ago for therapy - previously planned to call and schedule follow up with therapy, unable to assess due to time constraints, will discuss further at future visit Examination as documented - see pertinent aspects of office visit documentation. Pertinent diagnostics: NOT DISCUSSED DUE TO TIME CONSTRAINTS - WILL DISCUSS AT FUTURE APPOINTMENT Differential diagnoses: RECOMMENDATIONS: Consider/Continue therapy. Continue substance cessation therapy as needed/prescribed by MAT Manage co-morbid conditions. Continue monitoring symptoms - report persistent or worsening/concern ing symptoms to the office or go to the ER. For mental health CRISIS, please reach out to [phone] ([facility]), 911, go to the emergency department, or contact the [facility] Crisis Unit/Team. Follow up as scheduled or sooner if necessary. Follow up with PCP and/or other specialists as advised. 05/21/2024 Dysuria-frequenc y syndrome (ICD-10 - N34.3) DISCUSSED OAB VS IC VS ANXIETY 07/09/2024 Opioid use disorder (ICD-10 - F11.99) Continue/modify medications as prescribed - educated patient/guardian on adverse effects, risks and benefits, as well as alternative treatments Consume well balanced diet, preferably low in saturated fats (solid at room temperature, such as butter, margarine, Crisco, etc) and low in sodium (<2,000mg per day). Consume plenty of fruits/vegetables , healthy grains/whole grains, unsaturated/healt hy fats (liquid at room temperature, such as [...] techniques, such as guided imagery, journaling, aromatherapy, acupuncture/acupr essure, deep breathing, etc. Practice healthy sleep hygiene [...] Continue monitoring symptoms - report persistent or worsening/concern ing symptoms to the office or go to the ER. Follow up as scheduled or sooner if necessary. Follow up with PCP and/or other specialists as advised. 07/04/2024 Gastroparesis (ICD-10 - K31.84) 02/14/2025 Over weight (ICD-10 - E66.3) 10/25/2024 Constipation (ICD-10 - K59.00) 10/04/2024 Exposure to potential infection (ICD-10 - Z20.9) 12/17/2024 Dorsalgia of lumbosacral region (ICD-10 - M54.50) 01/29/2025 Opioid use disorder (ICD-10 - F11.99) Duration (acute/chronic), stability (controlled/uncon trolled): Previous problem, has been without illicit substances since about - follows up with MAT Current medications/effic acy: Yes Previous medication trials: Suboxone Current/previous therapies: Counseling with daughter. Also did intake a few weeks ago for therapy - previously planned to call and schedule follow up with therapy, unable to assess due to time constraints, will discuss further at future visit Examination as documented - see pertinent aspects of office visit documentation. Pertinent diagnostics: NOT DISCUSSED DUE TO TIME CONSTRAINTS - WILL DISCUSS AT FUTURE APPOINTMENT Differential diagnoses: RECOMMENDATIONS: Consider/Continue therapy. Continue substance cessation therapy as needed/prescribed by MAT Manage co-morbid conditions. Continue monitoring symptoms - report persistent or worsening/concern ing symptoms to the office or go to the ER. For mental health CRISIS, please reach out to [phone] ([facility] Suicide and Crisis [facility]), 911, go to the emergency department, or contact the [facility] Crisis Unit/Team. Follow up as scheduled or sooner if necessary. Follow up with PCP and/or other specialists as advised. 01/01/2025 Opioid use disorder (ICD-10 - F11.99) Duration (acute/chronic), stability (controlled/uncon trolled): Previous problem, has been without illicit substances since about - follows up with MAT Current medications/effic acy: Yes Previous medication trials: Suboxone Current/previous therapies: [...] Continue monitoring symptoms - report persistent or worsening/concern ing symptoms to the office or go to the ER. For mental health CRISIS, please reach out to [phone] ([facility] Suicide and Crisis Lif[facility]), 911, go to the emergency department, or contact the [facility] Crisis Unit/Team. Follow up as scheduled or sooner if necessary. Follow up with PCP and/or other specialists as advised. 04/02/2025 Opioid use disorder (ICD-10 - F11.99) Duration (acute/chronic), stability (controlled/uncon trolled): Previous problem, has been without illicit substances since about - follows up with MAT Current medications/effic acy: Yes Previous medication trials: Suboxone Current/previous therapies: Counseling with daughter. Also did intake a few weeks ago for therapy - previously planned to call and schedule follow up with therapy, unable to assess due to time constraints, will discuss further at future visit Examination as documented - see pertinent aspects of office visit documentation. Pertinent diagnostics: NOT DISCUSSED DUE TO TIME CONSTRAINTS - WILL DISCUSS AT FUTURE APPOINTMENT Differential diagnoses: RECOMMENDATIONS: Consider/Continue therapy. Continue substance cessation therapy as needed/prescribed by MAT Manage co-morbid conditions. Continue monitoring symptoms - report persistent or worsening/concern ing symptoms to the office or go to the ER. For mental health CRISIS, please reach out to [phone] ([place] Suicide and Crisis Lifeline), 911, go to the emergency department, or contact the [facility] Crisis Unit/Team. Follow up as scheduled or sooner if necessary. Follow up with PCP and/or other specialists as advised. 09/04/2024 Opioid use disorder (ICD-10 - F11.99) Duration (acute/chronic), stability (controlled/uncon trolled): Previous problem, has been without illicit substances since about (a little over 2.5 years now) - follows up with MAT Current medications/effic acy: Yes Previous medication trials: Suboxone Current/previous therapies: [...] Continue monitoring symptoms - report persistent or worsening/concern ing symptoms to the office or go to the ER. For mental health CRISIS, please reach out to [phone] ([place] [facility]icide and Crisis Lif[facility]), 911, go to the emergency department, or contact the [facility] Crisis Unit/Team. Follow up as scheduled [...] techniques, such as guided imagery, journaling, aromatherapy, acupuncture/acupres sure, deep breathing, etc. Practice healthy sleep hygiene [...] Continue monitoring symptoms - report persistent or worsening/concernin g symptoms to the office or go to the ER. Follow up as scheduled or sooner if necessary. Follow up with PCP and/or other specialists as advised. 09/18/2024 Opioid use disorder (ICD-10 - F11.99) Duration (acute/chronic), stability (controlled/uncon trolled): Previous problem, has been without illicit substances since about - follows up with MAT Current medications/effic acy: Yes Previous medication trials: Suboxone Current/previous therapies: [...] Continue monitoring symptoms - report persistent or worsening/concern ing symptoms to the office or go to the ER. For mental health CRISIS, please reach out to [phone] ([facility]), 911, go to the emergency department, or contact the [facility] Crisis Unit/Team. Follow up as scheduled or sooner if necessary. Follow up with PCP and/or other specialists as advised. 11/27/2024 Opioid use disorder (ICD-10 - F11.99) Duration (acute/chronic), stability (controlled/uncon trolled): Previous problem, has been without illicit substances since about - follows up with MAT Current medications/effic acy: Yes Previous medication trials: Suboxone Current/previous therapies: [...] Continue monitoring symptoms - report persistent or worsening/concern ing symptoms to the office or go to the ER. For mental health CRISIS, please reach out to [phone] ([facility]), 911, go to the emergency department, or contact the [facility] Crisis Unit/Team. Follow up as scheduled or sooner if necessary. Follow up with PCP and/or other specialists as advised. 09/04/2024 Nicotine dependence, unspecified, uncomplicated (ICD-10 - F17.200) 01/01/2025 Nicotine dependence, unspecified, uncomplicated (ICD-10 - F17.200) Duration (acute/chronic), stability (controlled/uncon trolled): Unknown duration or severity, not discussed today due to time constraints, will discuss at future visit Current medications/effic acy: N/A Previous medication trials: N/A RECOMMENDATIONS: Consider substance cessation therapy as needed - contact office if desiring medication assisted therapy. Manage co-morbid conditions. Continue monitoring symptoms - report persistent or worsening/concern ing symptoms to the office or go to the ER. For mental health CRISIS, please reach out to [phone] ([place] [facility]icide and Crisis Lif[facility]), 911, go to the emergency department, or contact the [facility] Crisis Unit/Team. Follow up as scheduled or sooner if necessary. Follow up with PCP and/or other specialists as advised. NEXT STEP: Consider MAT as needed. 04/02/2025 Nicotine dependence, unspecified, uncomplicated (ICD-10 - F17.200) Duration (acute/chronic), stability (controlled/uncon trolled): Currently vaping, recently quit smoking cigarettes - previously smoked about 1.5-2 packs daily, smoked in this manner since about 2017 Current medications/effic acy: N/A Previous medication trials: N/A RECOMMENDATIONS: Consider substance cessation therapy as needed - contact office if desiring medication assisted therapy. Manage co-morbid conditions. Continue monitoring symptoms - report persistent or worsening/concern ing symptoms to the office or go to the ER. For mental health CRISIS, please reach out to [phone] ([place] [facility]), 911, go to the emergency department, or contact the [facility] Crisis Unit/Team. Follow up as scheduled or sooner if necessary. Follow up with PCP and/or other specialists as advised. NEXT STEP: Consider MAT as needed. 11/27/2024 Nicotine dependence, unspecified, uncomplicated (ICD-10 - F17.200) Duration (acute/chronic), stability (controlled/uncon trolled): Unknown duration or severity, not discussed today due to time constraints, will discuss at future visit Current medications/effic acy: N/A Previous medication trials: N/A RECOMMENDATIONS: Consider substance cessation therapy as needed - contact office if desiring medication assisted therapy. Manage co-morbid conditions. Continue monitoring symptoms - report persistent or worsening/concern ing symptoms to the office or go to the ER. For mental health CRISIS, please reach out to [phone] ([facility] Suicide and Crisis Lif[facility]), 911, go to the emergency department, or contact the [facility] [employer] [facility] Crisis Unit/Team. Follow up as scheduled or sooner if necessary. Follow up with PCP and/or other specialists as advised. NEXT STEP: Consider MAT as needed. 12/17/2024 Constipation (ICD-10 - K59.00) 09/18/2024 Nicotine dependence, unspecified, uncomplicated (ICD-10 - F17.200) Duration (acute/chronic), stability (controlled/uncon trolled): Unknown duration or severity, not discussed today due to time constraints, will discuss at future visit Current medications/effic acy: N/A Previous medication trials: N/A RECOMMENDATIONS: Consider substance cessation therapy as needed - contact office if desiring medication assisted therapy. Manage co-morbid conditions. Continue monitoring symptoms - report persistent or worsening/concern ing symptoms to the office or go to the ER. For mental health CRISIS, please reach out to [phone] ([facility] Suicide and Crisis Lifeline), 911, go to the emergency department, or contact the [facility] [employer] Crisis Unit/Team. Follow up as scheduled or sooner if necessary. Follow up with PCP and/or other specialists as advised. NEXT STEP: Consider MAT as needed. 10/04/2024 Benzodiazepine dependence (ICD-10 - F13.20) 01/29/2025 Nicotine dependence, unspecified, uncomplicated (ICD-10 - F17.200) Duration (acute/chronic), stability (controlled/uncon trolled): Currently vaping, recently quit smoking cigarettes - previously smoked about 1.5-2 packs daily, smoked in this manner since about 2018 Current medications/effic acy: N/A Previous medication trials: N/A RECOMMENDATIONS: Consider substance cessation therapy as needed - contact office if desiring medication assisted therapy. Manage co-morbid conditions. Continue monitoring symptoms - report persistent or worsening/concern ing symptoms to the office or go to the ER. For mental health CRISIS, please reach out to [phone] ([facility] Suicide and Crisis Lif[facility]), 911, go to the emergency department, or contact the [facility] Crisis Unit/Team. Follow up as scheduled or sooner if necessary. Follow up with PCP and/or other specialists as advised. NEXT STEP: Consider MAT as needed. 07/09/2024 Nicotine dependence, unspecified, uncomplicated (ICD-10 - F17.200) 04/30/2025 Nicotine dependence, unspecified, uncomplicated (ICD-10 - F17.200) Duration (acute/chronic), stability (controlled/uncon trolled): Currently vaping, recently quit smoking cigarettes - previously smoked about 1.5-2 packs daily, smoked in this manner since about 2018 Current medications/effic acy: N/A Previous medication trials: N/A RECOMMENDATIONS: Consider substance cessation therapy as needed - contact office if desiring medication assisted therapy. Manage co-morbid conditions. Continue monitoring symptoms - report persistent or worsening/concern ing symptoms to the office or go to the ER. For mental health CRISIS, please reach out to [phone] ([facility]), 911, go to the emergency department, or contact the [facility] Crisis Unit/Team. Follow up as scheduled or sooner if necessary. Follow up with PCP and/or other specialists as advised. NEXT STEP: Consider MAT as needed. 02/03/2025 Vapes nicotine containing substance (ICD-10 - Z72.0) 01/29/2025 Nutritional counseling (ICD-10 - Z71.3) 11/27/2024 Nutritional counseling (ICD-10 - Z71.3) 12/17/2024 Benzodiazepine dependence (ICD-10 - F13.20) 01/01/2025 Nutritional counseling (ICD-10 - Z71.3) 05/21/2024 Nicotine dependence, unspecified, uncomplicated (ICD-10 - F17.200) 12/17/2024 Nicotine dependence, unspecified, uncomplicated (ICD-10 - F17.200) 10/04/2024 Fatigue (ICD-10 - R53.83) 10/04/2024 Metabolic syndrome (ICD-10 - E88.810) 10/04/2024 Constipation (ICD-10 - K59.00) 06/04/2024 Other Client agrees to take medication [...] groups/counseling services. Patient understands that all treating providers/physici ans should be informed of buprenorphine use as [...] Insured Coverage Start Date Coverage End Date [facility] Claims Department [address] [place] [id number] [id number] Birgit Hernandez Self - patient is the insured 2 4 [facility] Claims Department [address] [place] [id number] [phone] Bigrit Hernandez Self - patient is the insured 4 [employer] [facility] [address] [id number] [phone] Birgit Hernandez Self - patient is the insured 3 4 [facility] Claims Department [address] [place] [id number] [phone] Birgit Hernandez Self - patient is the insured 5 Medical (General) History Medical History History ICD Code OUD IBS-Constipation Diverticulitis Surgical History Surgery Date(Month/Year) right elbow-pins placed and removed Hospitalization History Reason Date(Month/Year) Bilateral pneumonia and hypoxia 12/2024 seizures 02/2022
--- NOTE | 2025-06-01 16:07 | WPDSLEEPSTUD ---
Sleep Study Date of Study: 05/13/25 Ordering Provider: Sai Akbar APRN Interpreting Physician: Zeinab Dunn DO Sleep Study Type: Polysomnogram Height: 1.57 m Weight: 96.162 kg Body Mass Index: 38.7 Neck Circumference (inches): 16 [place]: 10 Reason for Sleep Study Daytime hypersomnia Sleep History The patient is a 34-year-old female who had a sleep study ordered by the pulmonary group for evaluation of hypoxemia. The patient rarely awakens from sleep short of breath. She occasionally awakens at night with harbored belching or cough. She frequently snores, and it is loud enough that others complain. She frequently has trouble sleeping when she has a cold. She rarely wakes up gasping for air throughout the night. She occasionally has problems at night breathing that have been observed by herself or others. She constantly sweats excessively at night. She occasionally has heart palpitations or irregular heartbeats during the night. She occasionally falls asleep during the day, but never while driving. She denies cataplexy. She occasionally has trouble at school or work due to sleepiness. She occasionally feels unable to move when waking up or falling asleep. She frequently experiences vivid dream-like scenes upon awakening or falling asleep. She occasionally feels afraid of going to sleep. She constantly has nightmares. She constantly remembers her dreams. She constantly has thoughts racing through her mind. She frequently feels sad or depressed. She constantly has anxiety. She rarely has muscular tension. She rarely notices parts of her body jerk. She rarely kicks during the night. She rarely has crawling and aching feelings in her legs but denies having leg pain during the night. She rarely grinds her teeth. She denies grinding her teeth during sleep and rarely awakens with morning jaw pain. She is occasionally bothered by pain during the day but rarely awakened by pain during the night. She occasionally wakes up feeling stiff in the morning. She occasionally wakes up with sore or aching muscles. She rarely wakes up with pain in the neck, spine, or other joints. She goes to bed at 9 p.m. on both weekdays and weekends. It takes her 1 hour to fall asleep. She wakes up 3-5 times throughout the night to urinate or get something to eat/drink. She is able to fall back asleep relatively quickly. She wakes up at 7 a.m. every morning. She typically gets 7-10 hours of sleep per night. She will stay in bed for 1 hour after waking up in the morning. She currently lives with her aunt. She denies consuming any caffeinated beverages within 2 hours of bedtime. She denies engaging in physical exercise before bedtime. She will read and watch television before falling asleep. She will take naps in the afternoon or the evening, and they are refreshing. She quit smoking cigarettes several months ago. She does vape. 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 She has 3 children ages 8, 12 and 14. She has smoked 1-2 packs of cigarettes per day since she was 19 years old. She smokes marijuana on a somewhat frequent basis. She has history of IV fentanyl dependence but is been in remission since February 26, 2022. She is currently unemployed but previously worked in the [employer]. Code status: Full code Surrogate decision maker: Valentin (significant other) Smoking packs per day: 1 Smoking cigarettes per day: 20.0 Years smoked: 15 Smoking pack-years: 15.00 Smoking status: Current every day smoker Alcohol intake: never Substance use type: former substance user, marijuana and opiates Other substance usage details: former fentanyl user Last use: 3 years Do You Feel Safe in your Home?: Yes Lack of Transportation: No Lack of Food: Never True Current Housing: I Have Housing Concerned About Future Housing: No Difficulty Paying Gas/Electric Bills: No Difficulty Paying for Meds: No Currently Unemployed: No Education: Decline to Answer Difficulty w/ Childcare or Family Care: No Spiritual care concerns: No Medications Home Medications ?Medication ?Instructions ?Recorded ?Confirmed ?Type albuterol sulfate 90 mcg/actuation 1 puff inhalation Q4H PRN 11/14/24 03/24/25 History aerosol inhaler (Ventolin HFA) shortness of breath or wheezing docusate sodium 100 mg capsule 100 mg PO DAILY 11/14/24 03/24/25 History (Colace) escitalopram oxalate 20 mg tablet 20 mg PO DAILY 11/14/24 03/24/25 History metoclopramide HCl 10 mg tablet 10 mg PO ACHS #120 tabs 11/14/24 03/24/25 Rx (Reglan) mirtazapine 45 mg tablet 45 mg PO HS 11/14/24 03/24/25 History prazosin 5 mg capsule 10 mg PO QHS 11/14/24 03/24/25 History quetiapine 300 mg tablet 450 mg PO QHS 11/14/24 03/24/25 History tizanidine 2 mg tablet 2 mg PO QID PRN muscle spasm 11/14/24 03/24/25 History diazepam 5 mg tablet 5 mg PO Q8H 01/17/25 03/24/25 History duloxetine 60 mg capsule,delayed 60 mg PO DAILY 01/17/25 03/24/25 History release prazosin 2 mg capsule 2 mg PO Q12H 01/17/25 03/24/25 History quetiapine 50 mg tablet,extended 100 mg PO DAILY PRN 01/17/25 03/24/25 History release 24 hr appetite/gastroparesis sennosides 8.6 mg tablet (senna) 17.2 mg PO HS 01/17/25 03/24/25 History buprenorphine 8 mg-naloxone 2 mg 2 film buccal .COMPLEX 01/18/25 03/24/25 History sublingual film fluticasone fur. 100 mcg-umeclid 1 inh inhalation Q24H #60 ea 03/24/25 03/24/25 Rx 62.5 mcg-vilant 25 mcg inhalat.powder (Trelegy Ellipta) plecanatide 3 mg tablet (Trulance) 3 mg PO DAILY #90 tabs 04/30/25 04/30/25 Rx famotidine 40 mg tablet 40 mg PO BID #60 tabs 05/08/25 Rx dexlansoprazole 60 mg 60 mg PO DAILY 1 month #30 caps 05/13/25 Rx capsule,biphase delayed release (Dexilant) Sleep Procedure A full night polysomnogram using the [employer] multi-channel system recorded the standard physiologic parameters including EEG, EOG, submentalis EMG, anterior tibialis EMG, EKG, body position, nasal and oral airflow using nasal pressure sensor and thermistor.? Respiratory parameters of chest and abdominal movements were recorded with Respiratory Inductance Plethysmography belts. Oxygen saturation was recorded by pulse oximetry. Video monitoring was also performed. Sleep stages, periodic limb movements, and EEG arousals were scored in 30 second epochs according to the criteria of the AASM Scoring Manual. The Apnea-Hypopnea Index was calculated using CMS guidelines for definition of hypopnea with 4% O2 desaturations while scoring respiratory events. Sleep Architecture The total recording time was 417.9 minutes.? The total sleep time was 400.0 minutes. Sleep latency was 0.3 minutes. REM latency was 231.0 minutes. Sleep efficiency was 95.7%. The patient had 4 awakenings for an awakening index of 0.6. Wake after sleep onset time was 18.0 minutes. The patient spent 19.5 minutes, 4.9% of total sleep time in Stage N1. The patient spent 200.0 minutes, 50.0% in Stage N2. The patient spent 130.0 minutes, 32.5% in Stage N3. The patient spent 50.5 minutes, 12.6% in Stage REM sleep. Respiratory Analysis The patient had 13 hypopneas and 5 central apneas for an overall Apnea Hypopnea Index of 2.7. The REM Apnea Hypopnea Index was 5.9. The NREM Apnea Hypopnea Index was 2.2. The patient had a Central Apnea Hypopnea Index of 0.8. There was no evidence of Joby-Moyer Respirations. Arousals There were 78 total arousals for an arousal index of 11.7. There were 62 spontaneous arousals for an index of 9.3. There were 3 arousals due to respiratory events for an index of 0.5. There were 7 arousals due to periodic limb movements for an index of 1.1.? There were 6 arousals due to isolated limb movements for an index of 0.9. Periodic Limb Movements The patient had 66 isolated limb movements with an index of 9.9. The patient had 53 periodic limb movements with an index of 8.0. Patient had a total of 119 limb movements with a total limb movement index of 17.9. Oximetry Data The patient had an average oxygen saturation of 89.1% in sleep with a minimum oxygen saturation of 82.0% and a maximum oxygen saturation of 94.0%. The patient had 16 oxygen desaturations that were 4% or greater resulting in an Oxygen Desaturation Index of 2.4.? The patient spent 167.2 minutes, 40.8% of total sleep time with an oxygen saturation below 88%. Snoring Profile Snores were rare throughout the study. Cardiac Profile The EKG showed normal sinus rhythm. No arrhythmias or premature beats were seen.The patient had an average pulse rate of 57.4 bpm with a minimum pulse of rate of 45.0 bpm and a maximum pulse rate of 136.0 bpm.? EEG Profile No signs of seizure activity seen. Alpha intrusion was present throughout the study. Assessment and Plan Assessment and Plan (1) Nocturnal hypoxemia: Code(s): G47.34 - Idiopathic sleep related nonobstructive alveolar hypoventilation Status: Acute Assessment and Plan: The patient had an overall AHI of 2.7 with desaturation down to 82%. This is not consistent with sleep-disordered breathing. The patient was started on supplemental oxygen at 1 lpm during the study due to hypoxemia in the absence of respiratory events. The patient had an SpO2 of 88% while on 1 lpm of O2. I recommend that the patient use 2 lpm of supplemental oxygen while sleeping. Alpha intrusion, also known as alpha-delta sleep, is an EEG finding where alpha waves are present during NREM sleep. Alpha waves are typically present in wake. While alpha intrusion can be seen in a small subset of healthy individuals, it is often found in patients with depression, fibromyalgia, chronic pain and other sleep disorders. Clinically, alpha intrusion presents as non-restorative sleep. Treatment of alpha intrusion is directed towards the underlying cause. Data The data obtained during this sleep study is adequate for interpretation. Certification This sleep study has been reviewed by a board certified sleep medicine physician.
[2025-06-04 14:20] VITALS: BMI 38.7
== END 2025-05-14 07:44 | disposition home or self-care (01) ==
LOC: ANHCSM 08:26
PROVIDERS: PCP Internal Medicine; Visit Provider Nurse Practitioner Family
DX: G47.30 Sleep apnea, unspecified (principal); G47.34 Idiopathic sleep related nonobstructive alveolar hypoventilation
CPT/HCPCS: 95810